=== PATIENT | male | born 1975 | race Caucasian/White ===

== ENCOUNTER 2020-09-02 08:32 | Outpatient (REF) | payer OTHER, SELFPAY ==
--- NOTE | ~2020-09-02 | CT_ITS ---
EXAMINATION: CT ABDOMEN AND PELVIS WITH CONTRAST CLINICAL INFORMATION: Left lower quadrant pain COMPARISON: None TECHNIQUE: Multidetector volumetric images were obtained from the superior aspect of the liver through the pubic symphysis following administration 85 mL of Omnipaque 350 intravenous contrast. Sagittal and coronal reformatted images were obtained on the technologist's workstation. Oral contrast: Yes This CT examination was performed using dose optimization techniques as appropriate, variously including the following: *Automated exposure control *Adjustment of mA and/or kV according to patient size (this includes techniques or standardized protocols for targeted exams where dose is matched to indication/reason for exam; i.e. extremities or head) *Use of iterative reconstruction technique DLP: 312 mGy-cm FINDINGS: LUNG BASES: The visualized lung bases are unremarkable. LIVER, GALLBLADDER, AND BILIARY TREE: Fatty enlarged liver. Postcholecystectomy. No focal liver lesion or biliary duct dilatation. PANCREAS: Unremarkable. SPLEEN: Unremarkable. ADRENAL GLANDS: Unremarkable. KIDNEYS AND URETERS: The kidneys are normal in size, shape, and attenuation. No hydronephrosis, hydroureter, or calculi seen. No perinephric stranding. BLADDER: Unremarkable. GASTROINTESTINAL TRACT: There is mild diverticulosis of the colon. No evidence of diverticulitis is seen. The small and large bowel is otherwise unremarkable. The stomach and appendix are unremarkable. ABDOMINAL WALL: Small umbilical hernia containing fat. LYMPH NODES: Normal. VASCULAR: Unremarkable. PELVIC VISCERA: Unremarkable. OSSEOUS STRUCTURES: Spondylolysis, grade 1 spondylolisthesis and degenerative disc disease at L5-S1. CT/CT abdomen pelvis w con IMPRESSION: Diverticulosis of the colon. No evidence of diverticulitis. Enlarged fatty liver.
[2020-09-02] MEDS: iohexoL 350 MG/ML 100 ML INFUS..BTL IV (10:24)
== END 2020-09-02 08:33 | disposition home or self-care (01) ==
LOC: HO.CT 08:32
PROVIDERS: PCP Nurse Practitioner Family; Visit Provider Nurse Practitioner Family
DX: R10.32 Left lower quadrant pain (principal)
CPT/HCPCS: 74177; Q9967

== ENCOUNTER 2022-12-31 15:15 | Outpatient (AMB) | payer OTHER, SELFPAY ==
--- NOTE | 2022-12-31 15:16 | MHC.OFFWIV ---
Intake Vital Signs 12/31/22 15:44 Weight 160 lb BP 120/70 Blood Pressure Location Rt brachial Position Sitting Pulse 87 Pulse Source Pulse Oximeter Temp 98.4 F Temp Source Temporal Artery Scan Pulse Oximetry (%) 97 Oxygen Delivery Method Room Air Intake Visit Reasons: EP, laryngitis Intake Note: pt is here today for laryngitis Patient Tobacco Use Status: Current everyday Tobacco user Allergies chantix Allergy (Unknown, Uncoded 12/31/22 15:59) sleep walking Medication List - Last Reconciled 12/31/22 by Alex Peralta MD nicotine 1 patch transdermal Q24H 28 days Do you need a note to return to daycare/school/sports/work: No HPI EP, laryngitis HPI Details Patient presents for a sick visit. Reporting symptoms of sinus congestion, sore throat and difficulty swallowing. Low-grade fever. No family member is sick. No recent travel. Patient reports symptoms of malaise and fatigue. [facility] Social History Alcohol intake: current Alcohol intake frequency: 3 or more drinks per day Patient Tobacco Use Status: Current everyday Tobacco user Cigarette Packs Per Day: 1.5 Years Smoked: 13 years old e-Cigarette/Vaping Use: Never Used Physical Exam Vital Signs: Last Vital Signs Temp 98.4 F 12/31/22 15:44 Pulse 87 12/31/22 15:44 BP 120/70 12/31/22 15:44 Pulse Ox 97 12/31/22 15:44 Oxygen Delivery Method Room Air 12/31/22 15:44 Const General: cooperative and healthy appearing Nutritional Appearance: well nourished Orientation/consciousness: patient oriented x3 Limitations: no limitations HEENT Head: Yes normal to inspection Eyes General: appearance normal, both eyes and all related structures Neck Neck: Yes normal visual inspection Chest Chest palpation & inspection: normal palpation of entire chest wall Resp Effort & Inspection: normal respiratory effort Neuro General: patient oriented x3 Results AMB Rapid Strep AMB Rapid Strep Negative Last Edit by Vishal Noel CMA on 12/31/22 15:54 Assessment & Plan Assessment & Plan (1) Upper respiratory tract infection: Code(s): J06.9 - Acute upper respiratory infection, unspecified Plan: Antibiotics called in. Symptoms not better to follow-up here. Saltwater gargling suggested. Orders: Orders AMB Rapid Strep Screen Today Z13.9 - Encounter for screening, unspecified Coding Level of Care Code Est Pt Level 3 (92444) Diagnoses Upper respiratory tract infection J06.9
[2022-12-31 15:44] VITALS: BP 120/70; PULSE 87; TEMP 36.9; O2SAT 97
== END 2022-12-31 16:22 | disposition home or self-care (01) ==
PROVIDERS: PCP Nurse Practitioner Family; Visit Provider Internal Medicine
DX: J06.9 Acute upper respiratory infection, unspecified (principal); J02.9 Acute pharyngitis, unspecified
CPT/HCPCS: 87880; 99213

== ENCOUNTER 2024-08-21 16:12 | Outpatient (AMB) | payer OTHER, SELFPAY ==
--- NOTE | 2024-08-21 16:11 | MHC.PC.OV ---
Vital Signs 08/21/24 16:16 Height 5 ft 4.17 in Weight 143 lb BMI 24.4 BP 114/58 L Respiration 12 Pulse 78 Pulse Source Pulse Oximeter Temp 98.1 F Temp Source Temporal Artery Scan Pulse Oximetry (%) 96 Oxygen Delivery Method Room Air Intake Visit Reasons: establish care School Community Relations Coordinator Required: No Accompanied by: Self / Same As Patient Allergies chantix Allergy (Unknown, Uncoded 08/21/24 16:35) sleep walking Medication List - Last Reconciled 08/21/24 by Dara Link PA-C No Known Home Meds Tobacco use date assessed: 08/21/24 Dental Screening Dental Screen Date: 08/21/24 Did you have a dental visit in the last 12 months?: Yes Did you have a dental problem in the last 6 months where you did not have access to dental care?: No Was dental information given to patient?: Patient has dentist HPI establish care HPI Details The patient is a 48-year-old male presenting to establish a new primary care provider along with an annual physical examination. He reports he has not seen a primary care provider in over 20 years. The patient reports symptoms consistent with carpal tunnel syndrome, including numbness and tingling in both hands, particularly at night and while driving. He has been using a hand splint during sleep, which provides some relief, but symptoms persist, indicating a positive Tinel's sign. 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 The cyst occasionally discharges malodorous pus, suggesting the need for surgical intervention to remove the cyst sac. The patient smokes two packs of cigarettes daily and consumes alcohol regularly, yet he maintains a routine of exercising every other day. He has no significant medical history of chronic conditions, although he suspects undiagnosed ADHD. Family history includes a father who had diabetes and at 67, and a mother with dementia in her late 60s. 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 - Substance Use: Smokes two packs of cigarettes daily and consumes alcohol regularly. - Exercise: Engages in physical activity every other day. - Family Status: Has children aged 26, 22, 20, and 11. [facility] Medical History (Updated 08/21/24 @ 17:04 by Dara Link PA-C) Annual physical exam Decreased hearing Dermoid cyst of eyebrow Carpal tunnel syndrome on both sides Colon cancer screening Family history of dementia Establishing care with new doctor, encounter for Family history of diabetes mellitus Family history of myocardial infarction Surgical History History of vasectomy Family History Mother Dementia Father Heart attack Social History Housing: House Alcohol intake: current Alcohol intake frequency: 3 or more drinks per day Patient Tobacco Use Status: Current everyday Tobacco user Cigarette Packs Per Day: 1.5 Cigarettes Per Day: 30 Years Smoked: 13 years old Current occupational status: employed Cognitive needs: No Hearing needs: No Vision needs: Yes (rx glasses) Questionnaire PHQ-9 Over the last 2 weeks, how often have you been bothered by any of the following problems? 1. Little interest or pleasure in doing things: not at all 2. Feeling down, depressed, or hopeless: not at all 3. Trouble falling or staying asleep, or sleeping too much: not at all 4. Feeling tired or having little energy: not at all 5. Poor appetite or overeating: not at all 6. Feeling bad about yourself - or that you are a failure or have let yourself or your family down: not at all 7. Trouble concentrating on things, such as reading the newspaper or watching television: not at all 8. Moving or speaking so slowly that other people could have noticed. Or the opposite - being so fidgety or restless that you have been moving around a lot more than usual: not at all 9. Thoughts that you would be better off or of hurting yourself in some way: not at all Total score: 0 Depression Screening Interpretation: Negative Depression Screening Done: Yes 08581 - PHQ-9 Billing: Yes Source: Developed by Drs. Amado Ca, Christi Davis, Gus Valentin and colleagues, with an educational rodri from [employer]. Thrive Questionnaire Date Thrive assessed: 08/21/24 I am a: Patient What is your living situation today?: I have a steady place to live Within the past 12 months, did the food you bought not last and you didn't have the money to get more?: Never true Within the past 12 months, did you worry whether your food would run out before you got money to buy more?: Never true Do you have trouble paying for medicines?: No Do you have trouble getting transportation to medical appointments?: No Do you have trouble paying your heating and electricity bill?: No Do you have trouble taking care of your child, family member or friend?: No Do you have trouble with day-to-day activities such as bathing, preparing meals, shopping, managing finances, etc.?: No Are you currently unemployed and looking for a job?: No Are you interested in more education?: No Please select the resources that you would like help with: None THRIVE Score: 0 AUDIT C Alcohol Use Questionnaire (AUDIT-C) 1. How often do you have a drink containing alcohol?: 4 or more times a week 2. How many drinks containing alcohol do you have on a typical day when you are drinking?: 3 or 4 3. How often do you have six or more drinks on one occasion?: Weekly Total Score: 8 Score Reviewed/Action Taken: No DARREN-7 AMB Questionnaire DARREN-7 Date DARREN - 7 assessed: 08/21/24 Feeling nervous, anxious, or on edge: 0 = Not at all Not being able to stop or control worryin = Not at all Worrying too much about different things: 0 = Not at all Trouble relaxin = Not at all Being so restless that it is hard to sit still: 0 = Not at all Becoming easily annoyed or irritable: 0 = Not at all Feeling afraid as if something awful might happen: 0 = Not at all Total DARREN-7 score (0-4 normal; 5-9 mild; 10-14 moderate; 15-21 severe): 0 Source: Developed by Drs. Amado Ca, Christi Davis, Gus Valentin and colleagues, with an educational rodri from [employer]. DARREN-7 Assessment Billing DARREN-7 Assessment Tool: DARREN-7 Assessment 57328 Review of Systems Const Details: - Neurological: Reports numbness and tingling in both hands, particularly at night and while driving. - Dermatological: Reports recurrent cyst on the eye with malodorous pus discharge. - Cardiovascular: Denies chest pain, palpitations, or leg swelling. - Gastrointestinal: Denies abdominal pain or changes in bowel habits. Physical exam (Primary Care) Vital Signs: Last Vital Signs Temp 98.1 F 08/21/24 16:16 Pulse 78 08/21/24 16:16 Resp 12 08/21/24 16:16 BP 114/58 L 08/21/24 16:16 Pulse Ox 96 08/21/24 16:16 Oxygen Delivery Method Room Air 08/21/24 16:16 Care Plan Goal for BP management: <140/90 at Goal BMI result Body Mass Index 24.4 normal bmi Tobacco/Smoking Status: Tobacco use Status Tobacco use date assessed 08/21/24 08/21/24 16:21 Patient Tobacco Use Status Current everyday Tobacco 08/21/24 16:21 e-Cigarette/Vaping Use 08/21/24 16:21 PHQ-9: PHQ-9 Score PHQ-9: Total score 0 08/21/24 16:21 Depression Screening Interpretation: Negative Thrive Assessment: Date of Thrive Assessment Date Thrive assessed 08/21/24 08/21/24 16:21 Const Other: Appearance: Alert. Oriented X3. No acute distress. Head: Normal external exam. Normocephalic. Atraumatic. Eyes: Pupils are equal, round, and reactive to light. Extraocular movements intact. Conjunctiva and sclera normal. Eyelids normal. Cysts noted on the eye. Ears: External auditory canal normal. Tympanic membranes normal. Hearing exam recommended due to decreased hearing. Throat: Pharynx normal. Uvula midline. Moist mucous membranes. Neck: Normal inspection. Neck supple. Full range of motion. No adenopathy. Thyroid Normal. No meningeal signs. No neck mass noted. Cardiovascular: Normal heart rate and rhythm. Heart sound normal. No murmurs noted. Pulses normal throughout. Respiratory: No respiratory distress. Painless inspiration. Breath sounds normal. No wheezes/rales/rhonchi noted. Chest nontender. No accessory muscle usage noted or decreased air movement noted. Abdomen: Soft and nontender. Bowel sounds normal in all 4 quadrants. No distention noted. No organomegaly noted. No visible injury noted. Back: No costovertebral angle tenderness. Full range of motion noted. Skin: Skin warm and dry. Normal skin color. Normal skin turgor. No rashes/lesions/lacerations noted. Cysts noted on the skin. Extremities: No lower extremity edema. Extremities exhibit normal range of motion. Extremities nontender. Positive Tinel sign indicating carpal tunnel syndrome. Neuro: Oriented X 3. No motor deficit. No sensory deficit. Reflexes normal. Coding Level of Care Code New Pt Level 4 (04852) New Pt Prev Care 40-64y(00969) Diagnoses Establishing care with new doctor, encounter for Z76.89 Annual physical exam Z00.00 Carpal tunnel syndrome on both sides G56.03 Colon cancer screening Z12.11 Decreased hearing H91.90 Dermoid cyst of eyebrow D23.39 Additional Codes PHQ-9 - 93213 - PHQ-9 Billing: Yes ([id number]) DARREN-7 Assessment Billing - DARREN-7 Assessment Tool: DARREN-7 Assessment [id number] ([id number]) Assessment & Plan Assessment & Plan (1) Establishing care with new doctor, encounter for: Code(s): Z76.89 - Persons encountering health services in other specified circumstances Category: Medical Plan: Patient had a normal exam today (2) Annual physical exam: Code(s): Z00.00 - Encounter for general adult medical examination without abnormal findings Category: Medical Plan: Patient had a normal exam today (3) Carpal tunnel syndrome on both sides: Code(s): G56.03 - Carpal tunnel syndrome, bilateral upper limbs Category: Medical Plan: A referral to orthopedics is considered for further evaluation, including potential surgical intervention if conservative measures fail. Patient declined PT referral at this time. Condition is chronic and stable continue to monitor. (4) Colon cancer screening: Code(s): Z12.11 - Encounter for screening for malignant neoplasm of colon Category: Medical Plan: The patient will undergo colon cancer screening using Cologuard, a non-invasive stool test, to detect potential colorectal abnormalities. Instructions were provided on how to complete the test at home, with follow-up based on results. (5) Decreased hearing: Code(s): H91.90 - Unspecified hearing loss, unspecified ear Category: Medical Plan: Patient reports chronic decreased hearing. Normal tympanic membranes and external ear canals and mastoids. No cerumen impaction. Will refer to ENT. Condition is chronic and stable continue to monitor. (6) Dermoid cyst of eyebrow: Code(s): D23.39 - Other benign neoplasm of skin of other parts of face Category: Medical Plan: The patient will be referred to dermatology for surgical removal of the epidermal inclusion cyst to prevent recurrence and manage symptoms. Condition is chronic and stable will continue to monitor. Plan Plan Patient was informed and verbally consented to the use of an ambient scribe for clinic note documentation during this visit. 1. Carpal Tunnel Syndrome A referral to orthopedics is considered for further evaluation, including potential surgical intervention if conservative measures fail. Patient declined PT referral at this time. Condition is chronic and stable continue to monitor. 2. Epidermal Inclusion Cyst The patient will be referred to dermatology for surgical removal of the epidermal inclusion cyst to prevent recurrence and manage symptoms. 3. Preventative Care: Colon Cancer Screening With Cologuard The patient will undergo colon cancer screening using Cologuard, a non-invasive stool test, to detect potential colorectal abnormalities. Instructions were provided on how to complete the test at home, with follow-up based on results. During the visit, I discussed the management of carpal tunnel syndrome, including the use of splints and potential referral to physical therapy (LDL patient declined PT at this time, and orthopedics for further evaluation. We also reviewed the need for dermatological intervention for the epidermal inclusion cyst, emphasizing the importance of removing the cyst sac to prevent recurrence. For colon cancer screening, I explained the Cologuard test process, its benefits, and the follow-up steps based on the results. Orders: Orders C Reactive Protein Today Z00.00 - Encounter for general adult medical examination without abnormal findings Hemoglobin A1c Today Z00.00 - Encounter for general adult medical examination without abnormal findings Comprehensive [place]. Panel Fast Today Z00.00 - Encounter for general adult medical examination without abnormal findings Liver Panel Today Z00.00 - Encounter for general adult medical examination without abnormal findings Lipid Panel Today Z00.00 - Encounter for general adult medical examination without abnormal findings Magnesium Today Z00.00 - Encounter for general adult medical examination without abnormal findings Vitamin B12 and Folate Today Z00.00 - Encounter for general adult medical examination without abnormal findings Vitamin D 25-OH Total Today Z00.00 - Encounter for general adult medical examination without abnormal findings Testosterone, Total Today Z00.00 - Encounter for general adult medical examination without abnormal findings DHEA Sulfate Today Z00.00 - Encounter for general adult medical examination without abnormal findings PSA,Total (Free>4and<10) Today Z00.00 - Encounter for general adult medical examination without abnormal findings TSH reflex Free T4 Today Z00.00 - Encounter for general adult medical examination without abnormal findings Complete Blood Count Auto Diff Today Z00.00 - Encounter for general adult medical examination without abnormal findings Testosterone, Free/Total Today Z00.00 - Encounter for general adult medical examination without abnormal findings Dihydrotestosterone Today Z00.00 - Encounter for general adult medical examination without abnormal findings Referrals Dermatology Referral D23.39 - Other benign neoplasm of skin of other parts of face Ear/Nose/Throat Referral H91.90 - Unspecified hearing loss, unspecified ear Cologuard Test Z12.11 - Encounter for screening for malignant neoplasm of colon Orthopedics Referral G56.03 - Carpal tunnel syndrome, bilateral upper limbs Medications: New multivitamin (Daily Multi-Vitamin tablet) 1 tab PO DAILY Patient Instructions: - Use hand splints at night to alleviate carpal tunnel symptoms. - Complete the Cologuard test as instructed and return it promptly. - Schedule orthopedics, and dermatology as discussed. - Avoid eating or drinking anything other than water or black coffee before blood tests.
[2024-08-21 16:16] VITALS: BP 114/58; PULSE 78; RESP 12; TEMP 36.7; O2SAT 96; BMI 24.4
== END 2024-08-21 16:57 | disposition home or self-care (01) ==
LOC: HO.HMCSH 16:12
PROVIDERS: PCP Internal Medicine; Visit Provider Physician Assistant Medical
DX: Z00.00 Encounter for general adult medical examination without abnormal findings (principal); G56.03 Carpal tunnel syndrome, bilateral upper limbs; H91.93 Unspecified hearing loss, bilateral; D23.39 Other benign neoplasm of skin of other parts of face; Z76.89 Persons encountering health services in other specified circumstances; Z12.11 Encounter for screening for malignant neoplasm of colon

== ENCOUNTER → 2024-08-21 16:12 | Outpatient (BNVA) | payer OTHER, SELFPAY | PROVIDERS: PCP Internal Medicine; Visit Provider Physician Assistant Medical | DX: Z00.00 Encounter for general adult medical examination without abnormal findings (principal); G56.03 Carpal tunnel syndrome, bilateral upper limbs; H91.90 Unspecified hearing loss, unspecified ear; D23.39 Other benign neoplasm of skin of other parts of face; F17.210 Nicotine dependence, cigarettes, uncomplicated; Z76.89 Persons encountering health services in other specified circumstances | CPT/HCPCS: 96127 ==

== ENCOUNTER 2024-09-23 11:33 | Outpatient (REF) | payer OTHER, SELFPAY ==
--- OUTSIDE RECORDS SUMMARY | 2024-09-23 13:42 | XMS_ITS | Clinical Summary ---
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 30 tablet 10/21/19 25 Active Active Problems Problem Noted Date Diagnosed Date Acute metabolic encephalopathy 09/19/2024 Acute hepatic failure 09/19/2024 Acute hypoxic respiratory fa ilure (HCC) s/p intubation now extubated 09/19/2024 REMY (acute kidney injury) 09/19/2024 Tylenol ingestion, intentional self-harm, initia l encounter 09/19/2024 Hematemesis 09/13/2024 Encounters Date Type Department Care Team Description 09/13/2024 7:00 AM EDT Ancillary Procedure [facility] Radiology [address] [place] [phone] Provider, File Room 09/13/2024 6:55 AM EDT Ancillary Procedure [facility] Radiology [address] [place] [phone] Provider, File Room 09/13/2024 6:55 AM EDT Ancillary Procedure [facility] Radiology [address] [place] [phone] Provider, File Room 09/13/2024 5:20 AM EDT - 09/19/2024 2:41 PM EDT Hospital Encounter [facility] [address] [place] [address], [place] [phone] Jamal Stewart MD Powner, Jordan T, Tk Matos MD Rheiner, Jacqueline A, DO Hebbal, Pooja, MD Pichardo Castillo, Jose, MD Hematemesis (Primary Dx); Cocaine abuse (HCC); Hepatic encephalopathy (HCC); Jaundice; Thrombocytopenia; Transaminitis; Hyperammonemia; Hyperbilirubinemia; Tylenol ingestion, intentional self-harm, initial encounter (HCC); Acute metabolic encephalopathy Discharge Disposition: Home or Self Care 09/13/2024 Travel 09/13/2024 Orders Only [facility] Radiology [address] [place] [phone] Provider, File Room from Last 3 Months Social History Tobacco Use Types Packs/Day Years Used Date Smoking Tobacco: Never Assessed [facility] Utilities Answer Date Recorded In the past 12 months has [employer], oil, or water [employer] threatened to shut off services in your home? Patient unable to answer 09/14/2024 AUDIT-C Answer Date Recorded Q1: How often do you have a drink containing alcohol? Patient unable to answer 09/13/2024 Q2: How many drinks containi ng alcohol do you have on a typical day when you are drinking? Patient unable to answer Q3: How often do you have si x or more drinks on one occasion? Patient unable to answer 09/13/2024 Hunger Vital Sign Answer Date Recorded Within the past 12 months, y ou worried that your food would run out before you got the money to buy more. Patient unable to answer 09/14/2024 Within the past 12 months, t he food you bought just didn't last and you didn't have money to get more. Patient unable to answer 09/14/2024 PRAPARE - Transportation Answer Date Re corded In the past 12 months, has l ack of transportation kept you from medical appointments or from getting medications? Patient unable to answer 09/14/2024 In the past 12 months, has l ack of transportation kept you from meetings, work, or from getting things needed for daily living? Patient unable to answer 09/14/2024 Housing Stability Vital Sign Answer Ervin e Recorded In the last 12 months, was t here a time when you were not able to pay the mortgage or rent on time? Patient unable to answer 09/14/2024 In the past 12 months, how m any times have you moved where you were living? 1 09/14/2024 At any time in the past 12 m [facility], were you homeless or living in a intermediate (including now)? Patient unable to answer 09/14/2024 Sex and Gender Information Value Date Recorded Sex Assigned at Male 09/13/2024 9:59 AM EDT Legal Sex Male 1:23 AM EDT Gender Identity Male 09/13/2024 9:59 AM EDT Sexual Orientation Heterosexual (straight) 09/13 9:59 AM EDT Last Filed Vital Signs Vital Sign Reading Time Taken Comments Blood Pressure 136/73 09/19/2024 11:27 AM EDT Pulse 76 09/19/2024 11:27 AM EDT Temperature 36.1 C (97 F) 09/19/2024 11:27 AM EDT Respiratory Rate 17 09/19/2024 11:2 7 AM EDT Oxygen Saturation 98% 09/19/2024 11: 27 AM EDT Inhaled Oxygen Concentration - - Weight 66.2 kg (145 lb 15.1 oz) 09/19/2024 6:00 AM EDT Height 172.7 cm (5' 8 ) 09/16/2024 2:40 PM EDT Body Mass Index 22.19 09/16/2024 2:40 PM EDT Plan of Treatment Health Maintenance Due Date Last Done Comments HIV Screening 1990 DTaP/Tdap/Td Vaccines (1 - Tdap) 1996 Hepatitis B Vaccines (1 of 3 - 19+ 3-dose series) 1996 Colonoscopy 2022 COVID-19 Vaccine ( - 2023-2 5 season) 2023 Influenza Vaccine 10/09/2024 Hepatitis C Virus Screening Completed 10/2024, 09/13/2024 Pneumococcal Vaccine: Pediatric (0-5 Years) and At-Risk Patients (6 to 49 Years) Aged Out No longer eligible b ased on patient's age to complete this topic Procedures Procedure Name Priority Date/Time Associated Diagnosis Comments HX PHYSICIAN ORDER 09/22/2024 1: 56 PM EDT POCT GLUCOSE, FINGERSTICK (CHARGE) Routine 09/19/2024 9:06 AM EDT COMPREHENSIVE METABOLIC PANEL Routine 09/19/2024 8:09 AM EDT PROTIME-INR Routine 09/19/2024 8:09 AM EDT MAGNESIUM Routine 09/19/2024 8:09 AM EDT COMPLETE BLOOD COUNT, WITHOUT DIFFERENTIAL Routine 09/19/2024 8:09 AM EDT PROTIME-INR Routine 09/18/2024 11:49 PM EDT HEPATIC FUNCTION PANEL Routine 11:49 PM EDT COMPLETE BLOOD COUNT, WITHOUT DIFFERENTIAL Routine 09/18/2024 11:49 PM EDT PHOSPHORUS Routine 09/18/2024 11:49 PM EDT MAGNESIUM Routine 09/18/2024 11:49 PM EDT BASIC METABOLIC PANEL Routine 09/18/2024 11:49 PM EDT POCT GLUCOSE, FINGERSTICK (CHARGE) Routine 09/18/2024 8:56 PM EDT POCT GLUCOSE, FINGERSTICK (CHARGE) Routine 09/18/2024 4:18 PM EDT POCT GLUCOSE, FINGERSTICK (CHARGE) Routine 09/18/2024 12:08 PM EDT POCT GLUCOSE, FINGERSTICK (CHARGE) Routine 09/18/2024 7:37 AM EDT SODIUM Routine 09/18/2024 6:23 AM EDT POCT GLUCOSE, FINGERSTICK (CHARGE) Routine 09/18/2024 4:02 AM EDT POCT GLUCOSE, FINGERSTICK (CHARGE) Routine 09/18/2024 12:47 AM EDT T4, FREE Routine 09/18/2024 12:40 AM EDT FOLATE LEVEL Routine 09/18/2024 12:40 AM EDT VITAMIN B12 Routine 09/18/2024 12:40 AM EDT TSH, HIGHLY SENSITIVE Routine 09/18/2024 12:40 AM EDT PROTIME-INR Routine 09/18/2024 12:40 AM EDT HEPATIC FUNCTION PANEL Routine 12:40 AM EDT PHOSPHORUS Routine 09/18/2024 12:40 AM EDT MAGNESIUM Routine 09/18/2024 12:40 AM EDT BASIC METABOLIC PANEL Routine 09/18/2024 12:40 AM EDT COMPLETE BLOOD COUNT, WITHOUT DIFFERENTIAL Routine 09/18/2024 12:40 AM EDT POCT GLUCOSE, FINGERSTICK (CHARGE) Routine 09/17/2024 8:15 PM EDT POCT GLUCOSE, FINGERSTICK (CHARGE) Routine 09/17/2024 4:13 PM EDT POCT GLUCOSE, FINGERSTICK (CHARGE) Routine 09/17/2024 12:06 PM EDT ECHOCARDIOGRAM (TTE) COMPREHENSIVE (CONTRAST PRN) Routine 09/17/2024 11:40 AM EDT PHOSPHORUS Routine 09/17/2024 11:30 AM EDT MAGNESIUM Routine 09/17/2024 11:30 AM EDT BASIC METABOLIC PANEL Routine 09/17/2024 11:30 AM EDT EXTUBATION Routine 09/17/2024 8:47 AM EDT POCT GLUCOSE, FINGERSTICK (CHARGE) Routine 09/17/2024 7:57 AM EDT POCT GLUCOSE, FINGERSTICK (CHARGE) Routine 09/17/2024 4:22 AM EDT MRI BRAIN W W/O CONTRAST Routine 09/17/2024 3:50 AM EDT SODIUM Routine 09/17/2024 2:46 AM EDT PROTIME-INR Routine 09/17/2024 12:28 AM EDT COMPLETE BLOOD COUNT, WITHOUT DIFFERENTIAL Routine 09/17/2024 12:28 AM EDT HEPATIC FUNCTION PANEL Routine 12:28 AM EDT PHOSPHORUS Routine 09/17/2024 12:28 AM EDT MAGNESIUM Routine 09/17/2024 12:28 AM EDT BASIC METABOLIC PANEL Routine 09/17/2024 12:28 AM EDT POCT GLUCOSE, FINGERSTICK (CHARGE) Routine 09/16/2024 11:57 PM EDT SODIUM Routine 09/16/2024 9:10 PM EDT POCT GLUCOSE, FINGERSTICK (CHARGE) Routine 09/16/2024 8:12 PM EDT XR ABDOMEN 1 VIEW STAT 09/16/2024 7:2 9 PM EDT POCT GLUCOSE, FINGERSTICK (CHARGE) Routine 09/16/2024 3:55 PM EDT SODIUM Routine 09/16/2024 2:28 PM EDT PROTIME-INR Routine 09/16/2024 2:28 PM EDT POCT GLUCOSE, FINGERSTICK (CHARGE) Routine 09/16/2024 12:01 PM EDT LACTIC ACID, PLASMA Routine 09/16/2024 1 1:45 AM EDT HEPATIC FUNCTION PANEL Routine 11:45 AM EDT PHOSPHORUS Routine 09/16/2024 11:45 AM EDT MAGNESIUM Routine 09/16/2024 11:45 AM EDT BASIC METABOLIC PANEL Routine 09/16/2024 11:45 AM EDT EEG ROUTINE Routine 09/16/2024 9:19 AM EDT ECG 12-LEAD Routine 09/16/2024 8:38 AM EDT POCT GLUCOSE, FINGERSTICK (CHARGE) Routine 09/16/2024 8:35 AM EDT HEMOGLOBIN AND HEMATOCRIT Routine 09/16/2024 8:30 AM EDT SODIUM Routine 09/16/2024 8:30 AM EDT VANCOMYCIN LEVEL-RANDOM Timed 09/17/19 6:49 AM EDT POCT GLUCOSE, FINGERSTICK (CHARGE) Routine 09/16/2024 4:08 AM EDT SODIUM Routine 09/16/2024 3:12 AM EDT POCT GLUCOSE, FINGERSTICK (CHARGE) Routine 09/16/2024 12:10 AM EDT AMMONIA LEVEL Routine 09/16/2024 12:00 AM EDT COMPLETE BLOOD COUNT, WITHOUT DIFFERENTIAL Routine 09/16/2024 12:00 AM EDT PROTIME-INR Routine 09/16/2024 12:00 AM EDT HEPATIC FUNCTION PANEL Routine 12:00 AM EDT PHOSPHORUS Routine 09/16/2024 12:00 AM EDT MAGNESIUM Routine 09/16/2024 12:00 AM EDT BASIC METABOLIC PANEL Routine 09/16/2024 12:00 AM EDT SODIUM Routine 09/15/2024 8:59 PM EDT POCT GLUCOSE, FINGERSTICK (CHARGE) Routine 09/15/2024 8:11 PM EDT BLOOD GAS WITH COOXIMETRY, ARTERIAL Routine 09/15/2024 5:39 PM EDT POCT GLUCOSE, FINGERSTICK (CHARGE) Routine 09/15/2024 4:28 PM EDT SODIUM Routine 09/15/2024 3:20 PM EDT BLOOD GAS WITH COOXIMETRY, ARTERIAL Routine 09/15/2024 3:10 PM EDT AMMONIA LEVEL Routine 09/15/2024 2:10 PM EDT PROTIME-INR Routine 09/15/2024 2:10 PM EDT POCT GLUCOSE, FINGERSTICK (CHARGE) Routine 09/15/2024 11:41 AM EDT HEPATIC FUNCTION PANEL Routine 11:35 AM EDT PHOSPHORUS Routine 09/15/2024 11:35 AM EDT MAGNESIUM Routine 09/15/2024 11:35 AM EDT BASIC METABOLIC PANEL Routine 09/15/2024 11:35 AM EDT BLOOD GAS WITH COOXIMETRY, ARTERIAL Routine 09/15/2024 9:00 AM EDT AMMONIA LEVEL Routine 09/15/2024 9:00 AM EDT SODIUM Routine 09/15/2024 8:40 AM EDT FACTOR V ASSAY Routine 09/15/2024 8:40 AM EDT HEPATITIS C VIRAL LOAD, QUANTITATIVE Routine 09/15/2024 8:40 AM EDT NASAL MRSA SCREEN, PCR Routine 8:35 AM EDT POCT GLUCOSE, FINGERSTICK (CHARGE) Routine 09/15/2024 7:42 AM EDT POCT GLUCOSE, FINGERSTICK (CHARGE) Routine 09/15/2024 4:18 AM EDT BLOOD CULTURE (HOSP LAB) Routine 09/15/2024 3:05 AM EDT BLOOD CULTURE (HOSP LAB) Routine 09/15/2024 3:05 AM EDT XR CHEST 1 VIEW-PORTABLE Routine 09/15/2024 2:38 AM EDT RESPIRATORY CULTURE (AEROBIC AND GRAM STAIN) Routine 09/15/2024 2:21 AM EDT URINALYSIS WITH REFLEX TO MICROSCOPIC Routine 09/15/2024 2:20 AM EDT COMPLETE BLOOD COUNT, WITHOUT DIFFERENTIAL Routine 09/15/2024 1:14 AM EDT LIPASE Routine 09/15/2024 1:04 AM EDT AMMONIA LEVEL Routine 09/15/2024 1:04 AM EDT PROTIME-INR Routine 09/15/2024 1:04 AM EDT HEPATIC FUNCTION PANEL Routine 1:04 AM EDT PHOSPHORUS Routine 09/15/2024 1:04 AM EDT MAGNESIUM Routine 09/15/2024 1:04 AM EDT BASIC METABOLIC PANEL Routine 09/15/2024 1:04 AM EDT POCT GLUCOSE, FINGERSTICK (CHARGE) Routine 09/15/2024 12:02 AM EDT POCT GLUCOSE, FINGERSTICK (CHARGE) Routine 09/14/2024 7:56 PM EDT LACTIC ACID, PLASMA Routine 09/14/2024 5 :50 PM EDT XR ABDOMEN 1 VIEW Routine 09/14/2024 4:4 2 PM EDT POCT GLUCOSE, FINGERSTICK (CHARGE) Routine 09/14/2024 4:05 PM EDT AMMONIA LEVEL Routine 09/14/2024 2:08 PM EDT PROTIME-INR Routine 09/14/2024 2:08 PM EDT ECG 12-LEAD Routine 09/14/2024 1:31 PM EDT HEPATIC FUNCTION PANEL Routine 12:12 PM EDT PHOSPHORUS Routine 09/14/2024 12:12 PM EDT MAGNESIUM Routine 09/14/2024 12:12 PM EDT BASIC METABOLIC PANEL Routine 09/14/2024 12:12 PM EDT POCT GLUCOSE, FINGERSTICK (CHARGE) Routine 09/14/2024 12:01 PM EDT XR ABDOMEN 1 VIEW Routine 09/14/2024 10: 47 AM EDT BLOOD GAS WITH COOXIMETRY, VENOUS Routine 09/14/2024 9:43 AM EDT LACTIC ACID, PLASMA Routine 09/14/2024 9 :03 AM EDT POCT GLUCOSE, FINGERSTICK (CHARGE) Routine 09/14/2024 7:55 AM EDT POCT GLUCOSE, FINGERSTICK (CHARGE) Routine 09/14/2024 4:12 AM EDT HEPATIC FUNCTION PANEL Routine 2:40 AM EDT CREATINE KINASE (CK) Routine 09/14/2024 2:40 AM EDT PHOSPHORUS Routine 09/14/2024 2:40 AM EDT MAGNESIUM Routine 09/14/2024 2:40 AM EDT BASIC METABOLIC PANEL Routine 09/14/2024 2:40 AM EDT COMPLETE BLOOD COUNT, WITHOUT DIFFERENTIAL Routine 09/14/2024 2:40 AM EDT AMMONIA LEVEL Routine 09/14/2024 2:40 AM EDT ACETAMINOPHEN LEVEL Routine 09/14/2024 1 2:20 AM EDT AMMONIA LEVEL Routine 09/14/2024 12:20 AM EDT LIPASE Routine 09/14/2024 12:20 AM EDT PROTIME-INR Routine 09/14/2024 12:20 AM EDT CREATINE KINASE (CK) Routine 09/14/2024 12:20 AM EDT POCT GLUCOSE, FINGERSTICK (CHARGE) Routine 09/13/2024 11:55 PM EDT US DUPLEX ABDOMEN/PELVIS-COMPLETE Routine 09/13/2024 11:23 PM EDT US SOFT TISSUE HEAD/NECK Routine 09/13/2024 11:23 PM EDT POCT GLUCOSE, FINGERSTICK (CHARGE) Routine 09/13/2024 8:29 PM EDT CHINEDU-BOYLE VIRUS (EBV) DNA, PCR, QUANTITATIVE Routine 09/13/2024 6:32 PM EDT XR ABDOMEN 1 VIEW Routine 09/13/2024 5:5 0 PM EDT HEMOGLOBIN AND HEMATOCRIT Routine 09/13/2024 4:10 PM EDT TRIGLYCERIDES Routine 09/13/2024 4:10 PM EDT HEPATIC FUNCTION PANEL Routine 4:10 PM EDT PHOSPHORUS Routine 09/13/2024 4:10 PM EDT MAGNESIUM Routine 09/13/2024 4:10 PM EDT BASIC METABOLIC PANEL Routine 09/13/2024 4:10 PM EDT CREATINE KINASE (CK) Routine 09/13/2024 4:10 PM EDT EEG ROUTINE Routine 09/13/2024 4:07 PM EDT XR ABDOMEN 1 VIEW Routine 09/13/2024 3:1 5 PM EDT ACETAMINOPHEN LEVEL Routine 09/13/2024 2 :51 PM EDT AMMONIA LEVEL Routine 09/13/2024 2:51 PM EDT HEPATIC FUNCTION PANEL Routine 2:19 PM EDT PHOSPHORUS Routine 09/13/2024 2:19 PM EDT MAGNESIUM Routine 09/13/2024 2:19 PM EDT BASIC METABOLIC PANEL Routine 09/13/2024 2:19 PM EDT HIGH SENSITIVITY TROPONIN T CARD 09/13/2024 2:19 PM EDT CREATINE KINASE (CK) Routine 09/13/2024 2:19 PM EDT SODIUM, URINE, RANDOM STAT 09/13/2024 2:10 PM EDT CREATININE, URINE, RANDOM STAT 09/13/2024 2:10 PM EDT XR ABDOMEN 1 VIEW Routine 09/13/2024 1:0 5 PM EDT POCT GLUCOSE, FINGERSTICK (CHARGE) Routine 09/13/2024 12:26 PM EDT HEPATITIS PANEL, ACUTE STAT 11:25 AM EDT ECG 12-LEAD STAT 09/13/2024 10:21 AM EDT PROBNP, N-TERMINAL STAT 09/13/2024 10 :04 AM EDT OSMOLALITY STAT 09/13/2024 10:04 AM EDT HIGH SENSITIVITY TROPONIN T STAT 09/13/2024 10:04 AM EDT ACETAMINOPHEN LEVEL Routine 09/13/2024 1 0:04 AM EDT CREATINE KINASE (CK) STAT 09/13/2024 10:04 AM EDT COMPLETE BLOOD COUNT, WITHOUT DIFFERENTIAL STAT 09/13/2024 10:04 AM EDT HEPATIC FUNCTION PANEL STAT 10:04 AM EDT BASIC METABOLIC PANEL STAT 09/13/2024 10:04 AM EDT PROTIME-INR STAT 09/13/2024 10:04 AM EDT BLOOD GAS, ARTERIAL Routine 09/13/2024 1 0:00 AM EDT BLOOD GAS, ARTERIAL STAT 09/13/2024 9 :42 AM EDT BLOOD CULTURE (HOSP LAB) STAT 09/13/2024 8:50 AM EDT BLOOD CULTURE (HOSP LAB) STAT 09/13/2024 8:46 AM EDT POCT GLUCOSE, FINGERSTICK (CHARGE) Routine 09/13/2024 8:02 AM EDT ACETAMINOPHEN LEVEL STAT 09/13/2024 8 :01 AM EDT LACTIC ACID, PLASMA STAT 09/13/2024 8 :01 AM EDT PARTIAL THROMBOPLASTIN TIME (PTT) STAT 09/13/2024 8:01 AM EDT PROTIME-INR STAT 09/13/2024 8:01 AM EDT HIGH SENSITIVITY TROPONIN T CARD 09/13/2024 8:01 AM EDT LIPASE STAT 09/13/2024 8:01 AM EDT HEPATIC FUNCTION PANEL STAT 8:01 AM EDT MAGNESIUM STAT 09/13/2024 8:01 AM EDT BASIC METABOLIC PANEL STAT 09/13/2024 8:01 AM EDT COMPLETE BLOOD COUNT, WITH DIFFERENTIAL STAT 09/13/2024 8:01 AM EDT TRICYCLIC SCREEN, URINE Routine 09/14/19 7:54 AM EDT SODIUM, URINE, RANDOM Routine 09/13/2024 7:54 AM EDT PHENCYCLIDINE (PCP) SCREEN, URINE Routine 09/13/2024 7:54 AM EDT OXYCODONE SCREEN, URINE Routine 09/14/19 7:54 AM EDT OPIATE SCREEN, URINE Routine 09/13/2024 7:54 AM EDT METHADONE SCREEN, URINE Routine 09/14/19 25 7:54 AM EDT FENTANYL SCREEN, URINE FNTYL5 Routine 09/13/2024 7:54 AM EDT ETHANOL, URINE Routine 09/13/2024 7:54 AM EDT CREATININE, URINE, RANDOM Routine 09/13/2024 7:54 AM EDT COCAINE SCREEN, URINE Routine 09/13/2024 7:54 AM EDT CANNABINOID SCREEN, URINE Routine 09/13/2024 7:54 AM EDT BUPRENORPHINE SCREEN, URINE Routine 09/13/2024 7:54 AM EDT BENZODIAZEPINE SCREEN, URINE Routine 09/13/2024 7:54 AM EDT BARBITURATE SCREEN, URINE Routine 09/13/2024 7:54 AM EDT AMPHETAMINE SCREEN, URINE Routine 09/13/2024 7:54 AM EDT URINALYSIS WITH REFLEX TO MICROSCOPIC AND CULTURE STAT 09/13/2024 7:54 AM EDT INTUBATION Routine 09/13/2024 7:53 AM EDT XR CHEST 1 VIEW-PORTABLE STAT 09/13/2024 7:[address] HEAD ARCHIVE FOR REFERENCE ONLY Routine 09/13/2024 6:51 AM EDT CR CHEST ARCHIVE FOR REFERENCE ONLY Routine 09/13/2024 6:[address] ABDOMEN ARCHIVE FOR REFERENCE ONLY Routine 09/13/2024 6:50 AM EDT ECG 12-LEAD STAT 09/13/2024 6:01 AM EDT from Last 3 Months Results * Physician Order (09/22/2024 1:56 PM EDT) Narrative 09/22/2024 1:56 PM EDT Ordered by an unspecified provider. us Generic Provider HX AMB PROCEDURES Final Result * POCT Glucose, Fingerstick (09/19/2024 9:06 AM EDT) Only the most recent of34 resultswithin the time period is included. POC Glucose 96 65 - 99 mg/dL 09/19/2024 9:07 AM EDT Blood specimen / Unknown 09/19/2024 9:06 AM EDT 09/19/2024 9:07 AM EDT Jamal Stewart MD POINT OF CARE TEST OR DERABLES Final Result HOSPITAL LAB See Below * (ABNORMAL) Protime-INR (Add-On) (09/19/2024 8:09 AM EDT) Only the most recent of12 resultswithin the time period is included. [facility] Anticoagulant IV HEPARIN, UNFRACTIONATED 09/19/2024 7:21 AM EDT [facility] Prothrombin Time (PT) 17.0(H) 10.0 - 13.5 seconds 09/19[facility]24 [facility].5 09/19/2024 9:28 AM T [facility] Comment:INR Therapeutic Rang es: Standard dose anticoagulant 2.0 to 3.0, High dose anticoagulant 2.5-3.5. Blood Blood specimen / Unknown 09/19/2024 8:09 AM EDT 09/19/2024 8:41 AM EDT Dwayne Marsh MD LAB BLOOD ORDERABLES F inal Result Performing Organization Address [facility] Co de Phone Number [address] [address], [address] [address] * (ABNORMAL) Complete Blood Count WITHOUT Differential - ROUTINE (09/19/2024 8:09 AM EDT) Only the most recent of8 resultswithin the time period is included. [facility] White Blood Cell Count 5.0 4.0 - 11.0 Thou/uL 09/19/2024 10:05 AM T [facility] Platelet Count 46(L) 150 - 450 Thou/uL 09/19/2024 10:05 AM T [facility] Comment: Results verified by smear review. Test results repeated. Occasional large platelet present. Hemoglobin 11.0(L) 13.0 - 17.7 g/dL 09/19/2024 10:05 AM [facility] Hematocrit 33.5(L) 39.0 - 54.0 % 09/19/2024 10:05 AM [facility] Red Blood Cell Count 3.54(L) 4.50 - 6.20 Mil/uL 09/19/2024 10:05 AM [facility] MCV 95 80 - 100 fL 09/19/2024 10:05 AM [facility] MCH 31.1 26.0 - 34.0 pg 09/19/2024 10:05 AM [facility] MCHC 32.8 30.0 - 36.0 g/dL 09/19/2024 10:05 AM [facility] RDW 15.9(H) 11.5 - 14.5 % 09/19/2024 10:05 AM [facility] MPV 12.1 7.5 - 12.5 fL 09/19/2024 10:05 AM [facility] Immature Platelet Fraction 9.9(H) 1.2 - 8.6 % 09/19/2024 10:05 AM [facility] Blood Blood specimen / Unknown 09/19/2024 8:09 AM EDT 09/19/2024 8:41 AM EDT Dwayne Marsh MD LAB BLOOD ORDERABLES F inal Result [address] [address], [address] [address] * Magnesium (AM) (09/19/2024 8:09 AM EDT) Only the most recent of14 resultswithin the time period is included. Magnesium 1.8 1.6 - 2.7 mg/dL 09/19/2024 9:48 AM [facility] Blood Blood specimen / Unknown 09/19/2024 8:09 AM EDT 09/19/2024 8:41 AM EDT Dwayne Marsh MD LAB BLOOD ORDERABLES F inal Result [facility] [address] [place] [address], [facility] [address] [place] [address] * (ABNORMAL) Comprehensive Metabolic Panel (09/19/2024 8:09 AM EDT) Glucose 97 65 - 99 mg/dL 09/19/2024 9:48 AM [facility] Comment:Fasting: <100 mg/dL, Non-Fasting: <200 mg/dL (ADA 2004) Blood Urea Nitrogen (BUN) 26(H) 8 - 21 mg/dL 09/19/2024 9:48 AM [facility] Creatinine 1.2 0.5 - 1.3 mg/dL 09/19/2024 9:48 AM [facility] eGFR 76 >59 09/19/2024 9:48 AM [facility] Comment:CKD-EPI (2020) in mL /min/1.73 sq meters. Sodium 145 136 - 145 mmol/L 09/19/2024 9:48 AM [facility] Potassium 3.7 3.4 - 5.3 mmol/L 09/19/2024 9:48 AM [facility] Chloride 114(H) 98 - 107 mmol/L 09/19/2024 9:48 AM [facility] CO2 23 22 - 33 mmol/L 09/19/2024 9:48 AM [facility] Calcium 8.4(L) 8.7 - 10.5 mg/dL 09/19/2024 9:48 AM [facility] Alkaline Phosphatase 122 45 - 128 U/L 09/19/2024 9:48 AM [facility] Aspartate Aminotrans (AST) 104(H) 10 - 55 U/L 09/19/2024 9:48 AM [facility] Alanine Aminotrans (ALT) 925(H) 10 - 55 U/L 09/19/2024 9:57 AM [facility] Bilirubin, Total 6.7(H) 0.2 - 1.0 mg/dL 09/19/2024 9:48 AM [facility] Protein, Total 5.0(L) 6.3 - 8.3 g/dL 09/19/2024 9:48 AM EDT [facility] Albumin 2.9(L) 3.5 - 5.0 g/dL 09/19/2024 9:48 AM EDT [facility] BUN/Creatinine Ratio 22 10.0 - 25.0 Ratio 09/19/2024 9:48 AM EDT [facility] Globulin 2.1 1.5 - 3.9 g/dL 09/19/2024 9:48 AM EDT [facility] Albumin/Globulin Ratio 1.4 1.0 - 3.0 Ratio 09/19/2024 9:48 AM EDT [facility] Anion Gap 8 7 - 17 09/19/2024 9:48 AM EDT [facility] Blood Blood specimen / Unknown 09/19/2024 8:09 AM EDT 09/19/2024 8:41 AM EDT Dwayne Marsh MD LAB BLOOD ORDERABLES F inal Result Performing Organization Address City/[facility]/[place] [address], [place] [address] * (ABNORMAL) Phosphorus (09/18/2024 11:49 PM EDT) Only the most recent of12 resultswithin the time period is included. Phosphorus 2.3(L) 2.7 - 4.5 mg/dL 09/19/2024 12:29 AM EDT [facility] Blood Blood specimen / Unknown 09/18/2024 11:49 PM EDT 09/19/2024 12:01 AM EDT Dana Harris APRN LAB BLOOD ORDERABLES Final R esult Performing Organization Address City/[facility]/[place] [address], [place] [address] * (ABNORMAL) HEPATIC FUNCTION PANEL (09/18/2024 11:49 PM EDT) Only the most recent of13 resultswithin the time period is included. Alkaline Phosphatase 109 45 - 128 U/L [facility] Aspartate Aminotrans (AST) 108(H) 10 - 55 U/L 09/19/2024 12:29 AM [facility] Alanine Aminotrans (ALT) 1,031(H) 10 - 55 U/L 09/19/2024 12:32 AM [facility] Bilirubin, Total 7.4(H) 0.2 - 1.0 mg/dL 09/19/2024 12:29 AM [facility] Protein, Total 4.8(L) 6.3 - 8.3 g/dL 09/19/2024 12:29 AM [facility] Albumin 2.8(L) 3.5 - 5.0 g/dL 09/19/2024 12:29 AM [facility] Bilirubin, Direct 5.2(H) 0 - 0.2 mg/dL 09/19/2024 12:29 AM [facility] Globulin 2.0 1.5 - 3.9 g/dL 09/19/2024 12:29 AM [facility] Albumin/Globulin Ratio 1.4 1.0 - 3.0 Ratio 09/19/2024 12:29 AM [facility] Blood Blood specimen / Unknown 09/18/2024 11:49 PM EDT 09/19/2024 12:01 AM EDT [facility] [employer] LAB BLOOD ORDERABLES Final R esult [address] [address], [address] [address] * (ABNORMAL) Basic Metabolic Panel (09/18/2024 11:49 PM EDT) Only the most recent of14 resultswithin the time period is included. Pathologist [facility] Glucose 87 65 - 99 mg/dL 09/19/2024 12:29 AM [facility] Comment:Fasting: <100 mg/dL, Non-Fasting: <200 mg/dL (ADA 2005) Blood Urea Nitrogen (BUN) 24(H) 8 - 21 mg/dL 09/19[facility]2024 12[facility] Creatinine 1.3 0.5 - 1.3 mg/dL 09/19/2024 12:29 AM [facility] eGFR 69 >59 09/19/2024 12:29 AM [facility] Comment:CKD-EPI (2020) in mL /min/1.73 sq meters. Sodium 142 136 - 145 mmol/L 09/19/2024 12:29 AM EDT [facility] Potassium 3.8 3.4 - 5.3 mmol/L 09/19/2024 12:29 AM [facility] Chloride 110(H) 98 - 107 mmol/L 09/19/2024 12:29 AM [facility] CO2 24 22 - 33 mmol/L 09/19/2024 12:29 AM [facility] Anion Gap 8 7 - 17 09/19/2024 12:29 AM [facility] Calcium 8.2(L) 8.7 - 10.5 mg/dL 09/19/2024 12:29 AM [facility] BUN/Creatinine Ratio 18 10.0 - 25.0 Ratio 09/19/2024 12:29 AM [facility] Blood Blood specimen / Unknown 09/18/2024 11:49 PM EDT 09/19/2024 12:01 AM [facility] [employer] LAB BLOOD ORDERABLES Final R esult [address] [address], [address] [address] * Sodium (09/18/2024 6:23 AM EDT) Only the most recent of9 resultswithin the time period is included. Sodium 140 136 - 145 mmol/L 09/18/2024 7:48 AM EDT [facility] Blood Blood specimen / Unknown 09/18/2024 6:23 AM EDT 09/18/2024 6:48 AM EDT Marie Simmons PA-C LAB BLOOD ORDERABLES Jessenia l Result Performing Organization Address City/[facility]/[place] [address], [address] [address] * (ABNORMAL) TSH (Routine) (09/18/2024 12:40 AM EDT) TSH, Highly Sensitive 0.15(L) 0.27 - 4.20 mIU/L 09/18/2024 3:09 AM EDT [facility] Blood Blood specimen / Unknown 09/18/2024 12:40 AM EDT 09/18/2024 1:00 AM EDT Dana Greener SALES OPERATIONS LEAD LAB BLOOD ORDERABLES Final R esult Performing Organization Address City/[facility]/[place] [address], [address] [address] * T4, FREE (09/18/2024 12:40 AM EDT) Pathologist [facility] T4, Free 0.90 0.80 - 1.90 ng/dL 09/18/2024 9:06 AM EDT [facility] 09/18/2024 12:4 0 AM EDT 09/18/2024 1:00 AM EDT Dana Green SALES OPERATIONS LEAD LAB BLOOD ORDERABLES Final R esult Performing Organization Address City/[facility]/[place] [address], [address] [address] * Folate Level (09/18/2024 12:40 AM EDT) Pathologist [facility] Folate, Serum Specimen hemolyzed. Test not performed. >7.2 ng/mL 09/18/2024 3:24 AM EDT [facility] Blood Blood specimen / Unknown 09/18/2024 12:40 AM EDT 09/18/2024 1:00 AM EDT us Trippy Greener SALES OPERATIONS LEAD LAB BLOOD ORDERABLES Final R esult Performing Organization Address City/[facility] Co de Phone Number [address] [address], [address] [address] * (ABNORMAL) Vitamin B12 (09/18/2024 12:40 AM EDT) [facility] Vitamin B12 >2,000(H) 243 - 894 pg/mL 09/18/2024 4:04 AM EDT [facility] Blood Blood specimen / Unknown 09/18/2024 12:40 AM EDT 09/18/2024 1:00 AM EDT us Trippy Greener SALES OPERATIONS LEAD LAB BLOOD ORDERABLES Final R esult Performing Organization Address City/[facility] Co de Phone Number [address] [address], [address] [address] * ECHOCARDIOGRAM COMPREHENSIVE (09/17/2024 11:40 AM EDT) [facility] LV Diastolic Volume Index (F:29-61, M:35-75) 72.2 mL/m2 LV Diastolic Volume 126 mL LV Systolic Volume Index (F:8-24, M:11-31) 36.1 mL/m2 LV Systolic Volume 63 mL IVS (F:0.6-0.9, M:0.6-1.0) 1.0 cm IVS Mean (F:0.6-0.9, M:0.6-1.0) 1.0 cm LVIDD (F:3.8-5.2, M:4.2-5.8) 4.9 cm LVIDD Mean (F:3.8-5.2, M:4.2-5.8) 4.9 cm LVIDS (F:2.2-3.5, M:2.5-4.0) 3.6 cm LVIDS (F:2.2-3.5, M:2.5-4.0) 3.6 cm LVOT diameter 2.2 cm LVOT diameter mean 2.2 cm LVOT mn grad mean 3.0 mmHg LVOT VTI MEAN 28.2 cm LVOT mn grad 3.0 mmHg LVOT VTI 28.2 cm LVOT peak rex 1.3 m/s LVOT peak rex mean 1.3 m/s PW (F:0.6-0.9, M:0.6-1.0) 0.9 cm PW Mean (F:0.6-0.9, M:0.6-1.0) 0.9 cm MV E' Lateral Velocity 13.90 cm/s MV E' Lateral Velocity Mean 13.90 cm/s MV E' Septal Velocity 10.80 cm/s MV E' Septal Velocity Mean 10.80 cm/s LA sup-inf (apical 2-ch view) 4.80 cm LA volume 46.7 mL RA area 13.7 cm2 RA 2D Volume 35.1 mL Sinuses of Valsalva 3.3 cm Sinuses of Valsalva Mean 3.3 cm Ascending aorta 3.2 cm Ascending aorta mean 3.2 cm Ascending aorta Index 1.8 cm/m2 E wave decelartion time 233 ms E wave decelartion time mean 233 ms MV stenosis pressure 1/2 time mean 68 ms MV stenosis pressure 1/2 time 68 ms MV Peak A-Wave 49.3 cm/s MV Peak A-Wave Mean 49.3 cm/s MV Peak E-Wave 102.0 cm/s MV Peak E-Wave Mean 102.0 cm/s RVID d 2.9 cm RVID d Mean 2.9 cm RV Free wall pk S' 12.8 cm/s RV Free wall pk S' Mean 12.8 cm/s Tapse 4.0 cm Tapse Mean 4.0 cm Heart Rate 62 bpm BP Systolic 149 mmHg BP Diastolic 81 mmHg Height 68.00 inches Weight 138.00 lbs LA Volume Index (16-34) 26.8 mL/m2 E/E' ratio 7.34 LVOT stroke volume 107 mL LVOT area 3.8 cm2 E/A ratio 2.07 MV valve area p 1/2 method 3.24 cm2 AV LVOT peak gradient 6.8 mmHg SVI 62 mL/m2 Sinuses of Valsalva Index 1.9 cm/m2 Miles BP EF (55-75) 50 % LA Volume Index 20.1 mL/m2 E/E' Average 8.4 E/E' Septal 9.4 E/E' Lateral 7.3 LVOT SI 61.38 mL/m2 Left Ventricular Cardiac Index 3.8 L/min/m2 Left Ventricular Cardiac Output 6.6 L/min BSA 1.75 m2 LV mass 164.3 g LV Mass Index (F:43-95, M:49-115) 94.1 g/m2 LV RWT 0.37 Anatomical Region Laterality Modality Heart Ultrasound Narrative 09/17/2024 11:59 AM EDT The left ventricle is normal in size. Left ventricular systolic function is normal with an estimated ejection fraction of 55-59%. Diastolic function is normal. The right ventricle is normal in size. Right ventricular systolic function is normal. There is no hemodynamically significant valve disease present. There is no previous study for comparison in our system. Technical Details Overall the study quality was adequate. The study was technically difficult due to patient's clinical status and body habitus. Left Ventricle The left ventricle is normal in size. Wall thickness is normal. Left ventricular systolic function is normal with an estimated ejection fraction of 55-59%. No wall motion abnormalities are present. Diastolic function is normal. Right Ventricle The right ventricle is normal in size. Right ventricular systolic function is normal. Left Atrium Left atrial size is normal. The pulmonary veins exhibit systolic dominant flow. Right Atrium Right atrial size is normal. Right atrial pressure cannot be accurately assessed in the setting of mechanical ventilation. Mitral Valve The mitral valve is structurally normal. The mitral leaflets are mildly thickened. There is no mitral regurgitation. Tricuspid Valve The tricuspid valve is structurally normal. There is trace tricuspid regurgitation. The absence of sufficient significant tricuspid regurgitation precludes estimation of right ventricular systolic pressure. Aortic Valve The aortic valve is tricuspid. There is no aortic regurgitation or stenosis. Pulmonic Valve The pulmonic valve was not well visualized. There is trace pulmonic regurgitation. Ascending Aorta The aortic root and ascending aorta are normal in dimension. Pericardium There is no pericardial effusion. Prior Study There is no previous study for comparison in our system. us Cheko PINEDO CV ECHO ORDERABLES Final Result * MRI Brain w w/o contrast (09/17/2024 3:50 AM EDT) Anatomical Region Laterality Modality Head Magnetic Resonan ce 09/17/2024 3:06 AM EDT Impressions 09/17/2024 4:21 PM EDT No acute intracranial findings or suspicious intracranial lesions. Narrative 09/17/2024 4:21 PM EDT EXAMINATION: MRI BRAIN WITH AND WITHOUT CONTRAST. INDICATION: 48 years old, Male persistent encephalopthy TECHNIQUE: Multiplanar multisequence magnetic resonance images of the brain with and without intravenous contrast . COMPARISON: None FINDINGS: POSTOPERATIVE CHANGES AND INTRACRANIAL LESIONS: No suspicious intracranial lesions. No mass effect or midline shift. ACUTE INTRACRANIAL ABNORMALITIES: No acute infarct. No acute intracranial hemorrhage. EXTRA-AXIAL SPACES: No extra-axial fluid collection. VENTRICULAR SYSTEM: Ventricles and extraventricular CSF spaces are widened, consistent with mild global parenchymal volume loss. WHITE MATTER: Minimal nonspecific white matter changes. SKULL BASE/PITUITARY: No crowding in the foramen magnum. Basal cisterns are widely patent and pituitary is normal appearing. VASCULATURE: Patent major intracranial flow-voids. CALVARIUM: No suspicious calvarial lesions. ORBITS/SINUSES/MASTOIDS: No intraorbital masses. No acute paranasal sinus disease. Mastoids are well-aerated. Procedure Note Timothy Payne MD - 09/17/2024 EXAMINATION: MRI BRAIN WITH AND WITHOUT CONTRAST. INDICATION: 48 years old, Male persistent encephalopthy TECHNIQUE: Multiplanar multisequence magnetic resonance images of the brain with and without intravenous contrast . COMPARISON: None FINDINGS: POSTOPERATIVE CHANGES AND INTRACRANIAL LESIONS: No suspicious intracranial lesions. No mass effect or midline shift. ACUTE INTRACRANIAL ABNORMALITIES: No acute infarct. No acute intracranial hemorrhage. EXTRA-AXIAL SPACES: No extra-axial fluid collection. VENTRICULAR SYSTEM: Ventricles and extraventricular CSF spaces are widened, consistent with mild global parenchymal volume loss. WHITE MATTER: Minimal nonspecific white matter changes. SKULL BASE/PITUITARY: No crowding in the foramen magnum. Basal cisterns are widely patent and pituitary is normal appearing. VASCULATURE: Patent major intracranial flow-voids. CALVARIUM: No suspicious calvarial lesions. ORBITS/SINUSES/MASTOIDS: No intraorbital masses. No acute paranasal sinus disease. Mastoids are well-aerated. IMPRESSION: No acute intracranial findings or suspicious intracranial lesions. us Jenifer Lazo PA-C [employer] MRI ORDERABLES Final Result * XR Abdomen 1 view (09/16/2024 7:29 PM EDT) Only the most recent of6 resultswithin the time period is included. Anatomical Region Laterality Modality Abdomen Computed Radiogr aphy 09/16/2024 6:04 PM EDT Impressions 09/17/2024 9:13 AM EDT Paucity of gas throughout the bowel could correlate with liquid stool. Nonobstructive, nondilated bowel gas pattern. Interpreted by: Guevara Howadr DO Car Painter I personally reviewed the images and the resident's preliminary report and AGREE with the report as it is now presented ([email or web address]). Narrative 09/17/2024 9:13 AM EDT EXAMINATION: XR ABDOMEN PORTABLE 1 VIEW CLINICAL INDICATION: vomiting COMPARISON: Abdominal radiographs 09/14/2024 TECHNIQUE: AP view of the abdomen. FINDINGS: Subdiaphragmatic enteric tube with side port and tip projecting over the lumen of the stomach. Paucity of gas throughout the bowel. Visualized lung bases are unremarkable. No acute osseus abnormalities. Procedure Note Christos Hussein MD - 09/17/2024 EXAMINATION: XR ABDOMEN PORTABLE 1 VIEW CLINICAL INDICATION: vomiting COMPARISON: Abdominal radiographs 09/14/2024 TECHNIQUE: AP view of the abdomen. FINDINGS: Subdiaphragmatic enteric tube with side port and tip projecting over the lumen of the stomach. Paucity of gas throughout the bowel. Visualized lung bases are unremarkable. No acute osseus abnormalities. IMPRESSION: Paucity of gas throughout the bowel could correlate with liquid stool. Nonobstructive, nondilated bowel gas pattern. Interpreted by: Guevara Howard DO Car Painter I personally reviewed the images and the resident's preliminary report and AGREE with the report as it is now presented ([email or web address]). us Dana Harris APRN IMG DIAGNOSTIC IMAGING ORDER MARGO Final Result * LACTIC ACID, PLASMA (09/16/2024 11:45 AM EDT) Only the most recent of4 resultswithin the time period is included. Lactic Acid 1.0 0.5 - 1.9 mmol/L 09/16/2024 12:33 PM EDT [facility] Blood Blood specimen / Unknown 09/16/2024 11:45 AM EDT 09/16/2024 12:01 PM EDT Dana Harris SALES OPERATIONS LEAD LAB BLOOD ORDERABLES Final R esult [address] [address], [address] [address] * EEG AWAKE OR DROWSY (09/16/2024 9:19 AM EDT) Narrative [facility] - 09/16/2024 9:19 AM EDT Sharonda Dorsey MD 09/16/2024 11:33 AM INPATIENT ADULT ELECTROENCEPHALOGRAM (EEG) REPORT Facility: [facility] Patient and : Gregg Lisa 1975 Date of Procedure: 09/16/2024 Admission Attending: Mingo Serrato DO CLINICAL INFORMATION: EEG is requested in a 48 y.o. male to evaluate for status epilepticus in the setting of altered mental status SEIZURE MEDICATIONS: None listed RECORDING CONDITIONS: This is a intubated routine EEG performed at the inpatient bedside. The standard International 10-20 System of electrode placement was utilized, with a minimum of 20 electrodes and additional channels monitored for eye movement. One channel electrocardiogram was monitored. Data were obtained, stored, and interpreted according to ACNS guidelines (J Clin Neurophysiol 2006;23(2):85-183) utilizing referential montage recording, with reformatting to longitudinal, transverse bipolar, and referential montages as necessary for interpretation. The patient tolerated entire procedure without difficulty. Photic stimulation and hyperventilation were utilized as activation procedures unless otherwise specified below. E.E.G. DESCRIPTION: Posterior Activity: No posterior dominant rhythm. Background Activity: The background was symmetric and continuous consisting of predominantly normal voltage, theta frequencies; anterior-posterior organization was absent. Continuous (90% or more of the record), generalized, frontally predominant, quasi-rhythmic delta activity was seen. Abundant (every 10 seconds or more) transients with a triphasic morphology were seen which were generalized, frontally predominant, and were sporadic with a variable lag. These discharges were stimulus-induced. Reactivity/Variability/Sleep Activity: Reactivity and state changes were present; no clear stage II architecture. Activation procedures: Hyperventilation: was not performed. Photic stimulation: produced no clear response. Focal and/or Rhythmic Slowing: None. Interictal Epileptiform Abnormalities: None. Clinical Events/Seizures: None. ECG: No notable ECG abnormalities were apparent. Other: N/A. E.E.G. INTERPRETATION: Abnormal intubated inpatient bedside routine EEG for age during an intubated stupor due to: 1) Background abnormalities including marked diffuse slowing, marked disorganization, and an absence of normal architecture. 2) The discharges with a triphasic morphology could represent a nonspecific marker of encephalopathy or could be indicative of an increased risk of focal- or generalized-onset seizures. These were relatively attenuated in clinically-apparent sleep and had a variable lag. CLINICAL CORRELATION: This EEG was suggestive of a nonspecific, moderate encephalopathy. The discharges with a triphasic morphology could represent a nonspecific marker of encephalopathy or could be indicative of an increased risk of focal- or generalized-onset seizures. Their lag and relative suppression in clinically-apparent sleep suggested the former. [id number] TOTAL SCORE: 0 (5% SZ [!2H31P$2B&0]) Sharonda Dorsey MD [facility] FOR EEG LAB USE: Abnormal Non-epileptiform :qz!02; No events :qz!08; Complexity ratin :qz!15 us Brooke PINEDO NEUROLOGY ORDERABLES Mariano yola Result - Final [facility] [address] [place] [address], * ECG 12 lead (09/16/2024 8:38 AM EDT) Only the most recent of4 resultswithin the time period is included. [facility] Systolic BP 131 mmHg EKG [facility] Diastolic BP 61 mmHg EKG [facility] Ventricular rate 83 BPM EKG [facility] Atrial rate 83 BPM EKG [facility] P-R interval 104 ms EKG [facility] QRS duration 92 ms EKG [facility] Q-T interval 386 ms EKG [facility] QTC calculation (Bazett) 453 ms EKG [facility] P axis -54 degrees EKG [facility] R axis 89 degrees EKG [facility] T axis 52 degrees [facility] 09/16/2024 8:38 AM EDT Narrative [facility] - 09/16/2024 8:40 AM EDT Unusual P axis, possible ectopic atrial rhythm Abnormal ECG When compared with ECG of 14-Sep-2024 13:31, Ectopic atrial rhythm has replaced Sinus rhythm Vent. rate has decreased by [address] no longer depressed in Inferior leads T wave amplitude has decreased in Anterior leads Confirmed by Leann Lockhart MD ([id number]) on 09/16/2024 8:40:33 AM Procedure Note Leann Lockhart MD - 09/16/2024 Unusual P axis, possible ectopic atrial rhythm Abnormal ECG When compared with ECG of 14-Sep-2024 13:31, Ectopic atrial rhythm has replaced Sinus rhythm Vent. rate has decreased by [address] no longer depressed in Inferior leads T wave amplitude has decreased in Anterior leads Confirmed by Leann Lockhart MD ([id number]) on 09/16/2024 8:40:33 AM Tk You MD ECG ORDERABLES Final Result [facility] * (ABNORMAL) Hemoglobin and Hematocrit (09/16/2024 8:30 AM EDT) Only the most recent of2 resultswithin the time period is included. [facility] Hematocrit 38.1(L) 39.0 - 54.0 % 09/16/2024 10:16 AM EDT [facility] Hemoglobin 12.1(L) 13.0 - 17.7 g/dL 09/16/2024 10:16 AM EDT [facility] Blood Blood specimen / Unknown 09/16/2024 8:30 AM EDT 09/16/2024 8:48 AM EDT Yazmin Martinez PA-C LAB BLOOD ORDERABLES Final Result Performing Organization Address [facility] [place] [address], [address] [address] * Vancomycin Level, Random (09/16/2024 6:49 AM EDT) Vancomycin, Random 6 mg/L 09/16/2024 8:03 AM EDT [facility] Comment:No reference range e stablished for random levels. Time of Last Dose Information not given 09/16/2024 6:49 AM EDT [facility] Blood Blood specimen / Unknown 09/16/2024 6:49 AM EDT 09/16/2024 7:34 AM EDT Tk You MD LAB BLOOD ORDERABLES Final Resul t Performing Organization Address [facility] [place] [address], [address] [address] * Ammonia Level (09/16/2024 12:00 AM EDT) Only the most recent of8 resultswithin the time period is included. Ammonia, Plasma 51 16 - 60 umol/L 09/16/2024 12:44 AM EDT [facility] Blood Blood specimen / Unknown 09/16/2024 09/16/2024 12:18 AM EDT Cheko PINEDO LAB BLOOD ORDERABLES Final Resu lt Performing Organization Address [facility] [place] [address], [address] [address] * (ABNORMAL) Blood Gas with Cooximetry, Arterial (09/15/2024 5:39 PM EDT) Only the most recent of3 resultswithin the time period is included. Respiratory Info VENT 40% 09/16/19 5:39 PM EDT [facility] pH, Arterial 7.49(H) 7.35 - 7.45 09/15/2024 6:[facility] p[facility], Arterial 37 32 - 45 mmHG 09/15/2024 6:08 PM [facility] pO2, Arterial 190(H) 75 - 95 mmHG 09/15/2024 6:08 PM [facility] CO2, Total 29(H) 22 - 28 mmol/L 09/15/2024 6:08 PM [facility] P/F Ratio 475 09/15/2024 6:08 PM [facility] Base Excess 4.6 mmol/L 09/15/2024 6:08 PM T [facility] Comment:Reference Range: Neg ative 2 to Positive 3 Hemogloblin, Total 13.6 13.0 - 17.7 g/dL 09/15/2024 6:08 PM [facility] O2 Saturation, Arterial 99.6(H) 94 - 97 % 09/15/2024 6:08 PM [facility] Carboxyhemoglobin 0.8 0.0 - 2.0 % 09/15/2024 6:08 PM [facility] Methemoglobin 0.6 0.4 - 1.5 % 09/15/2024 6:08 PM [facility] O2 Content, Arterial 19.2 17.6 - 24.3 mL/dL 09/15/2024 6:08 PM [facility] Blood Blood specimen / Unknown 09/15/2024 5:39 PM EDT 09/15/2024 6:01 PM EDT us Brooke PINEDO LAB BLOOD ORDERABLES Fin al Result [address] [address], [address] [address] * Hepatitis C Viral Load, Quantitative (09/15/2024 8:40 AM EDT) [facility] HCV RNA (IU/mL) Not Detected <10 IU/mL 09/16/2024 2:14 PM EDT [facility] HCV RNA (log10) Not Detected <1.00 log10 IU/mL 09/16/2024 2:14 PM EDT [facility] Interpretation Not Detected 09/17/19 2:14 PM EDT [facility] Comment:Performed by FDA basilio roved [facility] TMA. Linear range is 10 to 100,000,000 IU/mL. HCV Genotyping is not recommended for viral loads below 300 IU/mL. Blood Blood specimen / Unknown 09/15/2024 8:40 AM EDT 09/15/2024 10:18 AM EDT Brooke PINEDO LAB BLOOD ORDERABLES Fin al Result [facility] [address] * (ABNORMAL) Factor V Assay (09/15/2024 8:40 AM EDT) [facility] Factor V 46(L) 50 - 150 % Normal 09/15/2024 12:38 PM EDT [facility] Blood Blood specimen / Unknown 09/15/2024 8:40 AM EDT 09/15/2024 10:18 AM EDT Brooke PINEDO LAB BLOOD ORDERABLES Fin al Result [address] [address], [address] [address] * Nasal MRSA Screen, PCR (09/15/2024 8:35 AM EDT) [facility] MRSA Result Not Detected Not Detected 11:30 AM EDT [facility] Comment:Performed by the Xpe rt MRSA NxG Assay Swab, Anterior Nares Specimen from nose / Unknown 09/15/2024 8:35 AM EDT 09/15/2024 9:27 AM EDT Brooke PINEDO MICROBIOLOGY - GENERAL O RDERABLES Final Result [facility] [address] [place] [address], [address] [address] * Blood Culture (09/15/2024 3:05 AM EDT) Only the most recent of4 resultswithin the time period is included. Culture Sterile after 5 days 09/20/2024 7:33 AM EDT [facility] Blood Blood specimen / Unknown 09/15/2024 3:05 AM EDT 09/15/2024 3:52 AM EDT Comment:Blood Heidi PINEDO LAB BLOOD ORDERABLES Jessenia l Result [facility] [address] [place] [address], [place] * XR Chest 1 view-Portable (09/15/2024 2:38 AM EDT) Only the most recent of2 resultswithin the time period is included. Anatomical Region Laterality Modality Chest Computed Radiogr aphy 09/15/2024 2:19 AM EDT Impressions 09/16/2024 3:21 PM EDT No gross acute radiographic finding. Narrative 09/16/2024 3:21 PM EDT EXAMINATION: XR CHEST CLINICAL INFORMATION: fever COMPARISON: September 13, 2024. TECHNIQUE: Portable AP view of the chest was obtained. FINDINGS: The study is limited by portable technique, rotation, and overlying external leads and tubes. There is no gross acute radiographic finding. No focal infiltrate, effusion, pneumothorax, or adenopathy is seen. The cardiovascular structures, mediastinum, diaphragm, and bones appear unremarkable. The tip of an endotracheal tube projects over the trachea approximately 4.5 cm above the polina. The tip of a nasogastric tube projects over the left upper quadrant; its sidehole is poorly visualized due to overlying leads. The patient is status post cholecystectomy. Procedure Note Elton Xavier MD - 09/16/2024 EXAMINATION: XR CHEST CLINICAL INFORMATION: fever COMPARISON: September 13, 2024. TECHNIQUE: Portable AP view of the chest was obtained. FINDINGS: The study is limited by portable technique, rotation, and overlying external leads and tubes. There is no gross acute radiographic finding. No focal infiltrate, effusion, pneumothorax, or adenopathy is seen. The cardiovascular structures, mediastinum, diaphragm, and bones appear unremarkable. The tip of an endotracheal tube projects over the trachea approximately 4.5 cm above the polina. The tip of a nasogastric tube projects over the left upper quadrant; its sidehole is poorly visualized due to overlying leads. The patient is status post cholecystectomy. IMPRESSION: No gross acute radiographic finding. Hiedi PINEDO IMG DIAGNOSTIC IMAGING OR DERABLES Final Result * (ABNORMAL) Respiratory Culture (aerobic and gram stain) (09/15/2024 2:21 AM EDT) Gram stain suggestive of Moderate neutrophils Few squamous cells Mixed normal kathrine 09/15/2024 3:11 AM EDT [facility] Culture Staphylococcus aureus(A) 09/17/2024 2:10 PM EDT [facility] Culture Mixed normal kathrine 09/17/2024 2:10 PM EDT [facility] Aspirate, Tracheal Specimen from trachea / Unknown 09/15/2024 2:21 AM EDT 09/15/2024 2:39 AM EDT Comment:Aspirate, Tracheal Narrative Organism Antibiotic Method Susceptibility Staphylococcus aureus Cefazolin (REPORT) B ACTERIAL SHAN AND INTERPRETATION (MCG/ML) <=2: Susceptible Staphylococcus aureus Clindamycin (REPORT) B ACTERIAL SHAN AND INTERPRETATION (MCG/ML) <=0.5: Susceptible Comment:Clindamycin result was confirmed by D-test. Staphylococcus aureus Erythromycin (REPORT) B ACTERIAL SHAN AND INTERPRETATION (MCG/ML) <=0.25: Susceptible Staphylococcus aureus Minocycline (REPORT) B ACTERIAL SHAN AND INTERPRETATION (MCG/ML) <=1: Susceptible Staphylococcus aureus Oxacillin (REPORT) B ACTERIAL SHAN AND INTERPRETATION (MCG/ML) <=0.25: Susceptible Staphylococcus aureus Tetracycline (REPORT) B ACTERIAL SHAN AND INTERPRETATION (MCG/ML) <=0.5: Susceptible Staphylococcus aureus Trimethoprim/Sulfa met hoxazole (REPORT) BACTERIAL SHAN AND INTERPRETATION (MCG/ML) Susceptible Comment:Trimeth/Sulf a susceptibility performed by disk diffusion. Heidi PINEDO MICROBIOLOGY - GENERAL OR DERABLES Final Result [facility] [address] [place] [address], [address] [address] * (ABNORMAL) Urinalysis with Reflex to Microscopic (09/15/2024 2:20 AM EDT) Color Martina 09/15/2024 2:39 AM [facility] Clarity Clear 09/15/2024 2:39 AM [facility] Specific [place] 1.023 1.003 - 1.030 09/15/2024 2:39 AM [facility] pH 5.0 5.0 - 8.0 09/15/2024 2:39 AM [facility] Leukocyte Esterase Negative Negative 09/15/2024 2:39 AM [facility] Nitrite Negative Negative 09/15/2024 2:39 AM [facility] Protein Negative Negative 09/15/2024 2:39 AM [facility] Glucose 0 0 - 99 mg/dL 09/15/2024 2:39 AM [facility] Ketones Negative Negative 09/15/2024 2:39 AM [facility] Blood Large(A) Negative 09/15/2024 2:39 AM [facility] Bilirubin Negative Negative 09/15/2024 2:39 AM [facility] WBC 1 0 - 4 per hpf 09/15/2024 2:39 AM [facility] RBC 6(H) 0 - 4 per hpf 09/15/2024 2:39 AM [facility] Urine Urine specimen obtained via straight catheter / Unknown 09/15/2024 2:20 AM EDT 09/15/2024 2:30 AM EDT Heidi Zabala PA URINE ORDERABLES Final Re sult Performing Organization Address City/[facility]/[place] [address], [place] [address] * (ABNORMAL) LIPASE (09/15/2024 1:04 AM EDT) Only the most recent of3 resultswithin the time period is included. Pathologist [facility] Lipase 73(H) 13 - 60 U/L 09/15/2024 4:58 AM EDT [facility] 09/15/2024 1:04 AM EDT 09/15/2024 1:26 AM EDT Cheko PINEDO LAB BLOOD ORDERABLES Final Resu lt Performing Organization Address [facility] [place] [address], [place] [address] * (ABNORMAL) Blood Gas with Cooximetry, Venous (09/14/2024 9:43 AM EDT) [facility] Respiratory Info VENT 40% 09/15/19 9:43 AM EDT [facility] Venous Blood PH 7.48(H) 7.33 - 7.43 09/14/2024 10:[facility] Venous pCO2 38 35 - 50 mmHG 09/14/2024 10:27 AM [facility] Venous pO2 139(H) 0 - 60 mmHG 09/14/2024 10:27 AM [facility] Venous Total CO2 29 23 - 29 mmol/L 09/14/2024 10:27 AM T [facility] Base Excess 4.9 mmol/L 09/14/2024 10:27 AM T [facility] Comment:Reference Range: Neg ative 2 to Positive 3 Hemogloblin, Total 14.5 13.0 - 17.7 g/dL 09/14/2024 10:27 AM EDT [facility] O2 Saturation, Venous 99.1 % 09/2024 10:27 AM EDT [facility] Carboxyhemoglobin 1.4 0.0 - 2.0 % 09/14/2024 10:27 AM EDT [facility] Methemoglobin 0.6 0.4 - 1.5 % 09/14/2024 10:27 AM EDT [facility] Venous O2 Content 20.0(H) 7.2 - 17.2 mL/dL 09/14/2024 10:27 AM EDT [facility] Blood Blood specimen / Unknown 09/14/2024 9:43 AM EDT 09/14/2024 10:15 AM EDT Brooke PINEDO LAB BLOOD ORDERABLES Fin al Result Performing Organization Address [facility] [place] [address], [place] [address] * (ABNORMAL) Creatine Kinase (CK) (09/14/2024 2:40 AM EDT) Only the most recent of5 resultswithin the time period is included. Creatine Kinase (CK) 261(H) 24 - 204 U/L 09/14/2024 3:20 AM EDT [facility] Blood Blood specimen / Unknown 09/14/2024 2:40 AM EDT 09/14/2024 2:53 AM EDT Amanda PINEDO LAB BLOOD ORDERABLES Final R esult Performing Organization Address [facility] [place] [address], [place] [address] * (ABNORMAL) Acetaminophen Level (09/14/2024 12:20 AM EDT) Only the most recent of4 resultswithin the time period is included. Acetaminophen Level <5(L) 10 - 30 mg/L 09/14/2024 1:06 AM EDT [facility] Comment:Specimen icteric Blood Blood specimen / Unknown 09/14/2024 12:20 AM EDT 09/14/2024 12:37 AM EDT us Cheko PINEDO LAB BLOOD ORDERABLES Final Resu lt [address] [address], [facility] [address] [place] [address] * US Duplex abdomen/pelvis-Complete (09/13/2024 11:23 PM EDT) Anatomical Region Laterality Modality Vascular Ultrasound 09/13/2024 8:11 PM EDT Impressions 09/14/2024 9:10 AM EDT Borderline hepatomegaly with increased echogenicity of the liver suggesting steatosis or other hepatocellular disease. Mild dilation of the common duct to 8 mm. The patient has had a history of a cholecystectomy and dilation could be secondary to postcholecystectomy state. Narrative 09/14/2024 9:10 AM EDT EXAMINATION: US DUPLEX ABDOMEN/PELVIS-COMPLETE CLINICAL INFORMATION: Elevated LFTs COMPARISON: CT abdomen and pelvis 09/13/2024 TECHNIQUE: Real-time imaging of the abdominal viscera. Color and spectral Doppler evaluation of the hepatic vasculature. The study is limited by portable technique and patient currently on a ventilator FINDINGS: LIVER: Liver is at the upper limits of normal for size, proximally 19 cm sagittally. There is diffusely increased echogenicity compatible steatosis or other hepatocellular disease. No focal liver lesion. No intrahepatic biliary duct dilatation. SPLENIC VEIN: Patent with normal waveforms. HEPATIC VEINS: Patent with normal waveforms. PORTAL VEINS: Patent with normal waveforms and hepatopetal flow. HEPATIC ARTERIES: Normal upstroke and diastolic flow. INFERIOR VENA CAVA: Patent with normal waveforms. GALLBLADDER: Surgically absent COMMON BILE DUCT: Mildly dilated measuring 0.8 cm. Suspect likely secondary to postcholecystectomy state. PANCREAS: Normal. The visualized pancreatic head and body are normal in appearance. The remainder of the pancreas is obscured from visualization by the overlying bowel gas. RIGHT KIDNEY: Normal. No hydronephrosis. No renal calculi or focal parenchymal lesions. The kidney measures 11.5 cm in maximum dimension. LEFT KIDNEY: Normal. No hydronephrosis. No renal calculi or focal parenchymal lesions. The kidney measures 9.7 cm in maximum dimension. SPLEEN: Normal. The spleen measures 12.8 cm in maximum dimension. ABDOMINAL AORTA: The visualized proximal segment is normal in caliber. INFERIOR VENA CAVA: Visualized portions are normal. FREE FLUID: None Procedure Note Dillon Landeros MD - 09/14/2024 EXAMINATION: US DUPLEX ABDOMEN/PELVIS-COMPLETE CLINICAL INFORMATION: Elevated LFTs COMPARISON: CT abdomen and pelvis 09/13/2024 TECHNIQUE: Real-time imaging of the abdominal viscera. Color and spectral Doppler evaluation of the hepatic vasculature. The study is limited by portable technique and patient currently on a ventilator FINDINGS: LIVER: Liver is at the upper limits of normal for size, proximally 19 cm sagittally. There is diffusely increased echogenicity compatible steatosis or other hepatocellular disease. No focal liver lesion. No intrahepatic biliary duct dilatation. SPLENIC VEIN: Patent with normal waveforms. HEPATIC VEINS: Patent with normal waveforms. PORTAL VEINS: Patent with normal waveforms and hepatopetal flow. HEPATIC ARTERIES: Normal upstroke and diastolic flow. INFERIOR VENA CAVA: Patent with normal waveforms. GALLBLADDER: Surgically absent COMMON BILE DUCT: Mildly dilated measuring 0.8 cm. Suspect likely secondary to postcholecystectomy state. PANCREAS: Normal. The visualized pancreatic head and body are normal in appearance. The remainder of the pancreas is obscured from visualization by the overlying bowel gas. RIGHT KIDNEY: Normal. No hydronephrosis. No renal calculi or focal parenchymal lesions. The kidney measures 11.5 cm in maximum dimension. LEFT KIDNEY: Normal. No hydronephrosis. No renal calculi or focal parenchymal lesions. The kidney measures 9.7 cm in maximum dimension. SPLEEN: Normal. The spleen measures 12.8 cm in maximum dimension. ABDOMINAL AORTA: The visualized proximal segment is normal in caliber. INFERIOR VENA CAVA: Visualized portions are normal. FREE FLUID: None IMPRESSION: Borderline hepatomegaly with increased echogenicity of the liver suggesting steatosis or other hepatocellular disease. Mild dilation of the common duct to 8 mm. The patient has had a history of a cholecystectomy and dilation could be secondary to postcholecystectomy state. us Cheko FOY US ORDERABLES Final Result * US Soft tissue head/neck (09/13/2024 11:23 PM EDT) Anatomical Region Laterality Modality Neck Ultrasound 09/13/2024 8:11 PM EDT Impressions 09/14/2024 3:20 PM EDT Unremarkable examination allowing for technical limitations. The decision to follow the area of concern should be based on the clinical assessment. If clinically indicated further cross-sectional imaging could be performed. Narrative 09/14/2024 3:20 PM EDT EXAMINATION: US SOFT TISSUE NECK CLINICAL INFORMATION: Cervical lymphadenopathy. COMPARISON: None available. TECHNIQUE: Targeted sonography of the bilateral neck soft tissues. FINDINGS: Technically limited study due to patient's suboptimal positioning and ventilatory status. Patient repetitively moved during the examination. Bilateral cervical lymph node stations were examined. No pathologically enlarged lymph nodes are appreciated. Procedure Note Darnell Hough MD - 09/14/2024 EXAMINATION: US SOFT TISSUE NECK CLINICAL INFORMATION: Cervical lymphadenopathy. COMPARISON: None available. TECHNIQUE: Targeted sonography of the bilateral neck soft tissues. FINDINGS: Technically limited study due to patient's suboptimal positioning and ventilatory status. Patient repetitively moved during the examination. Bilateral cervical lymph node stations were examined. No pathologically enlarged lymph nodes are appreciated. IMPRESSION: Unremarkable examination allowing for technical limitations. The decision to follow the area of concern should be based on the clinical assessment. If clinically indicated further cross-sectional imaging could be performed. Cheko PINEDO [facility] US ORDERABLES Final Result * EBV DNA, PCR, Quantitative (09/13/2024 6:32 PM EDT) Specimen Source EDTA PLASMA 09/18/2024 7:39 AM EDT [email or web address] EBV DNA Not Detected 09/18/2024 7:39 AM EDT [email or web address] [place] Comment:UNITS: IU/mL EBV DNA, QN PCR Not Detected 09/18/2024 7:39 AM EDT [email or web address] [place] Comment: UNITS: Log IU/mL (NOTE) Reference Range: Not Detected For additional information, please refer to http://[email or web address]/faq/CMVandEBVPCR (This link is being provided for informational/ educational purposes only.) Blood Blood specimen / Unknown 09/13/2024 6:32 PM EDT 09/13/2024 6:41 PM EDT Cheko PINEDO BODY FLUIDS AND STOOLS ORDERABL ES Final Result [facility] [place] [id number] [facility] [address] [address] [place], [place] , [facility], [place] [address] [facility] [address] [address] [place], [place] * Triglycerides (09/13/2024 4:10 PM EDT) Triglycerides 135 <150 mg/dL 09/13/2024 5:17 PM EDT [facility] Comment:Specimen icteric Blood Blood specimen / Unknown 09/13/2024 4:10 PM EDT 09/13/2024 4:38 PM EDT Cheko PINEDO LAB BLOOD ORDERAB[place] [address], [place] [address] * EEG AWAKE OR DROWSY (09/13/2024 4:07 PM EDT) Narrative [facility] - 09/13/2024 4:07 PM EDT Nathalie Cortez MD 09/13/2024 9:46 PM INPATIENT ADULT ELECTROENCEPHALOGRAM (EEG) REPORT Facility: [facility] Patient and : Gregg Lisa 1975 Date of Procedure: 09/13/2024 Admission Attending: Mingo Serrato DO Procedure # : Routine EEG CLINICAL INFORMATION: EEG is requested in a 48 y.o. male to evaluate for events concerning for seizures. SEIZURE MEDICATIONS: Valium, Propofol RECORDING CONDITIONS: This is a inpatient / bedside / Routine EEG The standard International 10-20 System of electrode placement was utilized, with a minimum of 20 electrodes and additional channels monitored for eye movement. One channel electrocardiogram was monitored. Data were obtained, stored, and interpreted according to ACNS guidelines (J Clin Neurophysiol 2006;23(2):85-183) utilizing referential montage recording, with reformatting to longitudinal, transverse bipolar, and referential montages as necessary for interpretation. The patient tolerated entire procedure without difficulty. Photic stimulation and hyperventilation were utilized as activation procedures unless otherwise specified below. EEG Standard Interpretation Category: Abnormal Non-epileptiform :qz!02; No events :qz!08; Complexity ratin :qz!14 BACKGROUND: The background is discontinuous, poorly organized and non-reactive No normal patterns of wake or sleep were seen. Background patterns consisted of low to medium amplitude 0.5-2 hz delta and beta activity. This is followed by frequent 1 to 3 seconds attenuation of the background. No reactivity was noted with noxious stimulus.. No significant asymmetry of the background noted. No epileptiform discharges or electrographic seizures captured. Minor muscle, motion, and eye movement artifacts were occasionally noted. No sleep architecture noted. Abnormal interictal activity: None CLINICAL EVENTS: None HYPERVENTILATION: Not performed. INTERMITTENT PHOTIC STIMULATION: Photic stimulation was performed at frequencies between 1 and 30 Hz but produced no notable change in the EEG pattern. EKG No overt abnormalities noted. INTERPRETATION: This sedated and intubated bedside routine EEG is an abnormal study due to 1. Discontinuous, nonreactive severe diffuse slowing of the background 2. Absence of expected awake and sleep architecture CLINICAL CORRELATION: This bedside sedated and intubated routine EEG is indicative of severe encephalopathy. Nonspecific in etiology. There are no epileptiform discharges or electrographic seizures. Nathalie Cortez MD ABPN Epilepsy. [facility] [place] us Cheko PINEDO NEUROLOGY ORDERABLES Edited Res ult - Final [facility] [address] [id number], * Troponin T, High Sensitivity (09/13/2024 2:19 PM EDT) Only the most recent of3 resultswithin the time period is included. High Sensitivity Troponin T 20 <23 ng/L 09/13/2024 3:07 PM EDT [facility] Delta (Change) NO CHANGE <3 09/13/2024 3:07 PM EDT [facility] Blood Blood specimen / Unknown 09/13/2024 2:19 PM EDT 09/13/2024 2:43 PM EDT us Cheko PINEDO LAB BLOOD ORDERABLES Final Resu lt Performing Organization Address [facility] Co de Phone Number [address] [address], [address] [address] * Sodium, Urine, Random (09/13/2024 2:10 PM EDT) Only the most recent of2 resultswithin the time period is included. Sodium, Urine Random <20 mmol/L 09/13/2024 3:04 PM EDT [facility] Comment:Reference range not established for random specimen. Urine Urine specimen / Unknown 09/13/2024 2:10 PM EDT 09/13/2024 2:44 PM EDT us Cheko PINEDO URINE ORDERABLES Final Result Performing Organization Address [facility] [place] [address], [address] [address] * Creatinine, Urine, Random (09/13/2024 2:10 PM EDT) Only the most recent of2 resultswithin the time period is included. Creatinine, Urine, Random 67 mg/dL 09/13/2024 3:04 PM EDT [facility] Comment:Reference range not established for random specimen. Urine Urine specimen / Unknown 09/13/2024 2:10 PM EDT 09/13/2024 2:44 PM EDT us Cheko PINEDO URINE ORDERABLES Final Result Performing Organization Address City/[facility] Co de Phone Number [address] [address], [address] [address] * Hepatitis Panel, Acute (09/13/2024 11:25 AM EDT) Hepatitis A Antibody IgM Nonreactive Nonreactive 09/14/2024 10:29 AM EDT [facility] Hepatitis B Core Antibody IgM Nonreactive Nonreactive 09/14/2024 10:29 AM EDT [facility] Hepatitis B Surface Ag Screen Nonreactive Nonreactive 09/14/2024 10:29 AM EDT [facility] Hepatitis C Antibody Nonreactive Nonreactive 09/14/2024 10:29 AM EDT [facility] Comment:Antibodies to HCV no t detected. This does not exclude the possibility of exposure to HCV. Hepatitis Interpretation : Results inconsistent with acute Hepatitis A, B or C Virus infection. 09/14/2024 10:29 AM EDT [facility] Blood Blood specimen / Unknown 09/13/2024 11:25 AM EDT 09/13/2024 12:39 PM EDT Mingo Serrato DO LAB BLOOD ORDERABLES Final Re sult Performing Organization Address City/[facility]/ZIP Co de Phone Number [facility] [address] [place] [address], * proBNP, N-terminal (09/13/2024 10:04 AM EDT) proBNP, N-terminal 76 <125 pg/mL 09/13/2024 3:02 PM EDT [facility] 09/13/2024 10:0 4 AM EDT 09/13/2024 10:15 AM EDT Mingo Serrato DO LAB BLOOD ORDERABLES Final Re sult [address] [address], [place] [address] [address] * (ABNORMAL) OSMOLALITY (09/13/2024 10:04 AM EDT) Osmolality, Serum/Plasma 345(H) 275 - 295 mOsm/Kg 09/13/2024 2:54 PM EDT [facility] 09/13/2024 10:0 4 AM EDT 09/13/2024 10:15 AM EDT Mingo Serrato DO LAB BLOOD ORDERABLES Final Re sult Performing Organization Address [facility] Co de Phone Number [address] [address], [address] [address] * (ABNORMAL) Blood Gas, Arterial (09/13/2024 10:00 AM EDT) Only the most recent of2 resultswithin the time period is included. pH, Arterial 7.43 7.35 - 7.45 09/13/2024 10:30 AM EDT [facility] pCO2, Arterial 44 32 - 45 mmHG 09/13/2024 10:30 AM EDT [facility] pO2, Arterial 173(H) 75 - 95 mmHG 09/13/2024 10:30 AM EDT [facility] CO2, Total 31(H) 22 - 28 mmol/L 09/13/2024 10:30 AM EDT [facility] Respiratory Info Information not given 09/13/2024 10:25 AM EDT [facility] Base Excess 4.6 mmol/L 09/13/2024 10:30 AM T [facility] Comment:Reference Range: Neg ative 2 to Positive 3 Blood specimen / Unknown 09/13/2024 10:00 AM EDT 09/13/2024 10:22 AM EDT Jamal Stewart MD LAB BLOOD ORDERABLES Final Result Performing Organization Address City/[facility] Co de Phone Number [address] [address], [address] [address] * (ABNORMAL) Complete Blood Count, with Differential (09/13/2024 8:01 AM EDT) White Blood Cell Count 5.5 4.0 - 11.0 Thou/uL 09/13/2024 9:37 AM EDT [facility] Platelet Count 74(L) 150 - 450 Thou/uL 09/13/2024 9:37 AM T [facility] Comment: Test results repeated. Results verified by smear review. Hemoglobin 15.2 13.0 - 17.7 g/dL 09/13/2024 9:37 AM [facility] Hematocrit 44.6 39.0 - 54.0 % 09/13/2024 9:37 AM [facility] Red Blood Cell Count 4.82 4.50 - 6.20 Mil/uL 09/13/2024 9:37 AM [facility] MCV 93 80 - 100 fL 09/13/2024 9:37 AM [facility] MCH 31.5 26.0 - 34.0 pg 09/13/2024 9:37 AM [facility] MCHC 34.1 30.0 - 36.0 g/dL 09/13/2024 9:37 AM [facility] RDW 14.6(H) 11.5 - 14.5 % 09/13/2024 9:37 AM [facility] MPV 11.8 7.5 - 12.5 fL 09/13/2024 9:37 AM [facility] nRBC 0.4(H) 0.0 - 0.1 /100 WBC 09/13/2024 9:37 AM [facility] nRBC, Absolute 0.02 0.00 - 0.02 Thou/uL 09/13/2024 9:37 AM [facility] Immature Platelet Fraction 3.0 1.2 - 8.6 % 09/13/2024 9:37 AM [facility] Neutrophils Auto 90.8 % 09/14/19 9:44 AM [facility] Immature Granulocytes 0.9 % 09/13/2024 9:44 AM [facility] Lymphocytes Auto 6.0 % 09/14/19 9:44 AM [facility] Monocytes Auto 1.6 % 09/13/2024 9:44 AM [facility] Eosinophils Auto 0.5 % 09/14/19 9:44 AM [facility] Basophils Auto 0.2 % 09/13/2024 9:44 AM [facility] Abs Neutrophils Auto 5.03 2.00 - 7.50 Thou/uL 09/13/2024 9:44 AM [facility] Abs Immature Granulocytes 0.05 0.00 - 0.10 Thou/uL 09/13/2024 9:44 AM EDT [facility] Abs Lymphocytes Auto 0.33(L) 1.50 - 4.50 Thou/uL 09/13/2024 9:44 AM EDT [facility] Abs Monocytes Auto 0.09(L) 0.20 - 1.50 Thou/uL 09/13/2024 9:44 AM EDT [facility] Abs Eosinophils Auto 0.03 0.00 - 0.70 Thou/uL 09/13/2024 9:44 AM EDT [facility] Abs Basophils Auto 0.01 0.00 - 0.20 Thou/uL 09/13/2024 9:44 AM EDT [facility] Blood Blood specimen / Unknown 09/13/2024 8:01 AM EDT 09/13/2024 8:34 AM EDT Gauri Chan MD LAB BLOOD ORDERABLES Final Resul t Performing Organization Address City/[facility]/[place] [address], [place] [address] * APTT (09/13/2024 8:01 AM EDT) Pathologist [facility] Anticoagulant OTHER AGENT OR UNKNOWN 09/13/2024 5:36 AM EDT [facility] Partial Thromboplastin Time (PTT) Grossly Hemolyzed,Re collection Requested 25 - 36 seconds 09/13/2024 9:02 AM EDT [facility] Blood Blood specimen / Unknown 09/13/2024 8:01 AM EDT 09/13/2024 8:34 AM EDT us Gauri Chan MD LAB BLOOD ORDERABLES Final Resul t Performing Organization Address City/[facility]/[place] [address], [place] [address] * (ABNORMAL) Urinalysis with Reflex to Microscopic and Culture (09/13/2024 7:54 AM EDT) Color Martina 09/13/2024 8:48 AM EDT [facility] Clarity Clear 09/13/2024 8:48 AM EDT [facility] Specific [place] 1.032(H) 1.003 - 1.030 09/13/2024 8:48 AM [facility] pH 6.0 5.0 - 8.0 09/13/2024 8:[facility] Leukocyte Esterase Negative Negative 09/13/2024 8:48 AM [facility] Nitrite Negative Negative 09/13/2024 8:48 AM [facility] Protein Small (30 mg/dL)(A) Negative 09/13/2024 8:[facility] Glucose 0 0 - 99 mg/dL 09/13/2024 8:48 AM [facility] Ketones Negative Negative 09/13/2024 8:48 AM [facility] Blood Moderate(A) Negative 09/13/2024 8:48 AM [facility] Bilirubin Negative Negative 09/13/2024 8:48 AM [facility] WBC 1 0 - 4 per hpf 09/13/2024 8:48 AM [facility] RBC >25(H) 0 - 4 per hpf 09/13/2024 8:48 AM [facility] Squamous Epithelial Cells 1 PER HPF 09/13/2024 8:48 AM [facility] Urine (Indwelling Urinary Catheter) 09/13/2024 7:54 AM EDT 09/13/2024 8:40 AM EDT Gauri Chan MD URINE ORDERABLES [place] [address], [place] [address] * Fentanyl Screen, Urine (09/13/2024 7:54 AM EDT) Fentanyl Screen, Urine Negative Negative <5 ng/mL 09/13/2024 11:45 AM T [facility] Comment: * FOR MEDICAL PURPOSES ONLY * Confirmation upon request. Urine Urine specimen / Unknown 09/13/2024 7:54 AM EDT 09/13/2024 11:08 AM EDT us Mingo Serrato DO URINE ORDERABLES Final Result Performing Organization Address [facility] Co de Phone Number [address] [address], [address] [address] * Methadone Screen, Urine (09/13/2024 7:54 AM EDT) Methadone Screen, Urine Negative Negative <300 ng/mL 09/13/2024 11:45 AM EDT [facility] Comment:* FOR MEDICAL PURPOS ES ONLY * Urine Urine specimen / Unknown 09/13/2024 7:54 AM EDT 09/13/2024 11:08 AM EDT us Mingo Serrato DO URINE ORDERABLES Final Result Performing Organization Address [facility] Co de Phone Number [address] [address], [address] [address] [address] * Cannabinoid Screen, Urine (09/13/2024 7:54 AM EDT) Cannabinoid Screen, Urine Negative Negative <50 ng/mL 09/13/2024 11:45 AM EDT [facility] Comment:* FOR MEDICAL PURPOS ES ONLY * Urine Urine specimen / Unknown 09/13/2024 7:54 AM EDT 09/13/2024 11:08 AM EDT us Mingo Serrato DO URINE ORDERABLES Final Result Performing Organization Address [facility] Co de Phone Number [address] [address], [address] [address] * Buprenorphine Screen, Urine (09/13/2024 7:54 AM EDT) Buprenorphine Screen, Urine Negative Negative <5 ng/mL 09/13/2024 11:45 AM EDT [facility] Comment:* FOR MEDICAL PURPOS ES ONLY * Urine Urine specimen / Unknown 09/13/2024 7:54 AM EDT 09/13/2024 11:08 AM EDT us Mingo Serrato DO URINE ORDERABLES Final Result Performing Organization Address [facility] Co de Phone Number [address] [address], [address] [address] * Tricyclic Screen, Urine (09/13/2024 7:54 AM EDT) Tricyclic Screen, Urine Negative Negative <300 ng/mL 09/13/2024 11:45 AM EDT [facility] Comment:* FOR MEDICAL PURPOS ES ONLY * Urine Urine specimen / Unknown 09/13/2024 7:54 AM EDT 09/13/2024 11:08 AM EDT us Mingo Serrato DO URINE ORDERABLES Final Result Performing Organization Address [facility] de Phone Number [address] [address], [address] [address] * Phencyclidine (PCP) Screen, Urine (09/13/2024 7:54 AM EDT) PCP Screen, Urine Negative Negative <25 ng/mL 09/13/2024 11:45 AM EDT [facility] Comment:* FOR MEDICAL PURPOS ES ONLY * Urine Urine specimen / Unknown 09/13/2024 7:54 AM EDT 09/13/2024 11:08 AM EDT us Mingo Serrato DO URINE ORDERABLES Final Result Performing Organization Address [facility] Co de Phone Number [address] [address], [address] [address] * Oxycodone Screen, Urine (09/13/2024 7:54 AM EDT) Oxycodone Screen, Urine Negative Negative <100 ng/mL 09/13/2024 11:45 AM EDT [facility] Comment:* FOR MEDICAL PURPOS ES ONLY * Urine Urine specimen / Unknown 09/13/2024 7:54 AM EDT 09/13/2024 11:08 AM EDT us Mingo Gillespie Powner DO URINE ORDERABLES Final Result Performing Organization Address [facility] Co de Phone Number [address] [address], [address] [address] * Opiate Screen, Urine (09/13/2024 7:54 AM EDT) Opiate, Urine Negative Negative <300 ng/mL 09/13/2024 11:45 AM EDT [facility] Comment:* FOR MEDICAL PURPOS ES ONLY * Urine Urine specimen / Unknown 09/13/2024 7:54 AM EDT 09/13/2024 11:08 AM EDT us Mingo Gillespie Powner DO URINE ORDERABLES Final Result Performing Organization Address [facility] Co de Phone Number [address] [address], [address] [address] * Ethanol, Urine (09/13/2024 7:54 AM EDT) Ethanol, Urine Negative Negative <11 mg/dL 09/13/2024 11:45 AM EDT [facility] Urine Urine specimen / Unknown 09/13/2024 7:54 AM EDT 09/13/2024 11:08 AM EDT us Mingo Gillespie Powner DO URINE ORDERABLES Final Result Performing Organization Address [facility] de Phone Number [address] [address], [address] [address] * (ABNORMAL) Cocaine Screen, Urine (09/13/2024 7:54 AM EDT) Cocaine Screen, Urine Positive( A) Negative <300 ng/mL 09/13/2024 11:45 AM EDT [facility] Comment: * FOR MEDICAL PURPOSES ONLY * Confirmation upon request. Urine Urine specimen / Unknown 09/13/2024 7:54 AM EDT 09/13/2024 11:08 AM EDT us Mingo Cerratoner DO URINE ORDERABLES Final Result Performing Organization Address City/[facility]/ZIP Co de Phone Number [address] [address], [address] [address] * Benzodiazepine Screen, Urine (09/13/2024 7:54 AM EDT) Benzodiazepine Screen, Urine Negative Negative <200 ng/mL 09/13/2024 11:45 AM EDT [facility] Comment:* FOR MEDICAL PURPOS ES ONLY * Urine Urine specimen / Unknown 09/13/2024 7:54 AM EDT 09/13/2024 11:08 AM EDT us Mingo Gillespie Powner DO URINE ORDERABLES Final Result Performing Organization Address [facility] Co de Phone Number [address] [address], [address] [address] * Barbiturate Screen, Urine (09/13/2024 7:54 AM EDT) Barbiturate Screen, Urine Negative Negative <200 ng/mL 09/13/2024 11:45 AM EDT [facility] Comment:* FOR MEDICAL PURPOS ES ONLY * Urine Urine specimen / Unknown 09/13/2024 7:54 AM EDT 09/13/2024 11:08 AM EDT us Mingo T Powner DO URINE ORDERABLES Final Result Performing Organization Address [facility] Co de Phone Number [address] [address], [address] [address] * Amphetamine Screen, Urine (09/13/2024 7:54 AM EDT) Amphetamine Screen, Urine Negative Negative <1000 ng/mL 09/13/2024 11:45 AM EDT [facility] Comment:* FOR MEDICAL PURPOS ES ONLY * Urine Urine specimen / Unknown 09/13/2024 7:54 AM EDT 09/13/2024 11:08 AM EDT Mingo Serrato DO URINE ORDERABLES Final Result [facility] [address] [place] [address], [address] [address] * INTUBATION (09/13/2024 7:53 AM EDT) Jamal Mondragon MD - 09/13/2024 7:53 AM EDT Jamal Stewart MD 09/13/2024 12:07 PM Intubation Date/Time: 09/13/2024 7:53 AM Performed by: Tuyet Ma MD Authorized by: Jamal Stewart MD Consent: Consent obtained: Emergent situation Gore protocol: Relevant documents present and verified: yes Test results available: yes Imaging studies available: yes Immediately prior to procedure, a time out was called: yes Patient identity confirmed: Hospital-assigned identification number and arm band Pre-procedure details: Indications: airway protection and altered consciousness Patient status: Altered mental status Look externally: no concerns Mallampati score: I Obstruction: none Neck mobility: normal Pharmacologic strategy: RSI Induction agents: Etomidate Paralytics: Rocuronium Procedure details: Preoxygenation: Bag valve mask CPR in progress: no Number of attempts: 1 Successful intubation attempt details: Intubation method: Oral Intubation technique: video assisted Laryngoscope blade: Hypercurved Bougie used: no Grade view: I Tube size (mm): 7.5 Tube type: Cuffed Tube visualized through cords: yes Placement assessment: ETT at teeth/gumline (cm): 27 Tube secured with: ETT waggoner Breath sounds: Equal Placement verification: chest rise, CXR verification, direct visualization, equal breath sounds, tube exhalation and waveform ETCO2 Post-procedure details: Procedure completion: Tolerated well, no immediate complications Jamal Stewart MD PROCEDURE/MINOR SURGI NINA ORDERABLES Final Result * CT Head Archive for Reference Only (09/13/2024 6:51 AM EDT) Narrative [facility] 09/13/2024 6:51 AM EDT This study has been auto finalized and does not contain a result. us File Room Provider IMG DIGITIZE FILMS Final Resu lt Performing Organization Address [facility] de Phone Number RADHA [phone] * CR Chest Archive for Reference only (09/13/2024 6:51 AM EDT) Narrative [facility] 09/13/2024 6:51 AM EDT This study has been auto finalized and does not contain a result. us File Room Provider IMG DIGITIZE FILMS Final Resu lt Performing Organization Address [facility] de Phone Number RADHA [phone] * CT Abdomen Archive for Reference Only (09/13/2024 6:50 AM EDT) Narrative [facility] 09/13/2024 6:50 AM EDT This study has been auto finalized and does not contain a result. us File Room Provider IMG DIGITIZE FILMS Final Resu lt Performing Organization Address [facility] de Phone Number RADHA [phone] from Last 3 Months Insurance [facility] Advance Directives * Full Code (Latest Code Status on File) Date Activated Date Inactivated Comments 09/13/2024 8:39 AM Healthcare Agents on File Name Relationship Healthcare Agent Relationshi p Communication Valeria Lisa Adult child 4. Next of Kin (Spouse, Adult Child, Parent, Adult Sibling, Grandparent) Margaux Lisa Adult child 4. Next of Kin (Spouse, Adult Child, Parent, Adult Sibling, Grandparent) Shu Galindo Adult child 4. Next of Kin ( Spouse, Adult Child, Parent, Adult Sibling, Grandparent)
[2024-09-23 16:08] LABS: MANUAL DIFF FLAG NO
[2024-09-23 16:24] LABS: Hemoglobin A1C 99.6017 umol/L; Total Hemoglobin (HGBA1C) 3206.6567 umol/L
[2024-09-23 16:35] LABS: Hematocrit 35.3 % (42.0-52.0); Hemoglobin 12.0 g/dl (14.0-18.0); Imm Gran Abs Auto 0.02 X10*3/uL (0.00-0.03); Imm Gran Pct Auto 0.5 % (0.0-0.4); Lymphocytes Absolute Auto 0.9 X10*3/uL (1.2-4.9); Mean Corpuscular HGB Conc 34.0 g/dl (31.0-36.0); Mean Corpuscular Hemoglobin 32.0 pg (27.0-33.0); Mean Corpuscular Volume 94.1 fL (80.0-98.0); NRBC Abs Auto 0.000 X10*3/uL (0.0-0.012); NRBC Pct Auto 0.0 /100WBC (0.0-0.2); Red Blood Count 3.75 X10*6/uL (4.60-5.80); White Blood Count 4.3 X10*3/uL (4.8-10.8)
[2024-09-23 16:39] LABS: Platelet Count 60 X10*3/uL (160-400)
[2024-09-23 16:45] LABS: Alanine Aminotransferase 502 U/L (0-40); Albumin Level 3.3 g/dL (3.5-5.0); Alkaline Phosphatase 163 U/L (39-117); Anion Gap 9 (12-20); Aspartate Amino Transferase 73 U/L (5-37); Blood Urea Nitrogen 17 mg/dL (9-16); Calcium 8.6 mg/dL (8.4-10.2); Carbon Dioxide 26 mmol/L (22-29); Chloride 108 mmol/L (96-108); Estimated Glomerular Filt Rate > 60; Magnesium 1.9 mg/dL (1.6-2.6); Potassium 3.9 mmol/L (3.3-5.1); Sodium 139 mmol/L (135-145); Total Protein 6.3 g/dL (6.5-8.0)
[2024-09-23 16:48] LABS: PSA,Total (Free>4and<10) 0.31 ng/mL (0.00-4.00)
[2024-09-23 17:04] LABS: Folate 11.4 ng/mL (> or = 4.0); Vitamin B12 > 2000 pg/mL (200-900)
[2024-09-23 17:40] LABS: Resp Syncy Virus RNA Qual PCR NEGATIVE (Negative); SARS COV2 PCR INHOUSE NEGATIVE (Negative)
[2024-09-27 14:28] LABS: Testosterone, Free 49.5 pg/mL (35.0-155.0)
== END 2024-09-23 11:34 | disposition home or self-care (01) ==
LOC: HO.HMGCLDS 11:33
PROVIDERS: PCP Internal Medicine; Visit Provider Physician Assistant Medical
DX: T39.1X2D Poisoning by 4-Aminophenol derivatives, intentional self-harm, subsequent encounter (principal); K72.00 Acute and subacute hepatic failure without coma; G93.41 Metabolic encephalopathy; N17.9 Acute kidney failure, unspecified; D64.9 Anemia, unspecified; D69.6 Thrombocytopenia, unspecified; K12.0 Recurrent oral aphthae; R79.89 Other specified abnormal findings of blood chemistry; Z12.5 Encounter for screening for malignant neoplasm of prostate; Z00.00 Encounter for general adult medical examination without abnormal findings; R07.0 Pain in throat
CPT/HCPCS: 36415; 80053; 82248; 82306; 82607; 82627; 82642; 82746; 83036; 83735; 84153; 84402; 84403; 84443; 85025; 86140; 87070; 87637; 96127

== ENCOUNTER 2024-09-23 11:33 | Outpatient (AMB) | payer OTHER, SELFPAY ==
[2024-09-23 11:33] VITALS: BP 114/72; PULSE 88; RESP 20; TEMP 36.7; O2SAT 99; BMI 22.9
--- NOTE | 2024-09-23 11:33 | A.OFFPC_ITS ---
Vital Signs 09/23/24 11:33 Height 5 ft 4.17 in Weight 134 lb BMI 22.9 BP 114/72 Blood Pressure Location Rt brachial Position Sitting Respiration 20 Pulse 88 Pulse Source Pulse Oximeter Temp 98.1 F Temp Source Oral Pulse Oximetry (%) 99 Oxygen Delivery Method Room Air Intake Visit Reasons: Liver toxicity 2nd to Tylenol Intake Note: Visit Reason: TCM Intake Note: Patient is here for hospital discharge follow up. [facility] from [facility] In[facility] Required: No White Sugar Supervisor: Not Required per policy Accompanied by: Self / Same As Patient Allergies chantix Allergy (Unknown, Uncoded 09/23/24 11:44) sleep walking Medication List - Last Reconciled 09/23/24 by Dara Link PA-C multivitamin (Daily Multi-Vitamin tablet) 1 tab PO DAILY Tobacco use date assessed: 08/21/24 Dental Screening Dental Screen Date: 08/21/24 Did you have a dental visit in the last 12 months?: Yes Did you have a dental problem in the last 6 months where you did not have access to dental care?: No Was dental information given to patient?: Patient has dentist HPI HPI Comments History of Present Illness Details Patient presents to the office for a TCM visit. Date of admission: 09/13/2024 Date of discharge: 09/19/2024 This is a Follow-up from admission at [facility] HPI/hospital course/discharge summary: The patient is a 48-year-old male presenting for a discharge follow-up after hospitalization for an intentional overdose of acetaminophen. The incident occurred following a night out, where the patient consumed an unknown quantity of acetaminophen, possibly mixed with alcohol. The patient was found unresponsive at home after a wellness check initiated by his ex-, leading to his admission to [facility] for specialized care. During hospitalization, the patient was diagnosed with acute metabolic encephalopathy, acute liver failure, acute hypoxic respiratory failure, and acute kidney injury. He experienced confusion, vomiting blood, and required intubation, which resulted in throat and tongue irritation. The patient was treated with acetylcysteine, IV fluids, antibiotics, and breathing support. Post-discharge, the patient reports persistent throat and tongue discomfort, attributed to intubation-related trauma and canker sores. He denies any current abdominal pain or thoughts of self-harm and has ceased acetaminophen use. The patient has a supportive network, including four daughters, an ex-, a mother, and a nephew, and lives independently. He was discharged with a multivitamin prescription and advised to avoid vitamin B12 supplements due to elevated levels. Follow-up includes blood work to monitor liver and kidney function, anemia, and platelet count. Social History/Family support: - Family: The patient has four daughters , an ex-, a mother, and a nephew, providing a supportive network. - Living Situation: The patient lives in dependently. Discharged to/Current Location: Home Lives with: Alone Diagnosis: Acute metabolic encephalopathy, acute liver failure, acute hypoxic respiratory failure, acute kidney injury, intentional acetaminophen overdose and alcohol intoxication Procedures performed: Patient had labs, chest x-ray, blood cultures, respiratory culture and was given N-acetylcysteine for Tylenol overdose New medications: Multivitamin Discontinued medications: None Change medications/dosing: None Pending labs: None Pending diagnostic test: None Any Follow-up Labs required? None Any Follow-up Diagnostic test required? None How are you feeling? Patient is feeling better although has some tongue and throat discomfort and is noted to have some canker sore. Patient reports he does not feel completely the area and would also like to speak to a therapist. He denies any SI or HI at this time or any auditory visualizations. Denies any recent alcohol or Tylenol usage. Are you in any pain or discomfort? Patient does has some throat discomfort otherwise denies any other pain denies any abdominal pain Do you have any questions about your condition or discharge instructions? Patient denies having any questions about his condition or discharge instruction Were you able to get your medications filled? Yes patient is started the multivitamin Do you have any questions about your medications? Patient does not have any questions Any referrals required? Will refer to psychiatrist/therapist Were you able to schedule your follow-up appointment? Yes If home health was ordered, have they contact you? Patient not interested in home health aide services Any outpatient services, if so, are you scheduled? PT was order along with psychotherapy outpatient and they reached out to the patient and patient will schedule an appointment with the Are there any additional resources like transportation you might need during her recovery? Not at this time per patient - VNA? Not at this time per patient and patient not interested at this time - [employer]? Not at this time per patient and patient not interested at this time - Meals on wheels? Not at this time per patient and patient not interested at this time Educational need/resources: What support system do you have? Patient has family support his ex-, for daughters, his mother, his nephew [facility] Medical History (Updated 09/23/24 @ 12:52 by Dara Link PA-C) Elevated vitamin B12 level Canker sores oral Thrombocytopenia Anemia REMY (acute kidney injury) Acute metabolic encephalopathy Acute liver failure Intentional acetaminophen overdose Throat pain Annual physical exam Decreased hearing Dermoid cyst of eyebrow Carpal tunnel syndrome on both sides Colon cancer screening Family history of dementia Establishing care with new doctor, encounter for Family history of diabetes mellitus Family history of myocardial infarction Surgical History History of vasectomy Family History Mother Dementia Father Heart attack Social History Housing: House Alcohol intake: current Alcohol intake frequency: 3 or more drinks per day Patient Tobacco Use Status: Current everyday Tobacco user Cigarette Packs Per Day: 1.5 Cigarettes Per Day: 30 Years Smoked: 13 years old service: No Current occupational status: employed Cognitive needs: No Hearing needs: No Vision needs: Yes (rx glasses) Questionnaire PHQ-9 Over the last 2 weeks, how often have you been bothered by any of the following problems? 1. Little interest or pleasure in doing things: not at all 2. Feeling down, depressed, or hopeless: not at all 3. Trouble falling or staying asleep, or sleeping too much: not at all 4. Feeling tired or having little energy: not at all 5. Poor appetite or overeating: not at all 6. Feeling bad about yourself - or that you are a failure or have let yourself or your family down: not at all 7. Trouble concentrating on things, such as reading the newspaper or watching television: not at all 8. Moving or speaking so slowly that other people could have noticed. Or the opposite - being so fidgety or restless that you have been moving around a lot more than usual: not at all 9. Thoughts that you would be better off or of hurting yourself in some way: not at all Total score: 0 Depression Screening Interpretation: Negative Depression Screening Done: Yes [id number] - PHQ-9 Billing: Yes Source: Developed by Drs. Amado Ca, Christi Davis, Gus Valentin and colleagues, with an educational rodri from [employer]. Thrive Questionnaire Date Thrive assessed: 08/21/24 I am a: Patient What is your living situation today?: I have a steady place to live Within the past 12 months, did the food you bought not last and you didn't have the money to get more?: Never true Within the past 12 months, did you worry whether your food would run out before you got money to buy more?: Never true Do you have trouble paying for medicines?: No Do you have trouble getting transportation to medical appointments?: No Do you have trouble paying your heating and electricity bill?: No Do you have trouble taking care of your child, family member or friend?: No Do you have trouble with day-to-day activities such as bathing, preparing meals, shopping, managing finances, etc.?: No Are you currently unemployed and looking for a job?: No Are you interested in more education?: No Please select the resources that you would like help with: None THRIVE Score: 0 AUDIT C Alcohol Use Questionnaire (AUDIT-C) 1. How often do you have a drink containing alcohol?: 4 or more times a week 2. How many drinks containing alcohol do you have on a typical day when you are drinking?: 3 or 4 3. How often do you have six or more drinks on one occasion?: Weekly Total Score: 8 Score Reviewed/Action Taken: No DARREN-7 AMB Questionnaire DARREN-7 Date DARREN - 7 assessed: 08/21/24 Feeling nervous, anxious, or on edge: 0 = Not at all Not being able to stop or control worryin = Not at all Worrying too much about different things: 0 = Not at all Trouble relaxin = Not at all Being so restless that it is hard to sit still: 0 = Not at all Becoming easily annoyed or irritable: 0 = Not at all Feeling afraid as if something awful might happen: 0 = Not at all Total DARREN-7 score (0-4 normal; 5-9 mild; 10-14 moderate; 15-21 severe): 0 Source: Developed by Drs. Amado Ca, Christi Davis, Gus Valentin and colleagues, with an educational rodri from [employer]. DARREN-7 Assessment Billing DARREN-7 Assessment Tool: DARREN-7 Assessment 58088 Review of Systems Const Details: - General: Denies abdominal pain, denies thoughts of self-harm. - Gastrointestinal: Reports vomiting blood during hospitalization. - Neurological: Reports confusion during hospitalization. - Respiratory: Reports throat and tongue discomfort post-intubation. Physical exam (Primary Care) Vital Signs: Last Vital Signs Temp 100.7 F H 09/23/24 11:33 Pulse 88 09/23/24 11:33 Resp 20 09/23/24 11:33 BP 114/72 09/23/24 11:33 Pulse Ox 99 09/23/24 11:33 Oxygen Delivery Method Room Air 09/23/24 11:33 Vitals signs have been reviewed. Care Plan Goal for BP management: <140/90 at Goal BMI result Body Mass Index 22.9 normal bmi Tobacco/Smoking Status: Tobacco use Status Tobacco use date assessed 08/21/24 09/23/24 11:38 Patient Tobacco Use Status Current everyday Tobacco 09/23/24 11:38 PHQ-9: PHQ-9 Score PHQ-9: Total score 0 09/23/24 11:38 Depression Screening Interpretation: Negative Thrive Assessment: Date of Thrive Assessment Date Thrive assessed 08/21/24 09/23/24 11:38 Const Other: Appearance: Alert. Oriented X3. No acute distress. Head: Normal external exam. Normocephalic. Atraumatic. Eyes: Pupils are equal, round, and reactive to light. Extraocular movements intact. Conjunctiva and sclera normal. Eyelids normal. Throat: Pharynx normal. Uvula midline. Moist mucous membranes. Throat hurts with a constant tickling sensation. Noted to have canker sores on tongue. Posterior pharynx within normal limits. No exudate noted. Uvula is midline. No trismus, drooling or stridor is noted. Neck: Normal inspection. Neck supple. Full range of motion. Cardiovascular: Normal heart rate and rhythm. Respiratory: No respiratory distress. Painless inspiration. Abdomen: Soft and nontender. No distention noted. No organomegaly noted. Back: Full range of motion noted. Skin: Skin warm and dry. Normal skin color. Normal skin turgor. No rashes/lesions/lacerations noted. Extremities: No lower extremity edema. Extremities exhibit normal range of motion. Neuro: Oriented X 3. No motor deficit. No sensory deficit. Reflexes normal. Results Reviewed Results Reviewed: - Labs: Elevated BUN and creatinine at 29 and 1.4 respectively, indicating renal function monitoring required. - Labs: Calcium at 8.2, chloride at 110, white blood cell count at 5.9, platelet count at 52 indicating thrombocytopenia. - Labs: Hemoglobin and hematocrit at 11.7 and 35, indicating mild anemia. - Labs: AST at 104, ALT at 926, indicating elevated liver enzymes. - Labs: Bilirubin at 8.4, albumin at 2.9, indicating hyperbilirubinemia and hypoalbuminemia. - Labs: Vitamin B12 greater than 2000, indicating elevated levels. Coding Level of Care Code TCM High MDM <= 7 Days Complex EM visit Add On G2211 Diagnoses Intentional acetaminophen overdose T39.1X2A Acute liver failure K72.00 Acute metabolic encephalopathy G93.41 REMY (acute kidney injury) N17.9 Anemia D64.9 Thrombocytopenia D69.6 Canker sores oral K12.0 Elevated vitamin B12 level R79.89 Additional Codes DARREN-7 Assessment Billing - DARREN-7 Assessment Tool: DARREN-7 Assessment 97061 ([id number]) PHQ-9 - 78026 - PHQ-9 Billing: Yes ([id number]) Assessment & Plan Assessment & Plan (1) Intentional acetaminophen overdose: Code(s): T39.1X2A - Poisoning by 4-Aminophenol derivatives, intentional self-harm, initial encounter Category: Medical Plan: The patient was admitted for an intentional overdose of acetaminophen, resulting in acute liver failure, acute metabolic encephalopathy, acute hypoxic respiratory failure, and acute kidney injury. Management included administration of acetylcysteine, IV fluids, antibiotics, and breathing support. The patient is advised to avoid acetaminophen and alcohol consumption. (2) Acute liver failure: Code(s): K72.00 - Acute and subacute hepatic failure without coma Category: Medical Plan: The patient experienced acute liver failure secondary to acetaminophen overdose, with elevated liver enzymes and hyperbilirubinemia noted. Liver function will be monitored through follow-up blood work. (3) Acute metabolic encephalopathy: Code(s): G93.41 - Metabolic encephalopathy Category: Medical Plan: The patient was diagnosed with acute metabolic encephalopathy, likely due to liver dysfunction from acetaminophen toxicity. Symptoms included confusion, which has since improved post-discharge. (4) REMY (acute kidney injury): Code(s): N17.9 - Acute kidney failure, unspecified Category: Medical Plan: The patient suffered acute kidney injury as a result of acetaminophen overdose. Renal function will be monitored through follow-up blood work. (5) Anemia: Code(s): D64.9 - Anemia, unspecified Category: Medical Plan: The patient presents with mild anemia, as indicated by hemoglobin and hematocrit levels. Follow-up blood work will monitor anemia status. (6) Thrombocytopenia: Code(s): D69.6 - Thrombocytopenia, unspecified Category: Medical Plan: The patient has thrombocytopenia, with a platelet count of 52. Platelet levels will be monitored through follow-up blood work. (7) Canker sores oral: Code(s): K12.0 - Recurrent oral aphthae Category: Medical Plan: The patient reports canker sores and throat discomfort post-intubation. Magic mouthwash or viscous lidocaine is recommended for symptomatic relief. (8) Elevated vitamin B12 level: Code(s): R79.89 - Other specified abnormal findings of blood chemistry Category: Medical Plan: The patient has elevated vitamin B12 levels, likely due to excessive supplementation. The patient is advised to discontinue vitamin B12 supplements. Plan Plan Patient was informed and verbally consented to the use of an ambient scribe for clinic note documentation during this visit. 1. Intentional Overdose Of Acetaminophen The patient was admitted for an intentional overdose of acetaminophen, resulting in acute liver failure, acute metabolic encephalopathy, acute hypoxic respiratory failure, and acute kidney injury. Management included administration of acetylcysteine, IV fluids, antibiotics, and breathing support. The patient is advised to avoid acetaminophen and alcohol consumption. 2. Acute Liver Failure The patient experienced acute liver failure secondary to acetaminophen overdose, with elevated liver enzymes and hyperbilirubinemia noted. Liver function will be monitored through follow-up blood work. 3. Acute Metabolic Encephalopathy The patient was diagnosed with acute metabolic encephalopathy, likely due to liver dysfunction from acetaminophen toxicity. Symptoms included confusion, which has since improved post-discharge. 4. Acute Hypoxic Respiratory Failure The patient developed acute hypoxic respiratory failure requiring intubation during hospitalization. Post-discharge, the patient reports throat and tongue discomfort due to intubation-related trauma. 5. Acute Kidney Injury The patient suffered acute kidney injury as a result of acetaminophen overdose. Renal function will be monitored through follow-up blood work. 6. Anemia The patient presents with mild anemia, as indicated by hemoglobin and hematocrit levels. Follow-up blood work will monitor anemia status. 7. Thrombocytopenia The patient has thrombocytopenia, with a platelet count of 52. Platelet levels will be monitored through follow-up blood work. 8. Canker Sores The patient reports canker sores and throat discomfort post-intubation. Magic mouthwash or viscous lidocaine is recommended for symptomatic relief. 9. Elevated Vitamin B12 Levels The patient has elevated vitamin B12 levels, likely due to excessive supplementation. The patient is advised to discontinue vitamin B12 supplements. During the visit, I discussed the patient's recent hospitalization due to an intentional overdose of acetaminophen, which led to multiple acute conditions including liver failure and respiratory failure. We reviewed the importance of avoiding acetaminophen and alcohol, and I recommended follow-up blood work to monitor liver and kidney function, anemia, and platelet count. I also suggested a referral to a therapist or psychiatrist to support mental health, given the circumstances surrounding the overdose. Orders: Orders Strep A Nucleic Acid Today J02.9 - Acute pharyngitis, unspecified SARS-CoV2/FLU/RSV Today R07.0 - Pain in throat Comprehensive Met. Panel Today Z00.00 - Encounter for general adult medical examination without abnormal findings Medications: New Magic Mouthwash Diphen/Lido/Antacid 1:1:1 Lidocaine Viscous 2 % 80mL; diphenhydramine 12.5 mg/5 mL 80mL; aluminum-mag hydrox-simeth [id number]/5mL 80mL 5 mL PO BID PRN 240 mL 0RF Swish and swallow 5 mL twice a day Patient Instructions: - Avoid acetaminophen and alcohol consumption. - Follow up with blood work to monitor liver and kidney function, anemia, and platelet count. - Discontinue vitamin B12 supplements. - Use magic mouthwash or viscous lidocaine for throat and tongue discomfort. - Attend follow-up appointments with a therapist or psychiatrist as referred.
== END 2024-09-23 12:12 | disposition home or self-care (01) ==
LOC: HO.HMCSH 11:33
PROVIDERS: PCP Internal Medicine; Visit Provider Physician Assistant Medical
DX: T39.1X2A Poisoning by 4-Aminophenol derivatives, intentional self-harm, initial encounter (principal); K72.00 Acute and subacute hepatic failure without coma; G93.41 Metabolic encephalopathy; N17.9 Acute kidney failure, unspecified; D64.9 Anemia, unspecified; D69.6 Thrombocytopenia, unspecified; K12.0 Recurrent oral aphthae; R79.89 Other specified abnormal findings of blood chemistry

== ENCOUNTER 2024-10-09 10:28 | Outpatient (AMB) | payer OTHER, SELFPAY ==
--- OUTSIDE RECORDS SUMMARY | 2024-10-09 10:39 | XMS_ITS | Clinical Summary ---
Author Organization [facility] Address [address] [place] [address] Care Team Providers Care Clip And Hanger Attacher Name Role Phone Unavailable Primary Care Provider [...] Description 09/13/2024 7:00 AM EDT Ancillary Procedure [facility] Radiology [address] [place] [phone] Provider, File Room 09/13/2024 6:55 AM EDT Ancillary Procedure [facility] Radiology [address] [place] [phone] Provider, File Room 09/13/2024 6:55 AM EDT Ancillary Procedure [facility]iology [address] [place] [phone] Provider, File Room 09/13/2024 5:20 AM EDT - 09/19/2024 2:41 PM EDT Hospital Encounter [facility] [address] [place] [address], [place] [phone] Jamal Stewart MD Powner, Jordan T, Tk Matos MD Rheiner, Jacqueline A, DO Hebbal, Pooja, MD Pichardo Castillo, Jose, MD Hematemesis (Primary Dx); Cocaine abuse (HCC); Hepatic encephalopathy (HCC); Jaundice; Thrombocytopenia; Transaminitis; Hyperammonemia ; Hyperbilirubinemia; Tylenol ingestion, intentional self-harm, initial encounter (HCC); Acute metabolic encephalopathy Discharge Disposition: Home or Self Care 09/13/2024 Travel 09/13/2024 Orders Only [facility] Radiology [address] [place] [phone] Provider, File Room from Last 3 Months Social History Tobacco Use Types Packs/Day Years Used Date Smoking Tobacco: Never Assessed [facility] Utilities Answer Date Recorded In the past 12 months has [employer], oil, or water [employer] threatened to shut off services in your [...] any time in the past 12 m [facility], were you homeless or living in a fdc (including now)? Patient unable to answer 09/14/2024 [...] of12 resultswithin the time period is included. [facility] Anticoagulant IV HEPARIN, UNFRACTIONATED 09/19/2024 7:21 AM EDT [facility] Prothrombin Time (PT) 17.0(H) 10.0 - 13.5 seconds 09/19/2024 [facility] 1.5 09/19/2024 9:28 AM T [facility] Comment:INR Therapeutic Rang es: Standard dose anticoagulant 2.0 to 3.0, High dose anticoagulant 2.5-3.5. Blood Blood specimen / Unknown 09/19/2024 8:09 AM EDT 09/19/2024 8:41 AM EDT Dwayne Marsh MD LAB BLOOD ORDERABLES F inal Result Performing Organization Address [facility] Co de Phone Number [address] [address], [address] [address] * (ABNORMAL) Complete Blood Count WITHOUT Differential - ROUTINE (09/19/2024 8:09 AM EDT) Only the most recent of8 resultswithin the time period is included. [facility] White Blood Cell Count 5.0 4.0 - 11.0 Thou/uL 09/19/2024 10:05 AM T [facility] Platelet Count 46(L) 150 - 450 Thou/uL 09/19/2024 10:05 AM T [facility] Comment: Results verified by smear review. Test results repeated. Occasional large platelet present. Hemoglobin 11.0(L) 13.0 - 17.7 g/dL 09/19/2024 10:05 AM [facility] Hematocrit 33.5(L) 39.0 - 54.0 % 09/19/2024 10:05 AM [facility] Red Blood Cell Count 3.54(L) 4.50 - 6.20 Mil/uL 09/19/2024 10:05 AM [facility] MCV 95 80 - 100 fL 09/19/2024 10:05 AM [facility] MCH 31.1 26.0 - 34.0 pg 09/19/2024 10:05 AM [facility] MCHC 32.8 30.0 - 36.0 g/dL 09/19/2024 10:05 AM [facility] RDW 15.9(H) 11.5 - 14.5 % 09/19/2024 10:05 AM [facility] MPV 12.1 7.5 - 12.5 fL 09/19/2024 10:05 AM [facility] Immature Platelet Fraction 9.9(H) 1.2 - 8.6 % 09/19/2024 10:05 AM [facility] Blood Blood specimen / Unknown 09/19/2024 8:09 AM EDT 09/19/2024 8:41 AM EDT Dwayne Marsh MD LAB BLOOD ORDERABLES F inal Result [address] [address], [address] [address] * Magnesium (AM) (09/19/2024 8:09 AM EDT) Only the most recent of14 resultswithin the time period is included. Magnesium 1.8 1.6 - 2.7 mg/dL 09/19/2024 9:48 AM [facility] Blood Blood specimen / Unknown 09/19/2024 8:09 AM EDT 09/19/2024 8:41 AM EDT Dwayne Marsh MD LAB BLOOD ORDERABLES F inal Result [facility] [address] [place] [address], [facility] [address] [place] [address] * (ABNORMAL) Comprehensive Metabolic Panel (09/19/2024 8:09 AM EDT) Glucose 97 65 - 99 mg/dL 09/19/2024 9:48 AM [facility] Comment:Fasting: <100 mg/dL, Non-Fasting: <200 mg/dL (ADA 2004) Blood Urea Nitrogen (BUN) 26(H) 8 - 21 mg/dL 09/19/2024 9:48 AM [facility] Creatinine 1.2 0.5 - 1.3 mg/dL 09/19/2024 9:48 AM [facility] eGFR 76 >59 09/19/2024 9:48 AM [facility] Comment:CKD-EPI (2020) in mL /min/1.73 sq meters. Sodium 145 136 - 145 mmol/L 09/19/2024 9:48 AM [facility] Potassium 3.7 3.4 - 5.3 mmol/L 09/19/2024 9:48 AM [facility] Chloride 114(H) 98 - 107 mmol/L 09/19/2024 9:48 AM [facility] CO2 23 22 - 33 mmol/L 09/19/2024 9:48 AM [facility] Calcium 8.4(L) 8.7 - 10.5 mg/dL 09/19/2024 9:48 AM [facility] Alkaline Phosphatase 122 45 - 128 U/L 09/19/2024 9:48 AM [facility] Aspartate Aminotrans (AST) 104(H) 10 - 55 U/L 09/19/2024 9:48 AM [facility] Alanine Aminotrans (ALT) 925(H) 10 - 55 U/L 09/19/2024 9:57 AM [facility] Bilirubin, Total 6.7(H) 0.2 - 1.0 mg/dL 09/19/2024 9:48 AM [facility] Protein, Total 5.0(L) 6.3 - 8.3 g/dL 09/19/2024 9:48 AM EDT [facility] Albumin 2.9(L) 3.5 - 5.0 g/dL 09/19/2024 9:48 AM EDT [facility] BUN/Creatinine Ratio 22 10.0 - 25.0 Ratio 09/19/2024 9:48 AM EDT [facility] Globulin 2.1 1.5 - 3.9 g/dL 09/19/2024 9:48 AM EDT [facility] Albumin/Globulin Ratio 1.4 1.0 - 3.0 Ratio 09/19/2024 9:48 AM EDT [facility] Anion Gap 8 7 - 17 09/19/2024 9:48 AM EDT [facility] Blood Blood specimen / Unknown 09/19/2024 8:09 AM EDT 09/19/2024 8:41 AM EDT Dwayne Marsh MD LAB BLOOD ORDERABLES F inal Result Performing Organization Address City/[facility]/[place] [address], [place] [address] * (ABNORMAL) Phosphorus (09/18/2024 11:49 PM EDT) Only the most recent of12 resultswithin the time period is included. Phosphorus 2.3(L) 2.7 - 4.5 mg/dL 09/19/2024 12:29 AM EDT [facility] Blood Blood specimen / Unknown 09/18/2024 11:49 PM EDT 09/19/2024 12:01 AM EDT Dana Harris APRN LAB BLOOD ORDERABLES Final R esult Performing Organization Address City/[facility]/[place] [address], [place] [address] * (ABNORMAL) HEPATIC FUNCTION PANEL (09/18/2024 11:49 PM EDT) Only the most recent of13 resultswithin the time period is included. Alkaline Phosphatase 109 45 - 128 U/L 09/19/2024 12:[facility] Aspartate Aminotrans (AST) 108(H) 10 - 55 U/L 09/19/2024 12:29 AM [facility] Alanine Aminotrans (ALT) 1,031(H) 10 - 55 U/L 09/19/2024 12:32 AM [facility] Bilirubin, Total 7.4(H) 0.2 - 1.0 mg/dL 09/19/2024 12:29 AM [facility] Protein, Total 4.8(L) 6.3 - 8.3 g/dL 09/19/2024 12:29 AM [facility] Albumin 2.8(L) 3.5 - 5.0 g/dL 09/19/2024 12:29 AM [facility] Bilirubin, Direct 5.2(H) 0 - 0.2 mg/dL 09/19/2024 12:29 AM [facility] Globulin 2.0 1.5 - 3.9 g/dL 09/19/2024 12:29 AM [facility] Albumin/Globulin Ratio 1.4 1.0 - 3.0 Ratio 09/19/2024 12:29 AM [facility] Blood Blood specimen / Unknown 09/18/2024 11:49 PM EDT 09/19/2024 12:01 AM EDT [facility] C SOFTWARE DEVELOPER LAB BLOOD ORDERABLES Final R esult [address] [address], [address] [address] * (ABNORMAL) Basic Metabolic Panel (09/18/2024 11:49 PM EDT) Only the most recent of14 resultswithin the time period is included. Pathologist [facility] Glucose 87 65 - 99 mg/dL 09/19/2024 12:29 AM [facility] Comment:Fasting: <100 mg/dL, Non-Fasting: <200 mg/dL (ADA 2005) Blood Urea Nitrogen (BUN) 24(H) 8 - 21 mg/dL 09/19/2024 12:29 AM [facility] Creatinine 1.3 0.5 - 1.3 mg/dL 09/19/2024 12:29 AM [facility] eGFR 69 >59 09/19/2024 12:29 AM [facility] Comment:CKD-EPI (2020) in mL /min/1.73 sq meters. Sodium 142 136 - 145 mmol/L 09/19/2024 12:29 AM EDT [facility] Potassium 3.8 3.4 - 5.3 mmol/L 09/19/2024 12:29 AM [facility] Chloride 110(H) 98 - 107 mmol/L 09/19/2024 12:29 AM [facility] CO2 24 22 - 33 mmol/L 09/19/2024 12:29 AM [facility] Anion Gap 8 7 - 17 09/19/2024 12:29 AM [facility] Calcium 8.2(L) 8.7 - 10.5 mg/dL 09/19/2024 12:29 AM [facility] BUN/Creatinine Ratio 18 10.0 - 25.0 Ratio 09/19/2024 12:29 AM [facility] Blood Blood specimen / Unknown 09/18/2024 11:49 PM EDT 09/19/2024 12:01 AM EDT [facility] SOFTWARE DEVELOPER LAB BLOOD ORDERABLES Final R esult [address] [address], [address] [address] * Sodium (09/18/2024 6:23 AM EDT) Only the most recent of9 resultswithin the time period is included. Sodium 140 136 - 145 mmol/L 09/18/2024 7:48 AM EDT [facility] Blood Blood specimen / Unknown 09/18/2024 6:23 AM EDT 09/18/2024 6:48 AM EDT Marie Simmons PA-C LAB BLOOD ORDERABLES Jessenia l Result Performing Organization Address City/[facility]/[place] [address], [address] [address] * (ABNORMAL) TSH (Routine) (09/18/2024 12:40 AM EDT) TSH, Highly Sensitive 0.15(L) 0.27 - 4.20 mIU/L 09/18/2024 3:09 AM EDT [facility] Blood Blood specimen / Unknown 09/18/2024 12:40 AM EDT 09/18/2024 1:00 AM EDT Dana Greener C SOFTWARE DEVELOPER LAB BLOOD ORDERABLES Final R esult Performing Organization Address City/[facility]/[place] [address], [address] [address] * T4, FREE (09/18/2024 12:40 AM EDT) Pathologist [facility] T4, Free 0.90 0.80 - 1.90 ng/dL 09/18/2024 9:06 AM EDT [facility] 09/18/2024 12:4 0 AM EDT 09/18/2024 1:00 AM EDT Dana Green C SOFTWARE DEVELOPER LAB BLOOD ORDERABLES Final R esult Performing Organization Address City/[facility]/[place] [address], [address] [address] * Folate Level (09/18/2024 12:40 AM EDT) Pathologist [facility] Folate, Serum Specimen hemolyzed. Test not performed. >7.2 ng/mL 09/18/2024 3:24 AM EDT [facility] Blood Blood specimen / Unknown 09/18/2024 12:40 AM EDT 09/18/2024 1:00 AM EDT us ncyclo Greener C SOFTWARE DEVELOPER LAB BLOOD ORDERABLES Final R esult Performing Organization Address City/[facility] Co de Phone Number [address] [address], [address] [address] * (ABNORMAL) Vitamin B12 (09/18/2024 12:40 AM EDT) [facility] Vitamin B12 >2,000(H) 243 - 894 pg/mL 09/18/2024 4:04 AM EDT [facility] Blood Blood specimen / Unknown 09/18/2024 12:40 AM EDT 09/18/2024 1:00 AM EDT us ncyclo Greener C SOFTWARE DEVELOPER LAB BLOOD ORDERABLES Final R esult Performing Organization Address City/[facility] Co de Phone Number [address] [address], [address] [address] * ECHOCARDIOGRAM COMPREHENSIVE (09/17/2024 11:40 AM EDT) [facility] LV Diastolic Volume Index (F:29-61, M:35-75) 72.2 [...] gas pattern. Interpreted by: Guevara Howard DO Bistro Attendant I personally reviewed the images and the [...] gas pattern. Interpreted by: Guevara Howard DO Bistro Attendant I personally reviewed the images and the resident's preliminary report and AGREE with the report as it is now presented ([id number]). us Dana Harris APRN IMG DIAGNOSTIC IMAGING ORDER MARGO Final Result * LACTIC ACID, PLASMA (09/16/2024 11:45 AM EDT) Only the most recent of4 resultswithin the time period is included. Lactic Acid 1.0 0.5 - 1.9 mmol/L 09/16/2024 12:33 PM EDT [facility] Blood Blood specimen / Unknown 09/16/2024 11:45 AM EDT 09/16/2024 12:01 PM EDT Dana Harris C SOFTWARE DEVELOPER LAB BLOOD ORDERABLES Final R esult [address] [address], [address] [address] * EEG AWAKE OR DROWSY (09/16/2024 9:19 AM EDT) Narrative [facility] - 09/16/2024 9:19 AM EDT Sharonda Dorsey MD 09/16/2024 11:33 AM INPATIENT ADULT ELECTROENCEPHALOGRAM (EEG) REPORT Facility: [facility] Patient and : Gregg Lisa 1975 Date [...] suppression in clinically-apparent sleep suggested the former. [id number] TOTAL SCORE: 0 (5% SZ [![id number]$[id number]&0]) Sharonda Dorsey MD [facility] FOR EEG LAB USE: Abnormal Non-epileptiform :qz!02; No events :qz!08; Complexity ratin :qz!15 us Brooke PINEDO NEUROLOGY ORDERABLES Mariano yola Result - Final [facility] [address] [place] [address], * ECG 12 lead (09/16/2024 8:38 AM EDT) Only the most recent of4 resultswithin the time period is included. [facility] Systolic BP 131 mmHg EKG [facility] Diastolic BP 61 mmHg EKG [facility] Ventricular rate 83 BPM EKG [facility] Atrial rate 83 BPM EKG [facility] P-R interval 104 ms EKG [facility] QRS duration 92 ms EKG [facility] Q-T interval 386 ms EKG [facility] QTC calculation (Bazett) 453 ms EKG [facility] P axis -54 degrees EKG [facility] R axis 89 degrees EKG [facility] T axis 52 degrees [facility] 09[facility]16/2024 8:38 AM EDT Narrative [facility] - 09/16/2024 8:40 AM EDT Unusual P axis, possible ectopic atrial rhythm Abnormal ECG When compared with ECG of 14-Sep-2024 13:31, Ectopic atrial rhythm has replaced Sinus rhythm Vent. rate has decreased by [address] no longer depressed in Inferior leads T wave amplitude has decreased in Anterior leads Confirmed by Leann Lockhart MD ([id number]) on 09/16/2024 8:40:33 AM Procedure Note Leann Lockhart MD - 09/16/2024 Unusual P axis, possible ectopic atrial rhythm Abnormal ECG When compared with ECG of 14-Sep-2024 13:31, Ectopic atrial rhythm has replaced Sinus rhythm Vent. rate has decreased by [address] no longer depressed in Inferior leads T wave amplitude has decreased in Anterior leads Confirmed by Leann Lockhart MD ([id number]) on 09/16/2024 8:40:33 AM Tk You MD ECG ORDERABLES Final Result [facility] * (ABNORMAL) Hemoglobin and Hematocrit (09/16/2024 8:30 AM EDT) Only the most recent of2 resultswithin the time period is included. [facility] Hematocrit 38.1(L) 39.0 - 54.0 % 09/16/2024 10:16 AM EDT [facility] Hemoglobin 12.1(L) 13.0 - 17.7 g/dL 09/16/2024 10:16 AM EDT [facility] Blood Blood specimen / Unknown 09/16/2024 8:30 AM EDT 09/16/2024 8:48 AM EDT Yazmin Martinez PA-C LAB BLOOD ORDERABLES Final Result Performing Organization Address [facility] [place] [address], [address] [address] * Vancomycin Level, Random (09/16/2024 6:49 AM EDT) Vancomycin, Random 6 mg/L 09/16/2024 8:03 AM EDT [facility] Comment:No reference range e stablished for random levels. Time of Last Dose Information not given 09/16/2024 6:49 AM EDT [facility] Blood Blood specimen / Unknown 09/16/2024 6:49 AM EDT 09/16/2024 7:34 AM EDT Tk You MD LAB BLOOD ORDERABLES Final Resul t Performing Organization Address [facility] [place] [address], [address] [address] * Ammonia Level (09/16/2024 12:00 AM EDT) Only the most recent of8 resultswithin the time period is included. Ammonia, Plasma 51 16 - 60 umol/L 09/16/2024 12:44 AM EDT [facility] Blood Blood specimen / Unknown 09/16/2024 09/16/2024 12:18 AM EDT Cheko PINEDO LAB BLOOD ORDERABLES Final Resu lt Performing Organization Address [facility] [place] [address], [address] [address] * (ABNORMAL) Blood Gas with Cooximetry, Arterial (09/15/2024 5:39 PM EDT) Only the most recent of3 resultswithin the time period is included. Respiratory Info VENT 40% 09/16/19 5:39 PM EDT [facility] pH, Arterial 7.49(H) 7.35 - 7.45 09/15/2024 6:08 PM [facility] pCO2, Arterial 37 32 - 45 mmHG 09/15/2024 6:08 PM [facility] pO2, Arterial 190(H) 75 - 95 mmHG 09/15/2024 6:08 PM [facility] CO2, Total 29(H) 22 - 28 mmol/L 09/15/2024 6:08 PM [facility] P/F Ratio 475 09/15/2024 6:08 PM [facility] Base Excess 4.6 mmol/L 09/15/2024 6:08 PM T [facility] Comment:Reference Range: Neg ative 2 to Positive 3 Hemogloblin, Total 13.6 13.0 - 17.7 g/dL 09/15/2024 6:08 PM [facility] O2 Saturation, Arterial 99.6(H) 94 - 97 % 09/15/2024 6:08 PM [facility] Carboxyhemoglobin 0.8 0.0 - 2.0 % 09/15/2024 6:08 PM [facility] Methemoglobin 0.6 0.4 - 1.5 % 09/15/2024 6:08 PM [facility] O2 Content, Arterial 19.2 17.6 - 24.3 mL/dL 09/15/2024 6:08 PM [facility] Blood Blood specimen / Unknown 09/15/2024 5:39 PM EDT 09/15/2024 6:01 PM EDT us Brooke PINEDO LAB BLOOD ORDERABLES Fin al Result [address] [address], [address] [address] * Hepatitis C Viral Load, Quantitative (09/15/2024 8:40 AM EDT) [facility] HCV RNA (IU/mL) Not Detected <10 IU/mL 09/16/2024 2:14 PM EDT [facility] HCV RNA (log10) Not Detected <1.00 log10 IU/mL 09/16/2024 2:14 PM EDT [facility] Interpretation Not Detected 09/17/19 2:14 PM EDT [facility] Comment:Performed by FDA basilio roved [employer]. Linear range is 10 to 100,000,000 IU/mL. HCV Genotyping is not recommended for viral loads below 300 IU/mL. Blood Blood specimen / Unknown 09/15/2024 8:40 AM EDT 09/15/2024 10:18 AM EDT Brooke PINEDO LAB BLOOD ORDERABLES Fin al Result [facility] [address] * (ABNORMAL) Factor V Assay (09/15/2024 8:40 AM EDT) [facility] Factor V 46(L) 50 - 150 % Normal 09/15/2024 12:38 PM EDT [facility] Blood Blood specimen / Unknown 09/15/2024 8:40 AM EDT 09/15/2024 10:18 AM EDT Brooke PINEDO LAB BLOOD ORDERABLES Fin al Result [address] [address], [address] [address] * Nasal MRSA Screen, PCR (09/15/2024 8:35 AM EDT) [facility] MRSA Result Not Detected Not Detected 11:30 AM EDT [facility] Comment:Performed by the Xpe rt MRSA NxG Assay Swab, Anterior Nares Specimen from nose / Unknown 09/15/2024 8:35 AM EDT 09/15/2024 9:27 AM EDT Brooke PINEDO MICROBIOLOGY - GENERAL O RDERABLES Final Result [facility] [address] [place] [address], [address] [address] * Blood Culture (09/15/2024 3:05 AM EDT) Only the most recent of4 resultswithin the time period is included. Culture Sterile after 5 days 09/20/2024 7:33 AM EDT [facility] Blood Blood specimen / Unknown 09/15/2024 3:05 AM EDT 09/15/2024 3:52 AM EDT Comment:Blood Heidi PINEDO LAB BLOOD ORDERABLES Jessenia l Result [facility] [address] [place] [address], [place] * XR Chest 1 view-Portable (09/15/2024 [...] cholecystectomy. IMPRESSION: No gross acute radiographic finding. Heidi PINEDO IMG DIAGNOSTIC IMAGING OR DERABLES Final Result * (ABNORMAL) Respiratory Culture (aerobic and gram stain) (09/15/2024 2:21 AM EDT) Gram stain suggestive of Moderate neutrophils Few squamous cells Mixed normal kathrine 09/15/2024 3:11 AM EDT [facility] Culture Staphylococcus aureus(A) 09/17/2024 2:10 PM EDT [facility] Culture Mixed normal kathrine 09/17/2024 2:10 PM EDT [facility] Aspirate, Tracheal Specimen from [...] MICROBIOLOGY - GENERAL OR DERABLES Final Result [facility] [address] [place] [address], [address] [address] * (ABNORMAL) Urinalysis with Reflex to Microscopic (09/15/2024 2:20 AM EDT) Color Martina 09/15/2024 2:39 AM [facility] Clarity Clear 09/15/2024 2:39 AM [facility] Specific Myrtle 1.023 1.003 - 1.030 09/15/2024 2:39 AM [facility] pH 5.0 5.0 - 8.0 09/15/2024 2:39 AM [facility] Leukocyte Esterase Negative Negative 09/15/2024 2:39 AM [facility] Nitrite Negative Negative 09/15/2024 2:39 AM [facility] Protein Negative Negative 09/15/2024 2:39 AM [facility] Glucose 0 0 - 99 mg/dL 09/15/2024 2:39 AM [facility] Ketones Negative Negative 09/15/2024 2:39 AM [facility] Blood Large(A) Negative 09/15/2024 2:39 AM [facility] Bilirubin Negative Negative 09/15/2024 2:39 AM [facility] WBC 1 0 - 4 per hpf 09/15/2024 2:39 AM [facility] RBC 6(H) 0 - 4 per hpf 09/15/2024 2:39 AM [facility] Urine Urine specimen obtained via straight catheter / Unknown 09/15/2024 2:20 AM EDT 09/15/2024 2:30 AM EDT Heidi Zabala PA URINE ORDERABLES Final Re sult Performing Organization Address City/[facility]/[place] [address], [place] [address] * (ABNORMAL) LIPASE (09/15/2024 1:04 AM EDT) Only the most recent of3 resultswithin the time period is included. Pathologist [facility] Lipase 73(H) 13 - 60 U/L 09/15/2024 4:58 AM EDT [facility] 09/15/2024 1:04 AM EDT 09/15/2024 1:26 AM EDT Cheko PINEDO LAB BLOOD ORDERABLES Final Resu lt Performing Organization Address [facility] [place] [address], [place] [address] * (ABNORMAL) Blood Gas with Cooximetry, Venous (09/14/2024 9:43 AM EDT) [facility] Respiratory Info VENT 40% 09/15/19 9:43 AM EDT [facility] Venous Blood PH 7.48(H) 7.33 - 7.43 09/14/2024 10:27 AM [facility] Venous pCO2 38 35 - 50 mmHG 09/14/2024 10:27 AM [facility] Venous pO2 139(H) 0 - 60 mmHG 09/14/2024 10:27 AM [facility] Venous Total CO2 29 23 - 29 mmol/L 09/14/2024 10:27 AM T [facility] Base Excess 4.9 mmol/L 09/14/2024 10:27 AM T [facility] Comment:Reference Range: Neg ative 2 to Positive 3 Hemogloblin, Total 14.5 13.0 - 17.7 g/dL 09/14/2024 10:27 AM EDT [facility] O2 Saturation, Venous 99.1 % 09/2024 10:27 AM EDT [facility] Carboxyhemoglobin 1.4 0.0 - 2.0 % 09/14/2024 10:27 AM EDT [facility] Methemoglobin 0.6 0.4 - 1.5 % 09/14/2024 10:27 AM EDT [facility] Venous O2 Content 20.0(H) 7.2 - 17.2 mL/dL 09/14/2024 10:27 AM EDT [facility] Blood Blood specimen / Unknown 09/14/2024 9:43 AM EDT 09/14/2024 10:15 AM EDT Brooke PINEDO LAB BLOOD ORDERABLES Fin al Result Performing Organization Address [facility] [place] [address], [place] [address] * (ABNORMAL) Creatine Kinase (CK) (09/14/2024 2:40 AM EDT) Only the most recent of5 resultswithin the time period is included. Creatine Kinase (CK) 261(H) 24 - 204 U/L 09/14/2024 3:20 AM EDT [facility] Blood Blood specimen / Unknown 09/14/2024 2:40 AM EDT 09/14/2024 2:53 AM EDT Amanda [facility] BLOOD ORDERABLES Final R esult Performing Organization Address [facility] [place] [address], [place] [address] * (ABNORMAL) Acetaminophen Level (09/14/2024 12:20 AM EDT) Only the most recent of4 resultswithin the time period is included. Acetaminophen Level <5(L) 10 - 30 mg/L 09/14/2024 1:06 AM EDT [facility] Comment:Specimen icteric Blood Blood specimen / Unknown 09/14/2024 12:20 AM EDT 09/14/2024 12:37 AM EDT us Cheko [facility] BLOOD ORDERABLES Final Resu lt [address] [address], [facility] [address] [place] [address] * US Duplex abdomen/pelvis-Complete (09/13/2024 11:23 PM [...] cross-sectional imaging could be performed. [place] [facility] Final Result * EBV DNA, PCR, Quantitative (09/13/2024 6:32 PM EDT) Specimen Source EDTA PLASMA 09/18/2024 7:39 AM EDT [facility] BRodney EBV DNA Not Detected 09/18/2024 7:39 AM EDT [facility], [place] Comment:UNITS: IU/mL EBV DNA, QN PCR Not Detected 09/18/2024 7:39 AM EDT [facility], [place] Comment: UNITS: Log IU/mL (NOTE) Reference Range: Not Detected For additional information, please refer to http://[email or web address]/faq/CMVandEBVPCR (This link is being provided for informational/ educational purposes only.) Blood Blood specimen / Unknown 09/13/2024 6:32 PM EDT 09/13/2024 6:41 PM EDT Cheko PINEDO BODY FLUIDS AND STOOLS ORDERABL ES Final Result [facility], [place] [id number] [facility] [address] [address] [place], [place] , [facility], [place] [address] [facility] [address] [address] [place], [place] * Triglycerides (09/13/2024 4:10 PM EDT) Triglycerides 135 <150 mg/dL 09/13/2024 5:17 PM EDT [facility] Comment:Specimen icteric Blood Blood specimen / Unknown 09/13/2024 4:10 PM EDT 09/13/2024 4:38 PM EDT Cheko PINEDO LAB [place] [address], [place] [address] * EEG AWAKE OR DROWSY (09/13/2024 4:07 PM EDT) Narrative [facility] - 09/13/2024 4:07 PM EDT Nathalie Cortez MD 09/13/2024 9:46 PM INPATIENT ADULT ELECTROENCEPHALOGRAM (EEG) REPORT Facility: [facility] Patient and : Gregg Lisa 1975 Date [...] electrographic seizures. Nathalie Cortez MD ABPN Epilepsy. [facility] [place] us Cheko PINEDO NEUROLOGY ORDERABLES Edited Res ult - Final [facility] [id number] [id number], * Troponin T, High Sensitivity (09/13/2024 2:19 PM EDT) Only the most recent of3 resultswithin the time period is included. High Sensitivity Troponin T 20 <23 ng/L 09/13/2024 3:07 PM EDT [facility] Delta (Change) NO CHANGE <3 09/13/2024 3:07 PM EDT [facility] Blood Blood specimen / Unknown 09/13/2024 2:19 PM EDT 09/13/2024 2:43 PM EDT us Cheko PINEDO LAB BLOOD ORDERABLES Final Resu lt Performing Organization Address [facility] Co de Phone Number [address] [address], [address] [address] * Sodium, Urine, Random (09/13/2024 2:10 PM EDT) Only the most recent of2 resultswithin the time period is included. Sodium, Urine Random <20 mmol/L 09/13/2024 3:04 PM EDT [facility] Comment:Reference range not established for random specimen. Urine Urine specimen / Unknown 09/13/2024 2:10 PM EDT 09/13/2024 2:44 PM EDT us Cheko PINEDO URINE ORDERABLES Final Result Performing Organization Address [facility] [place] [address], [address] [address] * Creatinine, Urine, Random (09/13/2024 2:10 PM EDT) Only the most recent of2 resultswithin the time period is included. Creatinine, Urine, Random 67 mg/dL 09/13/2024 3:04 PM EDT [facility] Comment:Reference range not established for random specimen. Urine Urine specimen / Unknown 09/13/2024 2:10 PM EDT 09/13/2024 2:44 PM EDT us Cheko PINEDO URINE ORDERABLES Final Result Performing Organization Address City/[facility] Co de Phone Number [address] [address], [address] [address] * Hepatitis Panel, Acute (09/13/2024 11:25 AM EDT) Hepatitis A Antibody IgM Nonreactive Nonreactive 09/14/2024 10:29 AM EDT [facility] Hepatitis B Core Antibody IgM Nonreactive Nonreactive 09/14/2024 10:29 AM EDT [facility] Hepatitis B Surface Ag Screen Nonreactive Nonreactive 09/14/2024 10:29 AM EDT [facility] Hepatitis C Antibody Nonreactive Nonreactive 09/14/2024 10:29 AM EDT [facility] Comment:Antibodies to HCV no t detected. This does not exclude the possibility of exposure to HCV. Hepatitis Interpretation : Results inconsistent with acute Hepatitis A, B or C Virus infection. 09/14/2024 10:29 AM EDT [facility] Blood Blood specimen / Unknown 09/13/2024 11:25 AM EDT 09/13/2024 12:39 PM EDT Mingo Serrato DO LAB BLOOD ORDERABLES Final Re sult Performing Organization Address City/[facility]/ZIP Co de Phone Number [facility] [address] [place] [address], * proBNP, N-terminal (09/13/2024 10:04 AM EDT) proBNP, N-terminal 76 <125 pg/mL 09/13/2024 3:02 PM EDT [facility] 09/13/2024 10:0 4 AM EDT 09/13/2024 10:15 AM EDT Mingo Serrato DO LAB BLOOD ORDERABLES Final Re sult [address] [address], [place] [address] [address] * (ABNORMAL) OSMOLALITY (09/13/2024 10:04 AM EDT) Osmolality, Serum/Plasma 345(H) 275 - 295 mOsm/Kg 09/13/2024 2:54 PM EDT [facility] 09/13/2024 10:0 4 AM EDT 09/13/2024 10:15 AM EDT Mingo Serrato DO LAB BLOOD ORDERABLES Final Re sult Performing Organization Address [facility] Co de Phone Number [address] [address], [address] [address] * (ABNORMAL) Blood Gas, Arterial (09/13/2024 10:00 AM EDT) Only the most recent of2 resultswithin the time period is included. pH, Arterial 7.43 7.35 - 7.45 09/13/2024 10:30 AM EDT [facility] pCO2, Arterial 44 32 - 45 mmHG 09/13/2024 10:30 AM EDT [facility] pO2, Arterial 173(H) 75 - 95 mmHG 09/13/2024 10:30 AM EDT [facility] CO2, Total 31(H) 22 - 28 mmol/L 09/13/2024 10:30 AM EDT [facility] Respiratory Info Information not given 09/13/2024 10:25 AM EDT [facility] Base Excess 4.6 mmol/L 09/13/2024 10:30 AM T [facility] Comment:Reference Range: Neg ative 2 to Positive 3 Blood specimen / Unknown 09/13/2024 10:00 AM EDT 09/13/2024 10:22 AM EDT Jamal Stewart MD LAB BLOOD ORDERABLES Final Result Performing Organization Address City/[facility] Co de Phone Number [address] [address], [address] [address] * (ABNORMAL) Complete Blood Count, with Differential (09/13/2024 8:01 AM EDT) White Blood Cell Count 5.5 4.0 - 11.0 Thou/uL 09/13/2024 9:37 AM EDT [facility] Platelet Count 74(L) 150 - 450 Thou/uL 09/13/2024 9:37 AM T [facility] Comment: Test results repeated. Results verified by smear review. Hemoglobin 15.2 13.0 - 17.7 g/dL 09/13/2024 9:37 AM [facility] Hematocrit 44.6 39.0 - 54.0 % 09/13/2024 9:37 AM [facility] Red Blood Cell Count 4.82 4.50 - 6.20 Mil/uL 09/13/2024 9:37 AM [facility] MCV 93 80 - 100 fL 09/13/2024 9:37 AM [facility] MCH 31.5 26.0 - 34.0 pg 09/13/2024 9:37 AM [facility] MCHC 34.1 30.0 - 36.0 g/dL 09/13/2024 9:37 AM [facility] RDW 14.6(H) 11.5 - 14.5 % 09/13/2024 9:37 AM [facility] MPV 11.8 7.5 - 12.5 fL 09/13/2024 9:37 AM [facility] nRBC 0.4(H) 0.0 - 0.1 /100 WBC 09/13/2024 9:37 AM [facility] nRBC, Absolute 0.02 0.00 - 0.02 Thou/uL 09/13/2024 9:37 AM [facility] Immature Platelet Fraction 3.0 1.2 - 8.6 % 09/13/2024 9:37 AM [facility] Neutrophils Auto 90.8 % 09/14/19 9:44 AM [facility] Immature Granulocytes 0.9 % 09/13/2024 9:44 AM [facility] Lymphocytes Auto 6.0 % 09/14/19 9:44 AM [facility] Monocytes Auto 1.6 % 09/13/2024 9:44 AM [facility] Eosinophils Auto 0.5 % 09/14/19 9:44 AM [facility] Basophils Auto 0.2 % 09/13/2024 9:44 AM [facility] Abs Neutrophils Auto 5.03 2.00 - 7.50 Thou/uL 09/13/2024 9:44 AM [facility] Abs Immature Granulocytes 0.05 0.00 - 0.10 Thou/uL 09/13/2024 9:44 AM EDT [facility] Abs Lymphocytes Auto 0.33(L) 1.50 - 4.50 Thou/uL 09/13/2024 9:44 AM EDT [facility] Abs Monocytes Auto 0.09(L) 0.20 - 1.50 Thou/uL 09/13/2024 9:44 AM EDT [facility] Abs Eosinophils Auto 0.03 0.00 - 0.70 Thou/uL 09/13/2024 9:44 AM EDT [facility] Abs Basophils Auto 0.01 0.00 - 0.20 Thou/uL 09/13/2024 9:44 AM EDT [facility] Blood Blood specimen / Unknown 09/13/2024 8:01 AM EDT 09/13/2024 8:34 AM EDT Gauri Chan MD LAB BLOOD ORDERABLES Final Resul t Performing Organization Address City/[facility]/[place] [address], [place] [address] * APTT (09/13/2024 8:01 AM EDT) Pathologist [facility] Anticoagulant OTHER AGENT OR UNKNOWN 09/13/2024 5:36 AM EDT [facility] Partial Thromboplastin Time (PTT) Grossly Hemolyzed,Re collection Requested 25 - 36 seconds 09/13/2024 9:02 AM EDT [facility] Blood Blood specimen / Unknown 09/13/2024 8:01 AM EDT 09/13/2024 8:34 AM EDT us Gauri Chan MD LAB BLOOD ORDERABLES Final Resul t Performing Organization Address City/[facility]/[place] [address], [place] [address] * (ABNORMAL) Urinalysis with Reflex to Microscopic and Culture (09/13/2024 7:54 AM EDT) Color Martina 09/13/2024 8:48 AM EDT [facility] Clarity Clear 09/13/2024 8:48 AM EDT [facility] Specific Myrtle 1.032(H) 1.003 - 1.030 09/13/2024 8:48 AM [facility] pH 6.0 5.0 - 8.0 09/13/[facility]24 [facility] Leukocyte Esterase Negative Negative 09/13/2024 8:48 AM [facility] Nitrite Negative Negative 09/13/2024 8:48 AM [facility] Protein Small (30 mg/dL)(A) Negative 09/13/2024 8:[facility] Glucose 0 0 - 99 mg/dL 09/13/2024 8:48 AM [facility] Ketones Negative Negative 09/13/2024 8:48 AM [facility] Blood Moderate(A) Negative 09/13/2024 8:48 AM [facility] Bilirubin Negative Negative 09/13/2024 8:48 AM [facility] WBC 1 0 - 4 per hpf 09/13/2024 8:48 AM [facility] RBC >25(H) 0 - 4 per hpf 09/13/2024 8:48 AM [facility] Squamous Epithelial Cells 1 PER HPF 09/13/2024 8:48 AM [facility] Urine (Indwelling Urinary Catheter) 09/13/2024 7:54 AM EDT 09/13/2024 8:40 AM EDT Gauri Chan MD [place] [address], [place] [address] * Fentanyl Screen, Urine (09/13/2024 7:54 AM EDT) Fentanyl Screen, Urine Negative Negative <5 ng/mL 09/13/2024 11:45 AM T [facility] Comment: * FOR MEDICAL PURPOSES ONLY * Confirmation upon request. Urine Urine specimen / Unknown 09/13/2024 7:54 AM EDT 09/13/2024 11:08 AM EDT us Mingo Serrato DO URINE ORDERABLES Final Result Performing Organization Address [facility] Co de Phone Number [address] [address], [address] [address] * Methadone Screen, Urine (09/13/2024 7:54 AM EDT) Methadone Screen, Urine Negative Negative <300 ng/mL 09/13/2024 11:45 AM EDT [facility] Comment:* FOR MEDICAL PURPOS ES ONLY * Urine Urine specimen / Unknown 09/13/2024 7:54 AM EDT 09/13/2024 11:08 AM EDT us Mingo Serrato DO URINE ORDERABLES Final Result Performing Organization Address [facility] Co de Phone Number [address] [address], [address] [address] * Cannabinoid Screen, Urine (09/13/2024 7:54 AM EDT) Cannabinoid Screen, Urine Negative Negative <50 ng/mL 09/13/2024 11:45 AM EDT [facility] Comment:* FOR MEDICAL PURPOS ES ONLY * Urine Urine specimen / Unknown 09/13/2024 7:54 AM EDT 09/13/2024 11:08 AM EDT us Mingo Serrato DO URINE ORDERABLES Final Result Performing Organization Address [facility] Co de Phone Number [address] [address], [address] [address] * Buprenorphine Screen, Urine (09/13/2024 7:54 AM EDT) Buprenorphine Screen, Urine Negative Negative <5 ng/mL 09/13/2024 11:45 AM EDT [facility] Comment:* FOR MEDICAL PURPOS ES ONLY * Urine Urine specimen / Unknown 09/13/2024 7:54 AM EDT 09/13/2024 11:08 AM EDT us Mingo Serrato DO URINE ORDERABLES Final Result Performing Organization Address [facility] Co de Phone Number [address] [address], [address] [address] * Tricyclic Screen, Urine (09/13/2024 7:54 AM EDT) Tricyclic Screen, Urine Negative Negative <300 ng/mL 09/13/2024 11:45 AM EDT [facility] Comment:* FOR MEDICAL PURPOS ES ONLY * Urine Urine specimen / Unknown 09/13/2024 7:54 AM EDT 09/13/2024 11:08 AM EDT us Mingo Serrato DO URINE ORDERABLES Final Result Performing Organization Address [facility] de Phone Number [address] [address], [address] [address] * Phencyclidine (PCP) Screen, Urine (09/13/2024 7:54 AM EDT) PCP Screen, Urine Negative Negative <25 ng/mL 09/13/2024 11:45 AM EDT [facility] Comment:* FOR MEDICAL PURPOS ES ONLY * Urine Urine specimen / Unknown 09/13/2024 7:54 AM EDT 09/13/2024 11:08 AM EDT us Mingo Serrato DO URINE ORDERABLES Final Result Performing Organization Address [facility] Co de Phone Number [address] [address], [address] [address] * Oxycodone Screen, Urine (09/13/2024 7:54 AM EDT) Oxycodone Screen, Urine Negative Negative <100 ng/mL 09/13/2024 11:45 AM EDT [facility] Comment:* FOR MEDICAL PURPOS ES ONLY * Urine Urine specimen / Unknown 09/13/2024 7:54 AM EDT 09/13/2024 11:08 AM EDT us Mingo Gillespie Powner DO URINE ORDERABLES Final Result Performing Organization Address [facility] Co de Phone Number [address] [address], [address] [address] * Opiate Screen, Urine (09/13/2024 7:54 AM EDT) Opiate, Urine Negative Negative <300 ng/mL 09/13/2024 11:45 AM EDT [facility] Comment:* FOR MEDICAL PURPOS ES ONLY * Urine Urine specimen / Unknown 09/13/2024 7:54 AM EDT 09/13/2024 11:08 AM EDT us Mingo Gillespie Powner DO URINE ORDERABLES Final Result Performing Organization Address [facility] Co de Phone Number [address] [address], [address] [address] * Ethanol, Urine (09/13/2024 7:54 AM EDT) Ethanol, Urine Negative Negative <11 mg/dL 09/13/2024 11:45 AM EDT [facility] Urine Urine specimen / Unknown 09/13/2024 7:54 AM EDT 09/13/2024 11:08 AM EDT us Mingo Gillespie Powner DO URINE ORDERABLES Final Result Performing Organization Address [facility] de Phone Number [address] [address], [address] [address] * (ABNORMAL) Cocaine Screen, Urine (09/13/2024 7:54 AM EDT) Cocaine Screen, Urine Positive( A) Negative <300 ng/mL 09/13/2024 11:45 AM EDT [facility] Comment: * FOR MEDICAL PURPOSES ONLY * Confirmation upon request. Urine Urine specimen / Unknown 09/13/2024 7:54 AM EDT 09/13/2024 11:08 AM EDT us Mingo Cerratoner DO URINE ORDERABLES Final Result Performing Organization Address City/[facility]/ZIP Co de Phone Number [address] [address], [address] [address] * Benzodiazepine Screen, Urine (09/13/2024 7:54 AM EDT) Benzodiazepine Screen, Urine Negative Negative <200 ng/mL 09/13/2024 11:45 AM EDT [facility] Comment:* FOR MEDICAL PURPOS ES ONLY * Urine Urine specimen / Unknown 09/13/2024 7:54 AM EDT 09/13/2024 11:08 AM EDT us Mingo Gillespie Powner DO URINE ORDERABLES Final Result Performing Organization Address [facility] Co de Phone Number [address] [address], [address] [address] * Barbiturate Screen, Urine (09/13/2024 7:54 AM EDT) Barbiturate Screen, Urine Negative Negative <200 ng/mL 09/13/2024 11:45 AM EDT [facility] Comment:* FOR MEDICAL PURPOS ES ONLY * Urine Urine specimen / Unknown 09/13/2024 7:54 AM EDT 09/13/2024 11:08 AM EDT us Mingo T Powner DO URINE ORDERABLES Final Result Performing Organization Address [facility] Co de Phone Number [address] [address], [address] [address] * Amphetamine Screen, Urine (09/13/2024 7:54 AM EDT) Amphetamine Screen, Urine Negative Negative <1000 ng/mL 09/13/2024 11:45 AM EDT [facility] Comment:* FOR MEDICAL PURPOS ES ONLY * Urine Urine specimen / Unknown 09/13/2024 7:54 AM EDT 09/13/2024 11:08 AM EDT Mingo Serrato DO URINE ORDERABLES Final Result [facility] [address] [place] [address], [address] [address] * INTUBATION (09/13/2024 7:53 AM EDT) Jamal Mondragon MD - 09/13/2024 7:53 AM EDT Jamal Stewart MD 09/13/2024 12:07 PM Intubation Date/Time: 09/13/2024 7:53 AM Performed by: Tuyet Ma MD Authorized by: Jamal Stewart MD Consent: Consent obtained: Emergent situation [place] protocol: Relevant documents present and verified: yes [...] Reference Only (09/13/2024 6:51 AM EDT) Narrative [facility] 09/13/2024 6:51 AM EDT This study has been auto finalized and does not contain a result. us File Room Provider IMG DIGITIZE FILMS Final Resu lt Performing Organization Address [facility] de Phone Number RADHA [phone] * CR Chest Archive for Reference only (09/13/2024 6:51 AM EDT) Narrative [facility] 09/13/2024 6:51 AM EDT This study has been auto finalized and does not contain a result. us File Room Provider IMG DIGITIZE FILMS Final Resu lt Performing Organization Address [facility] de Phone Number RADHA [phone] * CT Abdomen Archive for Reference Only (09/13/2024 6:50 AM EDT) Narrative [facility] 09/13/2024 6:50 AM EDT This study has been auto finalized and does not contain a result. us File Room Provider IMG DIGITIZE FILMS Final Resu lt Performing Organization Address [facility] de Phone Number RADHA [phone] from Last 3 Months Insurance [facility] Advance Directives * Full Code (Latest Code [...]
[2024-10-09 10:57] VITALS: BP 118/67; PULSE 78; RESP 14; TEMP 37; O2SAT 97; BMI 24.6
--- NOTE | 2024-10-09 10:57 | MHC.PC.OV ---
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 The patient was previously diagnosed with anemia, which was identified through blood work conducted on the . The anemia has shown improvement compared to previous hospital records. The patient has not reported any new symptoms related to anemia. The patient has a history of elevated liver enzymes, which have been improving. He has abstained from alcohol consumption since the issue was identified. The patient is scheduled for repeat blood work to monitor liver enzyme levels. The patient reports low-normal testosterone levels, which were identified in recent tests. He is considering a referral to urology for further evaluation and potential treatment options for erectile dysfunction. The patient was not fasting during the testosterone test, which may have affected the results. Will prescribe Viagra at this time until patient is able to see Urology The patient experiences symptoms of gastroesophageal reflux disease (GERD), particularly after consuming foods with red sauce. He has been using Prilosec, which has been effective in managing symptoms. A stool test for H. pylori has been recommended to rule out infection as a cause of symptoms. The patient reports erectile dysfunction, which is partially responsive to current interventions. A referral to urology is planned for further assessment and management. Social History - Exercise: The patient works out every other day and uses protein shakes. - Substance Use: The patient has abstained from alcohol and is considering nicotine patches or gum for smoking cessation. [facility] Medical History (Updated 10/09/24 @ 13:53 by Dara Link PA-C) Elevated liver enzymes GERD (gastroesophageal reflux disease) Erectile dysfunction Depression Elevated vitamin B12 level Canker sores oral Thrombocytopenia Anemia REMY (acute kidney injury) Acute metabolic encephalopathy Acute liver failure Intentional acetaminophen overdose Throat pain Annual physical exam Decreased hearing Dermoid cyst of eyebrow Carpal tunnel syndrome on both sides Colon cancer screening Family history of dementia Establishing care with new doctor, encounter for Family history of diabetes mellitus Family history of myocardial infarction Surgical History History of vasectomy Family History Mother Dementia Father Heart attack Social History Housing: House Alcohol intake: current Alcohol intake frequency: 3 or more drinks per day Patient Tobacco Use Status: Current everyday Tobacco user Cigarette Packs Per Day: 1.5 Cigarettes Per Day: 30 Years Smoked: 13 years old Packs Per Year: 0 Packs per year/per ci.00 service: No Current occupational status: employed Cognitive needs: No Hearing needs: No Vision needs: Yes (rx glasses) Questionnaire PHQ-9 Over the last 2 weeks, how often have you been bothered by any of the following problems? 1. Little interest or pleasure in doing things: not at all 2. Feeling down, depressed, or hopeless: not at all 3. Trouble falling or staying asleep, or sleeping too much: not at all 4. Feeling tired or having little energy: not at all 5. Poor appetite or overeating: not at all 6. Feeling bad about yourself - or that you are a failure or have let yourself or your family down: not at all 7. Trouble concentrating on things, such as reading the newspaper or watching television: not at all 8. Moving or speaking so slowly that other people could have noticed. Or the opposite - being so fidgety or restless that you have been moving around a lot more than usual: not at all 9. Thoughts that you would be better off or of hurting yourself in some way: not at all Total score: 0 Depression Screening Interpretation: Negative Depression Screening Done: Yes 59708 - PHQ-9 Billing: Yes Source: Developed by Drs. Amado Ca, Christi Davis, Gus Valentin and colleagues, with an educational rodri from [employer]. Thrive Questionnaire Date Thrive assessed: 08/21/24 I am a: Patient What is your living situation today?: I have a steady place to live Within the past 12 months, did the food you bought not last and you didn't have the money to get more?: Never true Within the past 12 months, did you worry whether your food would run out before you got money to buy more?: Never true Do you have trouble paying for medicines?: No Do you have trouble getting transportation to medical appointments?: No Do you have trouble paying your heating and electricity bill?: No Do you have trouble taking care of your child, family member or friend?: No Do you have trouble with day-to-day activities such as bathing, preparing meals, shopping, managing finances, etc.?: No Are you currently unemployed and looking for a job?: No Are you interested in more education?: No Please select the resources that you would like help with: None THRIVE Score: 0 AUDIT C Alcohol Use Questionnaire (AUDIT-C) 1. How often do you have a drink containing alcohol?: 4 or more times a week 2. How many drinks containing alcohol do you have on a typical day when you are drinking?: 3 or 4 3. How often do you have six or more drinks on one occasion?: Weekly Total Score: 8 Score Reviewed/Action Taken: No DARREN-7 AMB Questionnaire DARREN-7 Date DARREN - 7 assessed: 08/21/24 Feeling nervous, anxious, or on edge: 0 = Not at all Not being able to stop or control worryin = Not at all Worrying too much about different things: 0 = Not at all Trouble relaxin = Not at all Being so restless that it is hard to sit still: 0 = Not at all Becoming easily annoyed or irritable: 0 = Not at all Feeling afraid as if something awful might happen: 0 = Not at all Total DARREN-7 score (0-4 normal; 5-9 mild; 10-14 moderate; 15-21 severe): 0 Source: Developed by Christi Muñoz B.W. Ryan, Gus Valentin and colleagues, with an educational rodri from [employer]. DARREN-7 Assessment Billing DARERN-7 Assessment Tool: DARREN-7 Assessment 53864 Review of Systems Const Details: - Gastrointestinal: Reports heartburn after consuming red sauce. Denies nausea or vomiting. - Endocrine: Reports low-normal testosterone levels. - Reproductive: Reports erectile dysfunction. All systems reviewed & are unremarkable except as noted in HPI and below Physical exam (Primary Care) Vital Signs: Last Vital Signs Temp 98.6 F 10/09/24 10:57 Pulse 78 10/09/24 10:57 Resp 14 10/09/24 10:57 BP 118/67 10/09/24 10:57 Pulse Ox 97 10/09/24 10:57 Oxygen Delivery Method Room Air 10/09/24 10:57 Care Plan Goal for BP management: <140/90 at Goal BMI result Body Mass Index 24.6 Normal BMI Tobacco/Smoking Status: Tobacco use Status Tobacco use date assessed 10/09/24 10/09/24 11:04 Patient Tobacco Use Status Current everyday Tobacco 10/09/24 11:04 PHQ-9: PHQ-9 Score PHQ-9: Total score 0 10/09/24 11:04 Depression Screening Interpretation: Negative Thrive Assessment: Date of Thrive Assessment Date Thrive assessed 08/21/24 10/09/24 11:04 Const Other: Appearance: Alert. Oriented X3. No acute distress. Head: Normal external exam. Normocephalic. Atraumatic. Eyes: Pupils are equal, round, and reactive to light. Extraocular movements intact. Conjunctiva and sclera normal. Eyelids normal. Throat: Pharynx normal. Uvula midline. Moist mucous membranes. Neck: Normal inspection. Neck supple. Full range of motion. Cardiovascular: Normal heart rate and rhythm. Respiratory: No respiratory distress. Painless inspiration. Back: Full range of motion noted. Skin: Skin warm and dry. Normal skin color. Normal skin turgor. No rashes/lesions/lacerations noted. Extremities:Extremities exhibit normal range of motion. Neuro: Oriented X 3. No motor deficit. No sensory deficit. Reflexes normal. Results Reviewed Results Reviewed: - Labs: Blood work on the showed anemia and elevated liver enzymes. - Labs: Testosterone levels were low-normal. Coding Level of Care Code Est Pt Level 4 (52440) Complex EM visit Add On G2211 Diagnoses Anemia D64.9 Acute liver failure K72.00 Elevated liver enzymes R74.8 Erectile dysfunction N52.9 GERD (gastroesophageal reflux disease) K21.9 Additional Codes DARREN-7 Assessment Billing - DARREN-7 Assessment Tool: DARREN-7 Assessment 00998 ([id number]) PHQ-9 - 40023 - PHQ-9 Billing: Yes ([id number]) Assessment & Plan Assessment & Plan (1) Anemia: Code(s): D64.9 - Anemia, unspecified Category: Medical Plan: The patient will undergo repeat blood work to monitor the improvement of anemia, which has shown progress since the last hospital visit. (2) Acute liver failure: Comment: Due to alcohol intoxication and acetaminophen overdose Code(s): K72.00 - Acute and subacute hepatic failure without coma Category: Medical Plan: The patient will have repeat blood work to continue monitoring liver enzyme levels. Abstinence from alcohol is advised to aid in recovery. (3) Elevated liver enzymes: Code(s): R74.8 - Abnormal levels of other serum enzymes Category: Medical Plan: The patient will have repeat blood work to continue monitoring liver enzyme levels. Abstinence from alcohol is advised to aid in recovery. (4) Erectile dysfunction: Code(s): N52.9 - Male erectile dysfunction, unspecified Category: Medical Plan: A referral to urology is planned for further evaluation of low-normal testosterone levels. The patient was not fasting during the initial test, which may have affected the results. A referral to urology is planned for further assessment and management of erectile dysfunction. The patient is considering the use of medications such as Cialis or Viagra. (5) GERD (gastroesophageal reflux disease): Code(s): K21.9 - Gastro-esophageal reflux disease without esophagitis Category: Medical Plan: The patient is advised to continue using Prilosec for symptom management. A stool test for H. pylori is recommended to rule out infection as a cause of symptoms. Plan Plan Patient was informed and verbally consented to the use of an ambient scribe for clinic note documentation during this visit. 1. Anemia The patient will undergo repeat blood work to monitor the improvement of anemia, which has shown progress since the last hospital visit. 2. Elevated Liver Enzymes The patient will have repeat blood work to continue monitoring liver enzyme levels. Abstinence from alcohol is advised to aid in recovery. 3. Low-Normal Testosterone Levels A referral to urology is planned for further evaluation of low-normal testosterone levels. The patient was not fasting during the initial test, which may have affected the results. 4. Gastroesophageal Reflux Disease (Gerd) The patient is advised to continue using Prilosec for symptom management. A stool test for H. pylori is recommended to rule out infection as a cause of symptoms. 5. Erectile Dysfunction A referral to urology is planned for further assessment and management of erectile dysfunction. The patient is considering the use of medications such as Cialis or Viagra. During the visit, we discussed the patient's anemia, which is improving, and the need for repeat blood work to monitor progress. We also addressed elevated liver enzymes, advising continued abstinence from alcohol and further testing. The patient's low-normal testosterone levels were reviewed, and a referral to urology was suggested for potential treatment options. For GERD, the patient is advised to continue Prilosec and consider a stool test for H. pylori. Erectile dysfunction was also discussed, with a referral to urology planned for further management and consideration of medications like Cialis or Viagra. Orders: Orders Complete Blood Count Auto Diff Today Z00.00 - Encounter for general adult medical examination without abnormal findings Comprehensive Met. Panel Today Z00.00 - Encounter for general adult medical examination without abnormal findings Liver Panel Today Z00.00 - Encounter for general adult medical examination without abnormal findings H pylori Ag Stool Today K21.9 - Gastro-esophageal reflux disease without esophagitis Referrals Urology Referral N52.9 - Male erectile dysfunction, unspecified Gastroenterology Referral K21.9 - Gastro-esophageal reflux disease without esophagitis Medications: New omeprazole 20 mg PO DAILY 90 caps 3RF sildenafil (Viagra) administer 30 minutes to 4 hours before activity 50 mg PO DAILY PRN 20 tabs 1RF sexual activity Patient Instructions: - Continue abstaining from alcohol to aid liver recovery. - Use Prilosec as directed for GERD management. - Prepare for repeat blood work to monitor anemia and liver enzyme levels. - Consider referral to urology for testosterone evaluation and erectile dysfunction management. - Hold off on Prilosec or omeprazole for two weeks before the stool test for H. pylori.
== END 2024-10-09 11:25 | disposition home or self-care (01) ==
LOC: HO.HMCSH 10:28
PROVIDERS: PCP Internal Medicine; Visit Provider Physician Assistant Medical
DX: D64.9 Anemia, unspecified (principal); K72.00 Acute and subacute hepatic failure without coma; R74.8 Abnormal levels of other serum enzymes; N52.9 Male erectile dysfunction, unspecified; K21.9 Gastro-esophageal reflux disease without esophagitis

== ENCOUNTER 2024-10-09 10:28 | Outpatient (REF) | payer OTHER, SELFPAY ==
[2024-10-09 14:26] LABS: MANUAL DIFF FLAG NO
[2024-10-09 14:33] LABS: Hematocrit 36.3 % (42.0-52.0); Hemoglobin 12.0 g/dl (14.0-18.0); Imm Gran Abs Auto 0.05 X10*3/uL (0.00-0.03); Imm Gran Pct Auto 1.0 % (0.0-0.4); Lymphocytes Absolute Auto 1.5 X10*3/uL (1.2-4.9); Mean Corpuscular HGB Conc 33.1 g/dl (31.0-36.0); Mean Corpuscular Hemoglobin 32.3 pg (27.0-33.0); Mean Corpuscular Volume 97.6 fL (80.0-98.0); NRBC Abs Auto 0.000 X10*3/uL (0.0-0.012); NRBC Pct Auto 0.0 /100WBC (0.0-0.2); Platelet Count 91 X10*3/uL (160-400); Red Blood Count 3.72 X10*6/uL (4.60-5.80); White Blood Count 5.1 X10*3/uL (4.8-10.8)
[2024-10-09 14:53] LABS: Alanine Aminotransferase 45 U/L (0-40); Albumin Level 3.5 g/dL (3.5-5.0); Alkaline Phosphatase 98 U/L (39-117); Anion Gap 9 (12-20); Aspartate Amino Transferase 39 U/L (5-37); Blood Urea Nitrogen 24 mg/dL (9-16); Calcium 8.8 mg/dL (8.4-10.2); Carbon Dioxide 28 mmol/L (22-29); Chloride 105 mmol/L (96-108); Estimated Glomerular Filt Rate > 60; Potassium 4.2 mmol/L (3.3-5.1); Sodium 138 mmol/L (135-145); Total Protein 6.8 g/dL (6.5-8.0)
== END 2024-10-09 10:29 | disposition home or self-care (01) ==
LOC: HO.HMGCLDS 10:28
PROVIDERS: PCP Internal Medicine; Visit Provider Physician Assistant Medical
DX: D64.9 Anemia, unspecified (principal); K72.00 Acute and subacute hepatic failure without coma; R74.8 Abnormal levels of other serum enzymes; N52.9 Male erectile dysfunction, unspecified; K21.9 Gastro-esophageal reflux disease without esophagitis; Z13.31 Encounter for screening for depression; Z00.00 Encounter for general adult medical examination without abnormal findings
CPT/HCPCS: 36415; 80053; 82248; 85025; 96127

== ENCOUNTER 2024-10-13 15:17 | Outpatient (AMB) | payer OTHER, SELFPAY ==
--- NOTE | 2024-10-13 15:22 | MHC.OFFVIS ---
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 Patient complains of numbness and tingling, primarily on the left hand, occurring daily, on and off throughout the day. He feels it is worse at night. He has tried brace with no relief. Denies previous injuries or surgeries to the hands. Would like to discuss safety precautions for motorcycle riding. 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 Patient complains of numbness and tingling, primarily on the left hand, occurring daily, on and off throughout the day. He feels it is worse at night. He has tried brace with no relief. Denies previous injuries or surgeries to the hands. Patient reports that it is worse with driving, riding his motorcycle, and when he leans on his hands and elbows No EMG-- PFSH Medical History (Updated 10/13/24 @ 18:19 by SHAHIDA Pozo) Elevated liver enzymes GERD (gastroesophageal reflux disease) Erectile dysfunction Depression Elevated vitamin B12 level Canker sores oral Thrombocytopenia Anemia REMY (acute kidney injury) Acute metabolic encephalopathy Acute liver failure Intentional acetaminophen overdose Throat pain Annual physical exam Decreased hearing Dermoid cyst of eyebrow Carpal tunnel syndrome on both sides Colon cancer screening Family history of dementia Establishing care with new doctor, encounter for Family history of diabetes mellitus Family history of myocardial infarction Surgical History History of vasectomy Family History Mother Dementia Father Heart attack Social History Housing: House Alcohol intake: current Alcohol intake frequency: 3 or more drinks per day Patient Tobacco Use Status: Current everyday Tobacco user Cigarette Packs Per Day: 1.5 Cigarettes Per Day: 30 Years Smoked: 13 years old service: No Current occupational status: employed Cognitive needs: No Hearing needs: No Vision needs: Yes (rx glasses) Review of Systems Const All systems reviewed & are unremarkable except as noted in HPI and below Physical Exam Vital Signs: BMI result Body Mass Index 24.6 Extrem Other: Neuro: Normal sensation of the tips of all digits of bilateral hands in the office today No thenar or intrinsic wasting. Good APB muscle firing and good finger cross. Vascular: Capillary refill brisk. ROM: Patient can make a fist and extend all their digits. Skin: No lacerations or abrasions noted. General: No ecchymosis. No erythema or evidence of infection. Assessment & Plan Assessment & Plan (1) Numbness and tingling in both hands: Code(s): R20.0 - Anesthesia of skin; R20.2 - Paresthesia of skin Category: Medical Plan 1. Numbness and tingling of both hands Symptoms intermittent, daily, worse at night Patient is educated about this condition Patient is educated about the typical treatment course At this time, EMG and nerve conduction study are ordered to assess the health bilateral upper extremities Patient will follow-up after EMG and nerve conduction study for results review and discussion of further treatment options if indicated Patient is amenable to this plan Follow-up after studies Orders: Orders NE nerve conduction velocity Today R20.0 - Anesthesia of skin, R20.2 - Paresthesia of skin NE electromyogram (EMG) Today R20.0 - Anesthesia of skin, R20.2 - Paresthesia of skin Coding Level of Care Code New Pt Level 3 (05802) Diagnoses Numbness and tingling in both hands R20.0; R20.2
[2024-10-13 15:23] VITALS: BMI 24.6
--- OUTSIDE RECORDS SUMMARY | 2024-10-13 15:47 | XMS_ITS | Clinical Summary ---
Author Organization [facility] Address [address] [place] [address] Care Team Providers Care Head Bellhop Captain Name Role Phone Unavailable Primary Care Provider [...] Description 09/13/2024 7:00 AM EDT Ancillary Procedure [facility] [address] [place] [phone] Provider, File Room 09/13/2024 6:55 AM EDT Ancillary Procedure [facility] [address] [place] [phone] Provider, File Room 09/13/2024 6:55 AM EDT Ancillary Procedure [facility] [address] [place] [phone] Provider, File Room 09/13/2024 5:20 AM EDT - 09/19/2024 2:41 PM EDT Hospital Encounter [facility] [address] [place] [address], [place] [phone] Jamal Stewart MD Powner, Jordan T, Tk Matos MD Rheiner, Jacqueline A, DO Hebbal, Pooja, MD Pichardo Castillo, Jose, MD Hematemesis (Primary Dx); Cocaine abuse (HCC); Hepatic encephalopathy (HCC); Jaundice; Thrombocytopenia; Transaminitis; Hyperammonemia ; Hyperbilirubinemia; Tylenol ingestion, intentional self-harm, initial encounter (HCC); Acute metabolic encephalopathy Discharge Disposition: Home or Self Care 09/13/2024 Travel 09/13/2024 Orders Only [facility] [address] [place] [phone] Provider, File Room from Last 3 Months Social History Tobacco Use Types Packs/Day Years Used Date Smoking Tobacco: Never Assessed [facility] Utilities Answer Date Recorded In the past 12 months has [employer], oil, or water Sincerely threatened to shut off services in your [...] any time in the past 12 m [facility], were you homeless or living in a long-term (including now)? Patient unable to answer 09/14/2024 [...] of12 resultswithin the time period is included. [facility] Anticoagulant IV HEPARIN, UNFRACTIONATED 09/19/2024 7:21 AM EDT [facility] Prothrombin Time (PT) 17.0(H) 10.0 - 13.5 seconds 09/19/2024 [facility] 1.5 09/19/2024 9:28 AM T [facility] Comment:INR Therapeutic Rang es: Standard dose anticoagulant 2.0 to 3.0, High dose anticoagulant 2.5-3.5. Blood Blood specimen / Unknown 09/19/2024 8:09 AM EDT 09/19/2024 8:41 AM EDT Dwayne Marsh MD LAB BLOOD ORDERABLES F inal Result Performing Organization Address [facility] Co de Phone Number [address] [address], [address] [address] * (ABNORMAL) Complete Blood Count WITHOUT Differential - ROUTINE (09/19/2024 8:09 AM EDT) Only the most recent of8 resultswithin the time period is included. [facility] White Blood Cell Count 5.0 4.0 - 11.0 Thou/uL 09/19/2024 10:05 AM T [facility] Platelet Count 46(L) 150 - 450 Thou/uL 09/19/2024 10:05 AM T [facility] Comment: Results verified by smear review. Test results repeated. Occasional large platelet present. Hemoglobin 11.0(L) 13.0 - 17.7 g/dL 09/19/2024 10:[address] [facility] Hematocrit 33.5(L) 39.0 - 54.0 % 09/19/2024 10:[address] [facility] Red Blood Cell Count 3.54(L) 4.50 - 6.20 Mil/uL 09/19/2024 10:[address] [facility] MCV 95 80 - 100 fL 09/19/2024 10:[address] [facility] MCH 31.1 26.0 - 34.0 pg 09/19/2024 10:[address] [facility] MCHC 32.8 30.0 - 36.0 g/dL 09/19/2024 10:[address] [facility] RDW 15.9(H) 11.5 - 14.5 % 09/19/2024 10:[address] [facility] MPV 12.1 7.5 - 12.5 fL 09/19/2024 10:[address] [facility] Immature Platelet Fraction 9.9(H) 1.2 - 8.6 % 09/19/2024 10:[address] [facility] Blood Blood specimen / Unknown 09/19/2024 8:09 AM EDT 09/19/2024 8:41 AM EDT Dwayne Marsh MD LAB BLOOD ORDERABLES F inal Result [address] [address], [address] [address] * Magnesium (AM) (09/19/2024 8:09 AM EDT) Only the most recent of14 resultswithin the time period is included. Magnesium 1.8 1.6 - 2.7 mg/dL 09/19/2024 9:[address] [facility] Blood Blood specimen / Unknown 09/19/2024 8:09 AM EDT 09/19/2024 8:41 AM EDT Dwayne Marsh MD LAB BLOOD ORDERABLES F inal Result [facility] [address] [place] [address], [facility] [address] [place] [address] * (ABNORMAL) Comprehensive Metabolic Panel (09/19/2024 8:09 AM EDT) Glucose 97 65 - 99 mg/dL 09/19/2024 9:[address] [facility] Comment:Fasting: <100 mg/dL, Non-Fasting: <200 mg/dL (ADA 2004) Blood Urea Nitrogen (BUN) 26(H) 8 - 21 mg/dL 09/19/2024 9:[address] [facility] Creatinine 1.2 0.5 - 1.3 mg/dL 09/19/2024 9:[address] [facility] eGFR 76 >59 09/19/2024 9:[address] [facility] Comment:CKD-EPI (2020) in mL /min/1.73 sq meters. Sodium 145 136 - 145 mmol/L 09/19/2024 9:[address] [facility] Potassium 3.7 3.4 - 5.3 mmol/L 09/19/2024 9:[address] [facility] Chloride 114(H) 98 - 107 mmol/L 09/19/2024 9:[address] [facility] CO2 23 22 - 33 mmol/L 09/19/2024 9:[address] [facility] Calcium 8.4(L) 8.7 - 10.5 mg/dL 09/19/2024 9:[address] [facility] Alkaline Phosphatase 122 45 - 128 U/L 09/19/2024 9:[address] [facility] Aspartate Aminotrans (AST) 104(H) 10 - 55 U/L 09/19/2024 9:[address] [facility] Alanine Aminotrans (ALT) 925(H) 10 - 55 U/L 09/19/2024 9:[address] [facility] Bilirubin, Total 6.7(H) 0.2 - 1.0 mg/dL 09/19/2024 9:[address] [facility] Protein, Total 5.0(L) 6.3 - 8.3 g/dL 09/19/2024 9:48 AM EDT [facility] Albumin 2.9(L) 3.5 - 5.0 g/dL 09/19/2024 9:48 AM EDT [facility] BUN/Creatinine Ratio 22 10.0 - 25.0 Ratio 09/19/2024 9:48 AM EDT [facility] Globulin 2.1 1.5 - 3.9 g/dL 09/19/2024 9:48 AM EDT [facility] Albumin/Globulin Ratio 1.4 1.0 - 3.0 Ratio 09/19/2024 9:48 AM EDT [facility] Anion Gap 8 7 - 17 09/19/2024 9:48 AM EDT [facility] Blood Blood specimen / Unknown 09/19/2024 8:09 AM EDT 09/19/2024 8:41 AM EDT Dwayne Marsh MD LAB BLOOD ORDERABLES F inal Result Performing Organization Address City/[facility]/ZIP [place] [address], [place] [address] * (ABNORMAL) Phosphorus (09/18/2024 11:49 PM EDT) Only the most recent of12 resultswithin the time period is included. Phosphorus 2.3(L) 2.7 - 4.5 mg/dL 09/19/2024 12:29 AM EDT [facility] Blood Blood specimen / Unknown 09/18/2024 11:49 PM EDT 09/19/2024 12:01 AM EDT Dana Harris APRN LAB BLOOD ORDERABLES Final R esult Performing Organization Address City/[facility]/ZIP [place] [address], [place] [address] * (ABNORMAL) HEPATIC FUNCTION PANEL (09/18/2024 11:49 PM EDT) Only the most recent of13 resultswithin the time period is included. Alkaline Phosphatase 109 45 - 128 U/L 09/19/2024 12:[facility] Aspartate Aminotrans (AST) 108(H) 10 - 55 U/L 09/19/2024 12:[address] [facility] Alanine Aminotrans (ALT) 1,031(H) 10 - 55 U/L 09/19/2024 12:[address] [facility] Bilirubin, Total 7.4(H) 0.2 - 1.0 mg/dL 09/19/2024 12:[address] [facility] Protein, Total 4.8(L) 6.3 - 8.3 g/dL 09/19/2024 12:[address] [facility] Albumin 2.8(L) 3.5 - 5.0 g/dL 09/19/2024 12:[address] [facility] Bilirubin, Direct 5.2(H) 0 - 0.2 mg/dL 09/19/2024 12:[address] [facility] Globulin 2.0 1.5 - 3.9 g/dL 09/19/2024 12:[address] [facility] Albumin/Globulin Ratio 1.4 1.0 - 3.0 Ratio 09/19/2024 12:[address] [facility] Blood Blood specimen / Unknown 09/18/2024 11:49 PM EDT 09/19/2024 12:01 AM EDT [facility] CAR RENTAL MANAGER LAB BLOOD ORDERABLES Final R esult [address] [address], [address] [address] * (ABNORMAL) Basic Metabolic Panel (09/18/2024 11:49 PM EDT) Only the most recent of14 resultswithin the time period is included. Pathologist [facility] Glucose 87 65 - 99 mg/dL 09/19/2024 12:[address] [facility] Comment:Fasting: <100 mg/dL, Non-Fasting: <200 mg/dL (ADA 2005) Blood Urea Nitrogen (BUN) 24(H) 8 - 21 mg/dL 09/19/2024 12:29 AM [facility] Creatinine 1.3 0.5 - 1.3 mg/dL 09/19/2024 12:[address] [facility] eGFR 69 >59 09/19/2024 12:[address] [facility] Comment:CKD-EPI (2020) in mL /min/1.73 sq meters. Sodium 142 136 - 145 mmol/L 09/19/2024 12:29 AM EDT [facility] Potassium 3.8 3.4 - 5.3 mmol/L 09/19/2024 12:[address] [facility] Chloride 110(H) 98 - 107 mmol/L 09/19/2024 12:[address] [facility] CO2 24 22 - 33 mmol/L 09/19/2024 12:[address] [facility] Anion Gap 8 7 - 17 09/19/2024 12:[address] [facility] Calcium 8.2(L) 8.7 - 10.5 mg/dL 09/19/2024 12:[address] [facility] BUN/Creatinine Ratio 18 10.0 - 25.0 Ratio 09/19/2024 12:[address] [facility] Blood Blood specimen / Unknown 09/18/2024 11:49 PM EDT 09/19/2024 12:01 AM EDT [facility]AL [facility]NA[facility] LAB BLOOD ORDERABLES Final R esult [address] [address], [address] [address] * Sodium (09/18/2024 6:23 AM EDT) Only the most recent of9 resultswithin the time period is included. Sodium 140 136 - 145 mmol/L 09/18/2024 7:48 AM EDT [facility] Blood Blood specimen / Unknown 09/18/2024 6:23 AM EDT 09/18/2024 6:48 AM EDT Marie Simmons PA-C LAB BLOOD ORDERABLES Jessenia l Result Performing Organization Address City/[facility]/[place] [address], [address] [address] * (ABNORMAL) TSH (Routine) (09/18/2024 12:40 AM EDT) TSH, Highly Sensitive 0.15(L) 0.27 - 4.20 mIU/L 09/18/2024 3:09 AM EDT [facility] Blood Blood specimen / Unknown 09/18/2024 12:40 AM EDT 09/18/2024 1:00 AM EDT Dana Greener CAR RENTAL MANAGER LAB BLOOD ORDERABLES Final R esult Performing Organization Address City/[facility]/[place]IP [place] [address], [address] [address] * T4, FREE (09/18/2024 12:40 AM EDT) Pathologist [facility] T4, Free 0.90 0.80 - 1.90 ng/dL 09/18/2024 9:06 AM EDT [facility] 09/18/2024 12:4 0 AM EDT 09/18/2024 1:00 AM EDT Dana Green CAR RENTAL MANAGER LAB BLOOD ORDERABLES Final R esult Performing Organization Address City/[facility]/[place]IP [place] [address], [address] [address] * Folate Level (09/18/2024 12:40 AM EDT) Pathologist [facility] Folate, Serum Specimen hemolyzed. Test not performed. >7.2 ng/mL 09/18/2024 3:24 AM EDT [facility] Blood Blood specimen / Unknown 09/18/2024 12:40 AM EDT 09/18/2024 1:00 AM EDT us Mass Mosaic Greener CAR RENTAL MANAGER LAB BLOOD ORDERABLES Final R esult Performing Organization Address City/[facility] Co de Phone Number [address] [address], [address] [address] * (ABNORMAL) Vitamin B12 (09/18/2024 12:40 AM EDT) [facility] Vitamin B12 >2,000(H) 243 - 894 pg/mL 09/18/2024 4:04 AM EDT [facility] Blood Blood specimen / Unknown 09/18/2024 12:40 AM EDT 09/18/2024 1:00 AM EDT us Mass Mosaic Greener CAR RENTAL MANAGER LAB BLOOD ORDERABLES Final R esult Performing Organization Address City/[facility] Co de Phone Number [address] [address], [address] [address] * ECHOCARDIOGRAM COMPREHENSIVE (09/17/2024 11:40 AM EDT) [facility] LV Diastolic Volume Index (F:29-61, M:35-75) 72.2 [...] gas pattern. Interpreted by: Guevara Howard DO Performance Improvement Analyst I personally reviewed the images and the [...] gas pattern. Interpreted by: Guevara Howard DO Performance Improvement Analyst I personally reviewed the images and the resident's preliminary report and AGREE with the report as it is now presented ([id number]). us Dana Harris APRN IMG DIAGNOSTIC IMAGING ORDER MARGO Final Result * LACTIC ACID, PLASMA (09/16/2024 11:45 AM EDT) Only the most recent of4 resultswithin the time period is included. Lactic Acid 1.0 0.5 - 1.9 mmol/L 09/16/2024 12:33 PM EDT [facility] Blood Blood specimen / Unknown 09/16/2024 11:45 AM EDT 09/16/2024 12:01 PM EDT Dana Harris CAR RENTAL MANAGER LAB BLOOD ORDERABLES Final R esult [address] [address], [address] [address] * EEG AWAKE OR DROWSY (09/16/2024 9:19 AM EDT) Narrative [facility] - 09/16/2024 9:19 AM EDT Sharonda Dorsey MD 09/16/2024 11:33 AM INPATIENT ADULT ELECTROENCEPHALOGRAM (EEG) REPORT Facility: [facility] Patient and : Gregg Lisa 1975 Date [...] suppression in clinically-apparent sleep suggested the former. [id number] TOTAL SCORE: 0 (5% SZ [!2H31P$2B&0]) Sharonda Dorsey MD [facility] FOR EEG LAB USE: Abnormal Non-epileptiform :qz!02; No events :qz!08; Complexity ratin :qz!15 us Brooke PNIEDO NEUROLOGY ORDERABLES Mariano yola Result - Final [facility] [address] [place] [address], * ECG 12 lead (09/16/2024 8:38 AM EDT) Only the most recent of4 resultswithin the time period is included. [facility] Systolic BP 131 mmHg EKG [facility] Diastolic BP 61 mmHg EKG [facility] Ventricular rate 83 BPM EKG [facility] Atrial rate 83 BPM EKG [facility] P-R interval 104 ms EKG [facility] QRS duration 92 ms EKG [facility] Q-T interval 386 ms EKG [facility] QTC calculation (Bazett) 453 ms EKG [facility] P axis -54 degrees EKG [facility] R axis 89 degrees EKG [facility] T axis 52 [facility] 09/16/2024 8:38 AM EDT Narrative [facility] - 09/16/2024 8:40 AM EDT Unusual P axis, possible ectopic atrial rhythm Abnormal ECG When compared with ECG of 14-Sep-2024 13:31, Ectopic atrial rhythm has replaced Sinus rhythm Vent. rate has decreased by [address] no longer depressed in Inferior leads T wave amplitude has decreased in Anterior leads Confirmed by Leann Lockhart MD ([id number]) on 09/16/2024 8:40:33 AM Procedure Note Leann Lockhart MD - 09/16/2024 Unusual P axis, possible ectopic atrial rhythm Abnormal ECG When compared with ECG of 14-Sep-2024 13:31, Ectopic atrial rhythm has replaced Sinus rhythm Vent. rate has decreased by [address] no longer depressed in Inferior leads T wave amplitude has decreased in Anterior leads Confirmed by Leann Lockhart MD ([id number]) on 09/16/2024 8:40:33 AM Tk You MD ECG ORDERABLES Final Result [facility] * (ABNORMAL) Hemoglobin and Hematocrit (09/16/2024 8:30 AM EDT) Only the most recent of2 resultswithin the time period is included. [facility] Hematocrit 38.1(L) 39.0 - 54.0 % 09/16/2024 10:16 AM EDT [facility] Hemoglobin 12.1(L) 13.0 - 17.7 g/dL 09/16/2024 10:16 AM EDT [facility] Blood Blood specimen / Unknown 09/16/2024 8:30 AM EDT 09/16/2024 8:48 AM EDT Yazmin Martinez PA-C LAB BLOOD ORDERABLES Final Result Performing Organization Address [facility] [place] [address], [address] [address] * Vancomycin Level, Random (09/16/2024 6:49 AM EDT) Vancomycin, Random 6 mg/L 09/16/2024 8:03 AM EDT [facility] Comment:No reference range e stablished for random levels. Time of Last Dose Information not given 09/16/2024 6:49 AM EDT [facility] Blood Blood specimen / Unknown 09/16/2024 6:49 AM EDT 09/16/2024 7:34 AM EDT Tk You MD LAB BLOOD ORDERABLES Final Resul t Performing Organization Address [facility] [place] [address], [address] [address] * Ammonia Level (09/16/2024 12:00 AM EDT) Only the most recent of8 resultswithin the time period is included. Ammonia, Plasma 51 16 - 60 umol/L 09/16/2024 12:44 AM EDT [facility] Blood Blood specimen / Unknown 09/16/2024 09/16/2024 12:18 AM EDT Cheko PINEDO LAB BLOOD ORDERABLES Final Resu lt Performing Organization Address [facility] [place] [address], [address] [address] * (ABNORMAL) Blood Gas with Cooximetry, Arterial (09/15/2024 5:39 PM EDT) Only the most recent of3 resultswithin the time period is included. Respiratory Info VENT 40% 09/16/19 5:39 PM EDT [facility] pH, Arterial 7.49(H) 7.35 - 7.45 09/15/2024 6:08 PM [facility] pCO2, Arterial 37 32 - 45 mmHG 09/15/2024 6:[address] [facility] pO2, Arterial 190(H) 75 - 95 mmHG 09/15/2024 6:[address] [facility] CO2, Total 29(H) 22 - 28 mmol/L 09/15/2024 6:[address] [facility] P/F Ratio 475 09/15/2024 6:[address] [facility] Base Excess 4.6 mmol/L 09/15/2024 6:08 PM T [facility] Comment:Reference Range: Neg ative 2 to Positive 3 Hemogloblin, Total 13.6 13.0 - 17.7 g/dL 09/15/2024 6:[address] [facility] O2 Saturation, Arterial 99.6(H) 94 - 97 % 09/15/2024 6:[address] [facility] Carboxyhemoglobin 0.8 0.0 - 2.0 % 09/15/2024 6:[address] [facility] Methemoglobin 0.6 0.4 - 1.5 % 09/15/2024 6:[address] [facility] O2 Content, Arterial 19.2 17.6 - 24.3 mL/dL 09/15/2024 6:[address] [facility] Blood Blood specimen / Unknown 09/15/2024 5:39 PM EDT 09/15/2024 6:01 PM EDT us Brooke PINEDO LAB BLOOD ORDERABLES Fin al Result [address] [address], [address] [address] * Hepatitis C Viral Load, Quantitative (09/15/2024 8:40 AM EDT) [facility] HCV RNA (IU/mL) Not Detected <10 IU/mL 09/16/2024 2:14 PM EDT [facility] HCV RNA (log10) Not Detected <1.00 log10 IU/mL 09/16/2024 2:14 PM EDT [facility] Interpretation Not Detected 09/17/19 2:14 PM EDT [facility] Comment:Performed by FDA basilio roved [employer] TMA. Linear range is 10 to 100,000,000 IU/mL. HCV Genotyping is not recommended for viral loads below 300 IU/mL. Blood Blood specimen / Unknown 09/15/2024 8:40 AM EDT 09/15/2024 10:18 AM EDT Brooke PINEDO LAB BLOOD ORDERABLES Fin al Result [facility] [address] * (ABNORMAL) Factor V Assay (09/15/2024 8:40 AM EDT) [facility] Factor V 46(L) 50 - 150 % Normal 09/15/2024 12:38 PM EDT [facility] Blood Blood specimen / Unknown 09/15/2024 8:40 AM EDT 09/15/2024 10:18 AM EDT Brooke PINEDO LAB BLOOD ORDERABLES Fin al Result [address] [address], [address] [address] * Nasal MRSA Screen, PCR (09/15/2024 8:35 AM EDT) [facility] MRSA Result Not Detected Not Detected 11:30 AM EDT [facility] Comment:Performed by the Xpe rt MRSA NxG Assay Swab, Anterior Nares Specimen from nose / Unknown 09/15/2024 8:35 AM EDT 09/15/2024 9:27 AM EDT Brooke PINEDO MICROBIOLOGY - GENERAL O RDERABLES Final Result [facility] [address] [place] [address], [address] [address] * Blood Culture (09/15/2024 3:05 AM EDT) Only the most recent of4 resultswithin the time period is included. Culture Sterile after 5 days 09/20/2024 7:33 AM EDT [facility] Blood Blood specimen / Unknown 09/15/2024 3:05 AM EDT 09/15/2024 3:52 AM EDT Comment:Blood Heidi PINEDO LAB BLOOD ORDERABLES Jessenia l Result [facility] [address] [place] [address], [place] * XR Chest 1 view-Portable (09/15/2024 [...] Mixed normal kathrine 09/15/2024 3:11 AM EDT [facility] Culture Staphylococcus aureus(A) 09/17/2024 2:10 PM EDT [facility] Culture Mixed normal kathrine 09/17/2024 2:10 PM EDT [facility] Aspirate, Tracheal Specimen from [...] MICROBIOLOGY - GENERAL OR DERABLES Final Result [facility] [address] [place] [address], [address] [address] * (ABNORMAL) Urinalysis with Reflex to Microscopic (09/15/2024 2:20 AM EDT) Color Martina 09/15/2024 2:[address] [facility] Clarity Clear 09/15/2024 2:[address] [facility] Specific [place] 1.023 1.003 - 1.030 09/15/2024 2:[address] [facility] pH 5.0 5.0 - 8.0 09/15/2024 2:[address] [facility] Leukocyte Esterase Negative Negative 09/15/2024 2:[address] [facility] Nitrite Negative Negative 09/15/2024 2:[address] [facility] Protein Negative Negative 09/15/2024 2:[address] [facility] Glucose 0 0 - 99 mg/dL 09/15/2024 2:[address] [facility] Ketones Negative Negative 09/15/2024 2:[address] [facility] Blood Large(A) Negative 09/15/2024 2:[address] [facility] Bilirubin Negative Negative 09/15/2024 2:[address] [facility] WBC 1 0 - 4 per hpf 09/15/2024 2:[address] [facility] RBC 6(H) 0 - 4 per hpf 09/15/2024 2:[address] [facility] Urine Urine specimen obtained via straight catheter / Unknown 09/15/2024 2:20 AM EDT 09/15/2024 2:30 AM EDT Heidi Zabala PA URINE ORDERABLES Final Re sult Performing Organization Address City/[facility]/ZIP [place] [address], [place] [address] * (ABNORMAL) LIPASE (09/15/2024 1:04 AM EDT) Only the most recent of3 resultswithin the time period is included. Pathologist [facility] Lipase 73(H) 13 - 60 U/L 09/15/2024 4:58 AM EDT [facility] 09/15/2024 1:04 AM EDT 09/15/2024 1:26 AM EDT Cheko PINEDO LAB BLOOD ORDERABLES Final Resu lt Performing Organization Address [facility] [place] [address], [place] [address] * (ABNORMAL) Blood Gas with Cooximetry, Venous (09/14/2024 9:43 AM EDT) [facility] Respiratory Info VENT 40% 09/15/19 9:43 AM EDT [facility] Venous Blood PH 7.48(H) 7.33 - 7.43 09/14/2024 10:[facility] Venous pCO2 38 35 - 50 mmHG 09/14/2024 10:[address] [facility] Venous pO2 139(H) 0 - 60 mmHG 09/14/2024 10:[address] [facility] Venous Total CO2 29 23 - 29 mmol/L 09/14/2024 10:27 AM T [facility] Base Excess 4.9 mmol/L 09/14/2024 10:27 AM T [facility] Comment:Reference Range: Neg ative 2 to Positive 3 Hemogloblin, Total 14.5 13.0 - 17.7 g/dL 09/14/2024 10:27 AM EDT [facility] O2 Saturation, Venous 99.1 % 09/2024 10:27 AM EDT [facility] Carboxyhemoglobin 1.4 0.0 - 2.0 % 09/14/2024 10:27 AM EDT [facility] Methemoglobin 0.6 0.4 - 1.5 % 09/14/2024 10:27 AM EDT [facility] Venous O2 Content 20.0(H) 7.2 - 17.2 mL/dL 09/14/2024 10:27 AM EDT [facility] Blood Blood specimen / Unknown 09/14/2024 9:43 AM EDT 09/14/2024 10:15 AM EDT Brooke [facility] BLOOD ORDERABLES Fin al Result Performing Organization Address [facility] [place] [address], [place] [address] * (ABNORMAL) Creatine Kinase (CK) (09/14/2024 2:40 AM EDT) Only the most recent of5 resultswithin the time period is included. Creatine Kinase (CK) 261(H) 24 - 204 U/L 09/14/2024 3:20 AM EDT [facility] Blood Blood specimen / Unknown 09/14/2024 2:40 AM EDT 09/14/2024 2:53 AM EDT Amanda [facility] BLOOD ORDERABLES Final R esult Performing Organization Address [facility] [place] [address], [place] [address] * (ABNORMAL) Acetaminophen Level (09/14/2024 12:20 AM EDT) Only the most recent of4 resultswithin the time period is included. Acetaminophen Level <5(L) 10 - 30 mg/L 09/14/2024 1:06 AM EDT [facility] Comment:Specimen icteric Blood Blood specimen / Unknown 09/14/2024 12:20 AM EDT 09/14/2024 12:37 AM EDT us Cheko [facility] BLOOD ORDERABLES Final Resu lt [address] [address], [facility] [address] [place] [address] * US Duplex abdomen/pelvis-Complete (09/13/2024 11:23 PM [...] cross-sectional imaging could be performed. Cheko PINEDO [facility] US ORDERABLES Final Result * EBV DNA, PCR, Quantitative (09/13/2024 6:32 PM EDT) Specimen Source EDTA PLASMA 09/18/2024 7:39 AM EDT [facility] EBV DNA Not Detected 09/18/2024 7:39 AM EDT [facility], [place] Comment:UNITS: IU/mL EBV DNA, QN PCR Not Detected 09/18/2024 7:39 AM EDT [facility], [place] Comment: UNITS: Log IU/mL (NOTE) Reference Range: Not Detected For additional information, please refer to http://education.[employer]/faq/CMVandEBVPCR (This link is being provided for informational/ educational purposes only.) Blood Blood specimen / Unknown 09/13/2024 6:32 PM EDT 09/13/2024 6:41 PM EDT Cheko PINEDO BODY FLUIDS AND STOOLS ORDERABL ES Final Result [facility], [place] [id number] [facility] [address] [address] [place], [place] , [facility], [place] [id number] [facility] [address] [address] [place], [place] * Triglycerides (09/13/2024 4:10 PM EDT) Triglycerides 135 <150 mg/dL 09/13/2024 5:17 PM EDT [facility] Comment:Specimen icteric Blood Blood specimen / Unknown 09/13/2024 4:10 PM EDT 09/13/2024 4:38 PM EDT Cheko PINEDO LAB BLOOD ORDERAB[place] [address], [place] [address] * EEG AWAKE OR DROWSY (09/13/2024 4:07 PM EDT) Narrative [facility] - 09/13/2024 4:07 PM EDT Nathalie Cortez MD 09/13/2024 9:46 PM INPATIENT ADULT ELECTROENCEPHALOGRAM (EEG) REPORT Facility: [facility] Patient and : Gregg Lisa 1975 Date [...] electrographic seizures. Nathalie Cortez MD ABPN Epilepsy. [facility] [place] us Cheko PINEDO NEUROLOGY ORDERABLES Edited Res ult - Final [facility] [id number] [id number], * Troponin T, High Sensitivity (09/13/2024 2:19 PM EDT) Only the most recent of3 resultswithin the time period is included. High Sensitivity Troponin T 20 <23 ng/L 09/13/2024 3:07 PM EDT [facility] Delta (Change) NO CHANGE <3 09/13/2024 3:07 PM EDT [facility] Blood Blood specimen / Unknown 09/13/2024 2:19 PM EDT 09/13/2024 2:43 PM EDT us Cheko PINEDO LAB BLOOD ORDERABLES Final Resu lt Performing Organization Address [facility] Co de Phone Number [address] [address], [address] [address] * Sodium, Urine, Random (09/13/2024 2:10 PM EDT) Only the most recent of2 resultswithin the time period is included. Sodium, Urine Random <20 mmol/L 09/13/2024 3:04 PM EDT [facility] Comment:Reference range not established for random specimen. Urine Urine specimen / Unknown 09/13/2024 2:10 PM EDT 09/13/2024 2:44 PM EDT us Cheko PINEDO URINE ORDERABLES Final Result Performing Organization Address [facility] [place] [address], [address] [address] * Creatinine, Urine, Random (09/13/2024 2:10 PM EDT) Only the most recent of2 resultswithin the time period is included. Creatinine, Urine, Random 67 mg/dL 09/13/2024 3:04 PM EDT [facility] Comment:Reference range not established for random specimen. Urine Urine specimen / Unknown 09/13/2024 2:10 PM EDT 09/13/2024 2:44 PM EDT us Cheko PINEDO URINE ORDERABLES Final Result Performing Organization Address City/[facility] Co de Phone Number [address] [address], [address] [address] * Hepatitis Panel, Acute (09/13/2024 11:25 AM EDT) Hepatitis A Antibody IgM Nonreactive Nonreactive 09/14/2024 10:29 AM EDT [facility] Hepatitis B Core Antibody IgM Nonreactive Nonreactive 09/14/2024 10:29 AM EDT [facility] Hepatitis B Surface Ag Screen Nonreactive Nonreactive 09/14/2024 10:29 AM EDT [facility] Hepatitis C Antibody Nonreactive Nonreactive 09/14/2024 10:29 AM EDT [facility] Comment:Antibodies to HCV no t detected. This does not exclude the possibility of exposure to HCV. Hepatitis Interpretation : Results inconsistent with acute Hepatitis A, B or C Virus infection. 09/14/2024 10:29 AM EDT [facility] Blood Blood specimen / Unknown 09/13/2024 11:25 AM EDT 09/13/2024 12:39 PM EDT Mingo Serrato DO LAB BLOOD ORDERABLES Final Re sult Performing Organization Address City/[facility]/ZIP Co de Phone Number [facility] [address] [place] [address], * proBNP, N-terminal (09/13/2024 10:04 AM EDT) proBNP, N-terminal 76 <125 pg/mL 09/13/2024 3:02 PM EDT [facility] 09/13/2024 10:0 4 AM EDT 09/13/2024 10:15 AM EDT Mingo Serrato DO LAB BLOOD ORDERABLES Final Re sult [address] [address], [place] [address] [address] * (ABNORMAL) OSMOLALITY (09/13/2024 10:04 AM EDT) Osmolality, Serum/Plasma 345(H) 275 - 295 mOsm/Kg 09/13/2024 2:54 PM EDT [facility] 09/13/2024 10:0 4 AM EDT 09/13/2024 10:15 AM EDT Mingo Serrato DO LAB BLOOD ORDERABLES Final Re sult Performing Organization Address [facility] Co de Phone Number [address] [address], [address] [address] * (ABNORMAL) Blood Gas, Arterial (09/13/2024 10:00 AM EDT) Only the most recent of2 resultswithin the time period is included. pH, Arterial 7.43 7.35 - 7.45 09/13/2024 10:30 AM EDT [facility] pCO2, Arterial 44 32 - 45 mmHG 09/13/2024 10:30 AM EDT [facility] pO2, Arterial 173(H) 75 - 95 mmHG 09/13/2024 10:30 AM EDT [facility] CO2, Total 31(H) 22 - 28 mmol/L 09/13/2024 10:30 AM EDT [facility] Respiratory Info Information not given 09/13/2024 10:25 AM EDT [facility] Base Excess 4.6 mmol/L 09/13/2024 10:30 AM T [facility] Comment:Reference Range: Neg ative 2 to Positive 3 Blood specimen / Unknown 09/13/2024 10:00 AM EDT 09/13/2024 10:22 AM EDT Jamal Stewart MD LAB BLOOD ORDERABLES Final Result Performing Organization Address City/[facility] Co de Phone Number [address] [address], [address] [address] * (ABNORMAL) Complete Blood Count, with Differential (09/13/2024 8:01 AM EDT) White Blood Cell Count 5.5 4.0 - 11.0 Thou/uL 09/13/2024 9:37 AM EDT [facility] Platelet Count 74(L) 150 - 450 Thou/uL 09/13/2024 9:37 AM T [facility] Comment: Test results repeated. Results verified by smear review. Hemoglobin 15.2 13.0 - 17.7 g/dL 09/13/2024 9:[address] [facility] Hematocrit 44.6 39.0 - 54.0 % 09/13/2024 9:[address] [facility] Red Blood Cell Count 4.82 4.50 - 6.20 Mil/uL 09/13/2024 9:[address] [facility] MCV 93 80 - 100 fL 09/13/2024 9:[address] [facility] MCH 31.5 26.0 - 34.0 pg 09/13/2024 9:[address] [facility] MCHC 34.1 30.0 - 36.0 g/dL 09/13/2024 9:[address] [facility] RDW 14.6(H) 11.5 - 14.5 % 09/13/2024 9:[address] [facility] MPV 11.8 7.5 - 12.5 fL 09/13/2024 9:[address] [facility] nRBC 0.4(H) 0.0 - 0.1 /100 WBC 09/13/2024 9:[address] [facility] nRBC, Absolute 0.02 0.00 - 0.02 Thou/uL 09/13/2024 9:[address] [facility] Immature Platelet Fraction 3.0 1.2 - 8.6 % 09/13/2024 9:[address] [facility] Neutrophils Auto 90.8 % 09/14/19 9:[address] [facility] Immature Granulocytes 0.9 % 09/13/2024 9:[address] [facility] Lymphocytes Auto 6.0 % 09/14/19 9:[address] [facility] Monocytes Auto 1.6 % 09/13/2024 9:[address] [facility] Eosinophils Auto 0.5 % 09/14/19 9:[address] [facility] Basophils Auto 0.2 % 09/13/2024 9:[address] [facility] Abs Neutrophils Auto 5.03 2.00 - 7.50 Thou/uL 09/13/2024 9:[address] [facility] Abs Immature Granulocytes 0.05 0.00 - 0.10 Thou/uL 09/13/2024 9:44 AM EDT [facility] Abs Lymphocytes Auto 0.33(L) 1.50 - 4.50 Thou/uL 09/13/2024 9:44 AM EDT [facility] Abs Monocytes Auto 0.09(L) 0.20 - 1.50 Thou/uL 09/13/2024 9:44 AM EDT [facility] Abs Eosinophils Auto 0.03 0.00 - 0.70 Thou/uL 09/13/2024 9:44 AM EDT [facility] Abs Basophils Auto 0.01 0.00 - 0.20 Thou/uL 09/13/2024 9:44 AM EDT [facility] Blood Blood specimen / Unknown 09/13/2024 8:01 AM EDT 09/13/2024 8:34 AM EDT Gauri Chan MD LAB BLOOD ORDERABLES Final Resul t Performing Organization Address City/[facility]/[place] [address], [place] [address] * APTT (09/13/2024 8:01 AM EDT) Pathologist [facility] Anticoagulant OTHER AGENT OR UNKNOWN 09/13/2024 5:36 AM EDT [facility] Partial Thromboplastin Time (PTT) Grossly Hemolyzed,Re collection Requested 25 - 36 seconds 09/13/2024 9:02 AM EDT [facility] Blood Blood specimen / Unknown 09/13/2024 8:01 AM EDT 09/13/2024 8:34 AM EDT us Gauri Chan MD LAB BLOOD ORDERABLES Final Resul t Performing Organization Address City/[facility]/[place]IP [place] [address], [place] [address] * (ABNORMAL) Urinalysis with Reflex to Microscopic and Culture (09/13/2024 7:54 AM EDT) Color Martina 09/13/2024 8:48 AM EDT [facility] Clarity Clear 09/13/2024 8:48 AM EDT [facility] Specific [place] 1.032(H) 1.003 - 1.030 09/13/2024 8:[address] [facility] pH 6.0 5.0 - 8.0 09/13/[facility]24 [facility]ukocyte Esterase Negative Negative 09/13/2024 8:[address] [facility] Nitrite Negative Negative 09/13/2024 8:[address] [facility] Protein Small (30 mg/dL)(A) Negative [facility]/13[facility]2024 [facility] Glucose 0 0 - 99 mg/dL 09/13/2024 8:[address] [facility] Ketones Negative Negative 09/13/2024 8:[address] [facility] Blood Moderate(A) Negative 09/13/2024 8:[address] [facility] Bilirubin Negative Negative 09/13/2024 8:[address] [facility] WBC 1 0 - 4 per hpf 09/13/2024 8:[address] [facility] RBC >25(H) 0 - 4 per hpf 09/13/2024 8:[address] [facility] Squamous Epithelial Cells 1 PER HPF 09/13/2024 8:[address] [facility] Urine (Indwelling Urinary Catheter) 09/13/2024 7:54 AM EDT 09/13/2024 8:40 AM EDT Gauri Chan MD URINE ORDERABLES [place] [address], [place] [address] * Fentanyl Screen, Urine (09/13/2024 7:54 AM EDT) Fentanyl Screen, Urine Negative Negative <5 ng/mL 09/13/2024 11:45 AM T [facility] Comment: * FOR MEDICAL PURPOSES ONLY * Confirmation upon request. Urine Urine specimen / Unknown 09/13/2024 7:54 AM EDT 09/13/2024 11:08 AM EDT us Mingo Serrato DO URINE ORDERABLES Final Result Performing Organization Address [facility] Co de Phone Number [address] [address], [address] [address] * Methadone Screen, Urine (09/13/2024 7:54 AM EDT) Methadone Screen, Urine Negative Negative <300 ng/mL 09/13/2024 11:45 AM EDT [facility] Comment:* FOR MEDICAL PURPOS ES ONLY * Urine Urine specimen / Unknown 09/13/2024 7:54 AM EDT 09/13/2024 11:08 AM EDT us Mingo Serrato DO URINE ORDERABLES Final Result Performing Organization Address [facility] Co de Phone Number [address] [address], [address] [address] * Cannabinoid Screen, Urine (09/13/2024 7:54 AM EDT) Cannabinoid Screen, Urine Negative Negative <50 ng/mL 09/13/2024 11:45 AM EDT [facility] Comment:* FOR MEDICAL PURPOS ES ONLY * Urine Urine specimen / Unknown 09/13/2024 7:54 AM EDT 09/13/2024 11:08 AM EDT us Mingo Serrato DO URINE ORDERABLES Final Result Performing Organization Address [facility] Co de Phone Number [address] [address], [address] [address] * Buprenorphine Screen, Urine (09/13/2024 7:54 AM EDT) Buprenorphine Screen, Urine Negative Negative <5 ng/mL 09/13/2024 11:45 AM EDT [facility] Comment:* FOR MEDICAL PURPOS ES ONLY * Urine Urine specimen / Unknown 09/13/2024 7:54 AM EDT 09/13/2024 11:08 AM EDT us Mingo Serrato DO URINE ORDERABLES Final Result Performing Organization Address [facility] Co de Phone Number [address] [address], [address] [address] * Tricyclic Screen, Urine (09/13/2024 7:54 AM EDT) Tricyclic Screen, Urine Negative Negative <300 ng/mL 09/13/2024 11:45 AM EDT [facility] Comment:* FOR MEDICAL PURPOS ES ONLY * Urine Urine specimen / Unknown 09/13/2024 7:54 AM EDT 09/13/2024 11:08 AM EDT us Mingo Serrato DO URINE ORDERABLES Final Result Performing Organization Address [facility] de Phone Number [address] [address], [address] [address] * Phencyclidine (PCP) Screen, Urine (09/13/2024 7:54 AM EDT) PCP Screen, Urine Negative Negative <25 ng/mL 09/13/2024 11:45 AM EDT [facility] Comment:* FOR MEDICAL PURPOS ES ONLY * Urine Urine specimen / Unknown 09/13/2024 7:54 AM EDT 09/13/2024 11:08 AM EDT us Mingo Serrato DO URINE ORDERABLES Final Result Performing Organization Address [facility] Co de Phone Number [address] [address], [address] [address] * Oxycodone Screen, Urine (09/13/2024 7:54 AM EDT) Oxycodone Screen, Urine Negative Negative <100 ng/mL 09/13/2024 11:45 AM EDT [facility] Comment:* FOR MEDICAL PURPOS ES ONLY * Urine Urine specimen / Unknown 09/13/2024 7:54 AM EDT 09/13/2024 11:08 AM EDT us Mingo Gillespie Powner DO URINE ORDERABLES Final Result Performing Organization Address [facility] Co de Phone Number [address] [address], [address] [address] * Opiate Screen, Urine (09/13/2024 7:54 AM EDT) Opiate, Urine Negative Negative <300 ng/mL 09/13/2024 11:45 AM EDT [facility] Comment:* FOR MEDICAL PURPOS ES ONLY * Urine Urine specimen / Unknown 09/13/2024 7:54 AM EDT 09/13/2024 11:08 AM EDT us Mingo Gillespie Powner DO URINE ORDERABLES Final Result Performing Organization Address [facility] Co de Phone Number [address] [address], [address] [address] * Ethanol, Urine (09/13/2024 7:54 AM EDT) Ethanol, Urine Negative Negative <11 mg/dL 09/13/2024 11:45 AM EDT [facility] Urine Urine specimen / Unknown 09/13/2024 7:54 AM EDT 09/13/2024 11:08 AM EDT us Mingo Gillespie Powner DO URINE ORDERABLES Final Result Performing Organization Address [facility] de Phone Number [address] [address], [address] [address] * (ABNORMAL) Cocaine Screen, Urine (09/13/2024 7:54 AM EDT) Cocaine Screen, Urine Positive( A) Negative <300 ng/mL 09/13/2024 11:45 AM EDT [facility] Comment: * FOR MEDICAL PURPOSES ONLY * Confirmation upon request. Urine Urine specimen / Unknown 09/13/2024 7:54 AM EDT 09/13/2024 11:08 AM EDT us Mingo Cerratoner DO URINE ORDERABLES Final Result Performing Organization Address City/[facility]/ZIP Co de Phone Number [address] [address], [address] [address] * Benzodiazepine Screen, Urine (09/13/2024 7:54 AM EDT) Benzodiazepine Screen, Urine Negative Negative <200 ng/mL 09/13/2024 11:45 AM EDT [facility] Comment:* FOR MEDICAL PURPOS ES ONLY * Urine Urine specimen / Unknown 09/13/2024 7:54 AM EDT 09/13/2024 11:08 AM EDT us Mingo Gillespie Powner DO URINE ORDERABLES Final Result Performing Organization Address [facility] Co de Phone Number [address] [address], [address] [address] * Barbiturate Screen, Urine (09/13/2024 7:54 AM EDT) Barbiturate Screen, Urine Negative Negative <200 ng/mL 09/13/2024 11:45 AM EDT [facility] Comment:* FOR MEDICAL PURPOS ES ONLY * Urine Urine specimen / Unknown 09/13/2024 7:54 AM EDT 09/13/2024 11:08 AM EDT us Mingo T Powner DO URINE ORDERABLES Final Result Performing Organization Address [facility] Co de Phone Number [address] [address], [address] [address] * Amphetamine Screen, Urine (09/13/2024 7:54 AM EDT) Amphetamine Screen, Urine Negative Negative <1000 ng/mL 09/13/2024 11:45 AM EDT [facility] Comment:* FOR MEDICAL PURPOS ES ONLY * Urine Urine specimen / Unknown 09/13/2024 7:54 AM EDT 09/13/2024 11:08 AM EDT Mingo Serrato DO URINE ORDERABLES Final Result [facility] [address] [place] [address], [address] [address] * INTUBATION (09/13/2024 7:53 AM EDT) Jamal Mondragon MD - 09/13/2024 7:53 AM EDT Jamal Stewart MD 09/13/2024 12:07 PM Intubation Date/Time: 09/13/2024 7:53 AM Performed by: Tuyet Ma MD Authorized by: Jamal Stewart MD Consent: Consent obtained: Emergent situation Mcdermitt protocol: Relevant documents present and verified: yes [...] Reference Only (09/13/2024 6:51 AM EDT) Narrative [facility] 09/13/2024 6:51 AM EDT This study has been auto finalized and does not contain a result. us File Room Provider IMG DIGITIZE FILMS Final Resu lt Performing Organization Address [facility] de Phone Number RADHA [phone] * CR Chest Archive for Reference only (09/13/2024 6:51 AM EDT) Narrative [facility] 09/13/2024 6:51 AM EDT This study has been auto finalized and does not contain a result. us File Room Provider IMG DIGITIZE FILMS Final Resu lt Performing Organization Address [facility] de Phone Number RADHA [phone] * CT Abdomen Archive for Reference Only (09/13/2024 6:50 AM EDT) Narrative [facility] 09/13/2024 6:50 AM EDT This study has been auto finalized and does not contain a result. us File Room Provider IMG DIGITIZE FILMS Final Resu lt Performing Organization Address [facility] de Phone Number RADHA [phone] from Last 3 Months Insurance [facility] Advance Directives * Full Code (Latest [...]
== END 2024-10-13 15:37 | disposition home or self-care (01) ==
LOC: HO.HOS 15:18
PROVIDERS: PCP Internal Medicine
DX: R20.0 Anesthesia of skin (principal); R20.2 Paresthesia of skin
CPT/HCPCS: 99203

== ENCOUNTER 2024-10-15 12:00 | Outpatient (REF) | payer OTHER, SELFPAY ==
--- OUTSIDE RECORDS SUMMARY | 2024-10-15 13:29 | XMS_ITS | Clinical Summary ---
Author Organization [facility] Address [address] [place] [address] Care Team Providers Care Database Programmer Analyst Name Role Phone Unavailable Primary Care Provider [...] Description 09/13/2024 7:00 AM EDT Ancillary Procedure [facility] [address] [place] [phone] Provider, File Room 09/13/2024 6:55 AM EDT Ancillary Procedure [facility] [address] [place] [phone] Provider, File Room 09/13/2024 6:55 AM EDT Ancillary Procedure [facility] [address] [place] [phone] Provider, File Room 09/13/2024 5:20 AM EDT - 09/19/2024 2:41 PM EDT Hospital Encounter [facility] [address] [place] [address], [place] [phone] Jamal Stewart MD Powner, Jordan T, Tk Matos MD Rheiner, Jacqueline A, DO Hebbal, Pooja, MD Pichardo Castillo, Jose, MD Hematemesis (Primary Dx); Cocaine abuse (HCC); Hepatic encephalopathy (HCC); Jaundice; Thrombocytopenia; Transaminitis; Hyperammonemia ; Hyperbilirubinemia; Tylenol ingestion, intentional self-harm, initial encounter (HCC); Acute metabolic encephalopathy Discharge Disposition: Home or Self Care 09/13/2024 Travel 09/13/2024 Orders Only [facility] [address] [place] [phone] Provider, File Room from Last 3 Months Social History Tobacco Use Types Packs/Day Years Used Date Smoking Tobacco: Never Assessed [facility] Utilities Answer Date Recorded In the past 12 months has [employer], oil, or water [place] threatened to shut off services in your [...] any time in the past 12 m [facility], were you homeless or living in a senior living (including now)? Patient unable to answer 09/14/2024 [...] of12 resultswithin the time period is included. [facility] [address] [facility] Anticoagulant IV HEPARIN, UNFRACTIONATED 09/19/2024 7:21 AM EDT [facility] Prothrombin Time (PT) 17.0(H) 10.0 - 13.5 seconds [facility] INR 1.5 09/19/2024 9:28 AM T [facility] Comment:INR Therapeutic Rang es: Standard dose anticoagulant 2.0 to 3.0, High dose anticoagulant 2.5-3.5. Blood Blood specimen / Unknown 09/19/2024 8:09 AM EDT 09/19/2024 8:41 AM EDT Dwayne Marsh MD LAB BLOOD ORDERABLES F inal Result Performing Organization Address [facility] Co de Phone Number [address] [address], [address] [address] * (ABNORMAL) Complete Blood Count WITHOUT Differential - ROUTINE (09/19/2024 8:09 AM EDT) Only the most recent of8 resultswithin the time period is included. [facility] White Blood Cell Count 5.0 4.0 - 11.0 Thou/uL 09/19/2024 10:05 AM T [facility] Platelet Count 46(L) 150 - 450 Thou/uL 09/19/2024 10:05 AM T [facility] Comment: Results verified by smear review. Test results repeated. Occasional large platelet present. Hemoglobin 11.0(L) 13.0 - 17.7 g/dL 09/19/2024 10:05 AM [facility] Hematocrit 33.5(L) 39.0 - 54.0 % 09/19/2024 10:05 AM [facility] Red Blood Cell Count 3.54(L) 4.50 - 6.20 Mil/uL 09/19/2024 10:05 AM [facility] MCV 95 80 - 100 fL 09/19/2024 10:05 AM [facility] MCH 31.1 26.0 - 34.0 pg 09/19/2024 10:05 AM [facility] MCHC 32.8 30.0 - 36.0 g/dL 09/19/2024 10:05 AM [facility] RDW 15.9(H) 11.5 - 14.5 % 09/19/2024 10:05 AM [facility] MPV 12.1 7.5 - 12.5 fL 09/19/2024 10:05 AM [facility] Immature Platelet Fraction 9.9(H) 1.2 - 8.6 % 09/19/2024 10:05 AM [facility] Blood Blood specimen / Unknown 09/19/2024 8:09 AM EDT 09/19/2024 8:41 AM EDT Dwayne Marsh MD LAB BLOOD ORDERABLES F inal Result [address] [address], [address] [address] * Magnesium (AM) (09/19/2024 8:09 AM EDT) Only the most recent of14 resultswithin the time period is included. Magnesium 1.8 1.6 - 2.7 mg/dL 09/19/2024 9:48 AM [facility] Blood Blood specimen / Unknown 09/19/2024 8:09 AM EDT 09/19/2024 8:41 AM EDT Dwayne Marsh MD LAB BLOOD ORDERABLES F inal Result [facility] [address] [place] [address], [facility] [address] [place] [address] * (ABNORMAL) Comprehensive Metabolic Panel (09/19/2024 8:09 AM EDT) Glucose 97 65 - 99 mg/dL 09/19/2024 9:48 AM [facility] Comment:Fasting: <100 mg/dL, Non-Fasting: <200 mg/dL (ADA 2004) Blood Urea Nitrogen (BUN) 26(H) 8 - 21 mg/dL 09/19/2024 9:48 AM [facility] Creatinine 1.2 0.5 - 1.3 mg/dL 09/19/2024 9:48 AM [facility] eGFR 76 >59 09/19/2024 9:48 AM [facility] Comment:CKD-EPI (2020) in mL /min/1.73 sq meters. Sodium 145 136 - 145 mmol/L 09/19/2024 9:48 AM [facility] Potassium 3.7 3.4 - 5.3 mmol/L 09/19/2024 9:48 AM [facility] Chloride 114(H) 98 - 107 mmol/L 09/19/2024 9:48 AM [facility] CO2 23 22 - 33 mmol/L 09/19/2024 9:48 AM [facility] Calcium 8.4(L) 8.7 - 10.5 mg/dL 09/19/2024 9:48 AM [facility] Alkaline Phosphatase 122 45 - 128 U/L 09/19/2024 9:48 AM [facility] Aspartate Aminotrans (AST) 104(H) 10 - 55 U/L 09/19/2024 9:48 AM [facility] Alanine Aminotrans (ALT) 925(H) 10 - 55 U/L 09/19/2024 9:57 AM [facility] Bilirubin, Total 6.7(H) 0.2 - 1.0 mg/dL 09/19/2024 9:48 AM [facility] Protein, Total 5.0(L) 6.3 - 8.3 g/dL [...] ORDERABLES F inal Result Performing Organization Address City/[facility]/[place] [address], [place] [address] * (ABNORMAL) Phosphorus (09/18/2024 11:49 PM EDT) Only the most recent of12 resultswithin the time period is included. Phosphorus 2.3(L) 2.7 - 4.5 mg/dL 09/19/2024 12:29 AM EDT [facility] Blood Blood specimen / Unknown 09/18/2024 11:49 PM EDT 09/19/2024 12:01 AM EDT Dana Harris APRN LAB BLOOD ORDERABLES Final R esult Performing Organization Address City/[facility]/[place] [address], [place] [address] * (ABNORMAL) HEPATIC FUNCTION PANEL (09/18/2024 11:49 PM EDT) Only the most recent of13 resultswithin the time period is included. Alkaline Phosphatase 109 45 - 128 U/L [facility]2024 [facility] Aspartate Aminotrans (AST) 108(H) 10 - 55 U/L 09/19/2024 12:29 AM [facility] Alanine Aminotrans (ALT) 1,031(H) 10 - 55 U/L 09/19/2024 12:32 AM [facility] Bilirubin, Total 7.4(H) 0.2 - 1.0 mg/dL 09/19/2024 12:29 AM [facility] Protein, Total 4.8(L) 6.3 - 8.3 g/dL 09/19/2024 12:29 AM [facility] Albumin 2.8(L) 3.5 - 5.0 g/dL 09/19/2024 12:29 AM [facility] Bilirubin, Direct 5.2(H) 0 - 0.2 mg/dL 09/19/2024 12:29 AM [facility] Globulin 2.0 1.5 - 3.9 g/dL 09/19/2024 12:29 AM [facility] Albumin/Globulin Ratio 1.4 1.0 - 3.0 Ratio 09/19/2024 12:29 AM [facility] Blood Blood specimen / Unknown 09/18/2024 11:49 PM EDT 09/19/2024 12:[address] [facility] [employer] TECHNICAL ARCHITECT LAB BLOOD ORDERABLES Final R esult [address] [address], [address] [address] * (ABNORMAL) Basic Metabolic Panel (09/18/2024 11:49 PM EDT) Only the most recent of14 resultswithin the time period is included. Pathologist [facility] Glucose 87 65 - 99 mg/dL 09/19/2024 12:29 AM [facility] Comment:Fasting: <100 mg/dL, Non-Fasting: <200 mg/dL (ADA 2005) Blood Urea Nitrogen (BUN) 24(H) 8 - 21 mg/dL 09/19[facility]2024 [facility] Creatinine 1.3 0.5 - 1.3 mg/dL 09/19/2024 12:29 AM [facility] eGFR 69 >59 09/19/2024 12:29 AM [facility] Comment:CKD-EPI (2020) in mL /min/1.73 sq meters. Sodium 142 136 - 145 mmol/L 09/19/2024 12:29 AM EDT [facility] Potassium 3.8 3.4 - 5.3 mmol/L 09/19/2024 12:29 AM [facility] Chloride 110(H) 98 - 107 mmol/L 09/19/2024 12:29 AM [facility] CO2 24 22 - 33 mmol/L 09/19/2024 12:29 AM [facility] Anion Gap 8 7 - 17 09/19/2024 12:29 AM [facility] Calcium 8.2(L) 8.7 - 10.5 mg/dL 09/19/2024 12:29 AM [facility] BUN/Creatinine Ratio 18 10.0 - 25.0 Ratio 09/19/2024 12:29 AM [facility] Blood Blood specimen / Unknown 09/18/2024 11:49 PM EDT 09/19/2024 12:01 AM EDT [facility] TECHNICAL ARCHITECT LAB BLOOD ORDERABLES Final R esult [address] [address], [address] [address] * Sodium (09/18/2024 6:23 AM EDT) Only the most recent of9 resultswithin the time period is included. Sodium 140 136 - 145 mmol/L 09/18/2024 7:48 AM EDT [facility] Blood Blood specimen / Unknown 09/18/2024 6:23 AM EDT 09/18/2024 6:48 AM EDT Marie Simmons PA-C LAB BLOOD ORDERABLES Jessenia l Result Performing Organization Address City/[facility]/[place] [address], [address] [address] * (ABNORMAL) TSH (Routine) (09/18/2024 12:40 AM EDT) TSH, Highly Sensitive 0.15(L) 0.27 - 4.20 mIU/L 09/18/2024 3:09 AM EDT [facility] Blood Blood specimen / Unknown 09/18/2024 12:40 AM EDT 09/18/2024 1:00 AM EDT Dana Greener [employer] TECHNICAL ARCHITECT LAB BLOOD ORDERABLES Final R esult Performing Organization Address City/[facility]/[place] [address], [address] [address] * T4, FREE (09/18/2024 12:40 AM EDT) Pathologist [facility] T4, Free 0.90 0.80 - 1.90 ng/dL 09/18/2024 9:06 AM EDT [facility] 09/18/2024 12:4 0 AM EDT 09/18/2024 1:00 AM EDT Dana Green [facility] TECHNICAL ARCHITECT LAB BLOOD ORDERABLES Final R esult Performing Organization Address City/[facility]/[place] [address], [address] [address] * Folate Level (09/18/2024 12:40 AM EDT) Pathologist [facility] Folate, Serum Specimen hemolyzed. Test not performed. >7.2 ng/mL 09/18/2024 3:24 AM EDT [facility] Blood Blood specimen / Unknown 09/18/2024 12:40 AM EDT 09/18/2024 1:00 AM EDT us [employer] Greener [employer] TECHNICAL ARCHITECT LAB BLOOD ORDERABLES Final R esult Performing Organization Address City/[facility] Co de Phone Number [address] [address], [address] [address] * (ABNORMAL) Vitamin B12 (09/18/2024 12:40 AM EDT) [facility] Vitamin B12 >2,000(H) 243 - 894 pg/mL 09/18/2024 4:04 AM EDT [facility] Blood Blood specimen / Unknown 09/18/2024 12:40 AM EDT 09/18/2024 1:00 AM EDT us [employer] Greener [facility] TECHNICAL ARCHITECT LAB BLOOD ORDERABLES Final R esult Performing Organization Address City/[facility] Co de Phone Number [address] [address], [address] [address] * ECHOCARDIOGRAM COMPREHENSIVE (09/17/2024 11:40 AM EDT) [facility] LV Diastolic Volume Index (F:29-61, M:35-75) 72.2 [...] gas pattern. Interpreted by: Guevara Howard DO Electronic Scale Assembler And Tester I personally reviewed the images and the [...] gas pattern. Interpreted by: Guevara Howard DO Electronic Scale Assembler And Tester I personally reviewed the images and the [...] EDT 09/16/2024 12:01 PM EDT Dana Harris [facility] TECHNICAL ARCHITECT LAB BLOOD ORDERABLES Final R esult [address] [address], [address] [address] * EEG AWAKE OR DROWSY (09/16/2024 9:19 AM EDT) Narrative [facility] - 09/16/2024 9:19 AM EDT Sharonda Dorsey MD 09/16/2024 11:33 AM INPATIENT ADULT ELECTROENCEPHALOGRAM (EEG) REPORT Facility: [facility] Patient and : Gregg Lisa 1975 Date [...] suppression in clinically-apparent sleep suggested the former. [id number] TOTAL SCORE: 0 (5% SZ [![id number]$2B&0]) Sharonda Dorsey MD [facility] FOR EEG LAB USE: Abnormal Non-epileptiform :qz!02; No events :qz!08; Complexity ratin :qz!15 us Brooke PINEDO NEUROLOGY ORDERABLES Mariano yola Result - Final [facility] [address] [place] [address], * ECG 12 lead (09/16/2024 8:38 AM EDT) Only the most recent of4 resultswithin the time period is included. [facility] Systolic BP 131 mmHg EKG [facility] Diastolic BP 61 mmHg EKG [facility] Ventricular rate 83 BPM EKG [facility] Atrial rate 83 BPM EKG [facility] P-R interval 104 ms EKG [facility] QRS duration 92 ms EKG [facility] Q-T interval 386 ms EKG [facility] QTC calculation (Bazett) 453 ms EKG [facility] P axis -54 degrees EKG [facility] R axis 89 degrees EKG [facility] T axis 52 degrees [facility] 09/16/2024 8:38 AM EDT Narrative [facility] - 09/16/2024 8:40 AM EDT Unusual P axis, possible ectopic atrial rhythm Abnormal ECG When compared with ECG of 14-Sep-2024 13:31, Ectopic atrial rhythm has replaced Sinus rhythm Vent. rate has decreased by [address] no longer depressed in Inferior leads T wave amplitude has decreased in Anterior leads Confirmed by Leann Lockhart MD ([id number]) on 09/16/2024 8:40:33 AM Procedure Note Leann Lockhart MD - 09/16/2024 Unusual P axis, possible ectopic atrial rhythm Abnormal ECG When compared with ECG of 14-Sep-2024 13:31, Ectopic atrial rhythm has replaced Sinus rhythm Vent. rate has decreased by [address] no longer depressed in Inferior leads T wave amplitude has decreased in Anterior leads Confirmed by Leann Lockhart MD ([id number]) on 09/16/2024 8:40:33 AM Tk You MD ECG ORDERABLES Final Result [facility] * (ABNORMAL) Hemoglobin and Hematocrit (09/16/2024 8:30 AM EDT) Only the most recent of2 resultswithin the time period is included. [facility] Hematocrit 38.1(L) 39.0 - 54.0 % 09/16/2024 10:16 AM EDT [facility] Hemoglobin 12.1(L) 13.0 - 17.7 g/dL 09/16/2024 10:16 AM EDT [facility] Blood Blood specimen / Unknown 09/16/2024 8:30 AM EDT 09/16/2024 8:48 AM EDT Yazmin Martinez PA-C LAB BLOOD ORDERABLES Final Result Performing Organization Address [facility] [place] [address], [address] [address] * Vancomycin Level, Random (09/16/2024 6:49 AM [...] ORDERABLES Final Resul t Performing Organization Address [facility] [place] [address], [address] [address] * Ammonia Level (09/16/2024 12:00 AM EDT) Only the most recent of8 resultswithin the time period is included. Ammonia, Plasma 51 16 - 60 umol/L 09/16/2024 12:44 AM EDT [facility] Blood Blood specimen / Unknown 09/16/2024 09/16/2024 12:18 AM EDT Cheko PINEDO LAB BLOOD ORDERABLES Final Resu lt Performing Organization Address [facility] [place] [address], [address] [address] * (ABNORMAL) Blood Gas with Cooximetry, Arterial (09/15/2024 5:39 PM EDT) Only the most recent of3 resultswithin the time period is included. Respiratory Info VENT 40% 09/16/19 5:39 PM EDT [facility] pH, Arterial 7.49(H) 7.35 - 7.45 09/15/2024 6:[facility] pCO2, Arterial 37 32 - 45 mmHG 09/15/2024 6:08 PM [facility] pO2, Arterial 190(H) 75 - 95 mmHG 09/15/2024 6:08 PM [facility] CO2, Total 29(H) 22 - 28 mmol/L 09/15/2024 6:08 PM [facility] P/F Ratio 475 09/15/2024 6:08 PM [facility] Base Excess 4.6 mmol/L 09/15/2024 6:08 PM T [facility] Comment:Reference Range: Neg ative 2 to Positive 3 Hemogloblin, Total 13.6 13.0 - 17.7 g/dL 09/15/2024 6:08 PM [facility] O2 Saturation, Arterial 99.6(H) 94 - 97 % 09/15/2024 6:08 PM [facility] Carboxyhemoglobin 0.8 0.0 - 2.0 % 09/15/2024 6:08 PM [facility] Methemoglobin 0.6 0.4 - 1.5 % 09/15/2024 6:08 PM [facility] O2 Content, Arterial 19.2 17.6 - 24.3 mL/dL 09/15/2024 6:08 PM [facility] Blood Blood specimen / Unknown 09/15/2024 5:39 PM EDT 09/15/2024 6:01 PM EDT us Brooke PINEOD LAB BLOOD ORDERABLES Fin al Result [address] [address], [address] [address] * Hepatitis C Viral Load, Quantitative (09/15/2024 8:40 AM EDT) [facility] HCV RNA (IU/mL) Not Detected <10 IU/mL 09/16/2024 2:14 PM EDT [facility] HCV RNA (log10) Not Detected <1.00 log10 IU/mL 09/16/2024 2:14 PM EDT [facility] Interpretation Not Detected 09/17/19 2:14 PM EDT [facility] Comment:Performed by FDA basilio roved [employer]pt[employer] TMA. Linear range is 10 to 100,000,000 IU/mL. HCV Genotyping is not recommended for viral loads below 300 IU/mL. Blood Blood specimen / Unknown 09/15/2024 8:40 AM EDT 09/15/2024 10:18 AM EDT Brooke PINEDO LAB BLOOD ORDERABLES Fin al Result [facility] [address] * (ABNORMAL) Factor V Assay (09/15/2024 8:40 AM EDT) [facility] Factor V 46(L) 50 - 150 % Normal 09/15/2024 12:38 PM EDT [facility] Blood Blood specimen / Unknown 09/15/2024 8:40 AM EDT 09/15/2024 10:18 AM EDT Brooke PINEDO LAB BLOOD ORDERABLES Fin al Result [address] [address], [address] [address] * Nasal MRSA Screen, PCR (09/15/2024 8:35 AM EDT) [facility] MRSA Result Not Detected Not Detected 11:30 AM EDT [facility] Comment:Performed by the Xpe rt MRSA NxG Assay Swab, Anterior Nares Specimen from nose / Unknown 09/15/2024 8:35 AM EDT 09/15/2024 9:27 AM EDT Brooke PINEDO MICROBIOLOGY - GENERAL O RDERABLES Final Result [facility] [address] [place] [address], [address] [address] * Blood Culture (09/15/2024 3:05 AM EDT) Only the most recent of4 resultswithin the time period is included. Culture Sterile after 5 days 09/20/2024 7:33 AM EDT [facility] Blood Blood specimen / Unknown 09/15/2024 3:05 AM EDT 09/15/2024 3:52 AM EDT Comment:Blood Heidi PINEDO LAB BLOOD ORDERABLES Jessenia l Result [facility] [address] [place] [address], [place] * XR Chest 1 view-Portable (09/15/2024 [...] [facility] [address] [place] [address], [address] [address] * (ABNORMAL) Urinalysis with Reflex to Microscopic (09/15/2024 2:20 AM EDT) Color Martina 09/15/2024 2:39 AM [facility] Clarity Clear 09/15/2024 2:39 AM [facility] Specific [place] 1.023 1.003 - 1.030 09/15/2024 2:39 AM [facility] pH 5.0 5.0 - 8.0 09/15/2024 2:39 AM [facility] Leukocyte Esterase Negative Negative 09/15/2024 2:39 AM [facility] Nitrite Negative Negative 09/15/2024 2:39 AM [facility] Protein Negative Negative 09/15/2024 2:39 AM [facility] Glucose 0 0 - 99 mg/dL 09/15/2024 2:39 AM [facility] Ketones Negative Negative 09/15/2024 2:39 AM [facility] Blood Large(A) Negative 09/15/2024 2:39 AM [facility] Bilirubin Negative Negative 09/15/2024 2:39 AM [facility] WBC 1 0 - 4 per hpf 09/15/2024 2:39 AM [facility] RBC 6(H) 0 - 4 per hpf 09/15/2024 2:39 AM [facility] Urine Urine specimen obtained via straight catheter / Unknown 09/15/2024 2:20 AM EDT 09/15/2024 2:30 AM EDT Heidi Zabala PA URINE ORDERABLES Final Re sult Performing Organization Address City/[facility]/[place] [address], [place] [address] * (ABNORMAL) LIPASE (09/15/2024 1:04 AM EDT) Only the most recent of3 resultswithin the time period is included. Pathologist [facility] Lipase 73(H) 13 - 60 U/L 09/15/2024 4:58 AM EDT [facility] 09/15/2024 1:04 AM EDT 09/15/2024 1:26 AM EDT Cheko PINEDO LAB BLOOD ORDERABLES Final Resu lt Performing Organization Address [facility] [place] [address], [place] [address] * (ABNORMAL) Blood Gas with Cooximetry, Venous (09/14/2024 9:43 AM EDT) [facility] Respiratory Info VENT 40% 09/15/19 9:43 AM EDT [facility] Venous Blood PH 7.48(H) 7.33 - 7.43 09/14/2024 10:[facility] Venous pCO2 38 35 - 50 mmHG 09/14/2024 10:27 AM [facility] Venous pO2 139(H) 0 - 60 mmHG 09/14/2024 10:27 AM [facility] Venous Total CO2 29 23 - 29 [...] ORDERABLES Fin al Result Performing Organization Address [facility] [place] [address], [place] [address] * (ABNORMAL) Creatine Kinase (CK) (09/14/2024 2:40 AM EDT) Only the most recent of5 resultswithin the time period is included. Creatine Kinase (CK) 261(H) 24 - 204 U/L 09/14/2024 3:20 AM EDT [facility] Blood Blood specimen / Unknown 09/14/2024 2:40 AM EDT 09/14/2024 2:53 AM EDT Amanda PINEDO LAB BLOOD ORDERABLES Final R esult Performing Organization Address [facility] [place] [address], [place] [address] * (ABNORMAL) Acetaminophen Level (09/14/2024 12:20 AM EDT) Only the most recent of4 resultswithin the time period is included. Acetaminophen Level <5(L) 10 - 30 mg/L 09/14/2024 1:06 AM EDT [facility] Comment:Specimen icteric Blood Blood specimen / Unknown 09/14/2024 12:20 AM EDT 09/14/2024 12:37 AM EDT us Cheko PINEDO LAB BLOOD ORDERABLES Final Resu lt [address] [address], [facility] [address] [place] [address] * US Duplex abdomen/pelvis-Complete (09/13/2024 11:23 PM [...] cross-sectional imaging could be performed. Cheko PINEDO [facility] [place] ORDERABLES Final Result * EBV DNA, PCR, Quantitative (09/13/2024 6:32 PM EDT) Specimen Source EDTA PLASMA 09/18/2024 7:39 AM EDT [facility] EBV DNA Not Detected 09/18/2024 7:39 AM EDT [facility] [place] Comment:UNITS: IU/mL EBV DNA, QN PCR Not Detected 09/18/2024 7:39 AM EDT [facility] [place] Comment: UNITS: Log IU/mL (NOTE) Reference Range: Not Detected For additional information, please refer to http://education.Digabit.Dizkon/faq/CMVandEBVPCR (This link is being provided for informational/ educational purposes only.) Blood Blood specimen / Unknown 09/13/2024 6:32 PM EDT 09/13/2024 6:41 PM EDT [facility] BODY FLUIDS AND STOOLS ORDERABL ES Final Result [facility], [place] [address] [facility] [address] [address] [place], [place] , [facility], [place] [id number] [facility] [address] [address] [place], [place] * Triglycerides (09/13/2024 4:10 PM EDT) Triglycerides 135 <150 mg/dL 09/13/2024 5:17 PM EDT [facility] Comment:Specimen icteric Blood Blood specimen / Unknown 09/13/2024 4:10 PM EDT 09/13/2024 4:38 PM EDT [facility] BLOOD [place] [address], [place] [address] * EEG AWAKE OR DROWSY (09/13/2024 4:07 PM EDT) Narrative [facility] - 09/13/2024 4:07 PM EDT Nathalie Cortez MD 09/13/2024 9:46 PM INPATIENT ADULT ELECTROENCEPHALOGRAM (EEG) REPORT Facility: [facility] Patient and : Gregg Lisa 1975 Date [...] electrographic seizures. Nathalie Cortez MD ABPN Epilepsy. [facility] [place] us Cheko PINEDO NEUROLOGY ORDERABLES Edited Res ult - Final NATUS [id number] [id number], * Troponin T, High Sensitivity (09/13/2024 2:19 [...] ORDERABLES Final Resu lt Performing Organization Address [facility] Co de Phone Number [address] [address], [address] [address] * Sodium, Urine, Random (09/13/2024 2:10 PM EDT) Only the most recent of2 resultswithin the time period is included. Sodium, Urine Random <20 mmol/L 09/13/2024 3:04 PM EDT [facility] Comment:Reference range not established for random specimen. Urine Urine specimen / Unknown 09/13/2024 2:10 PM EDT 09/13/2024 2:44 PM EDT us Cheko PINEDO URINE ORDERABLES Final Result Performing Organization Address [facility] [place] [address], [address] [address] * Creatinine, Urine, Random (09/13/2024 2:10 PM EDT) Only the most recent of2 resultswithin the time period is included. Creatinine, Urine, Random 67 mg/dL 09/13/2024 3:04 PM EDT [facility] Comment:Reference range not established for random specimen. Urine Urine specimen / Unknown 09/13/2024 2:10 PM EDT 09/13/2024 2:44 PM EDT us Cheko PINEDO URINE ORDERABLES Final Result Performing Organization Address City/[facility] Co de Phone Number [address] [address], [address] [address] * Hepatitis Panel, Acute (09/13/2024 11:25 AM [...] ORDERABLES Final Re sult Performing Organization Address City/[facility]/ZIP Co de Phone Number [facility] [address] [place] [address], * proBNP, N-terminal (09/13/2024 10:04 AM EDT) proBNP, N-terminal 76 <125 pg/mL 09/13/2024 3:02 PM EDT [facility] 09/13/2024 10:0 4 AM EDT 09/13/2024 10:15 AM EDT Mingo Serrato DO LAB BLOOD ORDERABLES Final Re sult [address] [address], [place] [address] [address] * (ABNORMAL) OSMOLALITY (09/13/2024 10:04 AM EDT) Osmolality, Serum/Plasma 345(H) 275 - 295 mOsm/Kg 09/13/2024 2:54 PM EDT [facility] 09/13/2024 10:0 4 AM EDT 09/13/2024 10:15 AM EDT Mingo Serrato DO LAB BLOOD ORDERABLES Final Re sult Performing Organization Address [facility] Co de Phone Number [address] [address], [address] [address] * (ABNORMAL) Blood Gas, Arterial (09/13/2024 10:00 [...] BLOOD ORDERABLES Final Result Performing Organization Address City/[facility] Co de Phone Number [address] [address], [address] [address] * (ABNORMAL) Complete Blood Count, with Differential (09/13/2024 8:01 AM EDT) White Blood Cell Count 5.5 4.0 - 11.0 Thou/uL 09/13/2024 9:37 AM EDT [facility] Platelet Count 74(L) 150 - 450 Thou/uL 09/13/2024 9:37 AM T [facility] Comment: Test results repeated. Results verified by smear review. Hemoglobin 15.2 13.0 - 17.7 g/dL 09/13/2024 9:37 AM [facility] Hematocrit 44.6 39.0 - 54.0 % 09/13/2024 9:37 AM [facility] Red Blood Cell Count 4.82 4.50 - 6.20 Mil/uL 09/13/2024 9:37 AM [facility] MCV 93 80 - 100 fL 09/13/2024 9:37 AM [facility] MCH 31.5 26.0 - 34.0 pg 09/13/2024 9:37 AM [facility] MCHC 34.1 30.0 - 36.0 g/dL 09/13/2024 9:37 AM [facility] RDW 14.6(H) 11.5 - 14.5 % 09/13/2024 9:37 AM [facility] MPV 11.8 7.5 - 12.5 fL 09/13/2024 9:37 AM [facility] nRBC 0.4(H) 0.0 - 0.1 /100 WBC 09/13/2024 9:37 AM [facility] nRBC, Absolute 0.02 0.00 - 0.02 Thou/uL 09/13/2024 9:37 AM [facility] Immature Platelet Fraction 3.0 1.2 - 8.6 % 09/13/2024 9:37 AM [facility] Neutrophils Auto 90.8 % 09/14/19 9:44 AM [facility] Immature Granulocytes 0.9 % 09/13/2024 9:44 AM [facility] Lymphocytes Auto 6.0 % 09/14/19 9:44 AM [facility] Monocytes Auto 1.6 % 09/13/2024 9:44 AM [facility] Eosinophils Auto 0.5 % 09/14/19 9:44 AM [facility] Basophils Auto 0.2 % 09/13/2024 9:44 AM [facility] Abs Neutrophils Auto 5.03 2.00 - 7.50 Thou/uL 09/13/2024 9:44 AM [facility] Abs Immature Granulocytes 0.05 0.00 - 0.10 [...] ORDERABLES Final Resul t Performing Organization Address City/[facility]/[place] [address], [place] [address] * APTT (09/13/2024 8:01 AM EDT) Pathologist [facility] Anticoagulant OTHER AGENT OR UNKNOWN 09/13/2024 5:36 AM EDT [facility] Partial Thromboplastin Time (PTT) Grossly Hemolyzed,Re collection Requested 25 - 36 seconds 09/13/2024 9:02 AM EDT [facility] Blood Blood specimen / Unknown 09/13/2024 8:01 AM EDT 09/13/2024 8:34 AM EDT us Gauri Chan MD LAB BLOOD ORDERABLES Final Resul t Performing Organization Address City/[facility]/[place] [address], [place] [address] * (ABNORMAL) Urinalysis with Reflex to Microscopic and Culture (09/13/2024 7:54 AM EDT) Color Martina 09/13/2024 8:48 AM EDT [facility] Clarity Clear 09/13/2024 8:48 AM EDT [facility] Specific [place] 1.032(H) 1.003 - 1.030 09/13/2024 8:48 AM [facility] pH 6.0 5.0 - 8.0 [facility]uk[facility] Ester[facility] Negative Negative 09/13/2024 8:48 AM [facility] Nitrite Negative Negative 09/13/2024 8:48 AM [facility] Protein Small (30 mg/dL)(A) Negative [facility]24 [facility] Glucose 0 0 - 99 mg/dL 09/13/2024 8:48 AM [facility] Ketones Negative Negative 09/13/2024 8:48 AM [facility] Blood Moderate(A) Negative 09/13/2024 8:48 AM [facility] Bilirubin Negative Negative 09/13/2024 8:48 AM [facility] WBC 1 0 - 4 per hpf 09/13/2024 8:48 AM [facility] RBC >25(H) 0 - 4 per hpf 09/13/2024 8:48 AM [facility] Squamous Epithelial Cells 1 PER HPF 09/13/2024 8:48 AM [facility] Urine (Indwelling Urinary Catheter) 09/13/2024 7:54 AM EDT 09/13/2024 8:40 AM EDT Gauri Chan MD [place] [address], [place] [address] * Fentanyl Screen, Urine (09/13/2024 7:54 AM EDT) Fentanyl Screen, Urine Negative Negative <5 ng/mL 09/13/2024 11:45 AM T [facility] Comment: * FOR MEDICAL PURPOSES ONLY * Confirmation upon request. Urine Urine specimen / Unknown 09/13/2024 7:54 AM EDT 09/13/2024 11:08 AM EDT us Mingo Serrato DO URINE ORDERABLES Final Result Performing Organization Address [facility] Co de Phone Number [address] [address], [address] [address] * Methadone Screen, Urine (09/13/2024 7:54 AM EDT) Methadone Screen, Urine Negative Negative <300 ng/mL 09/13/2024 11:45 AM EDT [facility] Comment:* FOR MEDICAL PURPOS ES ONLY * Urine Urine specimen / Unknown 09/13/2024 7:54 AM EDT 09/13/2024 11:08 AM EDT us Mingo Serrato DO URINE ORDERABLES Final Result Performing Organization Address [facility] Co de Phone Number [address] [address], [address] [address] * Cannabinoid Screen, Urine (09/13/2024 7:54 AM EDT) Cannabinoid Screen, Urine Negative Negative <50 ng/mL 09/13/2024 11:45 AM EDT [facility] Comment:* FOR MEDICAL PURPOS ES ONLY * Urine Urine specimen / Unknown 09/13/2024 7:54 AM EDT 09/13/2024 11:08 AM EDT us Mingo Serrato DO URINE ORDERABLES Final Result Performing Organization Address [facility] Co de Phone Number [address] [address], [address] [address] * Buprenorphine Screen, Urine (09/13/2024 7:54 AM EDT) Buprenorphine Screen, Urine Negative Negative <5 ng/mL 09/13/2024 11:45 AM EDT [facility] Comment:* FOR MEDICAL PURPOS ES ONLY * Urine Urine specimen / Unknown 09/13/2024 7:54 AM EDT 09/13/2024 11:08 AM EDT us Mingo Serrato DO URINE ORDERABLES Final Result Performing Organization Address [facility] Co de Phone Number [address] [address], [address] [address] * Tricyclic Screen, Urine (09/13/2024 7:54 AM EDT) Tricyclic Screen, Urine Negative Negative <300 ng/mL 09/13/2024 11:45 AM EDT [facility] Comment:* FOR MEDICAL PURPOS ES ONLY * Urine Urine specimen / Unknown 09/13/2024 7:54 AM EDT 09/13/2024 11:08 AM EDT us Mingo Serrato DO URINE ORDERABLES Final Result Performing Organization Address [facility] de Phone Number [address] [address], [address] [address] * Phencyclidine (PCP) Screen, Urine (09/13/2024 7:54 AM EDT) PCP Screen, Urine Negative Negative <25 ng/mL 09/13/2024 11:45 AM EDT [facility] Comment:* FOR MEDICAL PURPOS ES ONLY * Urine Urine specimen / Unknown 09/13/2024 7:54 AM EDT 09/13/2024 11:08 AM EDT us Mingo Serrato DO URINE ORDERABLES Final Result Performing Organization Address [facility] Co de Phone Number [address] [address], [address] [address] * Oxycodone Screen, Urine (09/13/2024 7:54 AM EDT) Oxycodone Screen, Urine Negative Negative <100 ng/mL 09/13/2024 11:45 AM EDT [facility] Comment:* FOR MEDICAL PURPOS ES ONLY * Urine Urine specimen / Unknown 09/13/2024 7:54 AM EDT 09/13/2024 11:08 AM EDT us Mingo Gillespie Powner DO URINE ORDERABLES Final Result Performing Organization Address [facility] Co de Phone Number [address] [address], [address] [address] * Opiate Screen, Urine (09/13/2024 7:54 AM EDT) Opiate, Urine Negative Negative <300 ng/mL 09/13/2024 11:45 AM EDT [facility] Comment:* FOR MEDICAL PURPOS ES ONLY * Urine Urine specimen / Unknown 09/13/2024 7:54 AM EDT 09/13/2024 11:08 AM EDT us Mingo Gillespie Powner DO URINE ORDERABLES Final Result Performing Organization Address [facility] Co de Phone Number [address] [address], [address] [address] * Ethanol, Urine (09/13/2024 7:54 AM EDT) Ethanol, Urine Negative Negative <11 mg/dL 09/13/2024 11:45 AM EDT [facility] Urine Urine specimen / Unknown 09/13/2024 7:54 AM EDT 09/13/2024 11:08 AM EDT us Mingo Gillespie Powner DO URINE ORDERABLES Final Result Performing Organization Address [facility] de Phone Number [address] [address], [address] [address] * (ABNORMAL) Cocaine Screen, Urine (09/13/2024 7:54 AM EDT) Cocaine Screen, Urine Positive( A) Negative <300 ng/mL 09/13/2024 11:45 AM EDT [facility] Comment: * FOR MEDICAL PURPOSES ONLY * Confirmation upon request. Urine Urine specimen / Unknown 09/13/2024 7:54 AM EDT 09/13/2024 11:08 AM EDT us Mingo Cerratoner DO URINE ORDERABLES Final Result Performing Organization Address City/[facility]/ZIP Co de Phone Number [address] [address], [address] [address] * Benzodiazepine Screen, Urine (09/13/2024 7:54 AM EDT) Benzodiazepine Screen, Urine Negative Negative <200 ng/mL 09/13/2024 11:45 AM EDT [facility] Comment:* FOR MEDICAL PURPOS ES ONLY * Urine Urine specimen / Unknown 09/13/2024 7:54 AM EDT 09/13/2024 11:08 AM EDT us Mingo Gillespie Powner DO URINE ORDERABLES Final Result Performing Organization Address [facility] Co de Phone Number [address] [address], [address] [address] * Barbiturate Screen, Urine (09/13/2024 7:54 AM EDT) Barbiturate Screen, Urine Negative Negative <200 ng/mL 09/13/2024 11:45 AM EDT [facility] Comment:* FOR MEDICAL PURPOS ES ONLY * Urine Urine specimen / Unknown 09/13/2024 7:54 AM EDT 09/13/2024 11:08 AM EDT us Mingo T Powner DO URINE ORDERABLES Final Result Performing Organization Address [facility] Co de Phone Number [address] [address], [address] [address] * Amphetamine Screen, Urine (09/13/2024 7:54 AM EDT) Amphetamine Screen, Urine Negative Negative <1000 ng/mL 09/13/2024 11:45 AM EDT [facility] Comment:* FOR MEDICAL PURPOS ES ONLY * Urine Urine specimen / Unknown 09/13/2024 7:54 AM EDT 09/13/2024 11:08 AM EDT Mingo Serrato DO URINE ORDERABLES Final Result [facility] [address] [place] [address], [address] [address] * INTUBATION (09/13/2024 7:53 AM EDT) Jamal Mondragon MD - 09/13/2024 7:53 AM EDT Jamal Stewart MD 09/13/2024 12:07 PM Intubation Date/Time: 09/13/2024 7:53 AM Performed by: Tuyet Ma MD Authorized by: Jamal Stewart MD Consent: Consent obtained: Emergent situation [place] protocol: Relevant documents present and verified: yes [...] Reference Only (09/13/2024 6:51 AM EDT) Narrative [facility] 09/13/2024 6:51 AM EDT This study has been auto finalized and does not contain a result. us File Room Provider IMG DIGITIZE FILMS Final Resu lt Performing Organization Address [facility] de Phone Number RADHA [phone] * CR Chest Archive for Reference only (09/13/2024 6:51 AM EDT) Narrative [facility] 09/13/2024 6:51 AM EDT This study has been auto finalized and does not contain a result. us File Room Provider IMG DIGITIZE FILMS Final Resu lt Performing Organization Address [facility] de Phone Number RADHA [phone] * CT Abdomen Archive for Reference Only (09/13/2024 6:50 AM EDT) Narrative [facility] 09/13/2024 6:50 AM EDT This study has been auto finalized and does not contain a result. us File Room Provider IMG DIGITIZE FILMS Final Resu lt Performing Organization Address [facility] de Phone Number RADHA [phone] from Last 3 Months Insurance [facility] Advance Directives * Full Code (Latest Code [...]
== END 2024-10-15 12:01 | disposition home or self-care (01) ==
LOC: HO.HMGCLNP 12:00
PROVIDERS: PCP Internal Medicine; Visit Provider Physician Assistant Medical
DX: K21.9 Gastro-esophageal reflux disease without esophagitis (principal)
CPT/HCPCS: 87338

== ENCOUNTER 2024-11-04 12:21 | Outpatient (REF) | payer OTHER, SELFPAY ==
--- NOTE | 2024-11-04 12:28 | ECG_ITS ---
Test Reason : preop Blood Pressure : */* mmHG Vent. Rate : 78 BPM Atrial Rate : 78 BPM P-R Int : 124 ms QRS Dur : 94 ms QT Int : 392 ms P-R-T Axes : 76 74 72 degrees QTcB Int : 446 ms Normal sinus rhythm Normal ECG No previous ECGs available Referred By: Dara Link Electronically Signed By: GORAN CANSECO
[2024-11-04 12:43] LABS: MANUAL DIFF FLAG NO
--- OUTSIDE RECORDS SUMMARY | 2024-11-04 12:58 | XMS_ITS | Clinical Summary ---
Author Organization Formerly [facility] Address [address] [place] [address] Care Team Providers Care Spring Maker Name Role Phone Unavailable Primary Care Provider Unavailabl e Allergies No known active allergies Medications multivitamin with minerals Tab tabletIndications:H epatic encephalopathy (HCC) Take 1 tablet by mouth daily. 30 tablet Active Active Problems Problem Noted Date Diagnosed Date Acute metabolic encephalopathy 09/19/2024 Acute hepatic failure 09/19/2024 Acute hypoxic respiratory fa ilure (HCC) s/p intubation now extubated 09/19/2024 REMY (acute kidney injury) 09/19/2024 Tylenol ingestion, intentional self-harm, initia l encounter 09/19/2024 Hematemesis 09/13/2024 Encounters Date Type Department Care Team Description 09/13/2024 7:00 AM EDT Ancillary Procedure [facility] Radiology [address] [place] [id number] Provider, File Room 09/13/2024 6:55 AM EDT Ancillary Procedure [facility] Radiology [address] [place] [address] Provider, File Room 09/13/2024 6:55 AM EDT Ancillary Procedure [facility] Radiology [address] [place] [phone] Provider, File Room 09/13/2024 5:20 AM EDT - 09/19/2024 2:41 PM EDT Hospital Encounter [facility] [address] [facility] [place] [address] Jamal Stewart MD Powner, Jordan T, Tk Matos MD Rheiner, Jacqueline A, DO Hebbal, Pooja, MD Pichardo Castillo, Jose, MD Hematemesis (Primary Dx); Cocaine abuse (HCC); Hepatic encephalopathy (HCC); Jaundice; Thrombocytopenia; Transaminitis; Hyperammonemia ; Hyperbilirubinemia; Tylenol ingestion, intentional self-harm, initial encounter (HCC); Acute metabolic encephalopathy Discharge Disposition: Home or Self Care 09/13/2024 Travel 09/13/2024 Orders Only [facility] Radiology [address] [place] [address], [place] [address] Provider, File Room from Last 3 Months Social History Tobacco Use Types Packs/Day Years Used Date Smoking Tobacco: Never Assessed [facility] Utilities Answer Date Recorded In the past 12 months has [employer], oil, or water [employer] threatened to shut off services in your [...] any time in the past 12 m [facility], were you homeless or living in a penitentiary (including now)? Patient unable to answer 09/14/2024 [...] 3-dose series) 1996 Colonoscopy 2022 COVID-19 Vaccine (2023-2 5 season) 2023 Influenza Vaccine 10/09/2024 Hepatitis [...] AM EDT METHADONE SCREEN, URINE Routine 09/14/19 7:54 AM EDT FENTANYL SCREEN, URINE FNTYL5 [...] of12 resultswithin the time period is included. Pathologist [facility] Anticoagulant IV HEPARIN, UNFRACTIONATED 09/19/2024 7:21 AM EDT [facility] Prothrombin Time (PT) 17.0(H) 10.0 - 13.5 seconds 09/19/2024 9:28 AM EDT [facility] INR 1.5 09/19/2024 9:28 AM T [facility] Comment:INR Therapeutic Rang es: Standard dose anticoagulant 2.0 to 3.0, High dose anticoagulant 2.5-3.5. Blood Blood specimen / Unknown 09/19/2024 8:09 AM EDT 09/19/2024 8:41 AM EDT Dwayne Marsh MD LAB BLOOD ORDERABLES F inal Result Performing Organization Address [facility] Co de Phone Number [address] [address], [address] [address] * (ABNORMAL) Complete Blood Count WITHOUT Differential - ROUTINE (09/19/2024 8:09 AM EDT) Only the most recent of8 resultswithin the time period is included. White Blood Cell Count 5.0 4.0 - 11.0 Thou/uL 09/19/2024 10:05 AM EDT [facility] Platelet Count 46(L) 150 - 450 Thou/uL 09/19/2024 10:05 AM T [facility] Comment: Results verified by smear review. Test results repeated. Occasional large platelet present. Hemoglobin 11.0(L) 13.0 - 17.7 g/dL 09/19/2024 10:05 AM [facility] Hematocrit 33.5(L) 39.0 - 54.0 % 09/19/2024 10:05 AM [facility] Red Blood Cell Count 3.54(L) 4.50 - 6.20 Mil/uL 09/19/2024 10:05 AM [facility] MCV 95 80 - 100 fL 09/19/2024 10:05 AM [facility] MCH 31.1 26.0 - 34.0 pg 09/19/2024 10:05 AM [facility] MCHC 32.8 30.0 - 36.0 g/dL 09/19/2024 10:05 AM [facility] RDW 15.9(H) 11.5 - 14.5 % 09/19/2024 10:05 AM [facility] MPV 12.1 7.5 - 12.5 fL 09/19/2024 10:05 AM [facility] Immature Platelet Fraction 9.9(H) 1.2 - 8.6 % 09/19/2024 10:05 AM [facility] Blood Blood specimen / Unknown 09/19/2024 8:09 AM EDT 09/19/2024 8:41 AM EDT us Dwayne Marsh MD LAB BLOOD [place] [address], [address] [address] * Magnesium (AM) (09/19/2024 8:09 AM EDT) Only the most recent of14 resultswithin the time period is included. Magnesium 1.8 1.6 - 2.7 mg/dL 09/19/2024 9:48 AM [facility] Blood Blood specimen / Unknown 09/19/2024 8:09 AM EDT 09/19/2024 8:41 AM EDT us Dwayne Marsh MD LAB BLOOD ORDERABLES F inal Result [facility] [address] [place] [address], [facility] [address] [place] [address] * (ABNORMAL) Comprehensive Metabolic Panel (09/19/2024 8:09 AM EDT) Glucose 97 65 - 99 mg/dL 09/19/2024 9:48 AM [facility] Comment:Fasting: <100 mg/dL, Non-Fasting: <200 mg/dL (ADA 2004) Blood Urea Nitrogen (BUN) 26(H) 8 - 21 mg/dL 09/19/2024 9:48 AM [facility] Creatinine 1.2 0.5 - 1.3 mg/dL 09/19/2024 9:48 AM [facility] eGFR 76 >59 09/19/2024 9:48 AM [facility] Comment:CKD-EPI (2020) in mL /min/1.73 sq meters. Sodium 145 136 - 145 mmol/L 09/19/2024 9:48 AM [facility] Potassium 3.7 3.4 - 5.3 mmol/L 09/19/2024 9:48 AM [facility] Chloride 114(H) 98 - 107 mmol/L 09/19/2024 9:48 AM [facility] CO2 23 22 - 33 mmol/L 09/19/2024 9:48 AM [facility] Calcium 8.4(L) 8.7 - 10.5 mg/dL 09/19/2024 9:48 AM [facility] Alkaline Phosphatase 122 45 - 128 U/L 09/19/2024 9:48 AM [facility] Aspartate Aminotrans (AST) 104(H) 10 - 55 U/L 09/19/2024 9:48 AM [facility] Alanine Aminotrans (ALT) 925(H) 10 - 55 U/L 09/19/2024 9:57 AM [facility] Bilirubin, Total 6.7(H) 0.2 - 1.0 mg/dL 09/19/2024 9:48 AM [facility] Protein, Total 5.0(L) 6.3 - 8.3 g/dL 09/19/2024 9:48 AM EDT [facility] Albumin 2.9(L) 3.5 - 5.0 g/dL 09/19/2024 9:48 AM EDT [facility] BUN/Creatinine Ratio 22 10.0 - 25.0 Ratio 09/19/2024 9:48 AM EDT [facility] Globulin 2.1 1.5 - 3.9 g/dL 09/19/2024 9:48 AM EDT [facility] Albumin/Globulin Ratio 1.4 1.0 - 3.0 Ratio 09/19/2024 9:48 AM EDT [facility] Anion Gap 8 7 - 17 09/19/2024 9:48 AM EDT [facility] Blood Blood specimen / Unknown 09/19/2024 8:09 AM EDT 09/19/2024 8:41 AM EDT Dwayne Marsh MD LAB BLOOD ORDERABLES F inal Result Performing Organization Address City/[facility]/[place] [address], [place] [address] * (ABNORMAL) Phosphorus (09/18/2024 11:49 PM EDT) Only the most recent of12 resultswithin the time period is included. Phosphorus 2.3(L) 2.7 - 4.5 mg/dL 09/19/2024 12:29 AM EDT [facility] Blood Blood specimen / Unknown 09/18/2024 11:49 PM EDT 09/19/2024 12:01 AM EDT Dana Harris APRN LAB BLOOD ORDERABLES Final R esult Performing Organization Address City/[facility]/[place] [address], [place] [address] * (ABNORMAL) HEPATIC FUNCTION PANEL (09/18/2024 11:49 PM EDT) Only the most recent of13 resultswithin the time period is included. Pathologist [facility] Alkaline Phosphatase 109 45 - 128 U/L 09/19/2024 12:29 AM EDT [facility] Aspartate Aminotrans (AST) 108(H) 10 - 55 U/L 09/19/2024 12:29 AM [facility] Alanine Aminotrans (ALT) 1,031(H) 10 - 55 U/L 09/19/2024 12:32 AM T [facility] Bilirubin, Total 7.4(H) 0.2 - 1.0 mg/dL 09/19/2024 12:29 AM EDT [facility] Protein, Total 4.8(L) 6.3 - 8.3 g/dL 09/19/2024 12:29 AM [facility] Albumin 2.8(L) 3.5 - 5.0 g/dL 09/19/2024 12:29 AM [facility] Bilirubin, Direct 5.2(H) 0 - 0.2 mg/dL 09/19/2024 12:29 AM [facility] Globulin 2.0 1.5 - 3.9 g/dL 09/19/2024 12:29 AM [facility] Albumin/Globulin Ratio 1.4 1.0 - 3.0 Ratio 09/19/2024 12:29 AM [facility] Blood Blood specimen / Unknown 09/18/2024 11:49 PM EDT 09/19/2024 12:01 AM EDT [facility] LAB BLOOD ORDERABLES Final R esult [address] [address], [address] [address] * (ABNORMAL) Basic Metabolic Panel (09/18/2024 11:49 PM EDT) Only the most recent of14 resultswithin the time period is included. [facility] Glucose 87 65 - 99 mg/dL 09/19/2024 12:29 AM [facility] Comment:Fasting: <100 mg/dL, Non-Fasting: <200 mg/dL (ADA 2005) Blood Urea Nitrogen (BUN) 24(H) 8 - 21 mg/dL 09/19/2024 12:29 AM [facility] Creatinine 1.3 0.5 - 1.3 mg/dL 09/19/2024 12:29 AM [facility] eGFR 69 >59 09/19/2024 12:29 AM [facility] Comment:CKD-EPI (2020) in mL /min/1.73 sq meters. Sodium 142 136 - 145 mmol/L 09/19/2024 12:29 AM [facility] Potassium 3.8 3.4 - 5.3 mmol/L 09/19/2024 12:29 AM [facility] Chloride 110(H) 98 - 107 mmol/L 09/19/2024 12:29 AM [facility] CO2 24 22 - 33 mmol/L 09/19/2024 12:29 AM [facility] Anion Gap 8 7 - 17 09/19/2024 12:29 AM [facility] Calcium 8.2(L) 8.7 - 10.5 mg/dL 09/19/2024 12:29 AM [facility] BUN/Creatinine Ratio 18 10.0 - 25.0 Ratio 09/19/2024 12:29 AM [facility] Blood Blood specimen / Unknown 09/18/2024 11:49 PM EDT 09/19/2024 12:01 AM EDT us Dana Harris [employer] OPERATOR LAB BLOOD ORDERABLES Final R esult [address] [address], [address] [address] * Sodium (09/18/2024 6:23 AM EDT) Only the most recent of9 resultswithin the time period is included. Sodium 140 136 - 145 mmol/L 09/18/2024 7:48 AM EDT [facility] Blood Blood specimen / Unknown 09/18/2024 6:23 AM EDT 09/18/2024 6:48 AM EDT Marie Simmons PA-C LAB BLOOD ORDERABLES Jessenia l Result Performing Organization Address City/[facility]/[place] [address], [address] [address] * (ABNORMAL) TSH (Routine) (09/18/2024 12:40 AM EDT) TSH, Highly Sensitive 0.15(L) 0.27 - 4.20 mIU/L 09/18/2024 3:09 AM EDT [facility] Blood Blood specimen / Unknown 09/18/2024 12:40 AM EDT 09/18/2024 1:00 AM EDT Dana Greener [employer] OPERATOR LAB BLOOD ORDERABLES Final R esult Performing Organization Address [facility]/[place] [address], [address] [address] * T4, FREE (09/18/2024 12:40 AM EDT) T4, Free 0.90 0.80 - 1.90 ng/dL 09/18/2024 9:06 AM EDT [facility] 09/18/2024 12:4 0 AM EDT 09/18/2024 1:00 AM EDT Dana Greener [employer] OPERATOR LAB BLOOD ORDERABLES Final R esult [address] [address], [address] [address] * Folate Level (09/18/2024 12:40 AM EDT) Pathologist [facility] Folate, Serum Specimen hemolyzed. Test not performed. >7.2 ng/mL 09/18/2024 3:24 AM EDT [facility] Blood Blood specimen / Unknown 09/18/2024 12:40 AM EDT 09/18/2024 1:00 AM EDT us Dana Greener [employer] OPERATOR LAB BLOOD ORDERABLES Final R esult Performing Organization Address City/[facility] Co de Phone Number [address] [address], [address] [address] * (ABNORMAL) Vitamin B12 (09/18/2024 12:40 AM EDT) [facility] Vitamin B12 >2,000(H) 243 - 894 pg/mL 09/18/2024 4:04 AM EDT [facility] Blood Blood specimen / Unknown 09/18/2024 12:40 AM EDT 09/18/2024 1:00 AM EDT us Dana Greener [employer] OPERATOR LAB BLOOD ORDERABLES Final R esult Performing Organization Address City/[facility] Co de Phone Number [address] [address], [address] [address] * ECHOCARDIOGRAM COMPREHENSIVE (09/17/2024 11:40 AM EDT) [facility] LV Diastolic Volume Index (F:29-61, M:35-75) 72.2 [...] suspicious intracranial lesions. us Jenifer Lazo PA-C IMG MRI ORDERABLES Final Result * XR Abdomen 1 view (09/16/2024 7:29 PM EDT) Only the most recent of6 resultswithin the time period is included. Anatomical Region Laterality Modality Abdomen Computed Radiogr aphy 09/16/2024 6:04 PM EDT Impressions 09/17/2024 9:13 AM EDT Paucity of gas throughout the bowel could correlate with liquid stool. Nonobstructive, nondilated bowel gas pattern. Interpreted by: Guevara Howard DO Telecom Specialist I personally reviewed the images and the [...] gas pattern. Interpreted by: Guevara Howard DO Telecom Specialist I personally reviewed the images and the resident's preliminary report and AGREE with the report as it is now presented ([id number]). us Dana Harris APRN IMG DIAGNOSTIC IMAGING ORDER MARGO Final Result * LACTIC ACID, PLASMA (09/16/2024 11:45 AM EDT) Only the most recent of4 resultswithin the time period is included. Lactic Acid 1.0 0.5 - 1.9 mmol/L 09/16/2024 12:33 PM EDT [facility] Blood Blood specimen / Unknown 09/16/2024 11:45 AM EDT 09/16/2024 12:01 PM EDT Dana Harris APRN LAB BLOOD ORDERABLES Final R esult [address] [address], [address] [address] * EEG AWAKE OR DROWSY (09/16/2024 9:19 AM EDT) Narrative [facility] - 09/16/2024 9:19 AM EDT Sharonda Dorsey MD 09/16/2024 11:33 AM INPATIENT ADULT ELECTROENCEPHALOGRAM (EEG) REPORT Facility: [facility] Patient and : Gregg Lisa 1975 [...] suppression in clinically-apparent sleep suggested the former. [id number] TOTAL SCORE: 0 (5% SZ [![id number]$[id number]&0]) Sharonda Dorsey MD [facility] FOR EEG LAB USE: Abnormal Non-epileptiform :qz!02; No events :qz!08; Complexity ratin :qz!15 us Brooke PINEDO NEUROLOGY ORDERABLES Mariano yola Result - Final [facility] [address] [place] [address], * ECG 12 lead (09/16/2024 8:38 AM EDT) Only the most recent of4 resultswithin the time period is included. Pathologist [facility] Systolic BP 131 mmHg EKG [facility] Diastolic BP 61 mmHg EKG [facility] Ventricular rate 83 BPM EKG [facility] Atrial rate 83 BPM EKG [facility] P-R interval 104 ms EKG [facility] QRS duration 92 ms EKG [facility] Q-T interval 386 ms EKG [facility] QTC calculation (Bazett) 453 ms EKG [facility] P axis -54 degrees EKG [facility] R axis 89 degrees EKG [facility] T axis 52 degrees EKG [facility] 09/16/2024 8:38 AM EDT Narrative EKG [facility] - 09/16/2024 8:40 AM EDT Unusual P axis, possible ectopic atrial rhythm Abnormal ECG When compared with ECG of 14-Sep-2024 13:31, Ectopic atrial rhythm has replaced Sinus rhythm Vent. rate has decreased by [address] no longer depressed in Inferior leads T wave amplitude has decreased in Anterior leads Confirmed by Leann Lockhart MD ([id number]) on 09/16/2024 8:40:33 AM Procedure Note Leann Lockhart MD - 09/16/2024 Unusual P axis, possible ectopic atrial rhythm Abnormal ECG When compared with ECG of 14-Sep-2024 13:31, Ectopic atrial rhythm has replaced Sinus rhythm Vent. rate has decreased by [address] no longer depressed in Inferior leads T wave amplitude has decreased in Anterior leads Confirmed by Leann Lockhart MD ([id number]) on 09/16/2024 8:40:33 AM Tk You MD ECG ORDERABLES Final Result [facility] * (ABNORMAL) Hemoglobin and Hematocrit (09/16/2024 8:30 AM EDT) Only the most recent of2 resultswithin the time period is included. [facility] Hematocrit 38.1(L) 39.0 - 54.0 % 09/16/2024 10:16 AM EDT [facility] Hemoglobin 12.1(L) 13.0 - 17.7 g/dL 09/16/2024 10:16 AM EDT [facility] Blood Blood specimen / Unknown 09/16/2024 8:30 AM EDT 09/16/2024 8:48 AM EDT Yazmin Martinez PA-C LAB BLOOD ORDERABLES Final Result Performing Organization Address [facility] [place] [address], [address] [address] * Vancomycin Level, Random (09/16/2024 6:49 AM EDT) Vancomycin, Random 6 mg/L 09/16/2024 8:03 AM EDT [facility] Comment:No reference range e stablished for random levels. Time of Last Dose Information not given 09/16/2024 6:49 AM EDT [facility] Blood Blood specimen / Unknown 09/16/2024 6:49 AM EDT 09/16/2024 7:34 AM EDT Tk You MD LAB BLOOD ORDERABLES Final Resul t Performing Organization Address [facility] [place] [address], [place] [address] * Ammonia Level (09/16/2024 12:00 AM EDT) Only the most recent of8 resultswithin the time period is included. Ammonia, Plasma 51 16 - 60 umol/L 09/16/2024 12:44 AM EDT [facility] Blood Blood specimen / Unknown 09/16/2024 09/16/2024 12:18 AM EDT Cheko PINEDO LAB BLOOD ORDERABLES Final Resu lt Performing Organization Address [facility] [place] [address], [address] [address] * (ABNORMAL) Blood Gas with Cooximetry, Arterial (09/15/2024 5:39 PM EDT) Only the most recent of3 resultswithin the time period is included. Respiratory Info VENT 40% 09/16/19 5:39 PM EDT [facility] pH, Arterial 7.49(H) 7.35 - 7.45 09/15/2024 6:08 PM [facility] pCO2, Arterial 37 32 - 45 mmHG 09/15/2024 6:08 PM [facility] pO2, Arterial 190(H) 75 - 95 mmHG 09/15/2024 6:08 PM [facility] CO2, Total 29(H) 22 - 28 mmol/L 09/15/2024 6:08 PM [facility] P/F Ratio 475 09/15/2024 6:08 PM [facility] Base Excess 4.6 mmol/L 09/15/2024 6:08 PM [facility] Comment:Reference Range: Neg ative 2 to Positive 3 Hemogloblin, Total 13.6 13.0 - 17.7 g/dL 09/15/2024 6:08 PM [facility] O2 Saturation, Arterial 99.6(H) 94 - 97 % 09/15/2024 6:08 PM [facility] Carboxyhemoglobin 0.8 0.0 - 2.0 % 09/15/2024 6:08 PM [facility] Methemoglobin 0.6 0.4 - 1.5 % 09/15/2024 6:08 PM [facility] O2 Content, Arterial 19.2 17.6 - 24.3 mL/dL 09/15/2024 6:08 PM [facility] Blood Blood specimen / Unknown 09/15/2024 5:39 PM EDT 09/15/2024 6:01 PM EDT us Brooke PINEDO LAB BLOOD ORDERABLES Fin al Result [address] [address], [address] [address] * Hepatitis C Viral Load, Quantitative (09/15/2024 8:40 AM EDT) [facility] HCV RNA (IU/mL) Not Detected <10 IU/mL 09/16/2024 2:14 PM EDT [facility] HCV RNA (log10) Not Detected <1.00 log10 IU/mL 09/16/2024 2:14 PM EDT [facility] Interpretation Not Detected 09/17/19 2:14 PM EDT [facility] Comment:Performed by FDA basilio roved [employer] TMA. Linear range is 10 to 100,000,000 IU/mL. HCV Genotyping is not recommended for viral loads below 300 IU/mL. Blood Blood specimen / Unknown 09/15/2024 8:40 AM EDT 09/15/2024 10:18 AM EDT Brooke PINEDO LAB BLOOD ORDERABLES Fin al Result [facility] [address] [place] [address], * (ABNORMAL) Factor V Assay (09/15/2024 8:40 AM EDT) [facility] Factor V 46(L) 50 - 150 % Normal 09/15/2024 12:38 PM EDT [facility] Blood Blood specimen / Unknown 09/15/2024 8:40 AM EDT 09/15/2024 10:18 AM EDT Brooke PINEDO LAB BLOOD ORDERABLES Fin al Result [address] [address], [address] [address] * Nasal MRSA Screen, PCR (09/15/2024 8:35 AM EDT) [facility] MRSA Result Not Detected Not Detected 11:30 AM EDT [facility] Comment:Performed by the Xpe rt MRSA NxG Assay Swab, Anterior Nares Specimen from nose / Unknown 09/15/2024 8:35 AM EDT 09/15/2024 9:27 AM EDT Brooke PINEDO MICROBIOLOGY - GENERAL O RDERABLES Final Result [facility] [address] [place] [address], [address] [address] * Blood Culture (09/15/2024 3:05 AM EDT) Only the most recent of4 resultswithin the time period is included. Culture Sterile after 5 days 09/20/2024 7:33 AM EDT [facility] Blood Blood specimen / Unknown 09/15/2024 3:05 AM EDT 09/15/2024 3:52 AM EDT Comment:Blood Heidi PINEDO LAB BLOOD ORDERABLES Jessenia l Result [facility] [address] [place] [address], [place] * XR Chest 1 view-Portable (09/15/2024 [...] Mixed normal kathrine 09/15/2024 3:11 AM EDT [facility] Culture Staphylococcus aureus(A) 09/17/2024 2:10 PM EDT [facility] Culture Mixed normal kathrine 09/17/2024 2:10 PM EDT [facility] Aspirate, Tracheal Specimen from trachea [...] MICROBIOLOGY - GENERAL OR DERABLES Final Result [facility] [address] [place] [address], [address] [address] * (ABNORMAL) Urinalysis with Reflex to Microscopic (09/15/2024 2:20 AM EDT) Color Martina 09/15/2024 2:39 AM [facility] Clarity Clear 09/15/2024 2:39 AM [facility] Specific Erhard 1.023 1.003 - 1.030 09/15/2024 2:39 AM [facility] pH 5.0 5.0 - 8.0 09/15/2024 2:39 AM [facility] Leukocyte Esterase Negative Negative 09/15/2024 2:39 AM [facility] Nitrite Negative Negative 09/15/2024 2:39 AM [facility] Protein Negative Negative 09/15/2024 2:39 AM [facility] Glucose 0 0 - 99 mg/dL 09/15/2024 2:39 AM [facility] Ketones Negative Negative 09/15/2024 2:39 AM [facility] Blood Large(A) Negative 09/15/2024 2:39 AM [facility] Bilirubin Negative Negative 09/15/2024 2:39 AM [facility] WBC 1 0 - 4 per hpf 09/15/2024 2:39 AM [facility] RBC 6(H) 0 - 4 per hpf 09/15/2024 2:39 AM [facility] Urine Urine specimen obtained via straight catheter / Unknown 09/15/2024 2:20 AM EDT 09/15/2024 2:30 AM EDT Heidi Zabala PA URINE ORDERABLES Final Re sult Performing Organization Address City/[facility]/[place] [address], [place] [address] * (ABNORMAL) LIPASE (09/15/2024 1:04 AM EDT) Only the most recent of3 resultswithin the time period is included. Lipase 73(H) 13 - 60 U/L 09/15/2024 4:58 AM EDT [facility] 09/15/2024 1:04 AM EDT 09/15/2024 1:26 AM EDT Cheko PINEDO LAB BLOOD ORDERABLES Final Resu lt Performing Organization Address [facility] [place] [address], [place] [address] * (ABNORMAL) Blood Gas with Cooximetry, Venous (09/14/2024 9:43 AM EDT) Respiratory Info VENT 40% 09/15/19 9:43 AM EDT [facility] Venous Blood PH 7.48(H) 7.33 - 7.43 09/14/2024 10:27 AM [facility] Venous pCO2 38 35 - 50 mmHG 09/14/2024 10:27 AM [facility] Venous pO2 139(H) 0 - 60 mmHG 09/14/2024 10:27 AM [facility] Venous Total CO2 29 23 - 29 mmol/L 09/14/2024 10:27 AM [facility] Base Excess 4.9 mmol/L 09/14/2024 10:27 AM T [facility] Comment:Reference Range: Neg ative 2 to Positive 3 Hemogloblin, Total 14.5 13.0 - 17.7 g/dL 09/14/2024 10:27 AM [facility] O2 Saturation, Venous 99.1 % 09/2024 10:27 AM [facility] Carboxyhemoglobin 1.4 0.0 - 2.0 % 09/14/2024 10:27 AM EDT [facility] Methemoglobin 0.6 0.4 - 1.5 % 09/14/2024 10:27 AM EDT [facility] Venous O2 Content 20.0(H) 7.2 - 17.2 mL/dL 09/14/2024 10:27 AM EDT [facility] Blood Blood specimen / Unknown 09/14/2024 9:43 AM EDT 09/14/2024 10:15 AM EDT Brooke PINEDO LAB BLOOD ORDERABLES Fin al Result Performing Organization Address [facility] [place] [address], [place] [address] * (ABNORMAL) Creatine Kinase (CK) (09/14/2024 2:40 AM EDT) Only the most recent of5 resultswithin the time period is included. Creatine Kinase (CK) 261(H) 24 - 204 U/L 09/14/2024 3:20 AM EDT [facility] Blood Blood specimen / Unknown 09/14/2024 2:40 AM EDT 09/14/2024 2:53 AM EDT Amanda PINEDO LAB BLOOD ORDERABLES Final R esult Performing Organization Address City/[facility] [place] [address], [place] [address] * (ABNORMAL) Acetaminophen Level (09/14/2024 12:20 AM EDT) Only the most recent of4 resultswithin the time period is included. Acetaminophen Level <5(L) 10 - 30 mg/L 09/14/2024 1:06 AM EDT [facility] Comment:Specimen icteric Blood Blood specimen / Unknown 09/14/2024 12:20 AM EDT 09/14/2024 12:37 AM EDT us Cheko PINEDO LAB BLOOD ORDERABLES Final Resu lt [facility] [address] [place] [address], [facility] [address] [place] [address] * US Duplex abdomen/pelvis-Complete (09/13/2024 11:23 PM EDT) Anatomical Region Laterality Modality Vascular Ultrasound 09/13/2024 8:1 1 PM EDT Impressions 09/14/2024 9:10 AM EDT [...] be secondary to postcholecystectomy state. us Cheko PINEDO IMOvi US ORDERABLES Final Result * US Soft [...] cross-sectional imaging could be performed. Cheko PINEDO [facility] US ORDERABLES Final Result * EBV DNA, PCR, Quantitative (09/13/2024 6:32 PM EDT) Specimen Source EDTA PLASMA 09/18/2024 7:39 AM EDT [facility] EBV DNA Not Detected 09/18/2024 7:39 AM EDT [facility] Comment:UNITS: IU/mL EBV DNA, QN PCR Not Detected 09/18/2024 7:39 AM EDT [facility] Comment: UNITS: Log IU/mL (NOTE) Reference Range: Not Detected For additional information, please refer to http://education.AVOB.DJZ/faq/CMVandEBVPCR (This link is being provided for informational/ educational purposes only.) Blood Blood specimen / Unknown 09/13/2024 6:32 PM EDT 09/13/2024 6:41 PM EDT Cheko PINEDO BODY FLUIDS AND STOOLS ORDERABL ES Final Result [facility] [place] [address] [facility] [address] [address] [place], [place] , [place] [facility] [place] [address] [facility] [address] [address] [place], [place] * Triglycerides (09/13/2024 4:10 PM EDT) Triglycerides 135 <150 mg/dL 09/13/2024 5:17 PM EDT [facility] Comment:Specimen icteric Blood Blood specimen / Unknown 09/13/2024 4:10 PM EDT 09/13/2024 4:38 PM EDT Cheko PINEDO LAB [place] [address], [address] [address] * EEG AWAKE OR DROWSY (09/13/2024 4:07 PM EDT) Narrative [facility] - 09/13/2024 4:07 PM EDT Nathalie Cortez MD 09/13/2024 9:46 PM INPATIENT ADULT ELECTROENCEPHALOGRAM (EEG) REPORT Facility: [facility] Patient and : Gregg Lisa 1975 [...] electrographic seizures. Nathalie Cortez MD ABPN Epilepsy. [facility] us Cheko PINEDO NEUROLOGY ORDERABLES Edited Res ult - Final [facility] [address] [id number], * Troponin T, High Sensitivity (09/13/2024 2:19 PM EDT) Only the most recent of3 resultswithin the time period is included. High Sensitivity Troponin T 20 <23 ng/L 09/13/2024 3:07 PM EDT [facility] Delta (Change) NO CHANGE <3 09/13/2024 3:07 PM EDT [facility] Blood Blood specimen / Unknown 09/13/2024 2:19 PM EDT 09/13/2024 2:43 PM EDT us Cheko PINEDO LAB BLOOD ORDERABLES Final Resu lt Performing Organization Address [facility] Co de Phone Number [address] [address], [address] [address] * Sodium, Urine, Random (09/13/2024 2:10 PM EDT) Only the most recent of2 resultswithin the time period is included. Sodium, Urine Random <20 mmol/L 09/13/2024 3:04 PM EDT [facility] Comment:Reference range not established for random specimen. Urine Urine specimen / Unknown 09/13/2024 2:10 PM EDT 09/13/2024 2:44 PM EDT us Cheko PINEDO URINE ORDERABLES Final Result Performing Organization Address [facility] Co de Phone Number [address] [address], [address] [address] * Creatinine, Urine, Random (09/13/2024 2:10 PM EDT) Only the most recent of2 resultswithin the time period is included. Creatinine, Urine, Random 67 mg/dL 09/13/2024 3:04 PM EDT [facility] Comment:Reference range not established for random specimen. Urine Urine specimen / Unknown 09/13/2024 2:10 PM EDT 09/13/2024 2:44 PM EDT us Cheko PINEDO URINE ORDERABLES Final Result Performing Organization Address City/[facility] Co de Phone Number [address] [address], [address] [address] * Hepatitis Panel, Acute (09/13/2024 11:25 AM EDT) Hepatitis A Antibody IgM Nonreactive Nonreactive 09/14/2024 10:29 AM EDT [facility] Hepatitis B Core Antibody IgM Nonreactive Nonreactive 09/14/2024 10:29 AM EDT [facility] Hepatitis B Surface Ag Screen Nonreactive Nonreactive 09/14/2024 10:29 AM EDT [facility] Hepatitis C Antibody Nonreactive Nonreactive 09/14/2024 10:29 AM EDT [facility] Comment:Antibodies to HCV no t detected. This does not exclude the possibility of exposure to HCV. Hepatitis Interpretation : Results inconsistent with acute Hepatitis A, B or C Virus infection. 09/14/2024 10:29 AM EDT [facility] Blood Blood specimen / Unknown 09/13/2024 11:25 AM EDT 09/13/2024 12:39 PM EDT Mingo Serrato DO LAB BLOOD ORDERABLES Final Re sult Performing Organization Address City/[facility]/ZIP Co de Phone Number [facility] [address] [place] [address], * proBNP, N-terminal (09/13/2024 10:04 AM EDT) proBNP, N-terminal 76 <125 pg/mL 09/13/2024 3:02 PM EDT [facility] 09/13/2024 10:0 4 AM EDT 09/13/2024 10:15 AM EDT Mingo Serrato DO LAB BLOOD ORDERABLES Final Re sult [address] [address], [place] [address] [address] * (ABNORMAL) OSMOLALITY (09/13/2024 10:04 AM EDT) Osmolality, Serum/Plasma 345(H) 275 - 295 mOsm/Kg 09/13/2024 2:54 PM EDT [facility] 09/13/2024 10:0 4 AM EDT 09/13/2024 10:15 AM EDT Mingo Serrato LAB BLOOD ORDERABLES Final Re sult Performing Organization Address [facility] Co de Phone Number [address] [address], [address] [address] * (ABNORMAL) Blood Gas, Arterial (09/13/2024 10:00 AM EDT) Only the most recent of2 resultswithin the time period is included. pH, Arterial 7.43 7.35 - 7.45 09/13/2024 10:30 AM EDT [facility] pCO2, Arterial 44 32 - 45 mmHG 09/13/2024 10:30 AM EDT [facility] pO2, Arterial 173(H) 75 - 95 mmHG 09/13/2024 10:30 AM EDT [facility] CO2, Total 31(H) 22 - 28 mmol/L 09/13/2024 10:30 AM EDT [facility] Respiratory Info Information not given 09/13/2024 10:25 AM EDT [facility] Base Excess 4.6 mmol/L 09/13/2024 10:30 AM T [facility] Comment:Reference Range: Neg ative 2 to Positive 3 Blood specimen / Unknown 09/13/2024 10:00 AM EDT 09/13/2024 10:22 AM EDT Jamal Stewart MD LAB BLOOD ORDERABLES Final Result Performing Organization Address City/[facility]/ZIP Co de Phone Number [address] [address], [address] [address] * (ABNORMAL) Complete Blood Count, with Differential (09/13/2024 8:01 AM EDT) Pathologist [facility] White Blood Cell Count 5.5 4.0 - 11.0 Thou/uL 09/13/2024 9:37 AM EDT [facility] Platelet Count 74(L) 150 - 450 Thou/uL 09/13/2024 9:37 AM T [facility] Comment: Test results repeated. Results verified by smear review. Hemoglobin 15.2 13.0 - 17.7 g/dL 09/13/2024 9:37 AM [facility] Hematocrit 44.6 39.0 - 54.0 % 09/13/2024 9:37 AM [facility] Red Blood Cell Count 4.82 4.50 - 6.20 Mil/uL 09/13/2024 9:37 AM [facility] MCV 93 80 - 100 fL 09/13/2024 9:37 AM [facility] MCH 31.5 26.0 - 34.0 pg 09/13/2024 9:37 AM [facility] MCHC 34.1 30.0 - 36.0 g/dL 09/13/2024 9:37 AM [facility] RDW 14.6(H) 11.5 - 14.5 % 09/13/2024 9:37 AM [facility] MPV 11.8 7.5 - 12.5 fL 09/13/2024 9:37 AM [facility] nRBC 0.4(H) 0.0 - 0.1 /100 WBC 09/13/2024 9:37 AM [facility] nRBC, Absolute 0.02 0.00 - 0.02 Thou/uL 09/13/2024 9:37 AM [facility] Immature Platelet Fraction 3.0 1.2 - 8.6 % 09/13/2024 9:37 AM [facility] Neutrophils Auto 90.8 % 09/14/19 9:44 AM [facility] Immature Granulocytes 0.9 % 09/13/2024 9:44 AM [facility] Lymphocytes Auto 6.0 % 09/14/19 9:44 AM [facility] Monocytes Auto 1.6 % 09/13/2024 9:44 AM [facility] Eosinophils Auto 0.5 % 09/14/19 9:44 AM [facility] Basophils Auto 0.2 % 09/13/2024 9:44 AM [facility] Abs Neutrophils Auto 5.03 2.00 - 7.50 Thou/uL 09/13/2024 9:44 AM [facility] Abs Immature Granulocytes 0.05 0.00 - 0.10 Thou/uL 09/13/2024 9:44 AM [facility] Abs Lymphocytes Auto 0.33(L) 1.50 - 4.50 Thou/uL 09/13/2024 9:44 AM EDT [facility] Abs Monocytes Auto 0.09(L) 0.20 - 1.50 Thou/uL 09/13/2024 9:44 AM EDT [facility] Abs Eosinophils Auto 0.03 0.00 - 0.70 Thou/uL 09/13/2024 9:44 AM EDT [facility] Abs Basophils Auto 0.01 0.00 - 0.20 Thou/uL 09/13/2024 9:44 AM EDT [facility] Blood Blood specimen / Unknown 09/13/2024 8:01 AM EDT 09/13/2024 8:34 AM EDT Gauri Chan MD LAB BLOOD ORDERABLES Final Resul t Performing Organization Address City/[facility]/[place] [address], [place] [address] * APTT (09/13/2024 8:01 AM EDT) Anticoagulant OTHER AGENT OR UNKNOWN 09/13/2024 5:36 AM EDT [facility] Partial Thromboplastin Time (PTT) Grossly Hemolyzed,Re collection Requested 25 - 36 seconds 09/13/2024 9:02 AM EDT [facility] Blood Blood specimen / Unknown 09/13/2024 8:01 AM EDT 09/13/2024 8:34 AM EDT us Gauri hCan MD LAB [place] [address], [place] [address] * (ABNORMAL) Urinalysis with Reflex to Microscopic and Culture (09/13/2024 7:54 AM EDT) Color Martina 09/13/2024 8:48 AM EDT [facility] Clarity Clear 09/13/2024 8:48 AM [facility] Specific Erhard 1.032(H) 1.003 - 1.030 09/13/2024 8:48 AM [facility] pH 6.0 5.0 - 8.0 09/13/2024 8:48 AM [facility] Leukocyte Esterase Negative Negative 09/13/2024 8:48 AM [facility] Nitrite Negative Negative 09/13/2024 8:48 AM [facility] Protein Small (30 mg/dL)(A) Negative 09/13/2024 8:48 AM [facility] Glucose 0 0 - 99 mg/dL 09/13/2024 8:48 AM [facility] Ketones Negative Negative 09/13/2024 8:48 AM [facility] Blood Moderate(A) Negative 09/13/2024 8:48 AM [facility] Bilirubin Negative Negative 09/13/2024 8:48 AM [facility] WBC 1 0 - 4 per hpf 09/13/2024 8:48 AM [facility] RBC >25(H) 0 - 4 per hpf 09/13/2024 8:48 AM [facility] Squamous Epithelial Cells 1 PER HPF 09/13/2024 8:48 AM [facility] Urine (Indwelling Urinary Catheter) 09/13/2024 7:54 AM EDT 09/13/2024 8:40 AM EDT Gauri Chan MD URINE ORDERABLES Final Result [address] [address], [address] [address] * Fentanyl Screen, Urine (09/13/2024 7:54 AM EDT) Fentanyl Screen, Urine Negative Negative <5 ng/mL 09/13/2024 11:45 AM T [facility] Comment: * FOR MEDICAL PURPOSES ONLY * Confirmation upon request. Urine Urine specimen / Unknown 09/13/2024 7:54 AM EDT 09/13/2024 11:08 AM EDT us Mingo Serrato DO URINE ORDERABLES Final Result Performing Organization Address [facility] Co de Phone Number [address] [address], [address] [address] * Methadone Screen, Urine (09/13/2024 7:54 AM EDT) Methadone Screen, Urine Negative Negative <300 ng/mL 09/13/2024 11:45 AM EDT [facility] Comment:* FOR MEDICAL PURPOS ES ONLY * Urine Urine specimen / Unknown 09/13/2024 7:54 AM EDT 09/13/2024 11:08 AM EDT us Mingo Serrato DO URINE ORDERABLES Final Result Performing Organization Address [facility] Co de Phone Number [address] [address], [address] [address] * Cannabinoid Screen, Urine (09/13/2024 7:54 AM EDT) Cannabinoid Screen, Urine Negative Negative <50 ng/mL 09/13/2024 11:45 AM EDT [facility] Comment:* FOR MEDICAL PURPOS ES ONLY * Urine Urine specimen / Unknown 09/13/2024 7:54 AM EDT 09/13/2024 11:08 AM EDT us Mingo Serrato DO URINE ORDERABLES Final Result Performing Organization Address [facility] Co de Phone Number [address] [address], [address] [address] * Buprenorphine Screen, Urine (09/13/2024 7:54 AM EDT) Buprenorphine Screen, Urine Negative Negative <5 ng/mL 09/13/2024 11:45 AM EDT [facility] Comment:* FOR MEDICAL PURPOS ES ONLY * Urine Urine specimen / Unknown 09/13/2024 7:54 AM EDT 09/13/2024 11:08 AM EDT us Mingo Serrato DO URINE ORDERABLES Final Result Performing Organization Address [facility] Co de Phone Number [address] [address], [address] [address] * Tricyclic Screen, Urine (09/13/2024 7:54 AM EDT) Tricyclic Screen, Urine Negative Negative <300 ng/mL 09/13/2024 11:45 AM EDT [facility] Comment:* FOR MEDICAL PURPOS ES ONLY * Urine Urine specimen / Unknown 09/13/2024 7:54 AM EDT 09/13/2024 11:08 AM EDT us Mingo Serrato DO URINE ORDERABLES Final Result Performing Organization Address [facility] Co de Phone Number [address] [address], [address] [address] * Phencyclidine (PCP) Screen, Urine (09/13/2024 7:54 AM EDT) PCP Screen, Urine Negative Negative <25 ng/mL 09/13/2024 11:45 AM EDT [facility] Comment:* FOR MEDICAL PURPOS ES ONLY * Urine Urine specimen / Unknown 09/13/2024 7:54 AM EDT 09/13/2024 11:08 AM EDT us Mingo Serrato DO URINE ORDERABLES Final Result Performing Organization Address [facility] Co de Phone Number [address] [address], [address] [address] * Oxycodone Screen, Urine (09/13/2024 7:54 AM EDT) Oxycodone Screen, Urine Negative Negative <100 ng/mL 09/13/2024 11:45 AM EDT [facility] Comment:* FOR MEDICAL PURPOS ES ONLY * Urine Urine specimen / Unknown 09/13/2024 7:54 AM EDT 09/13/2024 11:08 AM EDT us Mingo Cerratoner DO URINE ORDERABLES Final Result Performing Organization Address [facility] Co de Phone Number [address] [address], [address] [address] * Opiate Screen, Urine (09/13/2024 7:54 AM EDT) Opiate, Urine Negative Negative <300 ng/mL 09/13/2024 11:45 AM EDT [facility] Comment:* FOR MEDICAL PURPOS ES ONLY * Urine Urine specimen / Unknown 09/13/2024 7:54 AM EDT 09/13/2024 11:08 AM EDT us Mingo Gillespie Powner DO URINE ORDERABLES Final Result Performing Organization Address City/[facility]/ZIP Co de Phone Number [address] [address], [address] [address] * Ethanol, Urine (09/13/2024 7:54 AM EDT) Ethanol, Urine Negative Negative <11 mg/dL 09/13/2024 11:45 AM EDT [facility] Urine Urine specimen / Unknown 09/13/2024 7:54 AM EDT 09/13/2024 11:08 AM EDT us Mingo Cerratoner DO URINE ORDERABLES Final Result Performing Organization Address City/[facility] Co de Phone Number [address] [address], [address] [address] * (ABNORMAL) Cocaine Screen, Urine (09/13/2024 7:54 AM EDT) Cocaine Screen, Urine Positive( A) Negative <300 ng/mL 09/13/2024 11:45 AM EDT [facility] Comment: * FOR MEDICAL PURPOSES ONLY * Confirmation upon request. Urine Urine specimen / Unknown 09/13/2024 7:54 AM EDT 09/13/2024 11:08 AM EDT us Mingo Serrato DO URINE ORDERABLES Final Result Performing Organization Address [facility] Co de Phone Number [address] [address], [address] [address] * Benzodiazepine Screen, Urine (09/13/2024 7:54 AM EDT) Benzodiazepine Screen, Urine Negative Negative <200 ng/mL 09/13/2024 11:45 AM EDT [facility] Comment:* FOR MEDICAL PURPOS ES ONLY * Urine Urine specimen / Unknown 09/13/2024 7:54 AM EDT 09/13/2024 11:08 AM EDT us Mingo Serrato DO URINE ORDERABLES Final Result Performing Organization Address [facility] Co de Phone Number [address] [address], [address] [address] * Barbiturate Screen, Urine (09/13/2024 7:54 AM EDT) Barbiturate Screen, Urine Negative Negative <200 ng/mL 09/13/2024 11:45 AM EDT [facility] Comment:* FOR MEDICAL PURPOS ES ONLY * Urine Urine specimen / Unknown 09/13/2024 7:54 AM EDT 09/13/2024 11:08 AM EDT us Mingo Serrato DO URINE ORDERABLES Final Result Performing Organization Address [facility] Co de Phone Number [address] [address], [address] [address] * Amphetamine Screen, Urine (09/13/2024 7:54 AM EDT) Amphetamine Screen, Urine Negative Negative <1000 ng/mL 09/13/2024 11:45 AM EDT [facility] Comment:* FOR MEDICAL PURPOS ES ONLY * Urine Urine specimen / Unknown 09/13/2024 7:54 AM EDT 09/13/2024 11:08 AM EDT Mingo Serrato DO URINE ORDERABLES Final Result [address] [address], [address] [address] * INTUBATION (09/13/2024 7:53 AM EDT) Jamal Mondragon MD - 09/13/2024 7:53 AM EDT Jamal Stewart MD 09/13/2024 12:07 PM Intubation Date/Time: 09/13/2024 7:53 AM Performed by: Tuyet Ma MD Authorized by: Jamal Stewart MD Consent: Consent obtained: Emergent situation Sabina protocol: Relevant documents present and verified: yes [...] Procedure completion: Tolerated well, no immediate complications us Jamal Stewart MD PROCEDURE/MINOR SURGI NINA ORDERABLES Final Result * CT Head Archive for Reference Only (09/13/2024 6:51 AM EDT) Narrative [facility] 09/13/2024 6:51 AM EDT This study has been auto finalized and does not contain a result. us File Room Provider IMG DIGITIZE FILMS Final Resu lt Performing Organization Address [facility] Co de Phone Number RADHA [phone] * CR Chest Archive for Reference only (09/13/2024 6:51 AM EDT) Narrative [facility] 09/13/2024 6:51 AM EDT This study has been auto finalized and does not contain a result. us File Room Provider IMG DIGITIZE FILMS Final Resu lt Performing Organization Address [facility] de Phone Number RADHA [phone] * CT Abdomen Archive for Reference Only (09/13/2024 6:50 AM EDT) Narrative [facility] 09/13/2024 6:50 AM EDT This study has been auto finalized and does not contain a result. us File Room Provider IMG DIGITIZE FILMS Final Resu lt Performing Organization Address [facility] de Phone Number RADHA [phone] from Last 3 Months Insurance [facility] Advance Directives * Full Code (Latest [...]
[2024-11-04 14:04] LABS: Hematocrit 36.0 % (42.0-52.0); Hemoglobin 12.1 g/dl (14.0-18.0); Imm Gran Abs Auto 0.02 X10*3/uL (0.00-0.03); Imm Gran Pct Auto 0.4 % (0.0-0.4); Lymphocytes Absolute Auto 1.5 X10*3/uL (1.2-4.9); Mean Corpuscular HGB Conc 33.6 g/dl (31.0-36.0); Mean Corpuscular Hemoglobin 33.0 pg (27.0-33.0); Mean Corpuscular Volume 98.1 fL (80.0-98.0); NRBC Abs Auto 0.000 X10*3/uL (0.0-0.012); NRBC Pct Auto 0.0 /100WBC (0.0-0.2); Platelet Count 111 X10*3/uL (160-400); Red Blood Count 3.67 X10*6/uL (4.60-5.80); White Blood Count 4.5 X10*3/uL (4.8-10.8)
[2024-11-04 14:50] LABS: Alanine Aminotransferase 29 U/L (0-40); Albumin Level 3.9 g/dL (3.5-5.0); Alkaline Phosphatase 78 U/L (39-117); Anion Gap 11 (12-20); Aspartate Amino Transferase 39 U/L (5-37); Blood Urea Nitrogen 25 mg/dL (9-16); Calcium 9.0 mg/dL (8.4-10.2); Carbon Dioxide 23 mmol/L (22-29); Chloride 107 mmol/L (96-108); Estimated Glomerular Filt Rate > 60; Potassium 4.2 mmol/L (3.3-5.1); Sodium 137 mmol/L (135-145); Total Protein 6.9 g/dL (6.5-8.0)
== END 2024-11-04 12:22 | disposition home or self-care (01) ==
LOC: HO.LAB 12:21
PROVIDERS: PCP Physician Assistant Medical; Visit Provider Physician Assistant Medical
DX: Z01.810 Encounter for preprocedural cardiovascular examination (principal); Z01.818 Encounter for other preprocedural examination
CPT/HCPCS: 36415; 80053; 85025; 93005

== ENCOUNTER → 2024-11-04 12:28 | Outpatient (BNV) | payer OTHER, SELFPAY | PROVIDERS: PCP Physician Assistant Medical; Visit Provider Internal Medicine | DX: Z01.810 Encounter for preprocedural cardiovascular examination (principal) | CPT/HCPCS: 93010 ==

== ENCOUNTER 2024-11-05 10:31 | Outpatient (AMB) | payer OTHER, SELFPAY ==
[2024-11-05 10:30] VITALS: BP 133/73; PULSE 65; RESP 16; TEMP 36.7; O2SAT 99; BMI 25.1
--- NOTE | 2024-11-05 10:30 | A.OFFPC_ITS ---
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 Accompanied by: Self / Same As Patient Allergies chantix Allergy (Unknown, Uncoded 11/05/24 16:44) sleep walking Medication List - Last Reconciled 11/05/24 by Dara Link PA-C multivitamin (Daily Multi-Vitamin tablet) 1 tab PO DAILY omeprazole 20 mg PO DAILY sildenafil 100 mg PO DAILY PRN Tobacco use date assessed: 10/09/24 Dental Screening Dental Screen Date: 10/09/24 Did you have a dental visit in the last 12 months?: Yes Did you have a dental problem in the last 6 months where you did not have access to dental care?: No Was dental information given to patient?: Patient has dentist HPI Pre op clearence HPI Details The patient is a 49-year-old male presenting for a preoperative examination. 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 He is scheduled for a left orbitotomy with removal of the neoplasm, and there is no indication that it is cancerous. The patient has a history of chronic anemia, which was noted in recent blood work but is reportedly better than previous results. His white blood cell count was 4.5,000, and other lab results, including liver enzymes, were mostly within normal limits except for a slightly elevated AST. The patient underwent a stool test on October 15, which was negative for H. pylori infection. The patient is currently on a multivitamin daily. On omeprazole for GERD. On sildenafil for erectile dysfunction/sexual activity. Does not take any other medications. Social History - Alcohol use: Denies current alcohol co nsumption [facility] Medical History (Updated 11/05/24 @ 16:49 by Dara Link PA-C) Benign neoplasm of left orbit Pre-op exam Elevated liver enzymes GERD (gastroesophageal reflux disease) Erectile dysfunction Depression Elevated vitamin B12 level Canker sores oral Thrombocytopenia Anemia REMY (acute kidney injury) Acute metabolic encephalopathy Acute liver failure Intentional acetaminophen overdose Throat pain Annual physical exam Decreased hearing Dermoid cyst of eyebrow Carpal tunnel syndrome on both sides Colon cancer screening Family history of dementia Establishing care with new doctor, encounter for Family history of diabetes mellitus Family history of myocardial infarction Surgical History History of vasectomy Family History Mother Dementia Father Heart attack Social History Housing: House Alcohol intake: current Alcohol intake frequency: 3 or more drinks per day Patient Tobacco Use Status: Current everyday Tobacco user Cigarette Packs Per Day: 1.5 Cigarettes Per Day: 30 Years Smoked: 13 years old Packs Per Year: 0 Packs per year/per ci.00 service: No Current occupational status: employed Cognitive needs: No Hearing needs: No Vision needs: Yes (rx glasses) Questionnaire PHQ-9 Over the last 2 weeks, how often have you been bothered by any of the following problems? 1. Little interest or pleasure in doing things: not at all 2. Feeling down, depressed, or hopeless: not at all 3. Trouble falling or staying asleep, or sleeping too much: not at all 4. Feeling tired or having little energy: not at all 5. Poor appetite or overeating: not at all 6. Feeling bad about yourself - or that you are a failure or have let yourself or your family down: not at all 7. Trouble concentrating on things, such as reading the newspaper or watching television: not at all 8. Moving or speaking so slowly that other people could have noticed. Or the opposite - being so fidgety or restless that you have been moving around a lot more than usual: not at all 9. Thoughts that you would be better off or of hurting yourself in some way: not at all Total score: 0 Depression Screening Interpretation: Negative Depression Screening Done: Yes 30632 - PHQ-9 Billing: Yes Source: Developed by Drs. Amado Ca, Christi Davis, Gus Valentin and colleagues, with an educational rodri from [employer]. Thrive Questionnaire Date Thrive assessed: 08/21/24 I am a: Patient What is your living situation today?: I have a steady place to live Within the past 12 months, did the food you bought not last and you didn't have the money to get more?: Never true Within the past 12 months, did you worry whether your food would run out before you got money to buy more?: Never true Do you have trouble paying for medicines?: No Do you have trouble getting transportation to medical appointments?: No Do you have trouble paying your heating and electricity bill?: No Do you have trouble taking care of your child, family member or friend?: No Do you have trouble with day-to-day activities such as bathing, preparing meals, shopping, managing finances, etc.?: No Are you currently unemployed and looking for a job?: No Are you interested in more education?: No Please select the resources that you would like help with: None THRIVE Score: 0 AUDIT C Alcohol Use Questionnaire (AUDIT-C) 1. How often do you have a drink containing alcohol?: 4 or more times a week 2. How many drinks containing alcohol do you have on a typical day when you are drinking?: 3 or 4 3. How often do you have six or more drinks on one occasion?: Weekly Total Score: 8 Score Reviewed/Action Taken: No DARREN-7 AMB Questionnaire DARREN-7 Date DARREN - 7 assessed: 08/21/24 Feeling nervous, anxious, or on edge: 0 = Not at all Not being able to stop or control worryin = Not at all Worrying too much about different things: 0 = Not at all Trouble relaxin = Not at all Being so restless that it is hard to sit still: 0 = Not at all Becoming easily annoyed or irritable: 0 = Not at all Feeling afraid as if something awful might happen: 0 = Not at all Total DARREN-7 score (0-4 normal; 5-9 mild; 10-14 moderate; 15-21 severe): 0 Source: Developed by Drs. Amado Ca, Christi Davis, Gus Valentin and colleagues, with an educational rodri from [employer]. DARREN-7 Assessment Billing DARREN-7 Assessment Tool: DARREN-7 Assessment 57034 Review of Systems Const Details: - Gastrointestinal: Denies symptoms of H. pylori infection All systems reviewed & are unremarkable except as noted in HPI and below Physical exam (Primary Care) Vital Signs: Last Vital Signs Temp 98.0 F 11/05/24 10:30 Pulse 65 11/05/24 10:30 Resp 16 11/05/24 10:30 BP 133/73 11/05/24 10:30 Pulse Ox 99 11/05/24 10:30 Oxygen Delivery Method Room Air 11/05/24 10:30 Care Plan Goal for BP management: <140/90 at Goal BMI result Body Mass Index 25.1 Tobacco/Smoking Status: Tobacco use Status Tobacco use date assessed 10/09/24 11/05/24 10:34 Patient Tobacco Use Status Current everyday Tobacco 11/05/24 10:34 PHQ-9: PHQ-9 Score PHQ-9: Total score 0 11/05/24 15:08 Depression Screening Interpretation: Negative Thrive Assessment: Date of Thrive Assessment Date Thrive assessed 08/21/24 11/05/24 10:34 Const Other: Appearance: Alert. Oriented X3. No acute distress. Head: Normal external exam. Normocephalic. Atraumatic. Eyes: Pupils are equal, round, and reactive to light. Extraocular movements intact. Conjunctiva and sclera normal. Eyelids normal. Ears: External auditory canal normal. Tympanic membranes normal. Throat: Pharynx normal. Uvula midline. Moist mucous membranes. Neck: Normal inspection. Neck supple. Full range of motion. No adenopathy. Thyroid Normal. No meningeal signs. No neck mass noted. Cardiovascular: Normal heart rate and rhythm. Heart sound normal. No murmurs noted. Pulses normal throughout. Respiratory: No respiratory distress. Painless inspiration. Breath sounds normal. No wheezes/rales/rhonchi noted. Chest nontender. No accessory muscle usage noted or decreased air movement noted. Abdomen: Soft and nontender. Bowel sounds normal in all 4 quadrants. No distention noted. No organomegaly noted. No visible injury noted. Back: No costovertebral angle tenderness. Full range of motion noted. Skin: Skin warm and dry. Normal skin color. Normal skin turgor. No rashes/lesions/lacerations noted. Extremities: No lower extremity edema. Extremities exhibit normal range of motion. Extremities nontender. Neuro: Oriented X 3. No motor deficit. No sensory deficit. Reflexes normal. Results Reviewed Results Reviewed: - Labs: White blood cell count 4.5,000; BUN 25; Creatinine 1.04; GFR 60; AST 39 - Tests: Stool test negative for H. pylori - Diagnostics: EKG showing normal sinus rhythm Coding Level of Care Code Est Pt Level 4 (32932) Complex EM visit Add On G2211 Diagnoses Benign neoplasm of left orbit D31.62 Pre-op exam Z01.818 Additional Codes DARREN-7 Assessment Billing - DARREN-7 Assessment Tool: DARREN-7 Assessment 82251 ([id number]) PHQ-9 - 04678 - PHQ-9 Billing: Yes ([id number]) Assessment & Plan Assessment & Plan (1) Benign neoplasm of left orbit: Code(s): D31.62 - Benign neoplasm of unspecified site of left orbit Category: Medical Plan: Patient is scheduled for surgery on 11/11/2024 for a left orbitotomy with removal of neoplasm with IV sedation/MAC at [facility] (2) Pre-op exam: Code(s): Z01.818 - Encounter for other preprocedural examination Category: Medical Plan: Regarding preop clearance, the patient is at acceptable risk for proposed surgery. Reviewed with the patient that no surgery is completely free of wrist and that this examination is to assist the surgeon and reviewing informed cons ent. Plan Plan Patient was informed and verbally consented to the use of an ambient scribe for clinic note documentation during this visit. 1. Neoplasm Of The Left Orbit The patient is scheduled for a left orbitotomy to remove the neoplasm, which has been present since his early 20s and is described as a chronic cyst. There is no indication that the neoplasm is cancerous, and the patient will be cleared for surgery following the preoperative examination. 2. Chronic Anemia The patient's recent blood work indicates chronic anemia, which is reportedly better than previous results. Management will continue with monitoring of blood levels and addressing any underlying causes as necessary. 3. Chronic Cyst The chronic cyst, described as a neoplasm of the left orbit, will be addressed surgically with the upcoming orbitotomy. I discussed with the patient the upcoming left orbitotomy to remove the neoplasm, ensuring him that there is no indication of cancer. We reviewed his recent lab results, noting the improvement in his chronic anemia and the normal findings in his liver enzymes and EKG. I confirmed that he is cleared for surgery and addressed his request for medication refills, including Viagra and multivitamins. Medications: New multivitamin (Daily Multi-Vitamin tablet) 1 tab PO DAILY 90 tabs 3RF Changed From sildenafil (Viagra) administer 30 minutes to 4 hours before activity 50 mg PO DAILY PRN 20 tabs 1RF sexual activity To sildenafil administer 30 minutes to 4 hours before activity 100 mg PO DAILY PRN 20 tabs 3RF sexual activity Patient Instructions: - Continue with current medications as prescribed. - Follow up with the surgeon for the scheduled orbitotomy. - Monitor for any new symptoms and report them to the healthcare provider. - Maintain a healthy diet and lifestyle to support overall health.
--- OUTSIDE RECORDS SUMMARY | 2024-11-05 11:50 | XMS_ITS | Clinical Summary ---
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 Name Role Phone Unavailable Primary Care Provider [...] Description 09/13/2024 7:00 AM EDT Ancillary Procedure [facility] [address] [place] [phone] Provider, File Room 09/13/2024 6:55 AM EDT Ancillary Procedure [facility] [address] [place] [address] Provider, File Room 09/13/2024 6:55 AM EDT Ancillary Procedure [facility] [address] [place] [phone] Provider, File Room 09/13/2024 5:20 AM EDT - 09/19/2024 2:41 PM EDT Hospital Encounter [facility] [address] [place] [address] Jamal Stewart MD Powner, Jordan T, Tk Matos MD Rheiner, Jacqueline A, DO Hebbal, Pooja, MD Pichardo Castillo, Jose, MD Hematemesis (Primary Dx); Cocaine abuse (HCC); Hepatic encephalopathy (HCC); Jaundice; Thrombocytopenia; Transaminitis; Hyperammonemia ; Hyperbilirubinemia; Tylenol ingestion, intentional self-harm, initial encounter (HCC); Acute metabolic encephalopathy Discharge Disposition: Home or Self Care 09/13/2024 Travel 09/13/2024 Orders Only [facility] Radiology [address] [place] [address], [place] [phone] Provider, File Room from Last 3 Months Social History Tobacco Use Types Packs/Day Years Used Date Smoking Tobacco: Never Assessed [facility] Utilities Answer Date Recorded In the past 12 months has [employer] oil, or water [employer] threatened to shut off services in your [...] any time in the past 12 m [facility], were you homeless or living in a custodial (including now)? Patient unable to answer 09/14/2024 [...] the time period is included. Pathologist [facility] Anticoagulant IV HEPARIN, UNFRACTIONATED 09/19/2024 7:21 AM EDT Prothrombin Time (PT) 17.0(H) 10.0 - 13.5 seconds 09/19/2024 9:28 AM EDT INR 1.5 09/19/2024 9:28 AM T Comment:INR Therapeutic Rang es: Standard dose anticoagulant 2.0 to 3.0, High dose anticoagulant 2.5-3.5. Blood Blood specimen / Unknown 09/19/2024 8:09 AM EDT 09/19/2024 8:41 AM EDT Dwayne Marsh MD LAB BLOOD ORDERABLES F inal Result Performing Organization Address [facility] Co de Phone Number [address] [address], [address] [address] * (ABNORMAL) Complete Blood Count WITHOUT Differential - ROUTINE (09/19/2024 8:09 AM EDT) Only the most recent of8 resultswithin the time period is included. White Blood Cell Count 5.0 4.0 - 11.0 Thou/uL 09/19/2024 10:05 AM EDT Platelet Count 46(L) 150 - 450 Thou/uL 09/19/2024 10:05 AM T Comment: Results verified by smear review. Test results repeated. Occasional large platelet present. Hemoglobin 11.0(L) 13.0 - 17.7 g/dL 09/19/2024 10:05 AM [facility] Hematocrit 33.5(L) 39.0 - 54.0 % 09/19/2024 10:05 AM [facility] Red Blood Cell Count 3.54(L) 4.50 - 6.20 Mil/uL 09/19/2024 10:05 AM [facility] MCV 95 80 - 100 fL 09/19/2024 10:05 AM [facility] MCH 31.1 26.0 - 34.0 pg 09/19/2024 10:05 AM [facility] MCHC 32.8 30.0 - 36.0 g/dL 09/19/2024 10:05 AM [facility] RDW 15.9(H) 11.5 - 14.5 % 09/19/2024 10:05 AM [facility] MPV 12.1 7.5 - 12.5 fL 09/19/2024 10:05 AM [facility] Immature Platelet Fraction 9.9(H) 1.2 - 8.6 % 09/19/2024 10:05 AM [facility] Blood Blood specimen / Unknown 09/19/2024 8:09 AM EDT 09/19/2024 8:41 AM EDT us Dwayne Marsh MD LAB BLOOD ORDERAB[place] [address], [address] [address] * Magnesium (AM) (09/19/2024 8:09 AM EDT) Only the most recent of14 resultswithin the time period is included. Magnesium 1.8 1.6 - 2.7 mg/dL 09/19/2024 9:48 AM [facility] Blood Blood specimen / Unknown 09/19/2024 8:09 AM EDT 09/19/2024 8:41 AM EDT us Dwayne Marsh MD LAB BLOOD ORDERABLES F inal Result [address] [place] [address], [facility] [address] [place] [address] * (ABNORMAL) Comprehensive Metabolic Panel (09/19/2024 8:09 AM EDT) Glucose 97 65 - 99 mg/dL 09/19/2024 9:48 AM [facility] Comment:Fasting: <100 mg/dL, Non-Fasting: <200 mg/dL (ADA 2004) Blood Urea Nitrogen (BUN) 26(H) 8 - 21 mg/dL 09/19/2024 9:48 AM [facility] Creatinine 1.2 0.5 - 1.3 mg/dL 09/19/2024 9:48 AM [facility] eGFR 76 >59 09/19/2024 9:48 AM [facility] Comment:CKD-EPI (2020) in mL /min/1.73 sq meters. Sodium 145 136 - 145 mmol/L 09/19/2024 9:48 AM [facility] Potassium 3.7 3.4 - 5.3 mmol/L 09/19/2024 9:48 AM [facility] Chloride 114(H) 98 - 107 mmol/L 09/19/2024 9:48 AM [facility] CO2 23 22 - 33 mmol/L 09/19/2024 9:48 AM [facility] Calcium 8.4(L) 8.7 - 10.5 mg/dL 09/19/2024 9:48 AM [facility] Alkaline Phosphatase 122 45 - 128 U/L 09/19/2024 9:48 AM [facility] Aspartate Aminotrans (AST) 104(H) 10 - 55 U/L 09/19/2024 9:48 AM [facility] Alanine Aminotrans (ALT) 925(H) 10 - 55 U/L 09/19/2024 9:57 AM [facility] Bilirubin, Total 6.7(H) 0.2 - 1.0 mg/dL 09/19/2024 9:48 AM [facility] Protein, Total 5.0(L) 6.3 - 8.3 g/dL 09/19/2024 9:48 AM EDT Albumin 2.9(L) 3.5 - 5.0 g/dL 09/19/2024 9:48 AM EDT BUN/Creatinine Ratio 22 10.0 - 25.0 Ratio 09/19/2024 9:48 AM EDT Globulin 2.1 1.5 - 3.9 g/dL 09/19/2024 9:48 AM EDT Albumin/Globulin Ratio 1.4 1.0 - 3.0 Ratio 09/19/2024 9:48 AM EDT Anion Gap 8 7 - 17 09/19/2024 9:48 AM EDT Blood Blood specimen / Unknown 09/19/2024 8:09 AM EDT 09/19/2024 8:41 AM EDT Dwayne Marsh MD LAB BLOOD ORDERABLES F inal Result Performing Organization Address City/[facility]/[place] [address], [place] [address] * (ABNORMAL) Phosphorus (09/18/2024 11:49 PM EDT) Only the most recent of12 resultswithin the time period is included. Phosphorus 2.3(L) 2.7 - 4.5 mg/dL 09/19/2024 12:29 AM EDT Blood Blood specimen / Unknown 09/18/2024 11:49 PM EDT 09/19/2024 12:01 AM EDT Dana Harris APRN LAB BLOOD ORDERABLES Final R esult Performing Organization Address City/[facility]/[place] [address], [place] [address] * (ABNORMAL) HEPATIC FUNCTION PANEL (09/18/2024 11:49 PM EDT) Only the most recent of13 resultswithin the time period is included. Pathologist [facility] [place] Alkaline Phosphatase 109 45 - 128 U/L 09/19/2024 12:29 AM EDT Aspartate Aminotrans (AST) 108(H) 10 - 55 U/L 09/19/2024 12:29 AM [facility] Alanine Aminotrans (ALT) 1,031(H) 10 - 55 U/L 09/19/2024 12:32 AM T Bilirubin, Total 7.4(H) 0.2 - 1.0 mg/dL 09/19/2024 12:29 AM EDT Protein, Total 4.8(L) 6.3 - 8.3 g/dL 09/19/2024 12:29 AM [facility] Albumin 2.8(L) 3.5 - 5.0 g/dL 09/19/2024 12:29 AM [facility] Bilirubin, Direct 5.2(H) 0 - 0.2 mg/dL 09/19/2024 12:29 AM [facility] Globulin 2.0 1.5 - 3.9 g/dL 09/19/2024 12:29 AM [facility] Albumin/Globulin Ratio 1.4 1.0 - 3.0 Ratio 09/19/2024 12:29 AM [facility] Blood Blood specimen / Unknown 09/18/2024 11:49 PM EDT 09/19/2024 12:01 AM EDT [facility] LAB BLOOD ORDERABLES Final R esult [address] [address], [address] [address] * (ABNORMAL) Basic Metabolic Panel (09/18/2024 11:49 PM EDT) Only the most recent of14 resultswithin the time period is included. [facility] Glucose 87 65 - 99 mg/dL 09/19/2024 12:29 AM [facility] Comment:Fasting: <100 mg/dL, Non-Fasting: <200 mg/dL (ADA 2005) Blood Urea Nitrogen (BUN) 24(H) 8 - 21 mg/dL 09/19/2024 12:29 AM [facility] Creatinine 1.3 0.5 - 1.3 mg/dL 09/19/2024 12:29 AM [facility] eGFR 69 >59 09/19/2024 12:29 AM [facility] Comment:CKD-EPI (2020) in mL /min/1.73 sq meters. Sodium 142 136 - 145 mmol/L 09/19/2024 12:29 AM [facility] Potassium 3.8 3.4 - 5.3 mmol/L 09/19/2024 12:29 AM [facility] Chloride 110(H) 98 - 107 mmol/L 09/19/2024 12:29 AM [facility] CO2 24 22 - 33 mmol/L 09/19/2024 12:29 AM [facility] Anion Gap 8 7 - 17 09/19/2024 12:29 AM [facility] Calcium 8.2(L) 8.7 - 10.5 mg/dL 09/19/2024 12:29 AM [facility] BUN/Creatinine Ratio 18 10.0 - 25.0 Ratio 09/19/2024 12:29 AM [facility] Blood Blood specimen / Unknown 09/18/2024 11:49 PM EDT 09/19/2024 12:01 AM EDT us Dana Harris WIRELESS SALES EXPERT LAB BLOOD ORDERABLES Final R esult [address] [address], [address] [address] * Sodium (09/18/2024 6:23 AM EDT) Only the most recent of9 resultswithin the time period is included. Sodium 140 136 - 145 mmol/L 09/18/2024 7:48 AM EDT Blood Blood specimen / Unknown 09/18/2024 6:23 AM EDT 09/18/2024 6:48 AM EDT Marie Simmons PA-C LAB BLOOD ORDERABLES Jessenia l Result Performing Organization Address City/[facility]/[place] [address], [address] [address] * (ABNORMAL) TSH (Routine) (09/18/2024 12:40 AM EDT) TSH, Highly Sensitive 0.15(L) 0.27 - 4.20 mIU/L 09/18/2024 3:09 AM EDT Blood Blood specimen / Unknown 09/18/2024 12:40 AM EDT 09/18/2024 1:00 AM EDT Dana Greener WIRELESS SALES EXPERT LAB BLOOD ORDERABLES Final R esult Performing Organization Address [facility]/[place] [address], [address] [address] * T4, FREE (09/18/2024 12:40 AM EDT) T4, Free 0.90 0.80 - 1.90 ng/dL 09/18/2024 9:06 AM EDT 09/18/2024 12:4 0 AM EDT 09/18/2024 1:00 AM EDT Dana Greener WIRELESS SALES EXPERT LAB BLOOD ORDERABLES Final R esult [address] [address], [address] [address] * Folate Level (09/18/2024 12:40 AM EDT) Pathologist [facility] Folate, Serum Specimen hemolyzed. Test not performed. >7.2 ng/mL 09/18/2024 3:24 AM EDT Blood Blood specimen / Unknown 09/18/2024 12:40 AM EDT 09/18/2024 1:00 AM EDT us Dana Greener WIRELESS SALES EXPERT LAB BLOOD ORDERABLES Final R esult Performing Organization Address City/[facility] Co de Phone Number [address] [address], [address] [address] * (ABNORMAL) Vitamin B12 (09/18/2024 12:40 AM EDT) [facility] Vitamin B12 >2,000(H) 243 - 894 pg/mL 09/18/2024 4:04 AM EDT Blood Blood specimen / Unknown 09/18/2024 12:40 AM EDT 09/18/2024 1:00 AM EDT us Dana Greener WIRELESS SALES EXPERT LAB BLOOD ORDERABLES Final R esult Performing Organization Address City/[facility] Co de Phone Number [address] [address], [address] [address] * ECHOCARDIOGRAM COMPREHENSIVE (09/17/2024 11:40 AM EDT) [facility] LV Diastolic Volume Index (F:29-61, M:35-75) 72.2 [...] gas pattern. Interpreted by: Guevara Howard DO Senior Safety Management Consultant I personally reviewed the images and the [...] gas pattern. Interpreted by: Guevara Howard DO Senior Safety Management Consultant I personally reviewed the images and the resident's preliminary report and AGREE with the report as it is now presented ([id number]). us Dana Harris APRN IMG DIAGNOSTIC IMAGING ORDER MARGO Final Result * LACTIC ACID, PLASMA (09/16/2024 11:45 AM EDT) Only the most recent of4 resultswithin the time period is included. Lactic Acid 1.0 0.5 - 1.9 mmol/L 09/16/2024 12:33 PM EDT Blood Blood specimen / Unknown 09/16/2024 11:45 AM EDT 09/16/2024 12:01 PM EDT Dana Harris APRN LAB BLOOD ORDERABLES Final R esult [address] [address], [address] [address] * EEG AWAKE OR DROWSY (09/16/2024 9:19 AM EDT) Narrative [facility] - 09/16/2024 9:19 AM EDT Sharonda Dorsey MD 09/16/2024 11:33 AM INPATIENT ADULT ELECTROENCEPHALOGRAM (EEG) REPORT Facility: [facility] Patient and : Gregg Lisa 1975 Date [...] suppression in clinically-apparent sleep suggested the former. [id number] TOTAL SCORE: 0 (5% SZ [![id number]$[id number]&0]) Sharonda Dorsey MD [facility] FOR EEG LAB USE: Abnormal Non-epileptiform :qz!02; No events :qz!08; Complexity ratin :qz!15 us Brooke PINEDO NEUROLOGY ORDERABLES Mariano yola Result - Final [facility] [address] [place] [address], * ECG 12 lead (09/16/2024 8:38 AM EDT) Only the most recent of4 resultswithin the time period is included. Pathologist [facility] Systolic BP 131 mmHg EKG [facility] Diastolic BP 61 mmHg EKG [facility] Ventricular rate 83 BPM EKG Atrial rate 83 BPM EKG [facility] P-R interval 104 ms EKG [facility] QRS duration 92 ms EKG [facility] Q-T interval 386 ms EKG [facility] QTC calculation (Bazett) 453 ms EKG P axis -54 degrees EKG [facility] R axis 89 degrees EKG [facility] T axis 52 degrees EKG [facility] 09/16/2024 8:38 AM EDT Narrative EKG - 09/16/2024 8:40 AM EDT Unusual P axis, possible ectopic atrial rhythm Abnormal ECG When compared with ECG of 14-Sep-2024 13:31, Ectopic atrial rhythm has replaced Sinus rhythm Vent. rate has decreased by [address] no longer depressed in Inferior leads T wave amplitude has decreased in Anterior leads Confirmed by Leann Lockhart MD ([id number]) on 09/16/2024 8:40:33 AM Procedure Note Leann Lockhart MD - 09/16/2024 Unusual P axis, possible ectopic atrial rhythm Abnormal ECG When compared with ECG of 14-Sep-2024 13:31, Ectopic atrial rhythm has replaced Sinus rhythm Vent. rate has decreased by [address] no longer depressed in Inferior leads T wave amplitude has decreased in Anterior leads Confirmed by Leann Lockhart MD ([id number]) on 09/16/2024 8:40:33 AM Tk You MD ECG ORDERABLES Final Result [facility] * (ABNORMAL) Hemoglobin and Hematocrit (09/16/2024 8:30 AM EDT) Only the most recent of2 resultswithin the time period is included. [facility] Hematocrit 38.1(L) 39.0 - 54.0 % 09/16/2024 10:16 AM EDT Hemoglobin 12.1(L) 13.0 - 17.7 g/dL 09/16/2024 10:16 AM EDT Blood Blood specimen / Unknown 09/16/2024 8:30 AM EDT 09/16/2024 8:48 AM EDT Yazmin Martinez PA-C LAB BLOOD ORDERABLES Final Result Performing Organization Address [facility] [place] [address], [address] [address] * Vancomycin Level, Random (09/16/2024 6:49 AM EDT) Vancomycin, Random 6 mg/L 09/16/2024 8:03 AM EDT Comment:No reference range e stablished for random levels. Time of Last Dose Information not given 09/16/2024 6:49 AM EDT Blood Blood specimen / Unknown 09/16/2024 6:49 AM EDT 09/16/2024 7:34 AM EDT Tk You MD LAB BLOOD ORDERABLES Final Resul t Performing Organization Address [facility] [place] [address], [place] [address] * Ammonia Level (09/16/2024 12:00 AM EDT) Only the most recent of8 resultswithin the time period is included. Ammonia, Plasma 51 16 - 60 umol/L 09/16/2024 12:44 AM EDT Blood Blood specimen / Unknown 09/16/2024 09/16/2024 12:18 AM EDT Cheko PINEDO LAB BLOOD ORDERABLES Final Resu lt Performing Organization Address [facility] [place] [address], [address] [address] * (ABNORMAL) Blood Gas with Cooximetry, Arterial (09/15/2024 5:39 PM EDT) Only the most recent of3 resultswithin the time period is included. Respiratory Info VENT 40% 09/16/19 5:39 PM EDT pH, Arterial 7.49(H) 7.35 - 7.45 09/15/2024 6:08 PM [facility] pCO2, Arterial 37 32 - 45 mmHG 09/15/2024 6:08 PM [facility] pO2, Arterial 190(H) 75 - 95 mmHG 09/15/2024 6:08 PM [facility] CO2, Total 29(H) 22 - 28 mmol/L 09/15/2024 6:08 PM [facility] P/F Ratio 475 09/15/2024 6:08 PM [facility] Base Excess 4.6 mmol/L 09/15/2024 6:08 PM [facility] Comment:Reference Range: Neg ative 2 to Positive 3 Hemogloblin, Total 13.6 13.0 - 17.7 g/dL 09/15/2024 6:08 PM [facility] O2 Saturation, Arterial 99.6(H) 94 - 97 % 09/15/2024 6:08 PM [facility] Carboxyhemoglobin 0.8 0.0 - 2.0 % 09/15/2024 6:08 PM [facility] Methemoglobin 0.6 0.4 - 1.5 % 09/15/2024 6:08 PM [facility] O2 Content, Arterial 19.2 17.6 - 24.3 mL/dL 09/15/2024 6:08 PM [facility] Blood Blood specimen / Unknown 09/15/2024 5:39 PM EDT 09/15/2024 6:01 PM EDT us Brooke PINEDO LAB BLOOD ORDERABLES Fin al Result [address] [address], [address] [address] * Hepatitis C Viral Load, Quantitative (09/15/2024 8:40 AM EDT) [facility] HCV RNA (IU/mL) Not Detected <10 IU/mL 09/16/2024 2:14 PM EDT [facility] HCV RNA (log10) Not Detected <1.00 log10 IU/mL 09/16/2024 2:14 PM EDT [facility] Interpretation Not Detected 09/17/19 2:14 PM EDT [facility] Comment:Performed by FDA basilio roved [employer]pt[employer] TMA. Linear range is 10 to 100,000,000 IU/mL. HCV Genotyping is not recommended for viral loads below 300 IU/mL. Blood Blood specimen / Unknown 09/15/2024 8:40 AM EDT 09/15/2024 10:18 AM EDT Brooke PINEDO LAB BLOOD ORDERABLES Fin al Result [facility] [address] [place] [address], * (ABNORMAL) Factor V Assay (09/15/2024 8:40 AM EDT) [facility] Factor V 46(L) 50 - 150 % Normal 09/15/2024 12:38 PM EDT Blood Blood specimen / Unknown 09/15/2024 8:40 AM EDT 09/15/2024 10:18 AM EDT Brooke PINEDO LAB BLOOD ORDERABLES Fin al Result [address] [address], [address] [address] * Nasal MRSA Screen, PCR (09/15/2024 8:35 AM EDT) [facility] MRSA Result Not Detected Not Detected 11:30 AM EDT Comment:Performed by the Xpe rt MRSA NxG Assay Swab, Anterior Nares Specimen from nose / Unknown 09/15/2024 8:35 AM EDT 09/15/2024 9:27 AM EDT Brooke PINEDO MICROBIOLOGY - GENERAL O RDERABLES Final Result [address] [place] [address], [address] [address] * Blood Culture (09/15/2024 3:05 AM EDT) Only the most recent of4 resultswithin the time period is included. Culture Sterile after 5 days 09/20/2024 7:33 AM EDT [facility] Blood Blood specimen / Unknown 09/15/2024 3:05 AM EDT 09/15/2024 3:52 AM EDT Comment:Blood Heidi PINEDO LAB BLOOD ORDERABLES Jessenia l Result [facility] [address] [place] [address], [place] * XR Chest 1 view-Portable (09/15/2024 [...] Mixed normal kathrine 09/15/2024 3:11 AM EDT Culture Staphylococcus aureus(A) 09/17/2024 2:10 PM EDT [facility] Culture Mixed normal kathrine 09/17/2024 2:10 PM EDT [facility] Aspirate, Tracheal Specimen from trachea [...] MICROBIOLOGY - GENERAL OR DERABLES Final Result [facility] [address] [place] [address], [address] [address] * (ABNORMAL) Urinalysis with Reflex to Microscopic (09/15/2024 2:20 AM EDT) Color Martina 09/15/2024 2:39 AM [facility] Clarity Clear 09/15/2024 2:39 AM [facility] Specific Emma 1.023 1.003 - 1.030 09/15/2024 2:39 AM [facility] pH 5.0 5.0 - 8.0 09/15/2024 2:39 AM [facility] Leukocyte Esterase Negative Negative 09/15/2024 2:39 AM [facility] Nitrite Negative Negative 09/15/2024 2:39 AM [facility] Protein Negative Negative 09/15/2024 2:39 AM [facility] Glucose 0 0 - 99 mg/dL 09/15/2024 2:39 AM [facility] Ketones Negative Negative 09/15/2024 2:39 AM [facility] Blood Large(A) Negative 09/15/2024 2:39 AM [facility] Bilirubin Negative Negative 09/15/2024 2:39 AM [facility] WBC 1 0 - 4 per hpf 09/15/2024 2:39 AM [facility] RBC 6(H) 0 - 4 per hpf 09/15/2024 2:39 AM [facility] Urine Urine specimen obtained via straight catheter / Unknown 09/15/2024 2:20 AM EDT 09/15/2024 2:30 AM EDT Heidi Zabala PA URINE ORDERABLES Final Re sult Performing Organization Address City/[facility]/[place] [address], [place] [address] * (ABNORMAL) LIPASE (09/15/2024 1:04 AM EDT) Only the most recent of3 resultswithin the time period is included. Lipase 73(H) 13 - 60 U/L 09/15/2024 4:58 AM EDT 09/15/2024 1:04 AM EDT 09/15/2024 1:26 AM EDT Cheko PINEDO LAB BLOOD ORDERABLES Final Resu lt Performing Organization Address [facility] [place] [address], [place] [address] * (ABNORMAL) Blood Gas with Cooximetry, Venous (09/14/2024 9:43 AM EDT) Respiratory Info VENT 40% 09/15/19 9:43 AM EDT Venous Blood PH 7.48(H) 7.33 - 7.43 09/14/2024 10:27 AM [facility] Venous pCO2 38 35 - 50 mmHG 09/14/2024 10:27 AM [facility] Venous pO2 139(H) 0 - 60 mmHG 09/14/2024 10:27 AM [facility] Venous Total CO2 29 23 - 29 mmol/L 09/14/2024 10:27 AM [facility] Base Excess 4.9 mmol/L 09/14/2024 10:27 AM T Comment:Reference Range: Neg ative 2 to Positive 3 Hemogloblin, Total 14.5 13.0 - 17.7 g/dL 09/14/2024 10:27 AM [facility] O2 Saturation, Venous 99.1 % 09/2024 10:27 AM [facility] Carboxyhemoglobin 1.4 0.0 - 2.0 % 09/14/2024 10:27 AM EDT Methemoglobin 0.6 0.4 - 1.5 % 09/14/2024 10:27 AM EDT Venous O2 Content 20.0(H) 7.2 - 17.2 mL/dL 09/14/2024 10:27 AM EDT Blood Blood specimen / Unknown 09/14/2024 9:43 AM EDT 09/14/2024 10:15 AM EDT Brooke PINEDO LAB BLOOD ORDERABLES Fin al Result Performing Organization Address [facility] [place] [address], [place] [address] * (ABNORMAL) Creatine Kinase (CK) (09/14/2024 2:40 AM EDT) Only the most recent of5 resultswithin the time period is included. Creatine Kinase (CK) 261(H) 24 - 204 U/L 09/14/2024 3:20 AM EDT Blood Blood specimen / Unknown 09/14/2024 2:40 AM EDT 09/14/2024 2:53 AM EDT Amanda PINEDO LAB BLOOD ORDERABLES Final R esult Performing Organization Address City/[facility] [place] [address], [place] [address] * (ABNORMAL) Acetaminophen Level (09/14/2024 12:20 AM EDT) Only the most recent of4 resultswithin the time period is included. Acetaminophen Level <5(L) 10 - 30 mg/L 09/14/2024 1:06 AM EDT Comment:Specimen icteric Blood Blood specimen / Unknown 09/14/2024 12:20 AM EDT 09/14/2024 12:37 AM EDT us Cheko PINEDO LAB BLOOD ORDERABLES Final Resu lt [address] [place] [address], [facility] [address] [place] [address] * US Duplex abdomen/pelvis-Complete (09/13/2024 11:23 PM [...] cross-sectional imaging could be performed. Cheko [facility]EDO [facility] [facility] US ORDERABLES Final Result * EBV DNA, PCR, Quantitative (09/13/2024 6:32 PM EDT) Specimen Source EDTA PLASMA 09/18/2024 7:39 AM EDT [employer] EBV DNA Not Detected 09/18/2024 7:39 AM EDT [employer] Comment:UNITS: IU/mL EBV DNA, QN PCR Not Detected 09/18/2024 7:39 AM EDT [employer] Comment: UNITS: Log IU/mL (NOTE) Reference Range: Not Detected For additional information, please refer to [email or web address] (This link is being provided for informational/ educational purposes only.) Blood Blood specimen / Unknown 09/13/2024 6:32 PM EDT 09/13/2024 6:41 PM EDT Cheko PINEDO BODY FLUIDS AND STOOLS ORDERABL ES Final Result [facility] [place] [address] [facility] [address] [address] [place], [place] , [place] [facility], [place] [address] [facility] [address] [address] [place], [place] * Triglycerides (09/13/2024 4:10 PM EDT) Triglycerides 135 <150 mg/dL 09/13/2024 5:17 PM EDT Comment:Specimen icteric Blood Blood specimen / Unknown 09/13/2024 4:10 PM EDT 09/13/2024 4:38 PM EDT Cheko PINEDO LAB BLOOD [place] [address], [address] [address] * EEG AWAKE OR DROWSY (09/13/2024 4:07 PM EDT) Narrative NATUS - 09/13/2024 4:07 PM EDT Nathalie Cortez MD 09/13/2024 9:46 PM INPATIENT ADULT ELECTROENCEPHALOGRAM (EEG) REPORT Facility: [facility] Patient and : Gregg Lisa 1975 Date [...] electrographic seizures. Nathalie Cortez MD ABPN Epilepsy. [facility] us Cheko PINEDO NEUROLOGY ORDERABLES Edited Res ult - Final [facility] [address] [id number], * Troponin T, High Sensitivity (09/13/2024 2:19 PM EDT) Only the most recent of3 resultswithin the time period is included. High Sensitivity Troponin T 20 <23 ng/L 09/13/2024 3:07 PM EDT Delta (Change) NO CHANGE <3 09/13/2024 3:07 PM EDT Blood Blood specimen / Unknown 09/13/2024 2:19 PM EDT 09/13/2024 2:43 PM EDT us Cheko PINEDO LAB BLOOD ORDERABLES Final Resu lt Performing Organization Address [facility] Co de Phone Number [address] [address], [address] [address] * Sodium, Urine, Random (09/13/2024 2:10 PM EDT) Only the most recent of2 resultswithin the time period is included. Sodium, Urine Random <20 mmol/L 09/13/2024 3:04 PM EDT Comment:Reference range not established for random specimen. Urine Urine specimen / Unknown 09/13/2024 2:10 PM EDT 09/13/2024 2:44 PM EDT us Cheko PINEDO URINE ORDERABLES Final Result Performing Organization Address [facility] Co de Phone Number [address] [address], [address] [address] * Creatinine, Urine, Random (09/13/2024 2:10 PM EDT) Only the most recent of2 resultswithin the time period is included. Creatinine, Urine, Random 67 mg/dL 09/13/2024 3:04 PM EDT Comment:Reference range not established for random specimen. Urine Urine specimen / Unknown 09/13/2024 2:10 PM EDT 09/13/2024 2:44 PM EDT us Cheko PINEDO URINE ORDERABLES Final Result Performing Organization Address City/[facility] Co de Phone Number [address] [address], [address] [address] * Hepatitis Panel, Acute (09/13/2024 11:25 AM EDT) Hepatitis A Antibody IgM Nonreactive Nonreactive 09/14/2024 10:29 AM EDT [facility] Hepatitis B Core Antibody IgM Nonreactive Nonreactive 09/14/2024 10:29 AM EDT [facility] Hepatitis B Surface Ag Screen Nonreactive Nonreactive 09/14/2024 10:29 AM EDT [facility] Hepatitis C Antibody Nonreactive Nonreactive 09/14/2024 10:29 AM EDT [facility] Comment:Antibodies to HCV no t detected. This does not exclude the possibility of exposure to HCV. Hepatitis Interpretation : Results inconsistent with acute Hepatitis A, B or C Virus infection. 09/14/2024 10:29 AM EDT [facility] Blood Blood specimen / Unknown 09/13/2024 11:25 AM EDT 09/13/2024 12:39 PM EDT Mingo Serrato DO LAB BLOOD ORDERABLES Final Re sult Performing Organization Address City/[facility]/ZIP Co de Phone Number [facility] [address] [place] [address], * proBNP, N-terminal (09/13/2024 10:04 AM EDT) proBNP, N-terminal 76 <125 pg/mL 09/13/2024 3:02 PM EDT 09/13/2024 10:0 4 AM EDT 09/13/2024 10:15 AM EDT Mingo Serrato DO LAB BLOOD ORDERABLES Final Re sult [address] [address], [place] [address] [address] * (ABNORMAL) OSMOLALITY (09/13/2024 10:04 AM EDT) Osmolality, Serum/Plasma 345(H) 275 - 295 mOsm/Kg 09/13/2024 2:54 PM EDT 09/13/2024 10:0 4 AM EDT 09/13/2024 10:15 AM EDT Mingo Serrato LAB BLOOD ORDERABLES Final Re sult Performing Organization Address [facility] Co de Phone Number [address] [address], [address] [address] * (ABNORMAL) Blood Gas, Arterial (09/13/2024 10:00 AM EDT) Only the most recent of2 resultswithin the time period is included. pH, Arterial 7.43 7.35 - 7.45 09/13/2024 10:30 AM EDT pCO2, Arterial 44 32 - 45 mmHG 09/13/2024 10:30 AM EDT pO2, Arterial 173(H) 75 - 95 mmHG 09/13/2024 10:30 AM EDT CO2, Total 31(H) 22 - 28 mmol/L 09/13/2024 10:30 AM EDT Respiratory Info Information not given 09/13/2024 10:25 AM EDT Base Excess 4.6 mmol/L 09/13/2024 10:30 AM T Comment:Reference Range: Neg ative 2 to Positive 3 Blood specimen / Unknown 09/13/2024 10:00 AM EDT 09/13/2024 10:22 AM EDT Jamal Stewart MD LAB BLOOD ORDERABLES Final Result Performing Organization Address City/[facility]/ZIP Co de Phone Number [address] [address], [address] [address] * (ABNORMAL) Complete Blood Count, with Differential (09/13/2024 8:01 AM EDT) Pathologist [facility] White Blood Cell Count 5.5 4.0 - 11.0 Thou/uL 09/13/2024 9:37 AM EDT Platelet Count 74(L) 150 - 450 Thou/uL 09/13/2024 9:37 AM T Comment: Test results repeated. Results verified by smear review. Hemoglobin 15.2 13.0 - 17.7 g/dL 09/13/2024 9:37 AM [facility] Hematocrit 44.6 39.0 - 54.0 % 09/13/2024 9:37 AM [facility] Red Blood Cell Count 4.82 4.50 - 6.20 Mil/uL 09/13/2024 9:37 AM [facility] MCV 93 80 - 100 fL 09/13/2024 9:37 AM [facility] MCH 31.5 26.0 - 34.0 pg 09/13/2024 9:37 AM [facility] MCHC 34.1 30.0 - 36.0 g/dL 09/13/2024 9:37 AM [facility] RDW 14.6(H) 11.5 - 14.5 % 09/13/2024 9:37 AM [facility] MPV 11.8 7.5 - 12.5 fL 09/13/2024 9:37 AM [facility] nRBC 0.4(H) 0.0 - 0.1 /100 WBC 09/13/2024 9:37 AM [facility] nRBC, Absolute 0.02 0.00 - 0.02 Thou/uL 09/13/2024 9:37 AM [facility] Immature Platelet Fraction 3.0 1.2 - 8.6 % 09/13/2024 9:37 AM [facility] Neutrophils Auto 90.8 % 09/14/19 9:44 AM [facility] Immature Granulocytes 0.9 % 09/13/2024 9:44 AM [facility] Lymphocytes Auto 6.0 % 09/14/19 9:44 AM [facility] Monocytes Auto 1.6 % 09/13/2024 9:44 AM [facility] Eosinophils Auto 0.5 % 09/14/19 9:44 AM [facility] Basophils Auto 0.2 % 09/13/2024 9:44 AM [facility] Abs Neutrophils Auto 5.03 2.00 - 7.50 Thou/uL 09/13/2024 9:44 AM [facility] Abs Immature Granulocytes 0.05 0.00 - 0.10 Thou/uL 09/13/2024 9:44 AM [facility] Abs Lymphocytes Auto 0.33(L) 1.50 - 4.50 Thou/uL 09/13/2024 9:44 AM EDT Abs Monocytes Auto 0.09(L) 0.20 - 1.50 Thou/uL 09/13/2024 9:44 AM EDT Abs Eosinophils Auto 0.03 0.00 - 0.70 Thou/uL 09/13/2024 9:44 AM EDT Abs Basophils Auto 0.01 0.00 - 0.20 Thou/uL 09/13/2024 9:44 AM EDT Blood Blood specimen / Unknown 09/13/2024 8:01 AM EDT 09/13/2024 8:34 AM EDT Gauri Chan MD LAB BLOOD ORDERABLES Final Resul t Performing Organization Address City/[facility]/[place] [address], [place] [address] * APTT (09/13/2024 8:01 AM EDT) Anticoagulant OTHER AGENT OR UNKNOWN 09/13/2024 5:36 AM EDT Partial Thromboplastin Time (PTT) Grossly Hemolyzed,Re collection Requested 25 - 36 seconds 09/13/2024 9:02 AM EDT Blood Blood specimen / Unknown 09/13/2024 8:01 AM EDT 09/13/2024 8:34 AM EDT us Gauri Chan MD LAB BLOOD [place] [address], [place] [address] * (ABNORMAL) Urinalysis with Reflex to Microscopic and Culture (09/13/2024 7:54 AM EDT) Color Martina 09/13/2024 8:48 AM EDT Clarity Clear 09/13/2024 8:48 AM [facility] Specific Emma 1.032(H) 1.003 - 1.030 09/13/2024 8:48 AM [facility] pH 6.0 5.0 - 8.0 09/13/2024 8:48 AM [facility] Leukocyte Esterase Negative Negative 09/13/2024 8:48 AM [facility] Nitrite Negative Negative 09/13/2024 8:48 AM [facility] Protein Small (30 mg/dL)(A) Negative 09/13/2024 8:48 AM [facility] Glucose 0 0 - 99 mg/dL 09/13/2024 8:48 AM [facility] Ketones Negative Negative 09/13/2024 8:48 AM [facility] Blood Moderate(A) Negative 09/13/2024 8:48 AM [facility] Bilirubin Negative Negative 09/13/2024 8:48 AM [facility] WBC 1 0 - 4 per hpf 09/13/2024 8:48 AM [facility] RBC >25(H) 0 - 4 per hpf 09/13/2024 8:48 AM [facility] Squamous Epithelial Cells 1 PER HPF 09/13/2024 8:48 AM [facility] Urine (Indwelling Urinary Catheter) 09/13/2024 7:54 AM EDT 09/13/2024 8:40 AM EDT Gauri Chan MD URINE ORDERABLES Final Result [address] [address], [address] [address] * Fentanyl Screen, Urine (09/13/2024 7:54 AM EDT) Fentanyl Screen, Urine Negative Negative <5 ng/mL 09/13/2024 11:45 AM T Comment: * FOR MEDICAL PURPOSES ONLY * Confirmation upon request. Urine Urine specimen / Unknown 09/13/2024 7:54 AM EDT 09/13/2024 11:08 AM EDT us Mingo Serrato DO URINE ORDERABLES Final Result Performing Organization Address [facility] Co de Phone Number [address] [address], [address] [address] * Methadone Screen, Urine (09/13/2024 7:54 AM EDT) Methadone Screen, Urine Negative Negative <300 ng/mL 09/13/2024 11:45 AM EDT Comment:* FOR MEDICAL PURPOS ES ONLY * Urine Urine specimen / Unknown 09/13/2024 7:54 AM EDT 09/13/2024 11:08 AM EDT us Mingo Serrato DO URINE ORDERABLES Final Result Performing Organization Address [facility] Co de Phone Number [address] [address], [address] [address] * Cannabinoid Screen, Urine (09/13/2024 7:54 AM EDT) Cannabinoid Screen, Urine Negative Negative <50 ng/mL 09/13/2024 11:45 AM EDT Comment:* FOR MEDICAL PURPOS ES ONLY * Urine Urine specimen / Unknown 09/13/2024 7:54 AM EDT 09/13/2024 11:08 AM EDT us Mingo Serrato DO URINE ORDERABLES Final Result Performing Organization Address [facility] Co de Phone Number [address] [address], [address] [address] * Buprenorphine Screen, Urine (09/13/2024 7:54 AM EDT) Buprenorphine Screen, Urine Negative Negative <5 ng/mL 09/13/2024 11:45 AM EDT Comment:* FOR MEDICAL PURPOS ES ONLY * Urine Urine specimen / Unknown 09/13/2024 7:54 AM EDT 09/13/2024 11:08 AM EDT us Mingo Serrato DO URINE ORDERABLES Final Result Performing Organization Address [facility] Co de Phone Number [address] [address], [address] [address] * Tricyclic Screen, Urine (09/13/2024 7:54 AM EDT) Tricyclic Screen, Urine Negative Negative <300 ng/mL 09/13/2024 11:45 AM EDT Comment:* FOR MEDICAL PURPOS ES ONLY * Urine Urine specimen / Unknown 09/13/2024 7:54 AM EDT 09/13/2024 11:08 AM EDT us Mingo Serrato DO URINE ORDERABLES Final Result Performing Organization Address [facility] Co de Phone Number [address] [address], [address] [address] * Phencyclidine (PCP) Screen, Urine (09/13/2024 7:54 AM EDT) PCP Screen, Urine Negative Negative <25 ng/mL 09/13/2024 11:45 AM EDT Comment:* FOR MEDICAL PURPOS ES ONLY * Urine Urine specimen / Unknown 09/13/2024 7:54 AM EDT 09/13/2024 11:08 AM EDT us Mingo Serrato DO URINE ORDERABLES Final Result Performing Organization Address [facility] Co de Phone Number [address] [address], [address] [address] * Oxycodone Screen, Urine (09/13/2024 7:54 AM EDT) Oxycodone Screen, Urine Negative Negative <100 ng/mL 09/13/2024 11:45 AM EDT Comment:* FOR MEDICAL PURPOS ES ONLY * Urine Urine specimen / Unknown 09/13/2024 7:54 AM EDT 09/13/2024 11:08 AM EDT us Mingo Cerratoner DO URINE ORDERABLES Final Result Performing Organization Address [facility] Co de Phone Number [address] [address], [address] [address] * Opiate Screen, Urine (09/13/2024 7:54 AM EDT) Opiate, Urine Negative Negative <300 ng/mL 09/13/2024 11:45 AM EDT Comment:* FOR MEDICAL PURPOS ES ONLY * Urine Urine specimen / Unknown 09/13/2024 7:54 AM EDT 09/13/2024 11:08 AM EDT us Mingo Gillespie Powner DO URINE ORDERABLES Final Result Performing Organization Address City/[facility]/ZIP Co de Phone Number [address] [address], [address] [address] * Ethanol, Urine (09/13/2024 7:54 AM EDT) Ethanol, Urine Negative Negative <11 mg/dL 09/13/2024 11:45 AM EDT Urine Urine specimen / Unknown 09/13/2024 7:54 AM EDT 09/13/2024 11:08 AM EDT us Mingo Cerratoner DO URINE ORDERABLES Final Result Performing Organization Address [facility] Co de Phone Number [address] [address], [address] [address] * (ABNORMAL) Cocaine Screen, Urine (09/13/2024 7:54 AM EDT) Cocaine Screen, Urine Positive( A) Negative <300 ng/mL 09/13/2024 11:45 AM EDT Comment: * FOR MEDICAL PURPOSES ONLY * Confirmation upon request. Urine Urine specimen / Unknown 09/13/2024 7:54 AM EDT 09/13/2024 11:08 AM EDT us Mingo Serrato DO URINE ORDERABLES Final Result Performing Organization Address [facility] Co de Phone Number [address] [address], [address] [address] * Benzodiazepine Screen, Urine (09/13/2024 7:54 AM EDT) Benzodiazepine Screen, Urine Negative Negative <200 ng/mL 09/13/2024 11:45 AM EDT Comment:* FOR MEDICAL PURPOS ES ONLY * Urine Urine specimen / Unknown 09/13/2024 7:54 AM EDT 09/13/2024 11:08 AM EDT us Mingo Serrato DO URINE ORDERABLES Final Result Performing Organization Address [facility] Co de Phone Number [address] [address], [address] [address] * Barbiturate Screen, Urine (09/13/2024 7:54 AM EDT) Barbiturate Screen, Urine Negative Negative <200 ng/mL 09/13/2024 11:45 AM EDT Comment:* FOR MEDICAL PURPOS ES ONLY * Urine Urine specimen / Unknown 09/13/2024 7:54 AM EDT 09/13/2024 11:08 AM EDT us Mingo Serrato DO URINE ORDERABLES Final Result Performing Organization Address [facility] Co de Phone Number [address] [address], [address] [address] * Amphetamine Screen, Urine (09/13/2024 7:54 AM EDT) Amphetamine Screen, Urine Negative Negative <1000 ng/mL 09/13/2024 11:45 AM EDT Comment:* FOR MEDICAL PURPOS ES ONLY * Urine Urine specimen / Unknown 09/13/2024 7:54 AM EDT 09/13/2024 11:08 AM EDT Mingo Serrato DO URINE ORDERABLES Final Result [address] [address], [address] [address] * INTUBATION (09/13/2024 7:53 AM EDT) Jamal Mondragon MD - 09/13/2024 7:53 AM EDT Jamal Stewart MD 09/13/2024 12:07 PM Intubation Date/Time: 09/13/2024 7:53 AM Performed by: Tuyet Ma MD Authorized by: Jamal Stewart MD Consent: Consent obtained: Emergent situation [place] protocol: Relevant documents present and verified: yes [...] Reference Only (09/13/2024 6:51 AM EDT) Narrative [facility] 09/13/2024 6:51 AM EDT This study has been auto finalized and does not contain a result. us File Room Provider IMG DIGITIZE FILMS Final Resu lt Performing Organization Address [facility] Co de Phone Number RADHA [phone] * CR Chest Archive for Reference only (09/13/2024 6:51 AM EDT) Narrative [facility] 09/13/2024 6:51 AM EDT This study has been auto finalized and does not contain a result. us File Room Provider IMG DIGITIZE FILMS Final Resu lt Performing Organization Address [facility] de Phone Number RADHA [phone] * CT Abdomen Archive for Reference Only (09/13/2024 6:50 AM EDT) Narrative [facility] 09/13/2024 6:50 AM EDT This study has been auto finalized and does not contain a result. us File Room Provider IMG DIGITIZE FILMS Final Resu lt Performing Organization Address [facility] de Phone Number RADHA [phone] from Last 3 Months Insurance [facility] Advance Directives * Full Code (Latest [...]
== END 2024-11-05 11:10 | disposition home or self-care (01) ==
LOC: HO.HMCSH 10:31
PROVIDERS: PCP Physician Assistant Medical; Visit Provider Physician Assistant Medical
DX: D31.62 Benign neoplasm of unspecified site of left orbit (principal); Z01.818 Encounter for other preprocedural examination

== ENCOUNTER → 2024-11-05 10:31 | Outpatient (BNVA) | payer OTHER, SELFPAY | PROVIDERS: PCP Physician Assistant Medical; Visit Provider Physician Assistant Medical | DX: Z01.818 Encounter for other preprocedural examination (principal); K21.9 Gastro-esophageal reflux disease without esophagitis; D31.62 Benign neoplasm of unspecified site of left orbit; D64.9 Anemia, unspecified | CPT/HCPCS: 96127 ==

== ENCOUNTER 2024-12-11 13:36 | Outpatient (REF) | payer OTHER, SELFPAY ==
--- NOTE | 2024-12-11 13:39 | EMG_ITS ---
Chief complaint: Chronic numbness in both hands, left worse than right Reason for referral: Evaluate for Carpal Tunnel Syndrome Referred by: Blair PINEDO Procedure done: Bilateral upper extremities NCS/EMG Precautions and/or limitations: None The limb temperature was monitored continuously and remained between 32-36 degrees C during the performance of the NCS. Nerve Conduction Studies Anti Sensory Summary Table ?Stim Site NR Onset (ms) Norm Onset (ms) Peak (ms) Norm Peak (ms) O-P Amp (?V) Norm O-P Amp Site1 Site2 Delta-0 (ms) Dist (cm) Coy (m/s) Norm Coy (m/s) Left Median Anti Sensory (2nd Digit) Wrist NR <3.6 >10 Wrist 2nd Digit 14.0 Right Median Anti Sensory (2nd Digit) Wrist ? 4.2 5.4 <3.6 5.8 >10 Wrist 2nd Digit 4.2 14.0 33 Right Radial Anti Sensory (Thumb) Forearm ? 1.5 2.0 <3.1 28.7 Forearm Thumb 1.5 0.0 Left Ulnar Anti Sensory (5th Digit) Wrist ? 2.6 3.2 <3.7 19.2 >15.0 Wrist 5th Digit 2.6 14.0 54 Right Ulnar Anti Sensory (5th Digit) Wrist ? 2.5 3.3 <3.7 19.9 >15.0 Wrist 5th Digit 2.5 14.0 56 Motor Summary Table ?Stim Site NR Onset (ms) Norm Onset (ms) O-P Amp (mV) Norm O-P Amp iAmp (mV) Amp (1st) (%) Site1 Site2 Delta-0 (ms) Dist (cm) Coy (m/s) Norm Coy (m/s) Left Median Motor (Abd Poll Brev) Wrist ? 7.7 <3.9 3.3 >4.5 3.8 100.0 Elbow Wrist 3.0 21.0 70 >45 Elbow ? 10.7 1.3 1.5 39.4 Right Median Motor (Abd Poll Brev) Wrist ? 7.9 <3.9 4.8 >4.5 5.6 100.0 Elbow Wrist 4.6 20.5 45 >45 Elbow ? 12.5 3.6 4.8 75.0 Left Ulnar Motor (Abd Dig Minimi) Wrist ? 2.8 <3.0 7.2 >5 9.5 100.0 B Elbow Wrist 3.1 18.5 60 >45 B Elbow ? 5.9 4.6 6.0 63.9 A Elbow B Elbow 1.6 10.0 63 >45 A Elbow ? 7.5 4.6 6.1 63.9 Right Ulnar Motor (Abd Dig Minimi) Wrist ? 2.7 <3.0 9.9 >5 13.1 100.0 B Elbow Wrist 3.2 15.0 47 >45 B Elbow ? 5.9 9.6 13.3 97.0 A Elbow B Elbow 1.4 10.0 71 >45 A Elbow ? 7.3 9.4 13.9 94.9 EMG ?Side Muscle Nerve Root Ins Act Fibs Psw Amp Dur Poly Recrt Int Pat Comment Right 1stDorInt Ulnar C8-T1 Nml Nml Nml Nml Nml 0 Nml Complete Right FlexCarRad Median C6-7 Nml Nml Nml Nml Nml 0 Nml Complete Right Biceps Musculocut C5-6 Nml Nml Nml Nml Nml 0 Nml Complete Right Triceps Radial C6-7-8 Nml Nml Nml Nml Nml 0 Nml Complete Right Deltoid Axillary C5-6 Nml Nml Nml Nml Nml 0 Nml Complete Left 1stDorInt Ulnar C8-T1 Nml Nml Nml Nml Nml 0 Nml Complete Left FlexCarRad Median C6-7 Nml Nml Nml Nml Nml 0 Nml Complete Left Biceps Musculocut C5-6 Nml Nml Nml Nml Nml 0 Nml Complete Left Triceps Radial C6-7-8 Nml Nml Nml Nml Nml 0 Nml Complete Left Deltoid Axillary C5-6 Nml Nml Nml Nml Nml 0 Nml Complete FINDINGS: Bilateral median motor nerves showed prolonged distal latency, normal amplitude and normal conduction velocity. Right median sensory nerve showed small amplitude and prolonged peak latency. Left median sensory nerve absent response. All other nerves tested were within normal. Concentric needle EMG was performed in selected muscles of the bilateral upper extremities. Study did not reveal signs of electric abnormalities as shown in the table above. IMPRESSION: 1. This is an abnormal study. 2. There is electrodiagnostic evidence for bilateral moderate-severe median neuropathy at the wrist, consistent with carpal tunnel syndrome. 3. Evidence of possible Alan Gerson anastomosis, bilateral, was seen, which is a normal anatomic variant. 4. There is no electrodiagnostic evidence for ulnar neuropathy, brachial plexopathy, or cervical radiculopathy. Thank you for your kind referral. Nichelle Bennett MD, SHELLY Board Certified, [place] Board [employer] and Rehabilitation (ABPMR) Board Certified, [place] Board of Electrodiagnostic Medicine (ABEM) CODIN [phone] [id number] [id number]
--- OUTSIDE RECORDS SUMMARY | 2024-12-11 13:51 | XMS_ITS | Clinical Summary ---
Author Organization [facility] Address [address] [place] [address] Care Team Providers Care Green Ware Caster Name Role Phone Unavailable Primary Care Provider [...] Description 09/13/2024 7:00 AM EDT Ancillary Procedure [facility] Radiology [address] [place] [phone] Provider, File Room 09/13/2024 6:55 AM EDT Ancillary Procedure [facility] Radiology [address] [place] [address] Provider, File Room 09/13/2024 6:55 AM EDT Ancillary Procedure [facility] Radiology [address] [place] [phone] Provider, File Room 09/13/2024 5:20 AM EDT - 09/19/2024 2:41 PM EDT Hospital Encounter [facility] [address] [facility] [place] [address] Jamal Stewart MD Powner, Jordan T, Tk Matos MD Rheiner, Jacqueline A, DO Hebbal, Pooja, MD Pichardo Castillo, Jose, MD Hematemesis (Primary Dx); Cocaine abuse (HCC); Hepatic encephalopathy (HCC); Jaundice; Thrombocytopenia; Transaminitis; Hyperammonemia ; Hyperbilirubinemia; Tylenol ingestion, intentional self-harm, initial encounter (HCC); Acute metabolic encephalopathy Discharge Disposition: Home or Self Care 09/13/2024 Travel 09/13/2024 Orders Only [facility] Radiology [address] [place] [address], [place] [phone] Provider, File Room from Last 3 Months Social History Tobacco Use Types Packs/Day Years Used Date Smoking Tobacco: Never Assessed [facility] Utilities Answer Date Recorded In the past 12 months has UNI5, oil, or water [employer] threatened to shut off services in your [...] any time in the past 12 m [facility], were you homeless or [...] - 19+ 3-dose series) 1996 Colonoscopy 2022 Influenza Vaccine 10/09/2024 COVID-19 Vaccine (1 - 2023-2 5 season) 2024 Hepatitis C Virus Screening Completed 10/2024, 09/13/2024 [...] FINGERSTICK (CHARGE) Routine 09/13/2024 8:29 PM EDT (RETIRED) CHINEDU-BOYLE VIRUS (EBV) DNA, PCR, QUANTITATIVE Routine [...] AM EDT OXYCODONE SCREEN, URINE Routine 09/14/19 25 7:54 AM EDT OPIATE SCREEN, URINE Routine [...] of12 resultswithin the time period is included. [facility] Anticoagulant IV HEPARIN, UNFRACTIONATED 09/19/2024 7:21 AM EDT [facility] Prothrombin Time (PT) 17.0(H) 10.0 - 13.5 seconds 09/19/2024 9:28 AM EDT [facility] INR 1.5 09/19/2024 9:28 AM T [facility] Comment:INR Therapeutic Rang es: Standard dose anticoagulant 2.0 to 3.0, High dose anticoagulant 2.5-3.5. Blood Blood specimen / Unknown 09/19/2024 8:09 AM EDT 09/19/2024 8:41 AM EDT Dwayne Marsh MD LAB BLOOD ORDERABLES F inal Result Performing Organization Address [facility]/ZIP Co de Phone Number [address] [address], [address] [address] * (ABNORMAL) Complete Blood Count WITHOUT Differential - ROUTINE (09/19/2024 8:09 AM EDT) Only the most recent of8 resultswithin the time period is included. [facility] White Blood Cell Count 5.0 4.0 - 11.0 Thou/uL 09/19/2024 10:05 AM T [facility] Platelet Count 46(L) 150 - 450 Thou/uL 09/19/2024 10:05 AM T [facility] Comment: Results verified by smear review. Test results repeated. Occasional large platelet present. Hemoglobin 11.0(L) 13.0 - 17.7 g/dL 09/19/2024 10:[address] [facility] Hematocrit 33.5(L) 39.0 - 54.0 % 09/19/2024 10:05 AM [facility] Red Blood Cell Count 3.54(L) 4.50 - 6.20 Mil/uL 09/19/2024 10:05 AM [facility] MCV 95 80 - 100 fL 09/19/2024 10:05 AM [facility] MCH 31.1 26.0 - 34.0 pg 09/19/2024 10:05 AM [facility] MCHC 32.8 30.0 - 36.0 g/dL 09/19/2024 10:05 AM [facility] RDW 15.9(H) 11.5 - 14.5 % 09/19/2024 10:05 AM [facility] MPV 12.1 7.5 - 12.5 fL 09/19/2024 10:05 AM [facility] Immature Platelet Fraction 9.9(H) 1.2 - 8.6 % 09/19/2024 10:05 AM [facility] Blood Blood specimen / Unknown 09/19/2024 8:09 AM EDT 09/19/2024 8:41 AM EDT Dwayne Marsh MD LAB BLOOD ORDERABLES F inal Result [address] [address], [address] [address] * Magnesium (AM) (09/19/2024 8:09 AM EDT) Only the most recent of14 resultswithin the time period is included. Magnesium 1.8 1.6 - 2.7 mg/dL 09/19/2024 9:48 AM [facility] Blood Blood specimen / Unknown 09/19/2024 8:09 AM EDT 09/19/2024 8:41 AM EDT Dwayne Marsh MD LAB BLOOD ORDERABLES F inal Result [facility] [address] [place] [address], [facility] [address] [place] [address] * (ABNORMAL) Comprehensive Metabolic Panel (09/19/2024 8:09 AM EDT) Glucose 97 65 - 99 mg/dL 09/19/2024 9:48 AM [facility] Comment:Fasting: <100 mg/dL, Non-Fasting: <200 mg/dL (ADA 2004) Blood Urea Nitrogen (BUN) 26(H) 8 - 21 mg/dL 09/19/2024 9:48 AM [facility] Creatinine 1.2 0.5 - 1.3 mg/dL 09/19/2024 9:48 AM [facility] eGFR 76 >59 09/19/2024 9:48 AM [facility] Comment:CKD-EPI (2020) in mL /min/1.73 sq meters. Sodium 145 136 - 145 mmol/L 09/19/2024 9:48 AM [facility] Potassium 3.7 3.4 - 5.3 mmol/L 09/19/2024 9:48 AM [facility] Chloride 114(H) 98 - 107 mmol/L 09/19/2024 9:48 AM [facility] CO2 23 22 - 33 mmol/L 09/19/2024 9:48 AM [facility] Calcium 8.4(L) 8.7 - 10.5 mg/dL 09/19/2024 9:48 AM [facility] Alkaline Phosphatase 122 45 - 128 U/L 09/19/2024 9:48 AM [facility] Aspartate Aminotrans (AST) 104(H) 10 - 55 U/L 09/19/2024 9:48 AM [facility] Alanine Aminotrans (ALT) 925(H) 10 - 55 U/L 09/19/2024 9:57 AM [facility] Bilirubin, Total 6.7(H) 0.2 - 1.0 mg/dL 09/19/2024 9:48 AM [facility] Protein, Total 5.0(L) 6.3 - 8.3 g/dL 09/19/2024 9:48 AM EDT [facility] Albumin 2.9(L) 3.5 - 5.0 g/dL 09/19/2024 9:48 AM EDT [facility] BUN/Creatinine Ratio 22 10.0 - 25.0 Ratio 09/19/2024 9:48 AM EDT [facility] Globulin 2.1 1.5 - 3.9 g/dL 09/19/2024 9:48 AM EDT [facility] Albumin/Globulin Ratio 1.4 1.0 - 3.0 Ratio 09/19/2024 9:48 AM EDT [facility] Anion Gap 8 7 - 17 09/19/2024 9:48 AM EDT [facility] Blood Blood specimen / Unknown 09/19/2024 8:09 AM EDT 09/19/2024 8:41 AM EDT Dwayne Marsh MD LAB BLOOD ORDERABLES F inal Result Performing Organization Address City/[facility]/[place] [address], [place] [address] * (ABNORMAL) Phosphorus (09/18/2024 11:49 PM EDT) Only the most recent of12 resultswithin the time period is included. Phosphorus 2.3(L) 2.7 - 4.5 mg/dL 09/19/2024 12:29 AM EDT [facility] Blood Blood specimen / Unknown 09/18/2024 11:49 PM EDT 09/19/2024 12:01 AM EDT Dana Harris APRN LAB BLOOD ORDERABLES Final R esult Performing Organization Address City/[facility]/[place] [address], [place] [address] * (ABNORMAL) HEPATIC FUNCTION PANEL (09/18/2024 11:49 PM EDT) Only the most recent of13 resultswithin the time period is included. Alkaline Phosphatase 109 45 - 128 U/L 09/19[facility]2024 12:[facility] Aspartate Aminotrans (AST) 108(H) 10 - 55 U/L 09/19/2024 12:29 AM [facility] Alanine Aminotrans (ALT) 1,031(H) 10 - 55 U/L 09/19/2024 12:32 AM [facility] Bilirubin, Total 7.4(H) 0.2 - 1.0 mg/dL 09/19/2024 12:29 AM [facility] Protein, Total 4.8(L) 6.3 - 8.3 g/dL 09/19/2024 12:29 AM [facility] Albumin 2.8(L) 3.5 - 5.0 g/dL 09/19/2024 12:29 AM [facility] Bilirubin, Direct 5.2(H) 0 - 0.2 mg/dL 09/19/2024 12:29 AM [facility] Globulin 2.0 1.5 - 3.9 g/dL 09/19/2024 12:29 AM [facility] Albumin/Globulin Ratio 1.4 1.0 - 3.0 Ratio 09/19/2024 12:29 AM [facility] Blood Blood specimen / Unknown 09/18/2024 11:49 PM EDT 09/19/2024 12:01 AM EDT [facility] BIOSTATISTICS DIRECTOR LAB BLOOD ORDERABLES Final R esult [address] [address], [address] [address] * (ABNORMAL) Basic Metabolic Panel (09/18/2024 11:49 PM EDT) Only the most recent of14 resultswithin the time period is included. Pathologist [facility] Glucose 87 65 - 99 mg/dL 09/19/2024 12:29 AM [facility] Comment:Fasting: <100 mg/dL, Non-Fasting: <200 mg/dL (ADA 2005) Blood Urea Nitrogen (BUN) 24(H) 8 - 21 mg/dL 09/19/2024 12:29 AM EDT [facility] Creatinine 1.3 0.5 - 1.3 mg/dL 09/19/2024 12:29 AM [facility] eGFR 69 >59 09/19/2024 12:29 AM [facility] Comment:CKD-EPI (2020) in mL /min/1.73 sq meters. Sodium 142 136 - 145 mmol/L 09/19/2024 12:29 AM EDT [facility] Potassium 3.8 3.4 - 5.3 mmol/L 09/19/2024 12:29 AM [facility] Chloride 110(H) 98 - 107 mmol/L 09/19/2024 12:29 AM [facility] CO2 24 22 - 33 mmol/L 09/19/2024 12:29 AM [facility] Anion Gap 8 7 - 17 09/19/2024 12:29 AM [facility] Calcium 8.2(L) 8.7 - 10.5 mg/dL 09/19/2024 12:29 AM [facility] BUN/Creatinine Ratio 18 10.0 - 25.0 Ratio 09/19/2024 12:29 AM [facility] Blood Blood specimen / Unknown 09/18/2024 11:49 PM EDT 09/19/2024 12:01 AM EDT [facility] BIOSTATISTICS DIRECTOR LAB BLOOD ORDERABLES Final R esult [address] [address], [address] [address] * Sodium (09/18/2024 6:23 AM EDT) Only the most recent of9 resultswithin the time period is included. Sodium 140 136 - 145 mmol/L 09/18/2024 7:48 AM EDT [facility] Blood Blood specimen / Unknown 09/18/2024 6:23 AM EDT 09/18/2024 6:48 AM EDT Marie Simmons PA-C LAB BLOOD ORDERABLES Jessenia l Result Performing Organization Address City/[facility]/[place] [address], [place] [address] * (ABNORMAL) TSH (Routine) (09/18/2024 12:40 AM EDT) TSH, Highly Sensitive 0.15(L) 0.27 - 4.20 mIU/L 09/18/2024 3:09 AM EDT [facility] Blood Blood specimen / Unknown 09/18/2024 12:40 AM EDT 09/18/2024 1:00 AM EDT Dana Greener BIOSTATISTICS DIRECTOR LAB BLOOD ORDERABLES Final R esult Performing Organization Address City/[facility]/[place] [address], [place] [address] * T4, FREE (09/18/2024 12:40 AM EDT) Pathologist [facility] T4, Free 0.90 0.80 - 1.90 ng/dL 09/18/2024 9:06 AM EDT [facility] 09/18/2024 12:4 0 AM EDT 09/18/2024 1:00 AM EDT Dana Greener BIOSTATISTICS DIRECTOR LAB BLOOD [place]AB[place] [address], [place] [address] * Folate Level (09/18/2024 12:40 AM EDT) Pathologist [facility] Folate, Serum Specimen hemolyzed. Test not performed. >7.2 ng/mL 09/18/2024 3:24 AM EDT [facility] Blood Blood specimen / Unknown 09/18/2024 12:40 AM EDT 09/18/2024 1:00 AM EDT Dana Greener BIOSTATISTICS DIRECTOR LAB BLOOD ORDERABLES Final R esult Performing Organization Address City/[facility] Co de Phone Number [address] [address], [address] [address] * (ABNORMAL) Vitamin B12 (09/18/2024 12:40 AM EDT) Pathologist [facility] Vitamin B12 >2,000(H) 243 - 894 pg/mL 09/18/2024 4:04 AM EDT [facility] Blood Blood specimen / Unknown 09/18/2024 12:40 AM EDT 09/18/2024 1:00 AM EDT us Dana Greener BIOSTATISTICS DIRECTOR LAB BLOOD ORDERABLES Final R esult Performing Organization Address City/[facility] Co de Phone Number [address] [address], [address] [address] * ECHOCARDIOGRAM COMPREHENSIVE (09/17/2024 11:40 AM EDT) [facility] LV Diastolic Volume Index (F:29-61, M:35-75) [...] previous study for comparison in our system. Cheko PINEDO CV ECHO ORDERABLES Final Result [...] gas pattern. Interpreted by: Guevara Howard DO House Decorator I personally reviewed the images and the [...] gas pattern. Interpreted by: Guevara Howard DO House Decorator I personally reviewed the images and the resident's preliminary report and AGREE with the report as it is now presented ([id number]). us Dana Harris APRN IMG DIAGNOSTIC IMAGING ORDER MARGO Final Result * LACTIC ACID, PLASMA (09/16/2024 11:45 AM EDT) Only the most recent of4 resultswithin the time period is included. Pathologist [facility] Lactic Acid 1.0 0.5 - 1.9 mmol/L 09/16/2024 12:33 PM EDT [facility] Blood Blood specimen / Unknown 09/16/2024 11:45 AM EDT 09/16/2024 12:01 PM EDT Dana Harris BIOSTATISTICS DIRECTOR LAB BLOOD ORDERABLES Final R esult [address] [address], [address] [address] * EEG AWAKE OR DROWSY (09/16/2024 9:19 AM EDT) Narrative [facility] - 09/16/2024 9:19 AM EDT Sharonda Dorsey MD 09/16/2024 11:33 AM INPATIENT ADULT ELECTROENCEPHALOGRAM (EEG) REPORT Facility: [facility] Patient and : Gregg Lisa 1975 Date [...] suppression in clinically-apparent sleep suggested the former. [id number] TOTAL SCORE: 0 (5% SZ [![id number]$[id number]&0]) Sharonda Dorsey MD [facility] FOR EEG LAB USE: Abnormal Non-epileptiform :qz!02; No events :qz!08; Complexity ratin :qz!15 us Brooke PINEDO NEUROLOGY ORDERABLES Mariano yola Result - Final [facility] [address] [place] [address], * ECG 12 lead (09/16/2024 8:38 AM EDT) Only the most recent of4 resultswithin the time period is included. Systolic BP 131 mmHg EKG [facility] Diastolic BP 61 mmHg EKG [facility] Ventricular rate 83 BPM EKG [facility] Atrial rate 83 BPM EKG [facility] P-R interval 104 ms EKG [facility] QRS duration 92 ms EKG [facility] Q-T interval 386 ms EKG [facility] QTC calculation (Bazett) 453 ms EKG [facility] P axis -54 degrees EKG [facility] R axis 89 degrees EKG [facility] T axis 52 degrees EKG [facility] 09/16/2024 8:38 AM EDT [facility]/16/[facility]24 8:40 AM EDT Unusual P axis, possible ectopic atrial rhythm Abnormal ECG When compared with ECG of 14-Sep-2024 13:31, Ectopic atrial rhythm has replaced Sinus rhythm Vent. rate has decreased by [address] no longer depressed in Inferior leads T wave amplitude has decreased in Anterior leads Confirmed by Leann Lockhart MD ([id number]) on 09/16/2024 8:40:33 AM Procedure Note Leann Lockhart MD - 09/16/2024 Unusual P axis, possible ectopic atrial rhythm Abnormal ECG When compared with ECG of 14-Sep-2024 13:31, Ectopic atrial rhythm has replaced Sinus rhythm Vent. rate has decreased by [address] no longer depressed in Inferior leads T wave amplitude has decreased in Anterior leads Confirmed by Leann Lockhart MD ([id number]) on 09/16/2024 8:40:33 AM Tk You MD ECG ORDERABLES Final Result [facility] * (ABNORMAL) Hemoglobin and Hematocrit (09/16/2024 8:30 AM EDT) Only the most recent of2 resultswithin the time period is included. [facility] Hematocrit 38.1(L) 39.0 - 54.0 % 09/16/2024 10:16 AM EDT [facility] Hemoglobin 12.1(L) 13.0 - 17.7 g/dL 09/16/2024 10:16 AM EDT [facility] Blood Blood specimen / Unknown 09/16/2024 8:30 AM EDT 09/16/2024 8:48 AM EDT Yazmin Martinez PA-C LAB BLOOD ORDERABLES Final Result Performing Organization Address [facility] [place] [address], [address] [address] * Vancomycin Level, Random (09/16/2024 6:49 AM EDT) Vancomycin, Random 6 mg/L 09/16/2024 8:03 AM EDT [facility] Comment:No reference range e stablished for random levels. Time of Last Dose Information not given 09/16/2024 6:49 AM EDT [facility] Blood Blood specimen / Unknown 09/16/2024 6:49 AM EDT 09/16/2024 7:34 AM EDT Tk You MD LAB BLOOD ORDERABLES Final Resul t Performing Organization Address [facility] [place] [address], [address] [address] * Ammonia Level (09/16/2024 12:00 AM EDT) Only the most recent of8 resultswithin the time period is included. Ammonia, Plasma 51 16 - 60 umol/L 09/16/2024 12:44 AM EDT [facility] Blood Blood specimen / Unknown 09/16/2024 09/16/2024 12:18 AM EDT Cheko PINEDO LAB BLOOD ORDERABLES Final Resu lt Performing Organization Address [facility] [place] [address], [address] [address] * (ABNORMAL) Blood Gas with Cooximetry, Arterial (09/15/2024 5:39 PM EDT) Only the most recent of3 resultswithin the time period is included. Respiratory Info VENT 40% 09/16/19 25 5:39 PM EDT [facility] pH, Arterial 7.49(H) 7.35 - 7.45 09/15/2024 6:08 PM [facility] pCO2, Arterial 37 32 - 45 mmHG 09/15/2024 6:08 PM [facility] pO2, Arterial 190(H) 75 - 95 mmHG 09/15/2024 6:08 PM [facility] CO2, Total 29(H) 22 - 28 mmol/L 09/15/2024 6:08 PM [facility] P/F Ratio 475 09/15/2024 6:08 PM [facility] Base Excess 4.6 mmol/L 09/15/2024 6:08 PM [facility] Comment:Reference Range: Neg ative 2 to Positive 3 Hemogloblin, Total 13.6 13.0 - 17.7 g/dL 09/15/2024 6:08 PM [facility] O2 Saturation, Arterial 99.6(H) 94 - 97 % 09/15/2024 6:08 PM [facility] Carboxyhemoglobin 0.8 0.0 - 2.0 % 09/15/2024 6:08 PM [facility] Methemoglobin 0.6 0.4 - 1.5 % 09/15/2024 6:08 PM [facility] O2 Content, Arterial 19.2 17.6 - 24.3 mL/dL 09/15/2024 6:08 PM [facility] Blood Blood specimen / Unknown 09/15/2024 5:39 PM EDT 09/15/2024 6:01 PM EDT us Brooke PINEDO LAB BLOOD ORDERABLES Fin al Result [address] [address], [address] [address] * Hepatitis C Viral Load, Quantitative (09/15/2024 8:40 AM EDT) [facility] HCV RNA (IU/mL) Not Detected <10 IU/mL 09/16/2024 2:14 PM EDT [facility] HCV RNA (log10) Not Detected <1.00 log10 IU/mL 09/16/2024 2:14 PM EDT [facility] Interpretation Not Detected 09/17/19 2:14 PM EDT [facility] Comment:Performed by FDA basilio roved [employer] TMA. Linear range is 10 to 100,000,000 IU/mL. HCV Genotyping is not recommended for viral loads below 300 IU/mL. Blood Blood specimen / Unknown 09/15/2024 8:40 AM EDT 09/15/2024 10:18 AM EDT Brooke PINEDO LAB BLOOD ORDERABLES Fin al Result [facility] [address] * (ABNORMAL) Factor V Assay (09/15/2024 8:40 AM EDT) [facility] Factor V 46(L) 50 - 150 % Normal 09/15/2024 12:38 PM EDT [facility] Blood Blood specimen / Unknown 09/15/2024 8:40 AM EDT 09/15/2024 10:18 AM EDT Brooke PINEDO LAB BLOOD ORDERABLES Fin al Result [address] [address], [address] [address] * Nasal MRSA Screen, PCR (09/15/2024 8:35 AM EDT) [facility] MRSA Result Not Detected Not Detected 11:30 AM EDT [facility] Comment:Performed by the Xpe rt MRSA NxG Assay Swab, Anterior Nares Specimen from nose / Unknown 09/15/2024 8:35 AM EDT 09/15/2024 9:27 AM EDT Brooke PINEDO MICROBIOLOGY - GENERAL O RDERABLES Final Result [facility] [address] [place] [address], [address] [address] * Blood Culture (09/15/2024 3:05 AM EDT) Only the most recent of4 resultswithin the time period is included. Culture Sterile after 5 days 09/20/2024 7:33 AM EDT [facility] Blood Blood specimen / Unknown 09/15/2024 3:05 AM EDT 09/15/2024 3:52 AM EDT Comment:Blood Heidi PINEDO LAB BLOOD ORDERABLES Jessenia l Result [facility] [address] [place] [address], [place] * XR Chest 1 view-Portable (09/15/2024 [...] Mixed normal kathrine 09/15/2024 3:11 AM EDT [facility] Culture Staphylococcus aureus(A) 09/17/2024 2:10 PM EDT [facility] Culture Mixed normal kathrine 09/17/2024 2:10 PM EDT [facility] Aspirate, Tracheal Specimen from [...] MICROBIOLOGY - GENERAL OR DERABLES Final Result [facility] [address] [place] [address], [address] [address] * (ABNORMAL) Urinalysis with Reflex to Microscopic (09/15/2024 2:20 AM EDT) Color Martina 09/15/2024 2:39 AM [facility] Clarity Clear 09/15/2024 2:39 AM [facility] Specific Grabill 1.023 1.003 - 1.030 09/15/2024 2:39 AM [facility] pH 5.0 5.0 - 8.0 09/15/2024 2:39 AM [facility] Leukocyte Esterase Negative Negative 09/15/2024 2:39 AM [facility] Nitrite Negative Negative 09/15/2024 2:39 AM [facility] Protein Negative Negative 09/15/2024 2:39 AM [facility] Glucose 0 0 - 99 mg/dL 09/15/2024 2:39 AM [facility] Ketones Negative Negative 09/15/2024 2:39 AM [facility] Blood Large(A) Negative 09/15/2024 2:39 AM [facility] Bilirubin Negative Negative 09/15/2024 2:39 AM [facility] WBC 1 0 - 4 per hpf 09/15/2024 2:39 AM [facility] RBC 6(H) 0 - 4 per hpf 09/15/2024 2:39 AM [facility] Urine Urine specimen obtained via straight catheter / Unknown 09/15/2024 2:20 AM EDT 09/15/2024 2:30 AM EDT Heidi Zabala PA URINE ORDERABLES Final Re sult Performing Organization Address City/[facility]/[place] [address], [place] [address] * (ABNORMAL) LIPASE (09/15/2024 1:04 AM EDT) Only the most recent of3 resultswithin the time period is included. Pathologist [facility] Lipase 73(H) 13 - 60 U/L 09/15/2024 4:58 AM EDT [facility] 09/15/2024 1:04 AM EDT 09/15/2024 1:26 AM EDT Cheko PINEDO LAB BLOOD ORDERABLES Final Resu lt Performing Organization Address [facility] [place] [address], [place] [address] * (ABNORMAL) Blood Gas with Cooximetry, Venous (09/14/2024 9:43 AM EDT) [facility] Respiratory Info VENT 40% 09/15/19 9:43 AM EDT [facility] Venous Blood PH 7.48(H) 7.33 - 7.43 09/14/2024 10:27 AM [facility] Venous pCO2 38 35 - 50 mmHG 09/14/2024 10:27 AM [facility] Venous pO2 139(H) 0 - 60 mmHG 09/14/2024 10:27 AM [facility] Venous Total CO2 29 23 - 29 mmol/L 09/14/2024 10:27 AM [facility] Base Excess 4.9 mmol/L 09/14/2024 10:27 AM T [facility] Comment:Reference Range: Neg ative 2 to Positive 3 Hemogloblin, Total 14.5 13.0 - 17.7 g/dL 09/14/2024 10:27 AM EDT [facility] O2 Saturation, Venous 99.1 % 09/2024 10:27 AM [facility] Carboxyhemoglobin 1.4 0.0 - 2.0 % 09/14/2024 10:27 AM EDT [facility] Methemoglobin 0.6 0.4 - 1.5 % 09/14/2024 10:27 AM EDT [facility] Venous O2 Content 20.0(H) 7.2 - 17.2 mL/dL 09/14/2024 10:27 AM EDT [facility] Blood Blood specimen / Unknown 09/14/2024 9:43 AM EDT 09/14/2024 10:15 AM EDT Brooke [facility] BLOOD ORDERABLES Fin al Result Performing Organization Address [facility] [place] [address], [place] [address] * (ABNORMAL) Creatine Kinase (CK) (09/14/2024 2:40 AM EDT) Only the most recent of5 resultswithin the time period is included. Creatine Kinase (CK) 261(H) 24 - 204 U/L 09/14/2024 3:20 AM EDT [facility] Blood Blood specimen / Unknown 09/14/2024 2:40 AM EDT 09/14/2024 2:53 AM EDT Amanda [facility] BLOOD ORDERABLES Final R esult Performing Organization Address City/[facility] [place] [address], [place] [address] * (ABNORMAL) Acetaminophen Level (09/14/2024 12:20 AM EDT) Only the most recent of4 resultswithin the time period is included. Acetaminophen Level <5(L) 10 - 30 mg/L 09/14/2024 1:06 AM EDT [facility] Comment:Specimen icteric Blood Blood specimen / Unknown 09/14/2024 12:20 AM EDT 09/14/2024 12:37 AM EDT us Cheko [facility] BLOOD ORDERABLES Final Resu lt [address] [address], [facility] [address] [place] [address] * US Duplex abdomen/pelvis-Complete (09/13/2024 11:23 PM [...] cross-sectional imaging could be performed. Cheko PINEDO [facility] US ORDERABLES Final Result * EBV DNA, PCR, Quantitative (09/13/2024 6:32 PM EDT) Specimen Source EDTA PLASMA 09/18/2024 7:39 AM EDT [facility] [employer] Authority[employer]ney EBV DNA Not Detected 09/18/2024 7:39 AM EDT [employer], Rodney Comment:UNITS: IU/mL EBV DNA, QN PCR Not Detected 09/18/2024 7:39 AM EDT [employer] Comment: UNITS: Log IU/mL (NOTE) Reference Range: Not Detected For additional information, please refer to http://[email or web address] Buddy.Portafare/faq/CMVandEBVPCR (This link is being provided for informational/ educational purposes only.) Blood Blood specimen / Unknown 09/13/2024 6:32 PM EDT 09/13/2024 6:41 PM EDT Cheko PINEDO BODY FLUIDS AND STOOLS ORDERABL ES Final Result [facility], RODNEY [id number] [employer] [address] [address] [place], [place] , [facility], Rodney [address] [employer] [address] [address] [place], [place] * Triglycerides (09/13/2024 4:10 PM EDT) Triglycerides 135 <150 mg/dL 09/13/2024 5:17 PM EDT [facility] Comment:Specimen icteric Blood Blood specimen / Unknown 09/13/2024 4:10 PM EDT 09/13/2024 4:38 PM EDT Cheko PINEDO LAB BLOOD [place] [address], [place] [address] * EEG AWAKE OR DROWSY (09/13/2024 4:07 PM EDT) Narrative [facility] - 09/13/2024 4:07 PM EDT Nathalie Cortez MD 09/13/2024 9:46 PM INPATIENT ADULT ELECTROENCEPHALOGRAM (EEG) REPORT Facility: [facility] Patient and : Gregg Lisa 1975 Date [...] electrographic seizures. Nathalie Cortez MD ABPN Epilepsy. [facility] us Cheko PINEDO NEUROLOGY ORDERABLES Edited Res ult - Final [facility] [id number] [id number], * Troponin T, High Sensitivity (09/13/2024 2:19 PM EDT) Only the most recent of3 resultswithin the time period is included. High Sensitivity Troponin T 20 <23 ng/L 09/13/2024 3:07 PM EDT [facility] Delta (Change) NO CHANGE <3 09/13/2024 3:07 PM EDT [facility] Blood Blood specimen / Unknown 09/13/2024 2:19 PM EDT 09/13/2024 2:43 PM EDT us Cheko PINEDO LAB BLOOD ORDERABLES Final Resu lt Performing Organization Address [facility] Co de Phone Number [address] [address], [address] [address] * Sodium, Urine, Random (09/13/2024 2:10 PM EDT) Only the most recent of2 resultswithin the time period is included. Sodium, Urine Random <20 mmol/L 09/13/2024 3:04 PM EDT [facility] Comment:Reference range not established for random specimen. Urine Urine specimen / Unknown 09/13/2024 2:10 PM EDT 09/13/2024 2:44 PM EDT us Cheko PINEDO URINE ORDERABLES Final Result Performing Organization Address [facility] Co de Phone Number [address] [address], [address] [address] * Creatinine, Urine, Random (09/13/2024 2:10 PM EDT) Only the most recent of2 resultswithin the time period is included. Creatinine, Urine, Random 67 mg/dL 09/13/2024 3:04 PM EDT [facility] Comment:Reference range not established for random specimen. Urine Urine specimen / Unknown 09/13/2024 2:10 PM EDT 09/13/2024 2:44 PM EDT us Cheko PINEDO URINE ORDERABLES Final Result Performing Organization Address City/[facility] Co de Phone Number [address] [address], [address] [address] * Hepatitis Panel, Acute (09/13/2024 11:25 AM EDT) Hepatitis A Antibody IgM Nonreactive Nonreactive 09/14/2024 10:29 AM EDT [facility] Hepatitis B Core Antibody IgM Nonreactive Nonreactive 09/14/2024 10:29 AM EDT [facility] Hepatitis B Surface Ag Screen Nonreactive Nonreactive 09/14/2024 10:29 AM EDT [facility] Hepatitis C Antibody Nonreactive Nonreactive 09/14/2024 10:29 AM EDT [facility] Comment:Antibodies to HCV no t detected. This does not exclude the possibility of exposure to HCV. Hepatitis Interpretation : Results inconsistent with acute Hepatitis A, B or C Virus infection. 09/14/2024 10:29 AM EDT [facility] Blood Blood specimen / Unknown 09/13/2024 11:25 AM EDT 09/13/2024 12:39 PM EDT us Mingo Serrato DO LAB BLOOD ORDERABLES Final Re sult Performing Organization Address City/[facility]/ZIP Co de Phone Number [facility] [address] [place] [address], * proBNP, N-terminal (09/13/2024 10:04 AM EDT) proBNP, N-terminal 76 <125 pg/mL 09/13/2024 3:02 PM EDT [facility] 09/13/2024 10:0 4 AM EDT 09/13/2024 10:15 AM EDT Mingo Serrato DO LAB BLOOD ORDERABLES Final Re sult [address] [address], [place] [address] [address] * (ABNORMAL) OSMOLALITY (09/13/2024 10:04 AM EDT) Osmolality, Serum/Plasma 345(H) 275 - 295 mOsm/Kg 09/13/2024 2:54 PM EDT [facility] 09/13/2024 10:0 4 AM EDT 09/13/2024 10:15 AM EDT Mingo Serrato LAB BLOOD ORDERABLES Final Re sult Performing Organization Address [facility] Co de Phone Number [address] [address], [address] [address] * (ABNORMAL) Blood Gas, Arterial (09/13/2024 10:00 AM EDT) Only the most recent of2 resultswithin the time period is included. pH, Arterial 7.43 7.35 - 7.45 09/13/2024 10:30 AM EDT [facility] pCO2, Arterial 44 32 - 45 mmHG 09/13/2024 10:30 AM EDT [facility] pO2, Arterial 173(H) 75 - 95 mmHG 09/13/2024 10:30 AM EDT [facility] CO2, Total 31(H) 22 - 28 mmol/L 09/13/2024 10:30 AM EDT [facility] Respiratory Info Information not given 09/13/2024 10:25 AM EDT [facility] Base Excess 4.6 mmol/L 09/13/2024 10:30 AM T [facility] Comment:Reference Range: Neg ative 2 to Positive 3 Blood specimen / Unknown 09/13/2024 10:00 AM EDT 09/13/2024 10:22 AM EDT Jamal Stewart MD LAB BLOOD ORDERABLES Final Result Performing Organization Address City/[facility] Co de Phone Number [address] [address], [address] [address] * (ABNORMAL) Complete Blood Count, with Differential (09/13/2024 8:01 AM EDT) Pathologist [facility] White Blood Cell Count 5.5 4.0 - 11.0 Thou/uL 09/13/2024 9:37 AM EDT [facility] Platelet Count 74(L) 150 - 450 Thou/uL 09/13/2024 9:37 AM EDT [facility] Comment: Test results repeated. Results verified by smear review. Hemoglobin 15.2 13.0 - 17.7 g/dL 09/13/2024 9:37 [address] [facility] Hematocrit 44.6 39.0 - 54.0 % 09/13/2024 9:37 AM [facility] Red Blood Cell Count 4.82 4.50 - 6.20 Mil/uL 09/13/2024 9:37 AM [facility] MCV 93 80 - 100 fL 09/13/2024 9:37 AM [facility] MCH 31.5 26.0 - 34.0 pg 09/13/2024 9:37 AM [facility] MCHC 34.1 30.0 - 36.0 g/dL 09/13/2024 9:37 AM [facility] RDW 14.6(H) 11.5 - 14.5 % 09/13/2024 9:37 AM [facility] MPV 11.8 7.5 - 12.5 fL 09/13/2024 9:37 AM [facility] nRBC 0.4(H) 0.0 - 0.1 /100 WBC 09/13/2024 9:37 AM [facility] nRBC, Absolute 0.02 0.00 - 0.02 Thou/uL 09/13/2024 9:37 AM [facility] Immature Platelet Fraction 3.0 1.2 - 8.6 % 09/13/2024 9:37 AM [facility] Neutrophils Auto 90.8 % 09/14/19 9:44 AM [facility] Immature Granulocytes 0.9 % 09/13/2024 9:44 AM [facility] Lymphocytes Auto 6.0 % 09/14/19 9:44 AM [facility] Monocytes Auto 1.6 % 09/13/2024 9:44 AM [facility] Eosinophils Auto 0.5 % 09/14/19 9:44 AM [facility] Basophils Auto 0.2 % 09/13/2024 9:44 AM [facility] Abs Neutrophils Auto 5.03 2.00 - 7.50 Thou/uL 09/13/2024 9:44 AM [facility] Abs Immature Granulocytes 0.05 0.00 - 0.10 Thou/uL 09/13/2024 9:44 AM [facility] Abs Lymphocytes Auto 0.33(L) 1.50 - 4.50 Thou/uL 09/13/2024 9:44 AM EDT [facility] Abs Monocytes Auto 0.09(L) 0.20 - 1.50 Thou/uL 09/13/2024 9:44 AM EDT [facility] Abs Eosinophils Auto 0.03 0.00 - 0.70 Thou/uL 09/13/2024 9:44 AM EDT [facility] Abs Basophils Auto 0.01 0.00 - 0.20 Thou/uL 09/13/2024 9:44 AM EDT [facility] Blood Blood specimen / Unknown 09/13/2024 8:01 AM EDT 09/13/2024 8:34 AM EDT Gauri Chan MD LAB BLOOD ORDERABLES Final Resul t Performing Organization Address City/[facility]/[place] [address], [place] [address] * APTT (09/13/2024 8:01 AM EDT) Anticoagulant OTHER AGENT OR UNKNOWN 09/13/2024 5:36 AM EDT [facility] Partial Thromboplastin Time (PTT) Grossly Hemolyzed,Re collection Requested 25 - 36 seconds 09/13/2024 9:02 AM EDT [facility] Blood Blood specimen / Unknown 09/13/2024 8:01 AM EDT 09/13/2024 8:34 AM EDT us Gauri Chan MD LAB BLOOD ORDERABLES Final Resul t Performing Organization Address City/[facility]/[place] [address], [place] [address] * (ABNORMAL) Urinalysis with Reflex to Microscopic and Culture (09/13/2024 7:54 AM EDT) Color Martina 09/13/2024 8:48 AM EDT [facility] Clarity Clear 09/13/2024 8:48 AM EDT [facility] Specific Grabill 1.032(H) 1.003 - 1.030 09/13/2024 8:48 AM [facility] pH 6.0 5.0 - 8.0 09/13/2024 [facility] Leukocyte Esterase Negative Negative 09/13/2024 8:48 AM [facility] Nitrite Negative Negative 09/13/2024 8:48 AM [facility] Protein Small (30 mg/dL)(A) Negative 09/13/2024 8:[facility] Glucose 0 0 - 99 mg/dL 09/13/2024 8:48 AM [facility] Ketones Negative Negative 09/13/2024 8:48 AM [facility] Blood Moderate(A) Negative 09/13/2024 8:48 AM [facility] Bilirubin Negative Negative 09/13/2024 8:48 AM [facility] WBC 1 0 - 4 per hpf 09/13/2024 8:48 AM [facility] RBC >25(H) 0 - 4 per hpf 09/13/2024 8:48 AM [facility] Squamous Epithelial Cells 1 PER HPF 09/13/2024 8:48 AM [facility] Urine (Indwelling Urinary Catheter) 09/13/2024 7:54 AM EDT 09/13/2024 8:40 AM EDT Gauri Chan MD URINE ORDERABLES Final Result Performing Organization Address City/State/[facility] Co de Phone Number [address] [address], [address] [address] * Fentanyl Screen, Urine (09/13/2024 7:54 AM EDT) Fentanyl Screen, Urine Negative Negative <5 ng/mL 09/13/2024 11:45 AM EDT [facility] Comment: * FOR MEDICAL PURPOSES ONLY * Confirmation upon request. Urine Urine specimen / Unknown 09/13/2024 7:54 AM EDT 09/13/2024 11:08 AM EDT us Mingo Serrato DO URINE ORDERABLES Final Result Performing Organization Address [facility] Co de Phone Number [address] [address], [address] [address] * Methadone Screen, Urine (09/13/2024 7:54 AM EDT) Methadone Screen, Urine Negative Negative <300 ng/mL 09/13/2024 11:45 AM EDT [facility] Comment:* FOR MEDICAL PURPOS ES ONLY * Urine Urine specimen / Unknown 09/13/2024 7:54 AM EDT 09/13/2024 11:08 AM EDT us Mingo Serrato DO URINE ORDERABLES Final Result Performing Organization Address [facility] Co de Phone Number [address] [address], [address] [address] * Cannabinoid Screen, Urine (09/13/2024 7:54 AM EDT) Cannabinoid Screen, Urine Negative Negative <50 ng/mL 09/13/2024 11:45 AM EDT [facility] Comment:* FOR MEDICAL PURPOS ES ONLY * Urine Urine specimen / Unknown 09/13/2024 7:54 AM EDT 09/13/2024 11:08 AM EDT us Mingo Serrato DO URINE ORDERABLES Final Result Performing Organization Address City/[facility] Co de Phone Number [address] [address], [address] [address] * Buprenorphine Screen, Urine (09/13/2024 7:54 AM EDT) Buprenorphine Screen, Urine Negative Negative <5 ng/mL 09/13/2024 11:45 AM EDT [facility] Comment:* FOR MEDICAL PURPOS ES ONLY * Urine Urine specimen / Unknown 09/13/2024 7:54 AM EDT 09/13/2024 11:08 AM EDT us Mingo Serrato DO URINE ORDERABLES Final Result Performing Organization Address [facility] Co de Phone Number [address] [address], [address] [address] * Tricyclic Screen, Urine (09/13/2024 7:54 AM EDT) Tricyclic Screen, Urine Negative Negative <300 ng/mL 09/13/2024 11:45 AM EDT [facility] Comment:* FOR MEDICAL PURPOS ES ONLY * Urine Urine specimen / Unknown 09/13/2024 7:54 AM EDT 09/13/2024 11:08 AM EDT us Mingo Serrato DO URINE ORDERABLES Final Result Performing Organization Address [facility] de Phone Number [address] [address], [address] [address] * Phencyclidine (PCP) Screen, Urine (09/13/2024 7:54 AM EDT) PCP Screen, Urine Negative Negative <25 ng/mL 09/13/2024 11:45 AM EDT [facility] Comment:* FOR MEDICAL PURPOS ES ONLY * Urine Urine specimen / Unknown 09/13/2024 7:54 AM EDT 09/13/2024 11:08 AM EDT us Mingo Serrato DO URINE ORDERABLES Final Result Performing Organization Address [facility] Co de Phone Number [address] [address], [address] [address] * Oxycodone Screen, Urine (09/13/2024 7:54 AM EDT) Oxycodone Screen, Urine Negative Negative <100 ng/mL 09/13/2024 11:45 AM EDT [facility] Comment:* FOR MEDICAL PURPOS ES ONLY * Urine Urine specimen / Unknown 09/13/2024 7:54 AM EDT 09/13/2024 11:08 AM EDT us Mingo Cerratoner DO URINE ORDERABLES Final Result Performing Organization Address [facility] Co de Phone Number [address] [address], [address] [address] * Opiate Screen, Urine (09/13/2024 7:54 AM EDT) Opiate, Urine Negative Negative <300 ng/mL 09/13/2024 11:45 AM EDT [facility] Comment:* FOR MEDICAL PURPOS ES ONLY * Urine Urine specimen / Unknown 09/13/2024 7:54 AM EDT 09/13/2024 11:08 AM EDT us Mingo Gillespie Powner DO URINE ORDERABLES Final Result Performing Organization Address [facility] Co de Phone Number [address] [address], [address] [address] * Ethanol, Urine (09/13/2024 7:54 AM EDT) Ethanol, Urine Negative Negative <11 mg/dL 09/13/2024 11:45 AM EDT [facility] Urine Urine specimen / Unknown 09/13/2024 7:54 AM EDT 09/13/2024 11:08 AM EDT us Mingo Cerratoner DO URINE ORDERABLES Final Result Performing Organization Address [facility] Co de Phone Number [address] [address], [address] [address] * (ABNORMAL) Cocaine Screen, Urine (09/13/2024 7:54 AM EDT) Cocaine Screen, Urine Positive( A) Negative <300 ng/mL 09/13/2024 11:45 AM EDT [facility] Comment: * FOR MEDICAL PURPOSES ONLY * Confirmation upon request. Urine Urine specimen / Unknown 09/13/2024 7:54 AM EDT 09/13/2024 11:08 AM EDT us Mingo Serrato DO URINE ORDERABLES Final Result Performing Organization Address City/[facility] Co de Phone Number [address] [address], [address] [address] * Benzodiazepine Screen, Urine (09/13/2024 7:54 AM EDT) Benzodiazepine Screen, Urine Negative Negative <200 ng/mL 09/13/2024 11:45 AM EDT [facility] Comment:* FOR MEDICAL PURPOS ES ONLY * Urine Urine specimen / Unknown 09/13/2024 7:54 AM EDT 09/13/2024 11:08 AM EDT us Mingo Serrato DO URINE ORDERABLES Final Result Performing Organization Address [facility] Co de Phone Number [address] [address], [address] [address] * Barbiturate Screen, Urine (09/13/2024 7:54 AM EDT) Barbiturate Screen, Urine Negative Negative <200 ng/mL 09/13/2024 11:45 AM EDT [facility] Comment:* FOR MEDICAL PURPOS ES ONLY * Urine Urine specimen / Unknown 09/13/2024 7:54 AM EDT 09/13/2024 11:08 AM EDT us Mingo Gillespie Powner DO URINE ORDERABLES Final Result Performing Organization Address [facility] Co de Phone Number [address] [address], [address] [address] * Amphetamine Screen, Urine (09/13/2024 7:54 AM EDT) Amphetamine Screen, Urine Negative Negative <1000 ng/mL 09/13/2024 11:45 AM EDT [facility] Comment:* FOR MEDICAL PURPOS ES ONLY * Urine Urine specimen / Unknown 09/13/2024 7:54 AM EDT 09/13/2024 11:08 AM EDT Mingo Serrato DO URINE ORDERABLES Final Result [address] [address], [address] [address] * INTUBATION (09/13/2024 7:53 AM EDT) Jamal Mondragon MD - 09/13/2024 7:53 AM EDT Jamal Stewart MD 09/13/2024 12:07 PM Intubation Date/Time: 09/13/2024 7:53 AM Performed by: Tuyet Ma MD Authorized by: Jamal Stewart MD Consent: Consent obtained: Emergent situation [place] protocol: Relevant documents present and verified: yes [...] Reference Only (09/13/2024 6:51 AM EDT) Narrative [facility] 09/13/2024 6:51 AM EDT This study has been auto finalized and does not contain a result. us File Room Provider IMG DIGITIZE FILMS Final Resu lt Performing Organization Address [facility] de Phone Number RADHA [phone] * CR Chest Archive for Reference only (09/13/2024 6:51 AM EDT) Narrative [facility] 09/13/2024 6:51 AM EDT This study has been auto finalized and does not contain a result. us File Room Provider IMG DIGITIZE FILMS Final Resu lt Performing Organization Address [facility] de Phone Number RADHA [phone] * CT Abdomen Archive for Reference Only (09/13/2024 6:50 AM EDT) [facility] 09/13/2024 6:50 AM EDT This study has been auto finalized and does not contain a result. us File Room Provider IMG DIGITIZE FILMS Final Resu lt Performing Organization Address [facility] de Phone Number RADHA [phone] from Last 3 Months Insurance [facility] Advance Directives * Full Code (Latest Code [...]
== END 2024-12-11 13:37 | disposition home or self-care (01) ==
LOC: HO.NEURO 13:36
PROVIDERS: PCP Physician Assistant Medical
DX: R20.0 Anesthesia of skin (principal); R20.2 Paresthesia of skin
CPT/HCPCS: 95886; 95911

== ENCOUNTER → 2024-12-11 13:39 | Outpatient (BNV) | payer OTHER, SELFPAY | PROVIDERS: PCP Physician Assistant Medical; Visit Provider Physical Medicine & Rehabilitation | DX: G56.03 Carpal tunnel syndrome, bilateral upper limbs (principal) | CPT/HCPCS: 95886; 95911 ==